=== PATIENT | female | born 1930 | race Caucasian/White ===

== ENCOUNTER 2016-02-23 12:44 | Outpatient (RCR) | payer MEDICARE ==
--- OUTSIDE RECORDS SUMMARY | 2016-01-31 10:48 | XMS REPORT | Continuity of Care Document ---
Author Author [facility] Organization [facility] Address Unknown Phone Unavailable Care Team Providers Care Management Supervisor Name Role Phone Jean Paul Garcia PCP Unavailable Source Comments Some departments are not documenting in the electronic medical record. If you do not see the information that you expected, contact Release of Information in the Health Information Management department at [phone] for further assistance in locating additional records.[facility] Active Allergies and Adverse Reactions Allergen Noted Date Severity Reactions Comments Codeine 12/11/2012 NAUSEA AND VOMITING Demerol 12/11/2012 NAUSEA AND VOMITING Current Medications Prescription Sig. Disp. Refills Start End Date Status Date esomeprazole DR(+) Take 40 mg by mouth twice Active (NEXIUM) 40 mg capsule daily. imatinib (GLEEVEC) 400 mg Take 400 mg by mouth Active tab daily with lunch. simvastatin (ZOCOR) 40 mg Take 40 mg by mouth at Active tablet bedtime daily. traZODone (DESYREL) 50 mg Take 50 mg by mouth at Active tablet bedtime daily. fish oil /omega-3 fatty Take 1 Cap by mouth Active acids (SEA-OMEGA) daily. 340/1000 mg capsule Vitamin C-Vitamin E Take by mouth. 4200 mg Active (CRANBERRY CONCENTRATE) every am cap folic acid 400 mcg tablet Take 400 mcg by mouth Active daily. other medication 1 Dose daily. Viactive Active levothyroxine (SYNTHROID) Take 88 mcg by mouth Active 88 mcg tablet daily. ALPRAZolam (XANAX) 0.25 Take 0.125 mg by mouth Active mg tablet daily. FLUoxetine (PROZAC) 20 mg Take 20 mg by mouth Active capsule daily. FLUoxetine (PROZAC) 10 mg Take 10 mg by mouth Active capsule daily. nitroglycerin (NITROSTAT) Place 0.4 mg under tongue Active 0.4 mg tablet every 5 minutes as needed. oxybutynin (DITROPAN) 5 Take 5 mg by mouth three Active mg tablet times daily. sucralfate(+) (CARAFATE) Take 1 g by mouth every 6 Active 100 mg/mL oral suspension hours. aspirin 81 mg chewable Take 81 mg by mouth Active tablet daily. polyethylene glycol 3350 Take 17 g by mouth daily. 3 Bottle 0 Active (GLYCOLAX; MIRALAX) 17 13 gram/dose powder lidocaine (LIDODERM) 5 % apply to painful area as 30 Patch 0 01/14/20 Active topical patch needed for 12 hours, then 13 remove. oxyCODone (ROXICODONE) 1 Take 5 mL by mouth every 1 Bottle 0 01/14/20 Active mg/mL oral solution 4 hours as needed 13 acetaminophen(+) 650 mg Take 1 Tab by mouth every 40 Tab 0 01/14/20 Active tablet [address] Take 40 mg by mouth Active (PROTONIX) 40 mg tablet daily. dronabinol (MARINOL) 2.5 Take 1 Cap by mouth at 30 Cap 3 05/01/19 Active mg capsule bedtime daily. 14 Active Problems Problem Noted Date Chest pain 12/31/2012 Hiatal hernia 12/31/2012 Hyperlipidemia 12/19/2012 CAD (coronary artery disease) 12/19/2012 Overview: 2008-2 stents in 1 vessel Elevated blood pressure 12/19/2012 CML (chronic myelocytic leukemia) (HCC) 12/19/2012 Overview: Gleevec since ~2008 Gastric cancer (HCC) 12/17/2012 Immunizations Name Dates Previously Given Next Due Pneumococcal Vaccine 01/12/2013 (23-Lia Adult) Social History Tobacco Use Types Packs/Day Years Used Date Never Smoker Smokeless Tobacco: Never Used Alcohol Use Drinks/Week oz/Week Comments No Last Filed Vital Signs Vital Sign Reading Time Taken Blood Pressure 154/58 04/30/2013 1:26 PM CDT Pulse 81 04/30/2013 1:26 PM CDT Temperature 36.7 C (98.1 F) 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
[2016-01-31 11:11] LABS: BASOPHILS % (AUTO) 0 % (0-10); EOSINOPHILS # (AUTO) 0.1 10^3/uL (0.0-0.3); EOSINOPHILS % (AUTO) 1 % (0-10); LYMPHOCYTES # (AUTO) 1.2 X 10^3 (1.0-4.0); LYMPHOCYTES % (AUTO) 17 % (12-44); MEAN CORPUSCULAR HEMOGLOBIN 33 PG (25-34); MEAN CORPUSCULAR HGB CONC 34 G/DL (32-36); MEAN CORPUSCULAR VOLUME 98 FL (80-99); MONOCYTES # (AUTO) 0.4 X 10^3 (0.0-1.0); MONOCYTES % (AUTO) 6 % (0-12); NEUTROPHILS # (AUTO) 5.4 X 10^3 (1.8-7.8); NEUTROPHILS % (AUTO) 76 % (42-75); PLATELET COUNT 305 10^3/uL (130-400); RED BLOOD COUNT 3.14 10^6/uL (4.35-5.85); RED CELL DISTRIBUTION WIDTH 13.6 % (10.0-14.5); RETICULOCYTE % 1.38 % (0.50-2.40); WHITE BLOOD COUNT 7.1 10^3/uL (4.3-11.0)
[2016-01-31 11:45] LABS: ALANINE AMINOTRANSFERASE 15 U/L (0-55); ALBUMIN 3.5 G/DL (3.2-4.5); ANION GAP 7 MMOL/L (5-14); ASPARTATE AMINO TRANSFERASE 30 U/L (5-34); BILIRUBIN,TOTAL 0.5 MG/DL (0.1-1.0); BLOOD UREA NITROGEN 8 MG/DL (7-18); BUN/CREATININE RATIO 10; CALCIUM 8.7 MG/DL (8.5-10.1); CARBON DIOXIDE 21 MMOL/L (21-32); CHLORIDE 108 MMOL/L (98-107); CREATININE SERUM 0.82 MG/DL (0.60-1.30); GFR ESTIMATED > 60; GLUCOSE 91 MG/DL (70-105); LACTATE DEHYDROGENASE 245 U/L (125-220); POTASSIUM 4.1 MMOL/L (3.6-5.0); SODIUM 136 MMOL/L (135-145); TOTAL PROTEIN 5.9 G/DL (6.4-8.2)
[2016-01-31 14:20] LABS: %SAT TOTAL IRON BINDING CAPIC 30 % (15-50); TIBC 230 ug/dL (280-380)
[2016-01-31 15:58] LABS: UIBC 162 ug/dL (55-450)
[2016-02-01 07:55] LABS: FERRITIN 104 ng/mL (15-150)
[2016-02-03 08:05] LABS: METHYLMALONIC ACID 0.16 umol/L (0.00-0.40)
[2016-02-07 09:54] LABS: BCR ABL GENE QT SEE FOOTNOTE
[~2016-02-23 12:44] MED LIST: AC325T PO; ALPR.25T PO; ALPR.5T PO; ALPR0.5T22; ASP81TEC PO; ASPI-84; ASPIRIN; ATEN25TA; CALC-656 PO; CALC-793; CEPH-38; CLOP75TA; COUMADIN; CRAN1TAB PO; FAMO20TA5 PO; FLUO10CA5; FLUO20CA25 PO; FLUO40CA; FLX10C PO; FOLI0.4T2; FOLI0.8T PO; GARL400T13; IMAT400T2; IPRA3AMP11 INH; LD5PT TOP; LEVO75TA57; LOPE2CAP29 PO; LVT.088T PO; MULT1TAB63 PO; NF-ESOM40C PO; NITR0.4T12 SL; NITR100C3 PO; NS10S IV; NTR.4SL SL; OMEP20CA6; OMG1KC; OMG1KC PO; OXB5T PO; OXYB5TAB9 PO; PNT40TEC PO; SCR1T PO; SIMV40TA2 PO; SIMV80TA3; STOOL SOFTENER; TRAM50TA2 PO; TRAZ50TA67 PO; TRM50T; WARF6TAB; WARF7.5T; WRF2.5T; WRF5T; [UNRECOGNIZED DRUG - OTHER]; [UNRECOGNIZED DRUG - REMARK] TP
== END 2016-04-30 | disposition home or self-care (01) ==
LOC: ONC 12:44
PROVIDERS: ATTEND Internal Medicine Hematology & Oncology
DX: C92.10 Chronic myeloid leukemia, BCR/ABL-positive, not having achieved remission (principal); C16.3 Malignant neoplasm of pyloric antrum; D53.9 Nutritional anemia, unspecified; R19.7 Diarrhea, unspecified; M81.0 Age-related osteoporosis without current pathological fracture; Z79.899 Other long term (current) drug therapy
CPT/HCPCS: 36415; 80053; 81206; 82378; 82728; 83540; 83615; 83921; 84443; 85025; 85045; 99213

== ENCOUNTER 2016-08-08 11:23 | Outpatient (RCR) | payer MEDICARE ==
[2016-05-24 13:53] LABS: BASOPHILS % (AUTO) 1 % (0-10); EOSINOPHILS # (AUTO) 0.2 10^3/uL (0.0-0.3); EOSINOPHILS % (AUTO) 4 % (0-10); LYMPHOCYTES # (AUTO) 1.5 X 10^3 (1.0-4.0); LYMPHOCYTES % (AUTO) 36 % (12-44); MEAN CORPUSCULAR HEMOGLOBIN 33 PG (25-34); MEAN CORPUSCULAR HGB CONC 34 G/DL (32-36); MEAN CORPUSCULAR VOLUME 98 FL (80-99); MEAN PLATELET VOLUME 10.1 FL (7.4-10.4); MONOCYTES # (AUTO) 0.3 X 10^3 (0.0-1.0); MONOCYTES % (AUTO) 7 % (0-12); NEUTROPHILS # (AUTO) 2.1 X 10^3 (1.8-7.8); NEUTROPHILS % (AUTO) 52 % (42-75); PLATELET COUNT 223 10^3/uL (130-400); RED BLOOD COUNT 3.12 10^6/uL (4.35-5.85); RED CELL DISTRIBUTION WIDTH 13.7 % (10.0-14.5); WHITE BLOOD COUNT 4.1 10^3/uL (4.3-11.0)
[2016-05-24 14:19] LABS: BILIRUBIN,TOTAL 0.4 MG/DL (0.1-1.0); CALCIUM 8.4 MG/DL (8.5-10.1); CREATININE SERUM 0.94 MG/DL (0.60-1.30); POTASSIUM 4.5 MMOL/L (3.6-5.0)
[2016-05-24 14:20] LABS: ALBUMIN 3.7 G/DL (3.2-4.5); TOTAL PROTEIN 6.4 G/DL (6.4-8.2)
[2016-05-31 08:28] LABS: BCR ABL GENE QT SEE FOOTNOTE
[~2016-08-08 11:23] MED LIST changes: +morphine INJ 10 MG/ML 1ML (SYR OR VIAL) ONE
[2016-08-08 11:46] LABS: KETONES,URINE 1+ (NEGATIVE); LEUKOCYTE ESTERASE ,URINE 3+ (NEGATIVE); NITRITE,URINE POSITIVE (NEGATIVE); PH,URINE 6 (5-9); PROTEIN,URINE 3+ (NEGATIVE); UROBILINOGEN,URINE 4 MG/DL (NORMAL)
[2016-08-08 12:02] LABS: BILIRUBIN,URINE 1+ (NEGATIVE); WBC,URINE 50-100 /HPF
== END 2016-08-22 | disposition home or self-care (01) ==
LOC: ONC 11:23
PROVIDERS: ATTEND Internal Medicine Hematology & Oncology
DX: C92.10 Chronic myeloid leukemia, BCR/ABL-positive, not having achieved remission (principal); C16.3 Malignant neoplasm of pyloric antrum; D53.9 Nutritional anemia, unspecified; E03.9 Hypothyroidism, unspecified; N39.0 Urinary tract infection, site not specified; N18.3 Chronic kidney disease, stage 3 (moderate); M81.0 Age-related osteoporosis without current pathological fracture; I08.3 Combined rheumatic disorders of mitral, aortic and tricuspid valves; I25.10 Atherosclerotic heart disease of native coronary artery without angina pectoris; R19.7 Diarrhea, unspecified; Z79.899 Other long term (current) drug therapy
CPT/HCPCS: 36415; 80053; 81000; 81206; 85025; 87088; 87186; 99213

== ENCOUNTER 2016-09-13 12:41 | Outpatient (RCR) | payer MEDICARE ==
[2016-08-30 14:03] LABS: BASOPHILS % (AUTO) 1 % (0-10); EOSINOPHILS # (AUTO) 0.2 10^3/uL (0.0-0.3); EOSINOPHILS % (AUTO) 5 % (0-10); LYMPHOCYTES # (AUTO) 1.3 X 10^3 (1.0-4.0); LYMPHOCYTES % (AUTO) 34 % (12-44); MEAN CORPUSCULAR HGB CONC 33 G/DL (32-36); MEAN CORPUSCULAR VOLUME 98 FL (80-99); MEAN PLATELET VOLUME 8.7 FL (7.4-10.4); MONOCYTES # (AUTO) 0.4 X 10^3 (0.0-1.0); MONOCYTES % (AUTO) 11 % (0-12); NEUTROPHILS # (AUTO) 1.9 X 10^3 (1.8-7.8); NEUTROPHILS % (AUTO) 49 % (42-75); PLATELET COUNT 232 10^3/uL (130-400); RED BLOOD COUNT 3.08 10^6/uL (4.35-5.85); WHITE BLOOD COUNT 3.9 10^3/uL (4.3-11.0)
[2016-08-30 14:05] LABS: MEAN CORPUSCULAR HEMOGLOBIN 32 PG (25-34)
[2016-08-30 14:36] LABS: ALANINE AMINOTRANSFERASE 20 U/L (0-55); ALBUMIN 3.5 GM/DL (3.2-4.5); ANION GAP 7 MMOL/L (5-14); ASPARTATE AMINO TRANSFERASE 32 U/L (5-34); BILIRUBIN,TOTAL 0.3 MG/DL (0.1-1.0); BLOOD UREA NITROGEN 9 MG/DL (7-18); BUN/CREATININE RATIO 10; CALCIUM 8.6 MG/DL (8.5-10.1); CARBON DIOXIDE 26 MMOL/L (21-32); CHLORIDE 101 MMOL/L (98-107); CREATININE SERUM 0.88 MG/DL (0.60-1.30); GFR ESTIMATED > 60; GLUCOSE 94 MG/DL (70-105); LACTATE DEHYDROGENASE 185 U/L (125-220); POTASSIUM 4.5 MMOL/L (3.6-5.0); SODIUM 134 MMOL/L (135-145); TOTAL PROTEIN 6.4 GM/DL (6.4-8.2)
[2016-09-07 06:44] LABS: BCR ABL GENE QT See Report
[~2016-09-13 12:41] MED LIST changes: -morphine INJ 10 MG/ML 1ML (SYR OR VIAL) ONE
[2016-09-13 14:33] LABS: BILIRUBIN,URINE NEGATIVE (NEGATIVE); KETONES,URINE 2+ (NEGATIVE); LEUKOCYTE ESTERASE ,URINE 3+ (NEGATIVE); NITRITE,URINE NEGATIVE (NEGATIVE); PH,URINE 7 (5-9); PROTEIN,URINE 1+ (NEGATIVE); UROBILINOGEN,URINE 1 MG/DL (NORMAL)
[2016-09-13 14:37] LABS: WBC,URINE 50-100 /HPF
== END 2016-11-18 | disposition home or self-care (01) ==
LOC: ONC 12:41
PROVIDERS: ATTEND Internal Medicine Hematology & Oncology
DX: C92.10 Chronic myeloid leukemia, BCR/ABL-positive, not having achieved remission (principal); C16.3 Malignant neoplasm of pyloric antrum; D53.9 Nutritional anemia, unspecified; R19.7 Diarrhea, unspecified; M81.0 Age-related osteoporosis without current pathological fracture; Z79.899 Other long term (current) drug therapy
CPT/HCPCS: 36415; 80053; 81000; 81206; 82378; 83615; 85025; 87077; 87088; 87186; 99213

== ENCOUNTER → 2016-09-19 | Outpatient (CLI) | payer MEDICARE ==
[~2016-09-19] MED LIST changes: +BARIUM SUSPENSION 2.1% (VANILLA SILQ) 450 ML PO ONE; +IOHEXOL 350 MG/ML 100 ML (OMNIPAQUE 350) VIAL IV ONE; +NS 100 ML (IVPB) BAG IV ONE
--- NOTE | 2016-09-19 16:34 | Diagnostic Imaging Report ---
PROCEDURE: CT chest and abdomen with contrast. TECHNIQUE: Multiple contiguous axial images were obtained through the chest and abdomen after the administration of intravenous contrast. INDICATION: History of gastric cancer and chronic myeloid leukemia. Surveillance imaging. COMPARISON: CT abdomen and pelvis of 08/25/2015. CT CHEST FINDINGS: No endoluminal lesion in the trachea or central bronchi. No pulmonary mass or consolidation. Unchanged biapical subpleural scarring. No suspicious pulmonary nodule. No pleural effusion or pneumothorax. Visualized thyroid is normal. No supraclavicular or axillary lymphadenopathy. No mediastinal, hilar or juxtaphrenic lymphadenopathy. Unchanged mild circumferential wall thickening of the distal esophagus. Stable borderline cardiomegaly without pericardial effusion. Normal-caliber thoracic aorta with moderate atherosclerotic plaquing. No concerning focal osseous lesions in the thorax to suggest skeletal metastasis. IMPRESSION: 1. Stable CT chest without evidence of metastatic disease. 2. Chronic circumferential wall thickening of the distal esophagus is unchanged. 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 No upper abdominal lymphadenopathy. The liver and spleen are normal. Status post cholecystectomy. No biliary duct dilatation. Pancreas is normal. No adrenal mass. Stable exophytic cyst in the lower pole of the right kidney. No suspicious renal mass on either side. No obstructive uropathy. Visualized bowel loops are normal in caliber without obstruction. IMPRESSION: 1. 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 No evidence of local recurrence or metastatic disease in the abdomen. Dictated by: Dictated on workstation # [id number]
== END ==
LOC: RAD 13:26
PROVIDERS: ATTEND Nurse Practitioner Adult Health
DX: Z98.0 Intestinal bypass and anastomosis status (principal); N28.1 Cyst of kidney, acquired; C92.10 Chronic myeloid leukemia, BCR/ABL-positive, not having achieved remission; Z90.49 Acquired absence of other specified parts of digestive tract; Z85.028 Personal history of other malignant neoplasm of stomach
CPT/HCPCS: 71260; 74160

== ENCOUNTER 2016-09-21 05:48 | Outpatient (CLI) | payer MEDICARE ==
[~2016-09-21] VITALS: Ht 157.5 cm; Wt 49.4 kg
[~2016-09-21 05:48] MED LIST changes: -BARIUM SUSPENSION 2.1% (VANILLA SILQ) 450 ML PO ONE; -IOHEXOL 350 MG/ML 100 ML (OMNIPAQUE 350) VIAL IV ONE; -NS 100 ML (IVPB) BAG IV ONE
== END 2016-09-21 11:12 ==
LOC: PREOP 05:48
PROVIDERS: ATTEND Surgery
DX: Z01.818 Encounter for other preprocedural examination (principal); Z85.028 Personal history of other malignant neoplasm of stomach

== ENCOUNTER 2016-12-05 13:26 | Outpatient (RCR) | payer MEDICARE ==
[2016-11-21 13:20] LABS: BASOPHILS % (AUTO) 1 % (0-10); EOSINOPHILS # (AUTO) 0.2 10^3/uL (0.0-0.3); EOSINOPHILS % (AUTO) 4 % (0-10); HEMATOCRIT 28 % (35-52); HEMOGLOBIN 9.3 G/DL (11.5-16.0); LYMPHOCYTES # (AUTO) 1.1 X 10^3 (1.0-4.0); LYMPHOCYTES % (AUTO) 27 % (12-44); MEAN CORPUSCULAR HEMOGLOBIN 33 PG (25-34); MEAN CORPUSCULAR HGB CONC 34 G/DL (32-36); MEAN CORPUSCULAR VOLUME 97 FL (80-99); MEAN PLATELET VOLUME 9.7 FL (7.4-10.4); MONOCYTES # (AUTO) 0.4 X 10^3 (0.0-1.0); MONOCYTES % (AUTO) 9 % (0-12); NEUTROPHILS # (AUTO) 2.4 X 10^3 (1.8-7.8); NEUTROPHILS % (AUTO) 59 % (42-75); PLATELET COUNT 210 10^3/uL (130-400); RED BLOOD COUNT 2.83 10^6/uL (4.35-5.85); RED CELL DISTRIBUTION WIDTH 14.1 % (10.0-14.5); WHITE BLOOD COUNT 4.1 10^3/uL (4.3-11.0)
[2016-11-21 13:40] LABS: ALBUMIN 3.5 GM/DL (3.2-4.5); BILIRUBIN,TOTAL 0.3 MG/DL (0.1-1.0); CALCIUM 8.4 MG/DL (8.5-10.1); CREATININE SERUM 1.09 MG/DL (0.60-1.30); POTASSIUM 4.4 MMOL/L (3.6-5.0); TOTAL PROTEIN 6.6 GM/DL (6.4-8.2)
[2016-12-05 14:50] LABS: ABSOLUTE RETIC # 36 10e9/L (24-90); BASOPHILS % (AUTO) 0 % (0-10); EOSINOPHILS # (AUTO) 0.2 10^3/uL (0.0-0.3); EOSINOPHILS % (AUTO) 4 % (0-10); HEMATOCRIT 30 % (35-52); LYMPHOCYTES # (AUTO) 1.7 X 10^3 (1.0-4.0); LYMPHOCYTES % (AUTO) 34 % (12-44); MEAN CORPUSCULAR HEMOGLOBIN 32 PG (25-34); MEAN CORPUSCULAR HGB CONC 33 G/DL (32-36); MEAN CORPUSCULAR VOLUME 97 FL (80-99); MEAN PLATELET VOLUME 10.2 FL (7.4-10.4); MONOCYTES # (AUTO) 0.5 X 10^3 (0.0-1.0); MONOCYTES % (AUTO) 10 % (0-12); NEUTROPHILS # (AUTO) 2.5 X 10^3 (1.8-7.8); NEUTROPHILS % (AUTO) 52 % (42-75); PLATELET COUNT 227 10^3/uL (130-400); RED BLOOD COUNT 3.13 10^6/uL (4.35-5.85); RETICULOCYTE % 1.16 % (0.50-2.40); WHITE BLOOD COUNT 4.9 10^3/uL (4.3-11.0)
[2016-12-05 15:08] LABS: CALCIUM 8.9 MG/DL (8.5-10.1); CREATININE SERUM 1.08 MG/DL (0.60-1.30); POTASSIUM 4.2 MMOL/L (3.6-5.0)
== END 2017-02-19 | disposition home or self-care (01) ==
LOC: ONC 13:26
PROVIDERS: ATTEND Internal Medicine Hematology & Oncology
DX: C92.10 Chronic myeloid leukemia, BCR/ABL-positive, not having achieved remission (principal); C16.3 Malignant neoplasm of pyloric antrum; D53.9 Nutritional anemia, unspecified; R19.7 Diarrhea, unspecified; M81.0 Age-related osteoporosis without current pathological fracture; E03.9 Hypothyroidism, unspecified; N18.3 Chronic kidney disease, stage 3 (moderate); I08.3 Combined rheumatic disorders of mitral, aortic and tricuspid valves; I25.10 Atherosclerotic heart disease of native coronary artery without angina pectoris; Z79.899 Other long term (current) drug therapy
CPT/HCPCS: 80048; 80053; 81206; 82306; 82378; 82728; 83540; 83615; 85025; 85045; 99213

== ENCOUNTER 2017-11-14 11:31 | Emergency (ER) | payer MEDICARE ==
[~2017-11-14] VITALS: Ht 157.5 cm; Wt 46.7 kg
--- OUTSIDE RECORDS SUMMARY | 2017-11-14 11:37 | XMS REPORT | Clinical Summary ---
Author Author [facility] Organization [facility] Address Unknown Phone Unavailable Care Team Providers Care Freight Rate Specialist Name Role Phone Beba Jacinto RN Unavailable Unavailable Nora Hope APRN Unavailable Nomi Bourgeois MD Unavailable Jean Paul Garcia MD PCP Unavailable Candido Diaz MD Unavailable Dominique Guardado RN Unavailable Unavailable Shawanda Alcaraz RD Unavailable Joseph Grijalva MD Unavailable Viola Rosario Unavailable Unavailable Source Comments Some departments are not documenting in the electronic medical record. If you do not see the information that you expected, contact Release of Information in the Health Information Management department at [phone] for further assistance in locating additional records.[facility] Allergies Active Allergy Reactions Severity Noted Date Comments Codeine NAUSEA AND VOMITING 12/11/2012 Meperidine NAUSEA AND VOMITING 12/11/2012 Current Medications Prescription Sig. Disp. Refills Start [...] g by mouth daily. 3 Bottle 0 01/13/ 20 Active (GLYCOLAX; MIRALAX) 17 13 gram/dose powder lidocaine (LIDODERM) 5 % apply to painful area as 30 Patch 0 01/14/20 Active topical patch needed for 12 hours, then 13 remove. oxyCODone (ROXICODONE) 1 Take 5 mL by mouth every 1 Bottle 0 20 Active mg/mL oral solution 4 hours as needed 13 acetaminophen(+) 650 mg Take 1 Tab by mouth every 40 Tab 0 20 Active tablet [address] Take 40 mg by mouth Active (PROTONIX) 40 mg tablet daily. dronabinol (MARINOL) 2.5 Take 1 Cap by mouth at 30 Cap 3 05/01/19 Active mg capsule bedtime daily. 14 Active Problems Problem Noted Date Chest pain 12/31/2012 Hiatal hernia 12/31/2012 Hyperlipidemia 12/19/2012 CAD (coronary artery disease) 12/19/2012 Overview: 2009-2 stents in 1 vessel Elevated blood pressure 12/19/2012 CML (chronic myelocytic leukemia) (HCC) 12/19/2012 Overview: Gleevec since ~2008 Gastric cancer (HCC) 12/17/2012 Immunizations Name Dates Previously Given Next Due Pneumococcal Vaccine 01/12/2013 (23-Lia Adult) Social History Tobacco Use Types Packs/Day Years Used Date Never Smoker Smokeless Tobacco: Never Used Alcohol Use Drinks/Week oz/Week Comments No Sex Assigned at Date Recorded Not on file Last Filed Vital Signs Vital Sign Reading Time Taken Blood Pressure 154/58 04/30/2013 1:26 PM CDT Pulse 81 04/30/2013 1:26 PM CDT Temperature 36.7 C (98.1 F) 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 Respiratory Rate - - Oxygen Saturation 100% 04/30/2013 1:26 PM CDT Inhaled Oxygen - - Concentration Weight 58 kg (127 lb 12.8 oz) 05/02/2013 2:00 PM CDT Height 158.5 cm (5' 2.4") 05/02/2013 2:00 PM CDT Body Mass Index 23.07 05/02/2013 2:00 PM CDT Plan of Treatment Health Maintenance Due Date Last Done Comments PHYSICAL (COMPREHENSIVE) 1937 EXAM PERTUSSIS VACCINE 1941 TETANUS VACCINE 11/08/1947 SHINGLES RECOMBINANT 1980 VACCINE (1 of 2) OSTEOPOROSIS SCREENING 11/08/1995 PNEUMONIA (PCV13/PPSV23) 01/12/2014 01/12/2013 VACCINES (2 of 2 - PCV13) INFLUENZA VACCINE 11/19/2017 Results Not on filefrom Last 3 Months
--- OUTSIDE RECORDS SUMMARY | 2017-11-14 11:43 | XMS REPORT | Continuity of Care Document ---
Author Author [facility] Organization [facility] Address Unknown Phone Unavailable Allergies Active Description Code Type Severity Reaction Onset Reported/Identified Relationship to Patient Clinical Status Yes propoxyphene [id number] Drug Allergy Mild N/A 09/21/2016 Yes codeine [id number] Drug Allergy Unknown N/A 09/21/2016 Yes meperidine [id number] Drug Allergy Unknown N/A 09/21/2016 Medications There is no data. 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 03/22/2010 Ot 205.10 CHRONIC MYELOID LEUKEMIA, W/O MENTION AC 03/22/2010 Ot 427.31 ATRIAL FIBRILLATION 03/22/2010 Ot 733.00 OSTEOPOROSIS NOS 03/22/2010 Ot V58.61 ANTICOAGULANTS,LT,CURRENT USE 07/03/2010 Ot 205.10 CHRONIC MYELOID LEUKEMIA, W/O MENTION AC 07/03/2010 Ot 427.31 ATRIAL FIBRILLATION 07/03/2010 Ot 733.00 OSTEOPOROSIS NOS 07/03/2010 Ot V58.61 ANTICOAGULANTS,LT,CURRENT USE 07/03/2010 Ot V58.69 OTH MED,LT, CURRENT USE 10/31/2010 Ot 205.10 CHRONIC MYELOID LEUKEMIA, W/O MENTION AC 10/31/2010 Ot 427.31 ATRIAL FIBRILLATION 10/31/2010 Ot 564.1 IRRITABLE BOWEL SYNDROME 10/31/2010 Ot 733.00 OSTEOPOROSIS NOS 10/31/2010 Ot 780.79 OTH MALAISE FATIGUE 10/31/2010 Ot 786.09 RESPIRATORY ABNORM NEC 10/31/2010 Ot 787.1 HEARTBURN 10/31/2010 Ot 788.41 URINARY FREQUENCY 10/31/2010 Ot V58.69 OTH MED,LT, CURRENT USE 04/05/2011 Ot 205.10 CHRONIC MYELOID LEUKEMIA, W/O MENTION AC 04/05/2011 Ot 427.31 ATRIAL FIBRILLATION 04/05/2011 Ot 564.1 IRRITABLE BOWEL SYNDROME 04/05/2011 Ot 733.00 OSTEOPOROSIS NOS 04/05/2011 Ot 780.79 OTH MALAISE FATIGUE 04/05/2011 Ot 786.09 RESPIRATORY ABNORM NEC 04/05/2011 Ot 787.1 HEARTBURN 04/05/2011 Ot V58.69 OTH MED,LT, CURRENT USE 07/03/2011 Ot 205.10 CHRONIC MYELOID LEUKEMIA, W/O MENTION AC 07/03/2011 Ot 285.9 ANEMIA NOS 07/03/2011 Ot 427.31 ATRIAL FIBRILLATION 07/03/2011 Ot 564.1 IRRITABLE BOWEL SYNDROME 07/03/2011 Ot 599.0 URIN TRACT INFECTION NOS 07/03/2011 Ot 733.00 OSTEOPOROSIS NOS 07/03/2011 Ot 780.79 OTH MALAISE FATIGUE 07/03/2011 Ot 786.09 RESPIRATORY ABNORM NEC 07/03/2011 Ot 787.1 HEARTBURN 07/03/2011 Ot V58.69 OTH MED,LT, CURRENT USE 10/02/2011 Ot 205.10 CHRONIC MYELOID LEUKEMIA, W/O MENTION AC 10/02/2011 Ot 427.31 ATRIAL FIBRILLATION 10/02/2011 Ot 599.0 URIN TRACT INFECTION NOS 10/02/2011 Ot 733.00 OSTEOPOROSIS NOS 10/02/2011 Ot V58.69 OTH MED,LT, CURRENT USE 01/03/2012 Ot 205.10 CHRONIC MYELOID LEUKEMIA, W/O MENTION AC 01/03/2012 Ot 427.31 ATRIAL FIBRILLATION 01/03/2012 Ot 585.3 CHRONIC KIDNEY DISEASE, STAGE III (MODER 01/03/2012 Ot 733.00 OSTEOPOROSIS NOS 01/03/2012 Ot V13.02 PERSONAL HISTORY, URINARY (TRACT) INFECT 01/03/2012 Ot V58.69 OTH MED,LT, CURRENT USE 07/24/2012 Ot 205.10 CHRONIC MYELOID LEUKEMIA, W/O MENTION AC 07/24/2012 Ot 427.31 ATRIAL FIBRILLATION 07/24/2012 Ot 733.00 OSTEOPOROSIS NOS 07/24/2012 Ot V58.69 OTH MED,LT, CURRENT USE 11/11/2012 VELVET FAUST, JULISSA Correia Ot 244.9 HYPOTHYROIDISM NOS 11/11/2012 JULISSA VERDIN MD Ot 272.4 HYPERLIPIDEMIA NEC/NOS 11/11/2012 JULISSA VERDIN MD Ot 414.00 CORON ATHEROSCLER NOS TYPE VESSEL, NATIV 11/11/2012 JULISSA VERDIN MD Ot 530.81 ESOPHAGEAL REFLUX 11/11/2012 JULISSA VERDIN MD Ot 553.3 DIAPHRAGMATIC HERNIA 11/11/2012 JULISSA VERDIN MD Ot V45.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 BYPASS 02/10/2013 TANNER FAUST, GIORGI E Ot 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.9 MALIG NEOPL STOMACH NOS 02/10/2013 TANNER FAUST, GIORGI E Ot 205.10 CHRONIC MYELOID LEUKEMIA, W/O MENTION AC 02/10/2013 TANNER FAUST, GIORGI E Ot 244.9 HYPOTHYROIDISM NOS 02/10/2013 TANNER FAUST, GIORGI E Ot 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 02/10/2013 GIORGI HART MD E Ot 272.4 HYPERLIPIDEMIA NEC/NOS 02/10/2013 TANNER FAUST, GIORGI E Ot 285.9 ANEMIA NOS 02/10/2013 TANNER FAUST, GIORGI E Ot 311 DEPRESSIVE DISORDER NEC 02/10/2013 TANNER FAUST, GIORGI E Ot 414.01 CORONARY ATHEROSCLEROSIS OF [place] CORON 02/10/2013 TANNER FAUST, GIORGI E Ot 511.9 PLEURAL EFFUSION NOS 02/10/2013 TANNER FAUST GIORGI E Ot 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 02/10/2013 TANNER FAUST GIORGI E Ot 518.51 ACUTE RESPIRATORY FAILURE FOLLOWING TRAU 02/10/2013 TANNER FAUST, GIORGI E Ot 518.89 OTHER DISEASES OF LUNG, NEC 02/10/2013 TANNER FAUST, GIORGI E Ot 560.1 PARALYTIC ILEUS 02/10/2013 TANNER FAUST GIORGI E Ot 564.1 IRRITABLE BOWEL SYNDROME 02/10/2013 TANENR FAUST GIORGI E Ot 599.0 URIN TRACT INFECTION NOS 02/10/2013 TANNER FAUST GIORGI E Ot 799.3 DEBILITY NOS 02/10/2013 GIORGI HART MD Ot V12.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 THROMBOSIS EMBOLISM 02/10/2013 GIORGI HART MD Ot V12.54 PERSONAL HX OF TIA, CEREBRAL INFARCTION 02/10/2013 GIORGI HART MD Ot V45.82 PERCUTANEOUS TRANSLUM CORON ANGIOPLASTY 02/10/2013 GIORGI HART MD Ot V57.89 REHABILITATION PROC [facility] 02/10/2013 GIORGI HART MD Ot V58.75 AFTERCARE POST SURGERY TEETH,ORAL CAVITY 02/26/2013 CLARISA BOBAN N Ot 205.10 CHRONIC MYELOID LEUKEMIA, W/O MENTION AC 02/26/2013 CLARISA, BOBAN N Ot 427.31 ATRIAL FIBRILLATION 02/26/2013 CLARISA, BOBAN N Ot 733.00 OSTEOPOROSIS NOS 02/26/2013 CLARISA, BOBAN N Ot V58.69 OTH MED,LT,CURRENT USE 07/06/2013 CLARISA, BOBAN N Ot 205.10 CHRONIC MYELOID LEUKEMIA, W/O MENTION AC 07/06/2013 CLARISA, BOBAN N Ot 427.31 ATRIAL FIBRILLATION 07/06/2013 CLARISA, BOBAN N Ot 733.00 OSTEOPOROSIS NOS 07/06/2013 CLARISA, BOBAN N Ot 787.91 DIARRHEA 07/06/2013 CLARISA, BOBAN N Ot V58.69 OTH MED,LT,CURRENT USE 10/07/2013 CLARISA, BOBAN N Ot 205.10 CHRONIC MYELOID LEUKEMIA, W/O MENTION AC 10/07/2013 CLARISA, BOBAN N Ot 427.31 ATRIAL FIBRILLATION 10/07/2013 CLARISA, BOBAN N Ot 733.00 OSTEOPOROSIS NOS 10/07/2013 CLARISA, BOBAN N Ot V58.69 OTH MED,LT,CURRENT USE 01/22/2014 CLARISA, BOBAN N Ot 205.10 CHRONIC MYELOID LEUKEMIA, W/O MENTION AC 01/22/2014 CLARISA, BOBAN N Ot 427.31 ATRIAL FIBRILLATION 01/22/2014 CLARISA, BOBAN N Ot 733.00 OSTEOPOROSIS NOS 01/22/2014 CLARISA, BOBAN N Ot V58.69 OTH MED,LT,CURRENT USE 01/29/2014 CLARISA, BOBAN N Ot 205.10 01/29/2014 CLARISA, BOBAN N Ot 427.31 01/29/2014 CLARISA, BOBAN N Ot 733.00 01/29/2014 CLARISA, BOBAN N Ot V58.69 02/05/2014 CLARISA, BOBAN N Ot 205.10 02/05/2014 CLARISA, BOBAN N Ot 427.31 02/05/2014 CLARISA, BOBAN N Ot 733.00 02/05/2014 CLARISA, BOBAN N Ot V58.69 02/06/2014 CLARISA, BOBAN N Ot 205.10 02/06/2014 CLARISA, BOBAN N Ot 427.31 02/06/2014 CLARISA, BOBAN N Ot 733.00 02/06/2014 CLARISA, BOBAN N Ot V58.69 03/19/2014 CLARISA, BOBAN N Ot 205.10 03/19/2014 CLARISA, BOBAN N Ot 427.31 03/19/2014 CLARISA, BOBAN N Ot 733.00 03/19/2014 CLARISA, BOBAN N Ot V58.69 03/20/2014 CLARISA, BOBAN N Ot 205.10 03/20/2014 CLARISA, BOBAN N Ot 427.31 03/20/2014 CLARISA, BOBAN N Ot 733.00 03/20/2014 CLARISA, BOBAN N Ot V58.69 03/26/2014 CLARISA, BOBAN N Ot 205.90 03/30/2014 CLARISA, BOBAN N Ot 205.90 05/06/2014 CLARISA, BOBAN N Ot 205.10 CHRONIC MYELOID LEUKEMIA, W/O MENTION AC 05/06/2014 CLARISA, BOBAN N Ot 427.31 ATRIAL FIBRILLATION 05/06/2014 CLARISA, BOBAN N Ot 733.00 OSTEOPOROSIS NOS 05/06/2014 CLARISA BOBAN N Ot V58.69 OT MED,LT,CURRENT USE 05/14/2014 DIXON BEGUM BRIM BUSTER Ot 205.10 05/14/2014 DIXON BEGUM BRIM BUSTER Ot 427.31 05/14/2014 DIXON BEGUM BRIM BUSTER Ot 733.00 05/14/2014 DIXON BEGUM BRIM BUSTER Ot V58.69 05/18/2014 VELVET FAUST, JULISSA Correia Ot 530.10 ESOPHAGITIS NOS 05/18/2014 VELVET FAUST, JULISSA Correia Ot 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 05/27/2014 CORRINE MCKENNA N Ot 205.10 05/27/2014 CLARISA, CORRINE N Ot 427.31 05/27/2014 CLARISA, CORRINE N Ot 733.00 05/27/2014 CLARISA, CORRINE N Ot V58.69 05/27/2014 CLARISA, CORRINE N Ot 205.10 05/27/2014 CLARISA, CORRINE N Ot 427.31 05/27/2014 CLARISA, CORRINE N Ot 733.00 05/27/2014 CLARISA, CORRINE N Ot V58.69 05/28/2014 CLARISA, CORRINE N Ot 205.10 05/28/2014 CLARISA, CORRINE N Ot 427.31 05/28/2014 CLARISA, CORRINE N Ot 733.00 05/28/2014 CLARISA, CORRINE N Ot V58.69 06/03/2014 CLARISA, CORRINE N Ot 205.10 06/03/2014 CLARISA, CORRINE N Ot 427.31 06/03/2014 CLARISA, CORRINE Burnett Ot 733.00 06/03/2014 CLARISA, CORRINE Burnett Ot V58.69 06/11/2014 ROD COVINGTON Ot 844.9 SPRAIN OF KNEE LEG NOS 06/11/2014 ROD COVINGTON Ot 845.00 SPRAIN OF ANKLE NOS 06/11/2014 ROD COVINGTON Ot 959.7 LOWER LEG INJURY NOS 06/11/2014 ROD COVINGTON Ot E000.8 OTHER EXTERNAL CAUSE STATUS 06/11/2014 ROD COVINGTON Ot E849.6 ACCIDENT IN PUBLIC BLDG 06/11/2014 ROD COVINGTON Ot E927.0 OVEREXERTION FROM SUDDEN STRENUOUS MOVEM 07/20/2014 CORRINE MCKENNA N Ot 205.10 07/20/2014 CLARISA, CORRINE N Ot 427.31 07/20/2014 CLARISA, CORRINE N Ot 733.00 07/20/2014 CLARISA, CORRINE N Ot V58.69 08/04/2014 CLARISA, CORRINE N Ot 205.10 08/04/2014 CLARISA, CORRINE N Ot 427.31 08/04/2014 CLARISA, CORRINE N Ot 733.00 08/04/2014 CLARISA, CORRINE N Ot V58.69 08/25/2014 CLARISA, BOBAN N Ot 205.10 CHRONIC MYELOID LEUKEMIA, W/O MENTION AC 08/25/2014 CLARISA, BOBAN N Ot 427.31 ATRIAL FIBRILLATION 08/25/2014 CLARISA, BOBAN N Ot 733.00 OSTEOPOROSIS NOS 08/25/2014 CLARISA, BOBAN N Ot 787.1 HEARTBURN 08/25/2014 CLARISA, BOBAN N Ot 787.91 DIARRHEA 08/25/2014 CLARISACORRINE N Ot 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 08/25/2014 CLARISA, BOBAN N Ot V58.69 OTH MED,LT,CURRENT USE 08/26/2014 CLARISA, BOBAN N Ot 151.9 08/27/2014 CLARISA, BOBAN N Ot 151.9 10/14/2014 CLARISA, BOBAN N Ot 205.10 10/14/2014 CLARISA, BOBAN N Ot 427.31 10/14/2014 CLARISA, BOBAN N Ot 733.00 10/14/2014 CLARISA, BOBAN N Ot 791.9 10/14/2014 CLARISA, BOBAN N Ot V58.69 11/10/2014 CLARISA, BOBAN N Ot 205.10 11/10/2014 CLARISA, BOBAN N Ot 427.31 11/10/2014 CLARISA, BOBAN N Ot 733.00 11/10/2014 CLARISA, BOBAN N Ot 791.9 11/10/2014 CLARISA, BOBAN N Ot V58.69 11/18/2014 CLARISA, BOBAN N Ot 205.10 CHRONIC MYELOID LEUKEMIA, W/O MENTION AC 11/18/2014 CLARISA, BOBAN N Ot 427.31 ATRIAL FIBRILLATION 11/18/2014 CLARISA, BOBAN N Ot 733.00 OSTEOPOROSIS NOS 11/18/2014 CLARISA, BOBAN N Ot 791.9 ABN URINE FINDINGS NEC 11/18/2014 CLARISA, BOBAN N Ot V58.69 OTH MED,LT,CURRENT USE 12/02/2014 DIXON BEGUM BRIM BUSTER Ot 205.10 12/02/2014 DIXON BEGUM BRIM BUSTER Ot 427.31 12/02/2014 DIXON BEGUM BRIM BUSTER Ot 733.00 12/02/2014 DIXON BEGUM BRIM BUSTER Ot V58.69 12/14/2014 DIXON BEGUM BRIM BUSTER Ot 205.10 12/14/2014 DIXON BEGUM BRIM BUSTER Ot 427.31 12/14/2014 DIXON BEGUM S BRIM BUSTER Ot 733.00 12/14/2014 DIXON BEGUM BRIM BUSTER Ot V58.69 02/04/2015 CORRINE MCKENNA N Ot 205.10 02/04/2015 CORRINE MCKENNA N Ot 427.31 02/04/2015 CORRINE MCKENNA N Ot 733.00 02/04/2015 CLARISACORRINE CALDERON N Ot 791.9 02/04/2015 CORRINE MCKENNA N Ot V58.69 03/17/2015 CORRINE MCKENNA N Ot C16.3 03/17/2015 CORRINE MCKENNA N Ot C92.10 03/17/2015 CORRINE MCKENNA N Ot D53.9 03/17/2015 CORRINE MCKENNA N Ot M81.0 03/17/2015 CORRINE MCKENNA N Ot R19.7 03/17/2015 CORRINE MCKENNA N Ot Z79.899 03/18/2015 DIXON BEGUM BRIM BUSTER Ot C16.3 03/18/2015 BEGUMDIXON Valdez S BRIM BUSTER Ot C92.10 03/18/2015 BEGUMDIXON Valdez S BRIM BUSTER Ot D53.9 03/18/2015 BEGUMDIXON Valdez S BRIM BUSTER Ot M81.0 03/18/2015 BEGUMDIXON Valdez S BRIM BUSTER Ot R19.7 03/18/2015 BEGUMDIXON Valdez S BRIM BUSTER Ot Z79.899 03/19/2015 BEGUMDIXON Valdez S BRIM BUSTER Ot C16.3 03/19/2015 BEGUMDIXON Valdez S BRIM BUSTER Ot C92.10 03/19/2015 BEGUMDIXON Valdez S BRIM BUSTER Ot D53.9 03/19/2015 BEGUMDIXON Valdez S BRIM BUSTER Ot M81.0 03/19/2015 BEGUMDIXON Valdez S BRIM BUSTER Ot R19.7 03/19/2015 BEGUMDIXON Valdez S BRIM BUSTER Ot Z79.899 05/04/2015 CORRINE MCKENNA N Ot 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 05/04/2015 CORRINE MCKENNA N Ot 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 MYELOID LEUK, BCR/ABL-POSITIVE, 05/04/2015 CORRINE MCKENNA Ot D53.9 NUTRITIONAL ANEMIA, UNSPECIFIED 05/04/2015 CORRINE MCKENNA N Ot M81.0 AGE-RELATED OSTEOPOROSIS W/O CURRENT PAT 05/04/2015 CORRINE MCKENNA Ot R19.7 DIARRHEA, UNSPECIFIED 05/04/2015 CORRINE MCKENNA N Ot Z79.899 OTHER [facility] (CURRENT) DRUG THERAPY 05/10/2015 CORRINE MCKENNA N Ot C16.3 05/10/2015 CLARISACORRINE CALDERON N Ot C92.10 05/10/2015 CLARISACORRINE CALDERON N Ot D53.9 05/10/2015 CLARISACORRINE CALDERON N Ot M81.0 05/10/2015 CLARISACORRINE CALDERON N Ot R19.7 05/10/2015 CORRINE MCKENNA N Ot Z79.899 05/18/2015 CORRINE MCKENNA N Ot C16.3 05/18/2015 CLARISACORRINE CALDERON N Ot C92.10 05/18/2015 CORRINE MCKENNA N Ot D53.9 05/18/2015 CORRINE MCKENNA N Ot M81.0 05/18/2015 CORRINE MCKENNA N Ot R19.7 05/18/2015 CORRINE MCKENNA N Ot Z79.899 06/07/2015 Ot V76.12 OTH SCREEN MAMMO-MALIGN NEOPLASM OF [place]KITA 06/07/2015 Ot 205.10 CHRONIC MYELOID LEUKEMIA, W/O MENTION AC 06/07/2015 Ot 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 06/07/2015 Ot 397.0 TRICUSPID VALVE DISEASE 06/07/2015 Ot 414.00 CORON ATHEROSCLER NOS TYPE VESSEL, NATIV 06/07/2015 Ot V87.41 PERSONAL HISTORY OF ANTINEOPLASTIC CHEMO 06/07/2015 Ot 733.00 OSTEOPOROSIS NOS 06/07/2015 Ot 733.90 BONE CARTILAGE DIS NOS 06/07/2015 Ot V76.12 OTH SCREEN MAMMO-MALIGN NEOPLASM OF [place] 06/07/2015 Ot 414.00 CORON ATHEROSCLER NOS TYPE VESSEL, NATIV 06/07/2015 Ot 786.09 RESPIRATORY ABNORM NEC 06/07/2015 Ot 599.0 URIN TRACT INFECTION NOS 06/07/2015 Ot 205.10 CHRONIC MYELOID LEUKEMIA, W/O MENTION AC 06/07/2015 Ot 585.3 CHRONIC KIDNEY DISEASE, STAGE III (MODER 06/07/2015 Ot 733.00 OSTEOPOROSIS NOS 06/07/2015 Ot V13.02 PERSONAL HISTORY, URINARY (TRACT) INFECT 06/07/2015 Ot V58.69 OTH MED,LT, CURRENT USE 06/07/2015 WILIAM JOSHUA DO Ot V76.12 OTH SCREEN MAMMO-MALIGN NEOPLASM OF [place] 06/07/2015 DIXON BEGUM BRIM BUSTER Ot 205.10 CHRONIC MYELOID LEUKEMIA, W/O MENTION AC 06/07/2015 BEGUMDIXON Valdez BRIM BUSTER Ot 427.31 ATRIAL FIBRILLATION 06/07/2015 BEGUMIDXON Valdez BRIM BUSTER Ot 585.3 CHRONIC KIDNEY DISEASE, STAGE III (MODER 06/07/2015 DIXON BEGUM BRIM BUSTER Ot V58.69 OTH MED,LT,CURRENT USE 06/07/2015 DIXON BEGUM BRIM BUSTER Ot 205.10 CHRONIC MYELOID LEUKEMIA, W/O MENTION AC 06/07/2015 BEGUMDIXON Valdez BRIM BUSTER Ot 427.31 ATRIAL FIBRILLATION 06/07/2015 DIXON BEGUM BRIM BUSTER Ot 585.3 CHRONIC KIDNEY DISEASE, STAGE III (MODER 06/07/2015 DIXON BEGUM BRIM BUSTER Ot 733.00 OSTEOPOROSIS NOS 06/07/2015 DIXON BEGUM BRIM BUSTER Ot V58.69 OTH MED,LT,CURRENT USE 06/07/2015 WILIAM JOSHUA DO Ot 530.81 ESOPHAGEAL REFLUX 06/07/2015 WILIAM JOSHUA DO Ot 553.3 DIAPHRAGMATIC HERNIA 06/07/2015 WILIAM JOSHUA DO Ot 593.9 RENAL URETERAL DIS NOS 06/07/2015 WILIAM JOSHUA DO Ot 787.3 FLATUL/ERUCTAT/GAS PAIN 06/07/2015 VELVET FAUST, JULISSA Correia Ot V72.84 EXAM PRE-OPERATIVE NOS 06/07/2015 CORRINE MCKENNA Ot 151.9 MALIG NEOPL STOMACH NOS 06/07/2015 CORRINE MCKENNA Ot 414.01 CORONARY ATHEROSCLEROSIS OF [place] CORON 06/07/2015 CORRINE MCKENNA Ot 429.3 CARDIOMEGALY 06/07/2015 CORRINE MCKENNA Ot 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 06/07/2015 RAMON DAMON BRIM BUSTER Ot 272.4 HYPERLIPIDEMIA NEC/NOS 06/07/2015 RAMON DAMON BRIM BUSTER Ot 414.00 CORON ATHEROSCLER NOS TYPE VESSEL, NATIV 06/07/2015 RAMON DAMON BRIM BUSTER Ot V72.84 EXAM PRE-OPERATIVE NOS 06/07/2015 WILIAM JOSHUA DO Ot 205.10 CHRONIC MYELOID LEUKEMIA, W/O MENTION AC 06/07/2015 DIXON BEGUM BRIM BUSTER Ot 205.10 CHRONIC MYELOID LEUKEMIA, W/O MENTION AC 06/07/2015 DIXON BEGUM BRIM BUSTER Ot 427.31 ATRIAL FIBRILLATION 06/07/2015 DIXON BEGUM BRIM BUSTER Ot 733.00 OSTEOPOROSIS NOS 06/07/2015 DIXON BEGUM BRIM BUSTER Ot 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 06/07/2015 DIXON BEGUMP Ot V58.69 OTH MED,LT,CURRENT USE 06/07/2015 DIXON BEGUM BRIM BUSTER Ot V67.00 UNSPEC SURGERY FOLLOW-UP EXAM 06/07/2015 DIXON BEGUM BRIM BUSTER Ot 205.10 CHRONIC MYELOID LEUKEMIA, W/O MENTION AC 06/07/2015 DIXON BEGUM BRIM BUSTER Ot 427.31 ATRIAL FIBRILLATION 06/07/2015 DIXON BEGUM BRIM BUSTER Ot 733.00 OSTEOPOROSIS NOS 06/07/2015 DIXON BEGUMP Ot V58.69 OTH MED,LT,CURRENT USE 06/07/2015 DIXON BEGUM BRIM BUSTER Ot 721.0 CERVICAL SPONDYLOSIS 06/07/2015 WILIAM JOSHUA DO Ot 530.81 ESOPHAGEAL REFLUX 06/07/2015 WILIAM JOSHUA DO Ot 783.21 LOSS OF WEIGHT 06/07/2015 WILIAM JOSHUA DO A Ot 786.2 COUGH 06/07/2015 WILIAM JOSHUA DO A Ot 793.19 OTHER NONSPECIFIC ABNORMAL FINDING OF BOB 06/07/2015 DIXON BEGUM BRIM BUSTER Ot 205.10 CHRONIC MYELOID LEUKEMIA, W/O MENTION AC 06/07/2015 DIXON BEGUM BRIM BUSTER Ot 427.31 ATRIAL FIBRILLATION 06/07/2015 DIXON BEGUM BRIM BUSTER Ot 733.00 OSTEOPOROSIS NOS 06/07/2015 DIXON BEGUM BRIM BUSTER Ot 791.9 ABN URINE FINDINGS NEC 06/07/2015 BEGUM, HILAH S BRIM BUSTER Ot V58.69 OTH MED,LT,CURRENT USE 06/07/2015 CORRINE MCKENNA Ot 205.90 UNSPECIFIED MYELOID LEUKEMIA, W/O MENTIO 06/07/2015 DIXON BEGUM S BRIM BUSTER Ot 205.10 CHRONIC MYELOID LEUKEMIA, W/O MENTION AC 06/07/2015 DIXON BEGUM S BRIM BUSTER Ot 427.31 ATRIAL FIBRILLATION 06/07/2015 DIXON BEGUM S BRIM BUSTER Ot 733.00 OSTEOPOROSIS NOS 06/07/2015 DIXON BEGUM S BRIM BUSTER Ot V58.69 OTH MED,LT,CURRENT USE 06/07/2015 VELVET FAUST, JULISSA M Ot V72.84 EXAM PRE-OPERATIVE NOS 06/07/2015 CORRINE MCKENNA Ot 151.9 MALIG NEOPL STOMACH NOS 06/07/2015 DIXON BEGUM S BRIM BUSTER Ot 205.10 CHRONIC MYELOID LEUKEMIA, W/O MENTION AC 06/07/2015 DIXON BEGUM S BRIM BUSTER Ot 427.31 ATRIAL FIBRILLATION 06/07/2015 DIXON BEGUM S BRIM BUSTER Ot 733.00 OSTEOPOROSIS NOS 06/07/2015 DIXON BEGUM S BRIM BUSTER Ot V58.69 OTH MED,LT,CURRENT USE 06/07/2015 DIXON BEGUM S BRIM BUSTER Ot 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 06/07/2015 DIXON BEGUM S BRIM BUSTER Ot 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 MYELOID LEUK, BCR/ABL-POSITIVE, 06/07/2015 DIXON BEGUM S BRIM BUSTER Ot D53.9 NUTRITIONAL ANEMIA, UNSPECIFIED 06/07/2015 DIXON BEGUM S BRIM BUSTER Ot M81.0 AGE-RELATED OSTEOPOROSIS W/O CURRENT PAT 06/07/2015 DIXON BEGUM BRIM BUSTER Ot R19.7 DIARRHEA, UNSPECIFIED 06/07/2015 DIXON BEGUM S BRIM BUSTER Ot Z79.899 OTHER [facility] (CURRENT) DRUG THERAPY 06/07/2015 CORRINE MCKENNA N Ot 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 06/07/2015 CORRINE MCKENNA Ot 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 MYELOID LEUK, BCR/ABL-POSITIVE, 06/07/2015 CORRINE MCKENNA Ot D53.9 NUTRITIONAL ANEMIA, UNSPECIFIED 06/07/2015 CLARISA, BOBAN N Ot M81.0 AGE-RELATED OSTEOPOROSIS W/O CURRENT PAT 06/07/2015 CLARISA, CORRINE N Ot R19.7 DIARRHEA, UNSPECIFIED 06/07/2015 CLARISA, BOBAN N Ot Z79.899 OTHER [facility] (CURRENT) DRUG THERAPY 06/11/2015 CLARISA, CORRINE N Ot 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 06/11/2015 CLARISACORRINE N Ot 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 MYELOID LEUK, BCR/ABL-POSITIVE, 06/11/2015 CLARISA, BOBAN N Ot D53.9 NUTRITIONAL ANEMIA, UNSPECIFIED 06/11/2015 CLARISA, BOBAN N Ot M81.0 AGE-RELATED OSTEOPOROSIS W/O CURRENT PAT 06/11/2015 CLARISA, BOBAN N Ot R19.7 DIARRHEA, UNSPECIFIED 06/11/2015 CLARISA, BOBAN N Ot Z79.899 OTHER [facility] (CURRENT) DRUG THERAPY 06/17/2015 CLARISA, CORRINE N Ot 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 06/17/2015 CLARISA, CORRINE N Ot 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 MYELOID LEUK, BCR/ABL-POSITIVE, 06/17/2015 CLARISA, BOBAN N Ot D53.9 NUTRITIONAL ANEMIA, UNSPECIFIED 06/17/2015 CLARISA, CORRINE N Ot M81.0 AGE-RELATED OSTEOPOROSIS W/O CURRENT PAT 06/17/2015 CLARISA, JOHANNABRYN N Ot R19.7 DIARRHEA, UNSPECIFIED 06/17/2015 CLARISA, BOBAN N Ot Z79.899 OTHER [facility] (CURRENT) DRUG THERAPY 06/29/2015 GELLENDER DO, WILIAM A Ot R05 COUGH 07/15/2015 GELLENDER DO, WILIAM A Ot R05 COUGH 08/15/2015 CLARISA, BOBAN N Ot 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 08/15/2015 CLARISA, JOHANNAAN N Ot 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 MYELOID LEUK, BCR/ABL-POSITIVE, 08/15/2015 CLARISA, BOBAN N Ot D53.9 NUTRITIONAL ANEMIA, UNSPECIFIED 08/15/2015 CLARISA, BOBAN N Ot M81.0 AGE-RELATED OSTEOPOROSIS W/O CURRENT PAT 08/15/2015 CLARISA, BOBAN N Ot R19.7 DIARRHEA, UNSPECIFIED 08/15/2015 CLARISA, BOBAN N Ot Z79.899 OTHER [facility] (CURRENT) DRUG THERAPY 08/18/2015 DIXON BEGUMP Ot 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 08/18/2015 DIXON BEGUM BRIM BUSTER Ot 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 MYELOID LEUK, BCR/ABL-POSITIVE, 08/18/2015 DIXON BEGUMP Ot D53.9 NUTRITIONAL ANEMIA, UNSPECIFIED 08/18/2015 DIXON BEGUMP Ot M81.0 AGE-RELATED OSTEOPOROSIS W/O CURRENT PAT 08/18/2015 DIXON BEGUMP Ot R19.7 DIARRHEA, UNSPECIFIED 08/18/2015 DIXON BEGUMP Ot 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 08/18/2015 CORRINE MCKENNA Ot 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 08/18/2015 CORRINE MCKENNA N Ot 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 MYELOID LEUK, BCR/ABL-POSITIVE, 08/18/2015 CLARISACORRINE CALDERON N Ot D53.9 NUTRITIONAL ANEMIA, UNSPECIFIED 08/18/2015 CLARISACORRINE CALDERON N Ot M81.0 AGE-RELATED OSTEOPOROSIS W/O CURRENT PAT 08/18/2015 CLARISACORRINE CALDERON N Ot R19.7 DIARRHEA, UNSPECIFIED 08/18/2015 CLARISACORRINE CALDERON N Ot Z79.899 OTHER [facility] (CURRENT) DRUG THERAPY 08/21/2015 CORRINE MCKENNA N Ot 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 08/21/2015 CORRINE MCKENNA N Ot 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 MYELOID LEUK, BCR/ABL-POSITIVE, 08/21/2015 CLARISACORRINE CALDERON N Ot D53.9 NUTRITIONAL ANEMIA, UNSPECIFIED 08/21/2015 CLARISACORRINE N Ot M81.0 AGE-RELATED OSTEOPOROSIS W/O CURRENT PAT 08/21/2015 CLARISACORRINE N Ot R19.7 DIARRHEA, UNSPECIFIED 08/21/2015 CLARISACORRINE N Ot 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 08/25/2015 Ot V76.12 OTH SCREEN MAMMO-MALIGN NEOPLASM OF [place] 08/25/2015 Ot 205.10 CHRONIC MYELOID LEUKEMIA, W/O MENTION AC 08/25/2015 Ot 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 08/25/2015 Ot 397.0 TRICUSPID VALVE DISEASE 08/25/2015 Ot 414.00 CORON ATHEROSCLER NOS TYPE VESSEL, NATIV 08/25/2015 Ot V87.41 PERSONAL HISTORY OF ANTINEOPLASTIC CHEMO 08/25/2015 Ot 733.00 OSTEOPOROSIS NOS 08/25/2015 Ot 733.90 BONE CARTILAGE DIS NOS 08/25/2015 Ot V76.12 OTH SCREEN MAMMO-MALIGN NEOPLASM OF [place] 08/25/2015 Ot 414.00 CORON ATHEROSCLER NOS TYPE VESSEL, NATIV 08/25/2015 Ot 786.09 RESPIRATORY ABNORM NEC 08/25/2015 Ot 599.0 URIN TRACT INFECTION NOS 08/25/2015 Ot 205.10 CHRONIC MYELOID LEUKEMIA, W/O MENTION AC 08/25/2015 Ot 585.3 CHRONIC KIDNEY DISEASE, STAGE III (MODER 08/25/2015 Ot 733.00 OSTEOPOROSIS NOS 08/25/2015 Ot V13.02 PERSONAL HISTORY, URINARY (TRACT) INFECT 08/25/2015 Ot V58.69 OTH MED,LT, CURRENT USE 08/25/2015 GELLENDER , WILIAM Garcia Ot V76.12 OTH SCREEN MAMMO-MALIGN NEOPLASM OF [place] 08/25/2015 DIXON BEGUM BRIM BUSTER Ot 205.10 CHRONIC MYELOID LEUKEMIA, W/O MENTION AC 08/25/2015 DIXON BEGUM BRIM BUSTER Ot 427.31 ATRIAL FIBRILLATION 08/25/2015 DIXON BEGUM BRIM BUSTER Ot 585.3 CHRONIC KIDNEY DISEASE, STAGE III (MODER 08/25/2015 DIXON BEGUM Ot V58.69 OTH MED,LT,CURRENT USE 08/25/2015 DIXON BEGUM BRIM BUSTER Ot 205.10 CHRONIC MYELOID LEUKEMIA, W/O MENTION AC 08/25/2015 DIXON BEGUM BRIM BUSTER Ot 427.31 ATRIAL FIBRILLATION 08/25/2015 DIXON BEGUM BRIM BUSTER Ot 585.3 CHRONIC KIDNEY DISEASE, STAGE III (MODER 08/25/2015 DIXON BEGUMP Ot 733.00 OSTEOPOROSIS NOS 08/25/2015 DIXON BEGUMP Ot V58.69 OTH MED,LT,CURRENT USE 08/25/2015 GELLENDER , WILIAM Garcia Ot 530.81 ESOPHAGEAL REFLUX 08/25/2015 GELLENDER DOWILIAM Ot 553.3 DIAPHRAGMATIC HERNIA 08/25/2015 GELLENWILIAM BARNHART DO Ot 593.9 RENAL URETERAL DIS NOS 08/25/2015 MARTINWILIAM GONZALEZ DO Ot 787.3 FLATUL/ERUCTAT/GAS PAIN 08/25/2015 VELVET FAUST, JULISSA Correia Ot V72.84 EXAM PRE-OPERATIVE NOS 08/25/2015 CLARISACORRINE Ot 151.9 MALIG NEOPL STOMACH NOS 08/25/2015 CORRINE MCKENNA Lex Ot 414.01 CORONARY ATHEROSCLEROSIS OF [place] CORON 08/25/2015 CLARISACORRINE Ot 429.3 CARDIOMEGALY 08/25/2015 CLARISACORRINE Ot 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 08/25/2015 BAIRAMON LEROY BRIM BUSTER Ot 272.4 HYPERLIPIDEMIA NEC/NOS 08/25/2015 RAMON DAMON BRIM BUSTER Ot 414.00 CORON ATHEROSCLER NOS TYPE VESSEL, NATIV 08/25/2015 RAMON DAMON BRIM BUSTER Ot V72.84 EXAM PRE-OPERATIVE NOS 08/25/2015 WILIAM JOSHUA DO Ot 205.10 CHRONIC MYELOID LEUKEMIA, W/O MENTION AC 08/25/2015 DIXON BEGUM BRIM BUSTER Ot 205.10 CHRONIC MYELOID LEUKEMIA, W/O MENTION AC 08/25/2015 DIXON BEGUM BRIM BUSTER Ot 427.31 ATRIAL FIBRILLATION 08/25/2015 DIXON BEGUM BRIM BUSTER Ot 733.00 OSTEOPOROSIS NOS 08/25/2015 DIXON BEGUM BRIM BUSTER Ot 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 08/25/2015 DIXON BEGUMP Ot V58.69 OTH MED,LT,CURRENT USE 08/25/2015 DIXON BEGUM BRIM BUSTER Ot V67.00 UNSPEC SURGERY FOLLOW-UP EXAM 08/25/2015 DIXON BEGUM BRIM BUSTER Ot 205.10 CHRONIC MYELOID LEUKEMIA, W/O MENTION AC 08/25/2015 DIXON BEGUM BRIM BUSTER Ot 427.31 ATRIAL FIBRILLATION 08/25/2015 DIXON BEGUM BRIM BUSTER Ot 733.00 OSTEOPOROSIS NOS 08/25/2015 DIXON BEGUM BRIM BUSTER Ot V58.69 OTH MED,LT,CURRENT USE 08/25/2015 DIXON BEGUM BRIM BUSTER Ot 721.0 CERVICAL SPONDYLOSIS 08/25/2015 WILIAM JOSHUA DO Ot 530.81 ESOPHAGEAL REFLUX 08/25/2015 TRES GARCIA, WILIAM A Ot 783.21 LOSS OF WEIGHT 08/25/2015 TRES GARCIA, WILIAM A Ot 786.2 COUGH 08/25/2015 RTES GARCIA, WILIAM A Ot 793.19 OTHER NONSPECIFIC ABNORMAL FINDING OF BOB 08/25/2015 DIXON BEGUM BRIM BUSTER Ot 205.10 CHRONIC MYELOID LEUKEMIA, W/O MENTION AC 08/25/2015 DIXON BEGUM BRIM BUSTER Ot 427.31 ATRIAL FIBRILLATION 08/25/2015 DIXON BEGUM BRIM BUSTER Ot 733.00 OSTEOPOROSIS NOS 08/25/2015 DIXON BEGUM BRIM BUSTER Ot 791.9 ABN URINE FINDINGS NEC 08/25/2015 DIXON BEGUM BRIM BUSTER Ot V58.69 OTH MED,LT,CURRENT USE 08/25/2015 CORRINE MCKENNA Ot 205.90 UNSPECIFIED MYELOID LEUKEMIA, W/O MENTIO 08/25/2015 DIXON BEGUM BRIM BUSTER Ot 205.10 CHRONIC MYELOID LEUKEMIA, W/O MENTION AC 08/25/2015 DIXON BEGUM BRIM BUSTER Ot 427.31 ATRIAL FIBRILLATION 08/25/2015 DIXON BEGUM BRIM BUSTER Ot 733.00 OSTEOPOROSIS NOS 08/25/2015 DIXON BEGUM BRIM BUSTER Ot V58.69 OTH MED,LT,CURRENT USE 08/25/2015 VELVET FAUST, JULISSA Correia Ot V72.84 EXAM PRE-OPERATIVE NOS 08/25/2015 CORRINE MCKENNA Ot 151.9 MALIG NEOPL STOMACH NOS 08/25/2015 DIXON BEGUM BRIM BUSTER Ot 205.10 CHRONIC MYELOID LEUKEMIA, W/O MENTION AC 08/25/2015 DIXON BEGUM BRIM BUSTER Ot 427.31 ATRIAL FIBRILLATION 08/25/2015 DIXON BEGUM BRIM BUSTER Ot 733.00 OSTEOPOROSIS NOS 08/25/2015 DIXON BEGUM BRIM BUSTER Ot V58.69 OTH MED,LT,CURRENT USE 08/25/2015 DIXON BEGUM BRIM BUSTER Ot 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 08/25/2015 DIXON BEGUM BRIM BUSTER Ot 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 MYELOID LEUK, BCR/ABL-POSITIVE, 08/25/2015 DIXON BEGUM BRIM BUSTER Ot D53.9 NUTRITIONAL ANEMIA, UNSPECIFIED 08/25/2015 DIXON BEGUM BRIM BUSTER Ot M81.0 AGE-RELATED OSTEOPOROSIS W/O CURRENT PAT 08/25/2015 DIXON BEGUM BRIM BUSTER Ot R19.7 DIARRHEA, UNSPECIFIED 08/25/2015 DIXON BEGUM BRIM BUSTER Ot 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 08/25/2015 WILIAM JOSHUA DO Ot R05 COUGH 08/25/2015 DIXON BEGUM BRIM BUSTER Ot 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 08/25/2015 DIXON BEGUM BRIM BUSTER Ot 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 MYELOID LEUK, BCR/ABL-POSITIVE, 08/25/2015 DIXON BEGUM BRIM BUSTER Ot D53.9 NUTRITIONAL ANEMIA, UNSPECIFIED 08/25/2015 DIXON BEGUM BRIM BUSTER Ot M81.0 AGE-RELATED OSTEOPOROSIS W/O CURRENT PAT 08/25/2015 DIXON BEGUM BRIM BUSTER Ot R19.7 DIARRHEA, UNSPECIFIED 08/25/2015 DIXON BEGUM BRIM BUSTER Ot 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 08/25/2015 CORRINE MCKENNA N Ot 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 08/25/2015 CORRINE MCKENNA Ot 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 MYELOID LEUK, BCR/ABL-POSITIVE, 08/25/2015 CLARISACORRINE CALDERON N Ot D53.9 NUTRITIONAL ANEMIA, UNSPECIFIED 08/25/2015 CLARISACORRINE CALDERON N Ot M81.0 AGE-RELATED OSTEOPOROSIS W/O CURRENT PAT 08/25/2015 CORRINE MCKENNA Ot R19.7 DIARRHEA, UNSPECIFIED 08/25/2015 CLARISACORRINE CALDERON N Ot Z79.899 OTHER MCFP (CURRENT) DRUG THERAPY 09/09/2015 DIXON BEGUM BRIM BUSTER Ot 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 09/09/2015 DIXON BEGUM BRIM BUSTER Ot 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 MYELOID LEUK, BCR/ABL-POSITIVE, 09/09/2015 DIXON BEGUM BRIM BUSTER Ot D53.9 NUTRITIONAL ANEMIA, UNSPECIFIED 09/09/2015 DIXON BEGUM BRIM BUSTER Ot M81.0 AGE-RELATED OSTEOPOROSIS W/O CURRENT PAT 09/09/2015 DIXON BEGUM BRIM BUSTER Ot R19.7 DIARRHEA, UNSPECIFIED 09/09/2015 DIXON BEGUM BRIM BUSTER Ot Z79.899 OTHER MCFP (CURRENT) DRUG THERAPY 09/10/2015 VELVET FAUST, JULISSA Correia Ot Z01.818 ENCOUNTER FOR OTHER PREPROCEDURAL EXAMIN 09/10/2015 VELVET FAUST, JULISSA Correia Ot Z01.818 ENCOUNTER FOR OTHER PREPROCEDURAL EXAMIN 09/13/2015 VELVET FAUST, JULISSA Correia Ot 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 09/13/2015 VELVET FAUST, JULISSA Correia Ot 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 OBSTRUCTION 09/14/2015 VELVET FAUST, JULISSA Correia Ot 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 09/14/2015 VELVET FAUST, JULISSA Correia Ot 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 OBSTRUCTION 09/16/2015 DIXON BEGUM BRIM BUSTER Ot 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 09/16/2015 DIXON BEGUM BRIM BUSTER Ot 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 MYELOID LEUK, BCR/ABL-POSITIVE, 09/16/2015 DIXON BEGUM BRIM BUSTER Ot D53.9 NUTRITIONAL ANEMIA, UNSPECIFIED 09/16/2015 DIXON BEGUM BRIM BUSTER Ot M81.0 AGE-RELATED OSTEOPOROSIS W/O CURRENT PAT 09/16/2015 DIXON BEGUM BRIM BUSTER Ot R19.7 DIARRHEA, UNSPECIFIED 09/16/2015 DIXON BEGUM BRIM BUSTER Ot 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 09/29/2015 VELVET FAUST, JULISSA Correia Ot 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 09/29/2015 VELVET FAUST, JULISSA Correia Ot 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 OBSTRUCTION 09/30/2015 DIXON BEGUM BRIM BUSTER Ot 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 10/18/2015 DIXON BEGUM BRIM BUSTER Ot 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 11/15/2015 CORRINE MCKENNA Ot 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 11/15/2015 CORRINE MCKENNA Ot 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 MYELOID LEUK, BCR/ABL-POSITIVE, 11/15/2015 CORRINE MCKENNA Ot D53.9 NUTRITIONAL ANEMIA, UNSPECIFIED 11/15/2015 CORRINE MCKENNA Ot M81.0 AGE-RELATED OSTEOPOROSIS W/O CURRENT PAT 11/15/2015 CLARISA, BOBAN N Ot R19.7 DIARRHEA, UNSPECIFIED 11/15/2015 CLARISA, BOBAN N Ot Z79.899 OTHER [facility]FP (CURRENT) DRUG THERAPY 11/17/2015 CLARISA, BOBAN N Ot 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 11/17/2015 CLARISA, BOBAN N Ot 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 MYELOID LEUK, BCR/ABL-POSITIVE, 11/17/2015 CLARISA, BOBAN N Ot D53.9 NUTRITIONAL ANEMIA, UNSPECIFIED 11/17/2015 CLARISA, BOBAN N Ot M81.0 AGE-RELATED OSTEOPOROSIS W/O CURRENT PAT 11/17/2015 CLARISA, BOBAN N Ot R19.7 DIARRHEA, UNSPECIFIED 11/17/2015 CLARISA, BOBAN N Ot Z79.899 OTHER [facility]FP (CURRENT) DRUG THERAPY 11/20/2015 CLARISA, BOBAN N Ot 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 11/20/2015 CLARISA BOBAN N Ot 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 MYELOID LEUK, BCR/ABL-POSITIVE, 11/20/2015 CLARISA, BOBAN N Ot D53.9 NUTRITIONAL ANEMIA, UNSPECIFIED 11/20/2015 CLARISA, BOBAN N Ot M81.0 AGE-RELATED OSTEOPOROSIS W/O CURRENT PAT 11/20/2015 CLARISA, BOBAN N Ot R19.7 DIARRHEA, UNSPECIFIED 11/20/2015 CLARISA, BOBAN N Ot Z79.899 OTHER MCFP (CURRENT) DRUG THERAPY 12/13/2015 CLARISA, BOBAN N Ot 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 12/13/2015 CLARISA, BOBAN N Ot 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 MYELOID LEUK, BCR/ABL-POSITIVE, 12/13/2015 CLARISA, BOBAN N Ot D53.9 NUTRITIONAL ANEMIA, UNSPECIFIED 12/13/2015 CLARISA, BOBAN N Ot M81.0 AGE-RELATED OSTEOPOROSIS W/O CURRENT PAT 12/13/2015 CLARISA, BOBAN N Ot R19.7 DIARRHEA, UNSPECIFIED 12/13/2015 CLARISA, BOBAN N Ot 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 12/16/2015 CLARISA, BOBAN N Ot 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 12/16/2015 CLARISA, BOBAN N Ot 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 MYELOID LEUK, BCR/ABL-POSITIVE, 12/16/2015 CORRINE MCKENNA Ot D53.9 NUTRITIONAL ANEMIA, UNSPECIFIED 12/16/2015 CORRINE MCKENNA Ot M81.0 AGE-RELATED OSTEOPOROSIS W/O CURRENT PAT 12/16/2015 CORRINE MCKENNA Ot R19.7 DIARRHEA, UNSPECIFIED 12/16/2015 CORRINE MCKENNA Ot Z79.899 OTHER MCFP (CURRENT) DRUG THERAPY 01/20/2016 Ot 205.10 CHRONIC MYELOID LEUKEMIA, W/O MENTION AC 01/20/2016 Ot 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 01/20/2016 Ot 397.0 TRICUSPID VALVE DISEASE 01/20/2016 Ot 414.00 CORON ATHEROSCLER NOS TYPE VESSEL, NATIV 01/20/2016 Ot V87.41 PERSONAL HISTORY OF ANTINEOPLASTIC CHEMO 01/20/2016 Ot 733.00 OSTEOPOROSIS NOS 01/20/2016 Ot 733.90 BONE CARTILAGE DIS NOS 01/20/2016 Ot V76.12 OTH SCREEN MAMMO-MALIGN NEOPLASM OF [place] 01/20/2016 Ot 414.00 CORON ATHEROSCLER NOS TYPE VESSEL, NATIV 01/20/2016 Ot 786.09 RESPIRATORY ABNORM NEC 01/20/2016 Ot 599.0 URIN TRACT INFECTION NOS 01/20/2016 Ot 205.10 CHRONIC MYELOID LEUKEMIA, W/O MENTION AC 01/20/2016 Ot 585.3 CHRONIC KIDNEY DISEASE, STAGE III (MODER 01/20/2016 Ot 733.00 OSTEOPOROSIS NOS 01/20/2016 Ot V13.02 PERSONAL HISTORY, URINARY (TRACT) INFECT 01/20/2016 Ot V58.69 OTH MED,LT, CURRENT USE 01/20/2016 WILIAM JOSHUA DO Ot V76.12 OTH SCREEN MAMMO-MALIGN NEOPLASM OF [place] 01/20/2016 DIXON BEGUMP Ot 205.10 CHRONIC MYELOID LEUKEMIA, W/O MENTION AC 01/20/2016 DIXON BEGUMP Ot 427.31 ATRIAL FIBRILLATION 01/20/2016 DIXON BEGUM Ot 585.3 CHRONIC KIDNEY DISEASE, STAGE III (MODER 01/20/2016 DIXON BEGUM Ot V58.69 OTH MED,LT,CURRENT USE 01/20/2016 DIXON BEGUM BRIM BUSTER Ot 205.10 CHRONIC MYELOID LEUKEMIA, W/O MENTION AC 01/20/2016 DIXON BEGUM BRIM BUSTER Ot 427.31 ATRIAL FIBRILLATION 01/20/2016 DIXON BEGUM BRIM BUSTER Ot 585.3 CHRONIC KIDNEY DISEASE, STAGE III (MODER 01/20/2016 DIXON BEGUM BRIM BUSTER Ot 733.00 OSTEOPOROSIS NOS 01/20/2016 DIXON BEGUMP Ot V58.69 OTH MED,LT,CURRENT USE 01/20/2016 WILIAM JOSHUA DO Ot 530.81 ESOPHAGEAL REFLUX 01/20/2016 WILIAM JOSHUA DO Ot 553.3 DIAPHRAGMATIC HERNIA 01/20/2016 WILIAM JOSHUA DO Ot 593.9 RENAL URETERAL DIS NOS 01/20/2016 WILIAM JOSHUA DO Ot 787.3 FLATUL/ERUCTAT/GAS PAIN 01/20/2016 VELVET FAUST, JULISSA Correia Ot V72.84 EXAM PRE-OPERATIVE NOS 01/20/2016 CORRINE MCKENNA Ot 151.9 MALIG NEOPL STOMACH NOS 01/20/2016 CORRINE MCKENNA Ot 414.01 CORONARY ATHEROSCLEROSIS OF [place] CORON 01/20/2016 CORRINE MCKENNA Ot 429.3 CARDIOMEGALY 01/20/2016 CORRINE MCKENNA Ot 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 01/20/2016 RAMON DAMON BRIM BUSTER Ot 272.4 HYPERLIPIDEMIA NEC/NOS 01/20/2016 RAMON DAMON BRIM BUSTER Ot 414.00 CORON ATHEROSCLER NOS TYPE VESSEL, NATIV 01/20/2016 RAMON DAMONP Ot V72.84 EXAM PRE-OPERATIVE NOS 01/20/2016 WILIAM JOSHUA DO Ot 205.10 CHRONIC MYELOID LEUKEMIA, W/O MENTION AC 01/20/2016 DIXON BEGUM BRIM BUSTER Ot 205.10 CHRONIC MYELOID LEUKEMIA, W/O MENTION AC 01/20/2016 DIXON BEGUMP Ot 427.31 ATRIAL FIBRILLATION 01/20/2016 DIXON BEGUMP Ot 733.00 OSTEOPOROSIS NOS 01/20/2016 DIXON BEGUM BRIM BUSTER Ot 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 01/20/2016 DIXON BEGUM Ot V58.69 OTH MED,LT,CURRENT USE 01/20/2016 DIXON BEGUM BRIM BUSTER Ot V67.00 UNSPEC SURGERY FOLLOW-UP EXAM 01/20/2016 DIXON BEGUM BRIM BUSTER Ot 205.10 CHRONIC MYELOID LEUKEMIA, W/O MENTION AC 01/20/2016 DIXON BEGUM BRIM BUSTER Ot 427.31 ATRIAL FIBRILLATION 01/20/2016 DIXON BEGUM BRIM BUSTER Ot 733.00 OSTEOPOROSIS NOS 01/20/2016 DIXON BEGUM BRIM BUSTER Ot V58.69 OTH MED,LT,CURRENT USE 01/20/2016 DIXON BEGUM BRIM BUSTER Ot 721.0 CERVICAL SPONDYLOSIS 01/20/2016 GELLENDER DO, WILIAM A Ot 530.81 ESOPHAGEAL REFLUX 01/20/2016 GELLENDER DO, WILIAM A Ot 783.21 LOSS OF WEIGHT 01/20/2016 GELLENDER DO, WILIAM A Ot 786.2 COUGH 01/20/2016 GELLENDER DO, WILIAM A Ot 793.19 OTHER NONSPECIFIC ABNORMAL FINDING OF BOB 01/20/2016 DIXON BEGUM BRIM BUSTER Ot 205.10 CHRONIC MYELOID LEUKEMIA, W/O MENTION AC 01/20/2016 DIXON BEGUM BRIM BUSTER Ot 427.31 ATRIAL FIBRILLATION 01/20/2016 DIXON BEGUM BRIM BUSTER Ot 733.00 OSTEOPOROSIS NOS 01/20/2016 DIXON BEGUM BRIM BUSTER Ot 791.9 ABN URINE FINDINGS NEC 01/20/2016 DIXON BEGUM BRIM BUSTER Ot V58.69 OTH MED,LT,CURRENT USE 01/20/2016 CORRINE MCKENNA Ot 205.90 UNSPECIFIED MYELOID LEUKEMIA, W/O MENTIO 01/20/2016 DIXON BEGUM BRIM BUSTER Ot 205.10 CHRONIC MYELOID LEUKEMIA, W/O MENTION AC 01/20/2016 DIXON BEGUM S BRIM BUSTER Ot 427.31 ATRIAL FIBRILLATION 01/20/2016 DIXON BEGUM BRIM BUSTER Ot 733.00 OSTEOPOROSIS NOS 01/20/2016 DIXON BEGUM BRIM BUSTER Ot V58.69 OTH MED,LT,CURRENT USE 01/20/2016 VELVET FAUST, JULISSA Correia Ot V72.84 EXAM PRE-OPERATIVE NOS 01/20/2016 CORRINE MCKENNA Ot 151.9 MALIG NEOPL STOMACH NOS 01/20/2016 DIXON BEGUM S BRIM BUSTER Ot 205.10 CHRONIC MYELOID LEUKEMIA, W/O MENTION AC 01/20/2016 KEL DIXON Valdez BRIM BUSTER Ot 427.31 ATRIAL FIBRILLATION 01/20/2016 LUDY BEGUMSARAHI Courtney BRIM BUSTER Ot 733.00 OSTEOPOROSIS NOS 01/20/2016 BEGUMLUDYSARAHI Courtney BRIM BUSTER Ot V58.69 OT MED,LT,CURRENT USE 01/20/2016 KEL DIXON Valdez BRIM BUSTER Ot 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 01/20/2016 DIXON BEGUM BRIM BUSTER Ot 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 MYELOID LEUK, BCR/ABL-POSITIVE, 01/20/2016 KEL DIXON Valdez BRIM BUSTER Ot D53.9 NUTRITIONAL ANEMIA, UNSPECIFIED 01/20/2016 KEL DIXON Valdez BRIM BUSTER Ot M81.0 AGE-RELATED OSTEOPOROSIS W/O CURRENT PAT 01/20/2016 DIXON BEGUM BRIM BUSTER Ot R19.7 DIARRHEA, UNSPECIFIED 01/20/2016 KEL DIXON Valdez BRIM BUSTER Ot Z79.899 OTHER MCFP (CURRENT) DRUG THERAPY 01/20/2016 WILIAM JOSHUA DO Ot R05 COUGH 01/20/2016 KEL DIXON Valdez BRIM BUSTER Ot 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 01/20/2016 LUDY BEGUMSARAHI Valdez BRIM BUSTER Ot 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 MYELOID LEUK, BCR/ABL-POSITIVE, 01/20/2016 DIXON BEGUM BRIM BUSTER Ot D53.9 NUTRITIONAL ANEMIA, UNSPECIFIED 01/20/2016 LUDY BEGUMSARAHI Valdez BRIM BUSTER Ot M81.0 AGE-RELATED OSTEOPOROSIS W/O CURRENT PAT 01/20/2016 DIXON BEGUM BRIM BUSTER Ot R19.7 DIARRHEA, UNSPECIFIED 01/20/2016 LUDY BEGUMSARAHI Valdez BRIM BUSTER Ot Z79.899 OTHER MCFP (CURRENT) DRUG THERAPY 01/20/2016 LUDY BEGUMSARAHI Valdez BRIM BUSTER Ot 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 01/20/2016 CORRINE MCKENNA Ot 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 01/20/2016 CORRINE MCKENNA Ot 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 MYELOID LEUK, BCR/ABL-POSITIVE, 01/20/2016 CORRINE MCKENNA Ot D53.9 NUTRITIONAL ANEMIA, UNSPECIFIED 01/20/2016 CORRINE MCKENNA Ot M81.0 AGE-RELATED OSTEOPOROSIS W/O CURRENT PAT 01/20/2016 CLARISA CORRINE N Ot R19.7 DIARRHEA, UNSPECIFIED 01/20/2016 CLARISACORRINE CALDERON Ot Z79.899 OTHER MCFP (CURRENT) DRUG THERAPY 01/21/2016 GELLENDER DO, WILIAM Garcia Ot R05 COUGH 01/21/2016 GELLENDER DO, WILIAM A Ot R06.2 WHEEZING 01/31/2016 CLARISACORRINE CALDERON N Ot 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 01/31/2016 CLARISACORRINE Ot 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 MYELOID LEUK, BCR/ABL-POSITIVE, 01/31/2016 CLARISACORRINE N Ot D53.9 NUTRITIONAL ANEMIA, UNSPECIFIED 01/31/2016 CLARISACORRINE N Ot M81.0 AGE-RELATED OSTEOPOROSIS W/O CURRENT PAT 01/31/2016 CLARISACORRINE N Ot R19.7 DIARRHEA, UNSPECIFIED 01/31/2016 CLRAISACORRINE N Ot Z79.899 OTHER [facility]FP (CURRENT) DRUG THERAPY 02/17/2016 GELLENDER DO, WILIAM A Ot R05 COUGH 02/17/2016 GELLENDER DO, WILIAM A Ot R06.2 WHEEZING 02/24/2016 GELLENDER DO, WILIAM A Ot R05 COUGH 02/24/2016 GELLENDER DO, WILIAM A Ot R06.2 WHEEZING 03/14/2016 CLARISACORRINE CALDERON Ot 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 03/14/2016 CORRINE MCKENNA Ot 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 MYELOID LEUK, BCR/ABL-POSITIVE, 03/14/2016 CLARISACORRINE CALDERON N Ot D53.9 NUTRITIONAL ANEMIA, UNSPECIFIED 03/14/2016 CLARISACORRINE CALDERON Ot M81.0 AGE-RELATED OSTEOPOROSIS W/O CURRENT PAT 03/14/2016 CLARISACORRINE N Ot R19.7 DIARRHEA, UNSPECIFIED 03/14/2016 CLARISACORRINE N Ot 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 04/11/2016 CLARISACORRINE N Ot 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 04/11/2016 CLARISACORRINE CALDERON N Ot 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 MYELOID LEUK, BCR/ABL-POSITIVE, 04/11/2016 CLARISACORRINE CALDERON N Ot D53.9 NUTRITIONAL ANEMIA, UNSPECIFIED 04/11/2016 JOHANNA MCKENNAAN N Ot M81.0 AGE-RELATED OSTEOPOROSIS W/O CURRENT PAT 04/11/2016 CLARISACORRINE N Ot R19.7 DIARRHEA, UNSPECIFIED 04/11/2016 CLARISA, JOHANNABRYN N Ot Z79.899 OTHER [facility] (CURRENT) DRUG THERAPY 04/13/2016 CLARISA JOHANNABRYN N Ot 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 04/13/2016 CLARISA, CORRINE N Ot 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 MYELOID LEUK, BCR/ABL-POSITIVE, 04/13/2016 CLARISA JOHANNABRYN N Ot D53.9 NUTRITIONAL ANEMIA, UNSPECIFIED 04/13/2016 CLARISA, CORRINE N Ot M81.0 AGE-RELATED OSTEOPOROSIS W/O CURRENT PAT 04/13/2016 CLARISA JOHANNABRYN N Ot R19.7 DIARRHEA, UNSPECIFIED 04/13/2016 CLARISA, BOBAN N Ot Z79.899 OTHER [facility]FP (CURRENT) DRUG THERAPY 04/30/2016 CLARISA, CORRINE N Ot 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 04/30/2016 CLARISA CORRINE N Ot 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 MYELOID LEUK, BCR/ABL-POSITIVE, 04/30/2016 CLARISA JOHANNABRYN N Ot D53.9 NUTRITIONAL ANEMIA, UNSPECIFIED 04/30/2016 CLARISA JOHANNABRYN N Ot M81.0 AGE-RELATED OSTEOPOROSIS W/O CURRENT PAT 04/30/2016 CLARISACORRINE N Ot R19.7 DIARRHEA, UNSPECIFIED 04/30/2016 CLARISACORRINE N Ot Z79.899 OTHER [facility]FP (CURRENT) DRUG THERAPY 05/25/2016 CLARISA JOHANNABRYN N Ot 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 05/25/2016 CLARISA JOHANNABRYN N Ot 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 MYELOID LEUK, BCR/ABL-POSITIVE, 05/25/2016 CLARISA, JOHANNAAN N Ot D53.9 NUTRITIONAL ANEMIA, UNSPECIFIED 05/25/2016 CLARISA, JOHANNABRYN N Ot M81.0 AGE-RELATED OSTEOPOROSIS W/O CURRENT PAT 05/25/2016 CLARISA JOHANNABRYN N Ot R19.7 DIARRHEA, UNSPECIFIED 05/25/2016 CLARISA, JOHANNABRYN N Ot 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 08/22/2016 CLARISA, CORRINE N Ot 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 08/22/2016 CLARISA, BOBAN N Ot 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 MYELOID LEUK, BCR/ABL-POSITIVE, 08/22/2016 CLARISA, BOBAN N Ot D53.9 NUTRITIONAL ANEMIA, UNSPECIFIED 08/22/2016 CLARISA, BOBAN N Ot E03.9 HYPOTHYROIDISM, UNSPECIFIED 08/22/2016 CLARISA, BOBAN N Ot 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, AORTIC 08/22/2016 CLARISA, BOBAN N Ot I25.10 ATHSCL HEART DISEASE OF [place] CORONARY 08/22/2016 CLARISA, BOBAN N Ot M81.0 AGE-RELATED OSTEOPOROSIS W/O CURRENT PAT 08/22/2016 CLARISA, BOBAN N Ot N18.3 CHRONIC KIDNEY DISEASE, STAGE 3 (MODERAT 08/22/2016 CLARISA, BOBAN N Ot N39.0 URINARY TRACT INFECTION, SITE NOT SPECIF 08/22/2016 CLARISA, BOBAN N Ot R19.7 DIARRHEA, UNSPECIFIED 08/22/2016 CLARISA, BOBAN N Ot 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 08/23/2016 CLARISA, BOBBRYN N Ot 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 08/23/2016 CLARISA, BOBAN N Ot 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 MYELOID LE[place], BCR/ABL-POSITIVE, 08/23/2016 CLARISA, BOBAN N Ot D53.9 NUTRITIONAL ANEMIA, UNSPECIFIED 08/23/2016 CLARISA, BOBAN N Ot E03.9 HYPOTHYROIDISM, UNSPECIFIED 08/23/2016 CLARISA, JOHANNAAN N Ot 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, AORTIC 08/23/2016 CLARISAJOHANNAAN N Ot I25.10 ATHSCL HEART DISEASE OF [place] CORONARY 08/23/2016 CLARISACORRINE N Ot M81.0 AGE-RELATED OSTEOPOROSIS W/O CURRENT PAT 08/23/2016 CLARISA, BOBAN N Ot N18.3 CHRONIC KIDNEY DISEASE, STAGE 3 (MODERAT 08/23/2016 CLARISA, BOBAN N Ot N39.0 URINARY TRACT INFECTION, SITE NOT SPECIF 08/23/2016 CLARISA, BOBAN N Ot R19.7 DIARRHEA, UNSPECIFIED 08/23/2016 CLARISA, BOBAN N Ot 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 08/31/2016 CORRINE MCKENNA Ot 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 08/31/2016 CORRINE MCKENNA Ot 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 MYELOID LEUK, BCR/ABL-POSITIVE, 08/31/2016 CORRINE MCKENNA Ot D53.9 NUTRITIONAL ANEMIA, UNSPECIFIED 08/31/2016 CORRINE MCKENNA Ot M81.0 AGE-RELATED OSTEOPOROSIS W/O CURRENT PAT 08/31/2016 CORRINE MCKENNA Ot R19.7 DIARRHEA, UNSPECIFIED 08/31/2016 CORRINE MCKENNA Ot Z79.899 OTHER [facility] (CURRENT) DRUG THERAPY 09/20/2016 DIXON BEGUM BRIM BUSTER Ot 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 MYELOID LEUK, BCR/ABL-POSITIVE, 09/20/2016 DIXON BEGUM BRIM BUSTER Ot N28.1 CYST OF KIDNEY, ACQUIRED 09/20/2016 DIXON BEGUM BRIM BUSTER Ot Z85.028 PERSONAL HISTORY OF OTHER MALIGNANT NEOP 09/20/2016 DIXON BEGUM BRIM BUSTER Ot 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 09/20/2016 DIXON BEGUM BRIM BUSTER Ot 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 09/21/2016 VELVET FAUST, JULISSA Correia Ot Z01.818 ENCOUNTER FOR OTHER PREPROCEDURAL EXAMIN 09/21/2016 VELVET FAUST, JULISSA Correia Ot Z85.028 PERSONAL HISTORY OF OTHER MALIGNANT NEOP 10/17/2016 DIXON BEGUM BRIM BUSTER Ot 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 MYELOID LEUK, BCR/ABL-POSITIVE, 10/17/2016 DIXON BEGUM BRIM BUSTER Ot N28.1 CYST OF KIDNEY, ACQUIRED 10/17/2016 DIXON BEGUM S BRIM BUSTER Ot Z85.028 PERSONAL HISTORY OF OTHER MALIGNANT NEOP 10/17/2016 DIXON BEGUM BRIM BUSTER Ot 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 10/17/2016 DIXON BEGUM S BRIM BUSTER Ot 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 10/24/2016 DIXON BEGUM BRIM BUSTER Ot 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 MYELOID LEUK, BCR/ABL-POSITIVE, 10/24/2016 DIXON BEGUM S BRIM BUSTER Ot N28.1 CYST OF KIDNEY, ACQUIRED 10/24/2016 DIXON BEGUM S BRIM BUSTER Ot Z85.028 PERSONAL HISTORY OF OTHER MALIGNANT NEOP 10/24/2016 DIXON BEGUM BRIM BUSTER Ot 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 10/24/2016 DIXON BEGUM BRIM BUSTER Ot 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 11/18/2016 CLARISACORRINE N Ot 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 11/18/2016 CLARISACORRINE N Ot 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 MYELOID LEUK, BCR/ABL-POSITIVE, 11/18/2016 CLARISAJOHANNAAN N Ot D53.9 NUTRITIONAL ANEMIA, UNSPECIFIED 11/18/2016 CLARISAJOHANNAAN N Ot M81.0 AGE-RELATED OSTEOPOROSIS W/O CURRENT PAT 11/18/2016 CLARISACORRINE N Ot R19.7 DIARRHEA, UNSPECIFIED 11/18/2016 CLARISA, BOBAN N Ot Z79.899 OTHER [facility] (CURRENT) DRUG THERAPY 11/22/2016 CLARISACORRINE N Ot 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 11/22/2016 CLARISACORRINE N Ot 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 MYELOID LEUK, BCR/ABL-POSITIVE, 11/22/2016 CLARISA BOBAN N Ot D53.9 NUTRITIONAL ANEMIA, UNSPECIFIED 11/22/2016 CLARISA, BOBAN N Ot E03.9 HYPOTHYROIDISM, UNSPECIFIED 11/22/2016 CLARISACORRINE N Ot 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, AORTIC 11/22/2016 CLARISAJOHANNAAN N Ot I25.10 ATHSCL HEART DISEASE OF [place] CORONARY 11/22/2016 CLARISACORRINE N Ot M81.0 AGE-RELATED OSTEOPOROSIS W/O CURRENT PAT 11/22/2016 CLARISACORRINE N Ot N18.3 CHRONIC KIDNEY DISEASE, STAGE 3 (MODERAT 11/22/2016 CLARISAJOHANNAAN N Ot R19.7 DIARRHEA, UNSPECIFIED 11/22/2016 CLARISA, BOBAN N Ot 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 02/19/2017 CLARISAJOHANNAAN N Ot 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 02/19/2017 CLARISA BOBAN N Ot 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 MYELOID LEUK, BCR/ABL-POSITIVE, 02/19/2017 CLARISA BOBAN N Ot D53.9 NUTRITIONAL ANEMIA, UNSPECIFIED 02/19/2017 CLARISA, BOBAN N Ot E03.9 HYPOTHYROIDISM, UNSPECIFIED 02/19/2017 CLARISA, BOBAN N Ot 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, AORTIC 02/19/2017 CLARISA, BOBAN N Ot I25.10 ATHSCL HEART DISEASE OF [place] CORONARY 02/19/2017 CLARISA, BOBAN N Ot M81.0 AGE-RELATED OSTEOPOROSIS W/O CURRENT PAT 02/19/2017 CLARISA, BOBAN N Ot N18.3 CHRONIC KIDNEY DISEASE, STAGE 3 (MODERAT 02/19/2017 CLARISA, BOBAN N Ot R19.7 DIARRHEA, UNSPECIFIED 02/19/2017 CLARISA, BOBAN N Ot Z79.899 OTHER [facility] (CURRENT) DRUG THERAPY 02/21/2017 CLARISA, BOBAN N Ot 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 02/21/2017 CLARISA, BOBAN N Ot 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 MYELOID LEUK, BCR/ABL-POSITIVE, 02/21/2017 CLARISA, BOBAN N Ot D53.9 NUTRITIONAL ANEMIA, UNSPECIFIED 02/21/2017 CLARISA, BOBAN N Ot E03.9 HYPOTHYROIDISM, UNSPECIFIED 02/21/2017 CLARISA, BOBAN N Ot 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, AORTIC 02/21/2017 CLARISA, BOBAN N Ot I25.10 ATHSCL HEART DISEASE OF [place] CORONARY 02/21/2017 CLARISA, BOBBRYN N Ot M81.0 AGE-RELATED OSTEOPOROSIS W/O CURRENT PAT 02/21/2017 CLARISA, BOBAN N Ot N18.3 CHRONIC KIDNEY DISEASE, STAGE 3 (MODERAT 02/21/2017 CLARISA, BOBAN N Ot R19.7 DIARRHEA, UNSPECIFIED 02/21/2017 CLARISA, BOBAN N Ot Z79.899 OTHER [facility] (CURRENT) DRUG THERAPY 05/08/2017 CLARISA, BOBAN N Ot 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 05/08/2017 CLARISA, BOBAN N Ot 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 MYELOID LEUK, BCR/ABL-POSITIVE, 05/08/2017 CLARISA, BOBAN N Ot D53.9 NUTRITIONAL ANEMIA, UNSPECIFIED 05/08/2017 CLARISA, BOBAN N Ot E03.9 HYPOTHYROIDISM, UNSPECIFIED 05/08/2017 CLARISA, BOBAN N Ot 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, AORTIC 05/08/2017 CLARISA, BOBAN N Ot I25.10 ATHSCL HEART DISEASE OF [place] CORONARY 05/08/2017 CLARISA, BOBAN N Ot M81.0 AGE-RELATED OSTEOPOROSIS W/O CURRENT PAT 05/08/2017 CLARISA, BOBAN N Ot N18.3 CHRONIC KIDNEY DISEASE, STAGE 3 (MODERAT 05/08/2017 CLARISA, BOBAN N Ot 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 05/09/2017 CLARISA, BOBAN N Ot 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 05/09/2017 CLARISA, BOBAN N Ot 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 MYELOID LEUK, BCR/ABL-POSITIVE, 05/09/2017 CLARISA, BOBAN N Ot D53.9 NUTRITIONAL ANEMIA, UNSPECIFIED 05/09/2017 CLARISA, BOBAN N Ot E03.9 HYPOTHYROIDISM, UNSPECIFIED 05/09/2017 CLARISA, BOBAN N Ot 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, AORTIC 05/09/2017 CLARISA, BOBAN N Ot I25.10 ATHSCL HEART DISEASE OF [place] CORONARY 05/09/2017 CLARISA, BOBAN N Ot M81.0 AGE-RELATED OSTEOPOROSIS W/O CURRENT PAT 05/09/2017 CLARISA, BOBAN N Ot N18.3 CHRONIC KIDNEY DISEASE, STAGE 3 (MODERAT 05/09/2017 CLARISA, BOBAN N Ot 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 07/08/2017 CLARISA, BOBAN N Ot 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 07/08/2017 CLARISA, BOBAN N Ot 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 MYELOID LEUK, BCR/ABL-POSITIVE, 07/08/2017 CLARISA, BOBAN N Ot D53.9 NUTRITIONAL ANEMIA, UNSPECIFIED 07/08/2017 CLARISA, BOBAN N Ot E03.9 HYPOTHYROIDISM, UNSPECIFIED 07/08/2017 CLARISA, BOBAN N Ot 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, AORTIC 07/08/2017 CLARISA, BOBAN N Ot I25.10 ATHSCL HEART DISEASE OF [place] CORONARY 07/08/2017 CLARISA, BOBAN N Ot M81.0 AGE-RELATED OSTEOPOROSIS W/O CURRENT PAT 07/08/2017 CLARISA, BOBAN N Ot N18.3 CHRONIC KIDNEY DISEASE, STAGE 3 (MODERAT 07/08/2017 CLARISA, BOBAN N Ot 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 07/09/2017 CLARISA, BOBAN N Ot 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 07/09/2017 CLARISA, BOBAN N Ot 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 MYELOID LEUK, BCR/ABL-POSITIVE, 07/09/2017 CLARISA, BOBAN N Ot D53.9 NUTRITIONAL ANEMIA, UNSPECIFIED 07/09/2017 CLARISA, BOBAN N Ot E03.9 HYPOTHYROIDISM, UNSPECIFIED 07/09/2017 CLARISA, BOBAN N Ot 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, AORTIC 07/09/2017 CLARISA, BOBAN N Ot I25.10 ATHSCL HEART DISEASE OF [place] CORONARY 07/09/2017 CLARISA, BOBAN N Ot M81.0 AGE-RELATED OSTEOPOROSIS W/O CURRENT PAT 07/09/2017 CLARISA, BOBAN N Ot N18.3 CHRONIC KIDNEY DISEASE, STAGE 3 (MODERAT 07/09/2017 CLARISA, BOBAN N Ot 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 10/16/2017 CLARISA, BOBAN N Ot 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 10/16/2017 CLARISA, BOBAN N Ot 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 MYELOID LEUK, BCR/ABL-POSITIVE, 10/16/2017 CLARISA, BOBAN N Ot D53.9 NUTRITIONAL ANEMIA, UNSPECIFIED 10/16/2017 CLARISA, BOBAN N Ot E03.9 HYPOTHYROIDISM, UNSPECIFIED 10/16/2017 CLARISA, BOBAN N Ot 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, AORTIC 10/16/2017 CLARISA, BOBAN N Ot I25.10 ATHSCL HEART DISEASE OF [place] CORONARY 10/16/2017 CLARISA, BOBAN N Ot M81.0 AGE-RELATED OSTEOPOROSIS W/O CURRENT PAT 10/16/2017 CLARISA, BOBAN N Ot N18.3 CHRONIC KIDNEY DISEASE, STAGE 3 (MODERAT 10/16/2017 CLARISA, BOBAN N Ot R19.7 DIARRHEA, UNSPECIFIED 10/16/2017 CLARISA, BOBAN N Ot 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 10/17/2017 CLARISA, BOBAN N Ot 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 10/17/2017 CLARISA, BOBAN N Ot 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 MYELOID LEUK, BCR/ABL-POSITIVE, 10/17/2017 CORRINE MCKENNA Ot D53.9 NUTRITIONAL ANEMIA, UNSPECIFIED 10/17/2017 CORRINE MCKENNA Ot E03.9 HYPOTHYROIDISM, UNSPECIFIED 10/17/2017 CORRINE MCKENNA Ot 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, AORTIC 10/17/2017 CORRINE MCKENNA Ot I25.10 ATHSCL HEART DISEASE OF [place] CORONARY 10/17/2017 CORRINE MCKENNA Ot M81.0 AGE-RELATED OSTEOPOROSIS W/O CURRENT PAT 10/17/2017 CORRINE MCKENNA Ot N18.3 CHRONIC KIDNEY DISEASE, STAGE 3 (MODERAT 10/17/2017 CORRINE MCKENNA Ot R19.7 DIARRHEA, UNSPECIFIED 10/17/2017 CORRINE MCKENNA Ot Z79.899 OTHER [facility] (CURRENT) DRUG THERAPY Procedures Code Description Performed By Performed On 99.15 PARENTERAL INFUSION OF CONCENTRATED NUT. 01/15/2013 Results Test Result Range Complete blood count (CBC) with automated white blood cell (WBC) differential - 01/20/16 11:48 Blood leukocytes automated count (number/volume) 9.0 10*3/uL 4.3-11.0 Blood erythrocytes automated count (number/volume) 3.27 10*6/uL 4.35-5.85 Venous blood hemoglobin measurement (mass/volume) 10.8 g/dL 11.5-16.0 Blood hematocrit (volume fraction) 32 % 35-52 Automated erythrocyte mean corpuscular volume 97 [foz_us] 80-99 Automated erythrocyte mean corpuscular hemoglobin (mass per erythrocyte) 33 pg 25-34 Automated erythrocyte mean corpuscular hemoglobin concentration measurement ( mass/volume) 34 g/dL 32-36 Automated erythrocyte distribution width ratio 13.1 % 10.0-14.5 Automated blood platelet count (count/volume) 223 10*3/uL 130-400 Automated blood platelet mean volume measurement 9.5 [foz_us] 7.4-10.4 Automated blood neutrophils/100 leukocytes 73 % 42-75 Automated blood lymphocytes/100 leukocytes 17 % 12-44 Blood monocytes/100 leukocytes 9 % 0-12 Automated blood eosinophils/100 leukocytes 2 % 0-10 Automated blood basophils/100 leukocytes 0 % 0-10 Blood neutrophils automated count (number/volume) 6.5 10*3 1.8-7.8 Blood lymphocytes automated count (number/volume) 1.5 10*3 1.0-4.0 Blood monocytes automated count (number/volume) 0.8 10*3 0.0-1.0 Automated eosinophil count 0.2 10*3/uL 0.0-0.3 Automated blood basophil count (count/volume) 0.0 10*3/uL 0.0-0.1 Comprehensive metabolic panel - 01/20/16 11:48 Serum or plasma sodium measurement (moles/volume) 133 mmol/L 135-145 Serum or plasma potassium measurement (moles/volume) 3.7 mmol/L 3.6-5.0 Serum or plasma chloride measurement (moles/volume) 99 mmol/L 98-107 Carbon dioxide 24 mmol/L 21-32 Serum or plasma anion gap determination (moles/volume) 10 mmol/L 5-14 Serum or plasma urea nitrogen measurement (mass/volume) 9 mg/dL 7-18 Serum or plasma creatinine measurement (mass/volume) 0.82 mg/dL 0.60-1.30 Serum or plasma urea nitrogen/creatinine mass ratio 11 NRG Serum or plasma creatinine measurement with calculation of estimated glomerular filtration rate > NRG Serum or plasma glucose measurement (mass/volume) 97 mg/dL 70-105 Serum or plasma calcium measurement (mass/volume) 8.8 mg/dL 8.5-10.1 Serum or plasma total bilirubin measurement (mass/volume) 0.8 mg/dL 0.1-1.0 Serum or plasma alkaline phosphatase measurement (enzymatic activity/volume) 66 U/L 40-136 Serum or plasma aspartate aminotransferase measurement (enzymatic activity/ volume) 35 U/L 5-34 Serum or plasma alanine aminotransferase measurement (enzymatic activity/volume ) 13 U/L 0-55 Serum or plasma protein measurement (mass/volume) 6.4 g/dL 6.4-8.2 Serum or plasma albumin measurement (mass/volume) 3.6 g/dL 3.2-4.5 Complete urinalysis with reflex to culture - 08/08/16 11:20 Urine color determination YELLOW NRG Urine clarity determination VERY CLOUDY NRG Urine pH measurement by test strip 6 5-9 Specific gravity of urine by test strip 1.020 1.016- 1.022 Urine protein assay by test strip, semi-quantitative 3+ NEGATIVE Urine glucose detection by automated test strip NEGATIVE NEGATIVE Erythrocytes detection in urine sediment by light microscopy 4+ NEGATIVE Urine ketones detection by automated test strip 1+ NEGATIVE Urine nitrite detection by test strip POSITIVE NEGATIVE Urine total bilirubin detection by test strip 1+ NEGATIVE Urine urobilinogen measurement by automated test strip (mass/volume) 4 mg/dL NORMAL Urine leukocyte esterase detection by dipstick 3+ NEGATIVE Automated urine sediment erythrocyte count by microscopy (number/high power field) [HPF] NRG Automated urine sediment leukocyte count by microscopy (number/high power field ) [HPF] NRG Bacteria detection in urine sediment by light microscopy FEW NRG Crystals detection in urine sediment by light microscopy NONE NRG Casts detection in urine sediment by light microscopy NONE NRG Mucus detection in urine sediment by light microscopy SMALL NRG Complete urinalysis with reflex to culture YES NRG Bacterial urine culture - 08/08/16 11:20 Bacterial urine culture [id number] NRG COLONY COUNT 10,000/ML - 100,000/ML NRG FTX;REPORTABLE SENSITIVITY REPORTED 08/11/16 10:45 [facility] Bacterial susceptibility panel - 08/08/16 11:20 Gentamicin susceptibility test by minimum inhibitory concentration < = NRG Trimethoprim/sulfamethoxazole susceptibility test by minimum inhibitoryconcentration <= NRG Ampicillin susceptibility test by minimum inhibitory concentration > = NRG Tobramycin susceptibility test by minimum inhibitory concentration < = NRG Cefazolin susceptibility test by minimum inhibitory concentration < = NRG Ceftriaxone susceptibility test by minimum inhibitory concentration <= NRG Ampicillin/sulbactam susceptibility test by minimum inhibitory concentration >= NRG Piperacillin/tazobactam susceptibility test by minimum inhibitory concentration <= NRG Ciprofloxacin susceptibility test by minimum inhibitory concentration <= NRG Meropenem susceptibility test by minimum inhibitory concentration < = NRG Nitrofurantoin susceptibility test by minimum inhibitory concentration <= NRG Aztreonam susceptibility test by minimum inhibitory concentration < = NRG Extended spectrum beta lactamase (ESBL) producing bacteria susceptibility test by minimum inhibitory concentration - [facility] Bacterial susceptibility panel - 08/08/16 11:20 Gentamicin susceptibility test by minimum inhibitory concentration SYN-S NRG Erythromycin susceptibility test by minimum inhibitory concentration >= NRG Vancomycin susceptibility test by minimum inhibitory concentration 2 NRG Levofloxacin susceptibility test by minimum inhibitory concentration 0.5 NRG Tetracycline susceptibility test by minimum inhibitory concentration >= NRG Ampicillin susceptibility test by minimum inhibitory concentration < = NRG Nitrofurantoin susceptibility test by minimum inhibitory concentration <= NRG Linezolid susceptibility test by minimum inhibitory concentration 2 NRG Penicillin G susceptibility test by minimum inhibitory concentration 2 NRG Tigecycline susceptibility test by minimum inhibitory concentration <= NRG Bacterial urine culture - 09/13/16 14:10 Bacterial urine culture [id number] NRG COLONY COUNT >100,000/ML NRG FTX;REPORTABLE SENSITIVITY REPORTED AT 1713, 09-14-16 NRG URINE CULTURE RESULTS PLUS NRG Bacterial susceptibility panel - 09/13/16 14:10 Gentamicin susceptibility test by minimum inhibitory concentration < = NRG Trimethoprim/sulfamethoxazole susceptibility test by minimum inhibitoryconcentration <= NRG Ampicillin susceptibility test by minimum inhibitory concentration > = NRG Tobramycin susceptibility test by minimum inhibitory concentration < = NRG Cefazolin susceptibility test by minimum inhibitory concentration < = NRG Ceftriaxone susceptibility test by minimum inhibitory concentration <= NRG Ampicillin/sulbactam susceptibility test by minimum inhibitory concentration 4 NRG Piperacillin/tazobactam susceptibility test by minimum inhibitory concentration <= NRG Ciprofloxacin susceptibility test by minimum inhibitory concentration <= NRG Meropenem susceptibility test by minimum inhibitory concentration < = NRG Nitrofurantoin susceptibility test by minimum inhibitory concentration 64 NRG Aztreonam susceptibility test by minimum inhibitory concentration < = NRG Extended spectrum beta lactamase (ESBL) producing bacteria susceptibility test by minimum inhibitory concentration - NRG Encounters ACCT No. Visit Date/Time Discharge Status Pt. Type Provider Facility Loc./Unit Complaint [id number] 10/17/2017 00:11:00 10/17/2017 23:59:59 CLS Preadmit CORRINE MCKENNA Lex [facility] ONC [id number] 07/18/2017 14:45:00 10/16/2017 00:01:00 DIS Outpatient CLARISA CORRINE Lex [facility] ONC [id number] 04/09/2017 10:20:00 07/08/2017 00:01:00 DIS Outpatient CORRINE MCKENNA Lex [facility] ONC [id number] 12/05/2016 13:26:00 02/19/2017 00:01:00 DIS Outpatient CLARISACORRINE [facility] ONC [id number] 11/19/2016 00:31:00 11/19/2016 23:59:59 CLS Preadmit CORRINE MCKENNA [facility] ONC LABS/3 MONTH FU [id number] 09/13/2016 12:41:00 11/18/2016 00:01:00 DIS Outpatient CORRINE MCKENNA [facility] ONC LABS/3 MONTH FU [id number] 09/25/2016 11:30:00 09/25/2016 23:59:59 CLS Preadmit JULISSA VERDIN MD [facility] ENDO HISTORY OF GASTRIC CANCER [id number] 09/21/2016 05:48:00 09/21/2016 11:12:00 DIS Outpatient JULISSA VERDIN MD [facility] PREOP EGD [id number] 09/19/2016 13:26:00 09/19/2016 23:59:59 CLS Outpatient DIXON BEGUM [facility] RAD CHRONIC MYELOID LEUKEMIA [id number] 08/08/2016 11:23:00 08/22/2016 00:01:00 DIS Outpatient CORRINE MCKENNA [facility] ONC LABS/3 MONTH FU [id number] 02/23/2016 12:44:00 04/30/2016 00:01:00 DIS Outpatient CORRINE MCKENNA [facility] ONC LABS/3 MONTH FU [id number] 11/16/2015 12:57:00 01/31/2016 10:42:00 DIS Outpatient CORRINE MCKENNA [facility] ONC LABS/3 MONTH FU [id number] 01/20/2016 11:26:00 01/20/2016 23:59:59 CLS Outpatient WILIAM JOSHUA DO [facility] RAD COUGH [id number] 11/02/2015 13:12:00 11/15/2015 00:01:00 DIS Outpatient CORRINE MCKENNA [facility] ONC LABS/3 MONTH FU [id number] 09/13/2015 06:58:00 09/13/2015 10:40:00 DIS Outpatient JULISSA VERDIN MD [facility] SDC FOLLOW UP GASTRIC CANCER [id number] 09/10/2015 09:00:00 09/10/2015 10:25:00 DIS Outpatient JULISSA VERDIN MD [facility] PREOP FOLLOW UP GASTRIC CANCER [id number] 08/25/2015 10:42:00 08/25/2015 23:59:59 CLS Outpatient DIXON BEGUM BRIM BUSTER [facility] RAD GASTRIC A,SIGNET RING CELL CARCINOMA [id number] 08/17/2015 13:57:00 08/17/2015 23:59:59 CLS Outpatient DIXON EBGUM BRIM BUSTER [facility] ONC [id number] 08/02/2015 09:45:00 08/15/2015 00:01:00 DIS Outpatient CORRINE MCKENNA [facility] ONC LABS/3 MONTH FU [id number] 06/07/2015 14:45:00 06/07/2015 23:59:59 CLS Outpatient GELLENDER DO, WILIAM A [facility] RAD COUGH [id number] 05/03/2015 13:55:00 05/04/2015 00:01:00 DIS Outpatient CORRINE MCKENNA [facility] ONC LABS/3 MONTH FU [id number] 02/17/2015 12:52:00 02/17/2015 23:59:59 CLS Outpatient DIXON BEGUMP [facility] ONC [id number] 11/17/2014 12:33:00 11/18/2014 00:01:00 DIS Outpatient CORRINE MCKENNA [facility] ONC LABS/3 MONTH FU [id number] 11/11/2014 12:34:00 11/11/2014 23:59:59 CLS Outpatient DIXON BEGUM BRIM BUSTER [facility] ONC [id number] 08/12/2014 10:47:00 08/25/2014 00:01:00 DIS Outpatient CORRINE MCKENNA [facility] ONC LABS/3 MONTH FU [id number] 08/24/2014 14:06:00 08/24/2014 23:59:59 CLS Outpatient DAMIR RUDOLPH BR[facility] QUICK [id number] 08/04/2014 13:15:00 08/04/2014 23:59:59 CLS Outpatient CORRINE MCKENNA [facility] RAD GASTRIC CANCER [id number] 06/11/2014 12:46:00 06/11/2014 16:23:00 DIS Emergency ROD COVINGTON [facility] ER LEFT LEG/KNEE INJURY [id number] 05/18/2014 10:15:00 05/18/2014 13:00:00 DIS Outpatient JULISSA VERDIN MD [facility] SDC GASTRIC CA [id number] 05/14/2014 05:47:00 05/14/2014 23:59:59 CLS Outpatient JULISSA VERDIN MD [facility] PREOP GASTSRIC CA [id number] 04/13/2014 13:49:00 04/13/2014 23:59:59 CLS Outpatient DIXON BEGUMP [facility] ONC [id number] 03/05/2014 13:34:00 03/05/2014 23:59:59 CLS Outpatient CORRINE MCKENNA [facility] ONC LABS/3 MONTH FU [id number] 02/23/2014 12:48:00 02/23/2014 23:59:59 CLS Outpatient CORRINE MCKENNA [facility] RAD SIGNET RING CELL CA [id number] 10/24/2013 11:45:00 01/22/2014 00:01:00 DIS Outpatient CORRINE MCKENNA [facility] ONC LABS/3 MONTH FU [id number] 11/03/2013 12:59:00 11/03/2013 23:59:59 CLS Outpatient DIXON BEGUM BRIM BUSTER [facility] ONC [id number] 10/08/2013 15:02:00 10/08/2013 23:59:59 CLS Outpatient WILIAM JOSHUA DO [facility] RAD COUGH,WEAK,WEIGHT LOSS [id number] 07/28/2013 12:58:00 10/07/2013 00:01:00 DIS Outpatient CORRINE MCKENNA [facility] ONC LABS/3 MONTH FU [id number] 04/25/2013 11:53:00 07/06/2013 00:01:00 DIS Outpatient CORRINE MCKENNA [facility] ONC LABS/3 MONTH FU [id number] 05/23/2013 09:12:00 05/23/2013 23:59:59 CLS Outpatient DIXON BEGUM BR[facility]USTER [facility] RAD ABD PAIN,STATUS POST GASTRIC BYPASS [id number] 05/15/2013 14:24:00 05/15/2013 23:59:59 CLS Outpatient DIXON BEGUM BRIM BUSTER [facility] ONC [id number] 04/14/2013 13:55:00 04/14/2013 23:59:59 CLS Outpatient DIXON BEGUM BRIM BUSTER [facility] ONC [id number] 12/26/2012 10:24:00 02/26/2013 00:01:00 DIS Outpatient CORRINE MCKENNA [facility] ONC LABS/3 MONTH FU [id number] 02/17/2013 12:55:00 02/17/2013 23:59:59 CLS Outpatient WILIAM JOSHUA DO [facility] HH CHRONIC MYELOCYTIC LEUKEMIA [id number] 01/15/2013 13:54:00 02/10/2013 13:00:00 DIS Inpatient GIORGI HART MD [facility] IRF GASTRIC CANCER [id number] 12/25/2012 11:45:00 12/25/2012 23:59:59 CLS Outpatient RAMON DAMON [facility] RAD CAD,SOB,FATIGUE [id number] 11/26/2012 08:44:00 11/26/2012 23:59:59 CLS Outpatient CORRINE MCKENNA [facility] RAD STOMACH CA [id number] 11/11/2012 07:10:00 11/11/2012 11:20:00 DIS Outpatient JULISSA VERDIN MD [facility] SDC GERD [id number] 11/06/2012 08:51:00 11/06/2012 23:59:59 CLS Outpatient JULISSA VERDIN MD [facility] PREOP GERD [id number] 10/22/2012 11:13:00 10/22/2012 23:59:59 CLS Outpatient WILIAM JOSHUA DO [facility] RAD ACID REFLUX OF DISTENDED ABD,TROUBLE EATING [id number] 09/19/2012 09:31:00 09/19/2012 23:59:59 CLS Outpatient DIXON BEGUM BRIM BUSTER [facility] ONC [id number] 09/05/2012 11:17:00 09/05/2012 23:59:59 CLS Outpatient DIXON BEGUM S BRIM BUSTER [facility] ONC [id number] 06/24/2012 11:02:00 06/24/2012 23:59:59 CLS Outpatient IWLIAM JOSHUA DO [facility] RAD SCREENING [id number] 06/07/2015 14:45:00 Document Registration [id number] 06/07/2015 14:45:00 Document Registration [id number] 05/29/2012 09:40:00 Document Registration [id number] 02/27/2012 10:27:00 Document Registration [id number] 11/20/2011 10:14:00 Document Registration [id number] 08/31/2011 11:52:00 Document Registration [id number] 08/02/2011 09:39:00 Document Registration [id number] 06/22/2011 10:30:00 Document Registration [id number] 06/15/2011 06:35:00 Document Registration [id number] 06/08/2011 09:59:00 Document Registration [id number] 04/24/2011 10:10:00 Document Registration [id number] 01/06/2011 09:35:00 Document Registration [id number] 01/05/2011 14:48:00 Document Registration [id number] 10/04/2010 10:01:00 Document Registration [id number] 06/22/2010 09:54:00 Document Registration [id number] 06/03/2010 12:32:00 Document Registration [id number] 03/02/2010 10:14:00 Document Registration
[2017-11-14] MEDS ORDERED: SULF-222 (11:50)
--- NOTE | 2017-11-14 12:12 | ED Hip Pain/Injury ---
General Chief Complaint: Hip/Pelvic Problems Stated Complaint: HIP PAIN;UTI Nursing Triage Note: PT CO OF L HIP PAIN, DENIES INJURY TO L HIP, PT STATES WENT TO DR SUNDAY FOR HIP PAIN AND UTI SX. PT STATES STARTED ON ANTIBIOTIC FOR UTI ON SUNDAY. Source: patient, family ([id number]) Exam Limitations: no limitations History of Present Illness Date Seen by Provider: Nov 14, 2017 Time Seen by Provider: 11:54 Initial Comments Patient presents to ER by private conveyance with her kuakpfnt-cm-dyq and chief complaint she's having some left hip pain for the last 3 or 4 days. She denies any recent trauma, falls. 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 She's had some dysuria, frequency and without any hematuria or fevers since Sunday as well so she went and saw Dr. Joshua and he thought the pain in her left lower quadrant/hip might be from the bladder infection and obtain a urinalysis which was consistent with a UTI and put her on Bactrim DS. She says she's had a colonoscopy many years ago and was not told that she had any diverticulosis. She's not having any problems with her bowel movements her last one was yesterday normal formed. She's had some nausea like she could vomit and so she is stopped eating as much and is been drinking water. She has not vomited. She says she blames most of her changes in taste on the Gleevec and in fact next month was going to discuss at her appointment with Dr. Anderson about discontinuing the Gleevec. Pain in her hip is described as achy, 7 out of 10 and worsened by walking or moving on it. She has not taken any Tylenol or Motrin for it today. Allergies and Home Medications Allergies Coded Allergies: propoxyphene (Verified Allergy, Mild, 09/21/16) codeine (Verified Allergy, Unknown, 09/21/16) meperidine (Verified Allergy, Unknown, 09/21/16) Home Medications Acetaminophen 325 Mg Tab, 650 MG PO Q4H PRN for PAIN Prescribed by: KATELYN PALACIOS on 02/10/13 1127 Albuterol/Ipratropium 3 Ml Nebu, 3 ML INH Q2H PRN for SHORTNESS OF BREATH Prescribed by: KATELYN PALACIOS on 02/10/131126 Alprazolam 0.25 Mg Tab, 0.25 MG PO DAILY Prescribed by: KATELYN PALACIOS on 02/10/13 112 Aspirin 81 Mg Tabec, 81 MG PO DAILY, (Reported) Cephalexin 500 Mg Tablet, 500 MG PO BID Prescribed by: MARK PEMBERTON on 11/14/17 1339 Esomeprazole Mag Trihydrate 40 Mg Capsule.dr, 40 MG PO DAILY, (Reported) Famotidine 20 Mg Tablet, 1 EACH PO BID PRN PRN for HEARTBURN Prescribed by: ROD MARIN on 06/11/14 1518 Fluoxetine Hcl 10 Mg Tablet, 30 MG PO DAILY Prescribed by: KTAELYN PALACIOS on 02/10/131126 Levothyroxine Sodium 88 Mcg Tablet, 88 MCG PO DAILY, (Reported) Loperamide Hcl 2 Mg Capsule, 2 MG PO UD PRN for DIARRHEA Prescribed by: KATELYN PALACIOS on 02/10/131126 Nitroglycerin 0.4 Mg Tab, 0.4 MG SL PRN PRN for CHEST PAIN Prescribed by: KATELYN PALACIOS on 02/10/131126 Ondansetron 4 Mg Tab.rapdis, 4 MG PO Q6H PRN for NAUSEA/VOMITING Prescribed by: MARK PEMBERTON on 11/14/17 133 Oxybutynin Chloride 5 Mg Tablet, 5 MG PO TID Prescribed by: KATELYN PALACIOS on 02/10/131126 Simvastatin 40 Mg Tablet, 40 MG PO DAILY, (Reported) Sucralfate 1 Gm/10 Ml Susp, 2 TSP PO QID, (Reported) Tramadol Hcl 50 Mg Tablet, 50 MG PO Q4H PRN for PAIN Prescribed by: ROD MARIN on 06/11/14 1447 [[id number]] , 1 EA PO DAILY@0700 Prescribed by: KATELYN PALACIOS on 02/10/131126 Patient Home Medication List Home Medication List Reviewed: Yes Review of Systems Constitutional: No chills, No diaphoresis, No fever, No malaise EENTM: No ear discharge, No ear pain Respiratory: No cough, No short of breath Cardiovascular: No chest pain, No edema Gastrointestinal: No abdominal pain, No constipation, No diarrhea Genitourinary: No discharge; dysuria, frequency; No hematuria Musculoskeletal: see HPI; No back pain; joint pain Skin: No change in color, No rash (left hip) Past Qwclzhx-Aplrbv-Lmdjyn Hx Patient Social History Alcohol Use: Denies Use Recreational Drug Use: No Smoking Status: Never a Smoker Recent Foreign Travel: No Contact w/Someone Who Travel: No Recent Infectious Disease Expo: No Recent Hopitalizations: No Physical Abuse: No Sexual Abuse: No Immunizations Up To Date Date of Pneumonia Vaccine: Jan 10, 2013 Seasonal Allergies Seasonal Allergies: Yes Past Medical History Surgeries: Yes (hiatal hernia, root canal; part of stomach removed; 1 ovary removed) Hysterectomy Respiratory: No Cardiac: No Coronary Artery Disease Neurological: Yes (STROKE IN 08/27) Stroke Reproductive Disorders: No Female Reproductive Disorders: Denies Sexually Transmitted Disease: No HIV/AIDS: No UTI-Chronic Gastrointestinal: No Irritable Bowel Musculoskeletal: No Endocrine: Yes Hypothyroidsim Cancer: Yes (CML) Leukemia, Stomach Psychosocial: No Integumentary: No Blood Disorders: Yes (CHRONIC MYLOID LUEKEMIA, 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 0.0oz. 46.894882pd; 19.9 BMI Method:Stated General Appearance: No Apparent Distress, Thin HEENT: PERRL/EOMI, Pharynx Normal, Moist Mucous Membranes Neck: Full Range of Motion, Supple Cardiovascular: No Murmur, Normal Peripheral Pulses Respiratory: No Accessory Muscle Use, No Respiratory Distress Peripheral Pulses: 2+ Dorsalis Pedis (R), 2+ Left Dors-Pedis (L) Gastrointestinal: Normal Bowel Sounds, No Organomegaly, Non Tender, Soft, Other (mild tenderness over the left inguinal anterior hip joint. Negative Rovsing, mesenteric symptoms, psoas sign) Extremity: Normal Capillary Refill, Non Tender Neurologic/Psychiatric: Alert, Oriented x3, No Motor/Sensory Deficits Skin: Normal Color, Warm/Dry Progress/Results/Core Measures Results/Orders Lab Results Laboratory Tests Test 9/26/18 12:55 Range/Units Urine Color YELLOW Urine Clarity VERY CLOUDY H Urine pH 7 5-9 Urine Specific [place] 1.005 L 1.016-1.022 Urine Protein 1+ H NEGATIVE Urine Glucose (UA) NEGATIVE NEGATIVE Urine Ketones 2+ H NEGATIVE Urine Nitrite NEGATIVE NEGATIVE Urine Bilirubin NEGATIVE NEGATIVE Urine Urobilinogen NORMAL NORMAL MG/DL Urine Leukocyte Esterase 3+ H NEGATIVE Urine RBC (Auto) NEGATIVE NEGATIVE Urine RBC 0-2 /HPF Urine WBC >100 H /HPF Urine Squamous Epithelial Cells 0-2 /HPF Urine Crystals NONE /LPF Urine Bacteria MODERATE H /HPF Urine Casts NONE /LPF Urine Mucus NEGATIVE /LPF Urine Culture Indicated YES My Orders Orders - MARK PEMBERTON Ua Culture If Indicated (11/14/17 11:39) Hip, Left, 2 Views (11/14/17 12:03) Urine Culture (11/14/17 12:55) Vital Signs/I&O 11/14/17 11:43 Temp 97.4 Pulse 82 Resp 18 B/P (MAP) 140/90 (107) Pulse Ox 97 Blood Pressure Mean: 107 Progress Progress Note #1: Time: 12:12 Progress Note Primary concern for pathologic hip fracture which can be checked on by a pelvic x-ray. At this time she's declining anything for pain. She's not having any nausea right now. We'll try and re-collect urine but the patient says she already went for coming to the ER. We called Dr. Joshua's office and a urinalysis was collected but culture was not sent for. Progress Note #2: Time: 13:31 Progress Note But she's not having a very tender belly and her vital signs are not remarkable so she decided to try conservative therapy with NSAIDs and switch her antibiotic for the urinary tract infection and follow-up Sunday week with primary care doctor. We've given her strict return precautions. Diagnostic Imaging Diagonstic Imaging: Xray Plain Films/CT/US/NM/MRI: hip (left 2 view) Comments [facility] [place], [place] NAME: ANT VIGIL [facility] REC#: [id number] PT STATUS: REG ER : 1930 PHYSICIAN: MARK PEMBERTON MD ADMIT DATE: 11/14/17/ER Draft Date of Exam:11/14/17 HIP, LEFT, 2 VIEWS INDICATION: Left hip pain. TECHNIQUE: AP and oblique views of the left hip were obtained. FINDINGS: No fracture or acute bony abnormality is seen. There are vascular calcifications noted. There is mild joint space narrowing. IMPRESSION: There are mild degenerative changes of the left hip joint. No acute fracture or acute bony abnormality. Vascular calcifications are noted. Dictated on workstation # [id number] Dict: 11/14/17 1239 Trans: 11/14/17 1241 [id number] Interpreted by: HYUN NORRIS MD Electronically signed by: Reviewed: Reviewed by Me Departure Impression Primary Impression: UTI (urinary tract infection) Qualified Codes: N30.00 - Acute cystitis without hematuria Additional Impression: Acute pain of left hip Disposition: HOME, SELF-CARE Condition: Stable Departure-Patient Inst. Decision time for Depature: 13:52 Referrals: WILIAM JOSHUA DO (PCP/Family) Primary Care Physician Patient Instructions: Acute Cystitis (DC) Add. Discharge Instructions: Stop taking the Bactrim. Drink lots of fluids and if you have nausea or vomiting you can take one tablet of Zofran every 6 hours as needed. Start taking the Keflex one capsule twice a day for the next 7 days. Start taking the Motrin 3 tablets every 8 hours on schedule or Naprosyn one to 2 tablets twice a day for the next 1-2 weeks. If you begin to have indigestion, chest pain or acid reflux then discontinue the pain medicine and follow-up with Dr. Joshua. Plan to follow up with your PCP to reexamine your left hip pain in the next 1-2 weeks. You can also use Tylenol 1000 mg every 8 hours in addition to the tramadol as prescribed. All discharge instructions reviewed with patient and/or family. Voiced understanding. Scripts Ondansetron (Ondansetron Odt) 4 Mg Tab.rapdis 4 MG PO Q6H PRN for NAUSEA/VOMITING, #8 TAB 0 Refills Prov: MARK PEMBERTON 11/14/17 Cephalexin (Cephalexin) 500 Mg Tablet 500 MG PO BID for 7 Days, #14 TAB 0 Refills Prov: MARK PEMBERTON 11/14/17 Copy Copies To 1: WILIAM JOSHUA TITUS J Nov 14, 2017 12:12
--- NOTE | 2017-11-14 12:42 | Diagnostic Imaging Report ---
INDICATION: Left hip pain. TECHNIQUE: AP and oblique views of the left hip were obtained. FINDINGS: No fracture or acute bony abnormality is seen. There are vascular calcifications noted. There is mild joint space narrowing. IMPRESSION: There are mild degenerative changes of the left hip joint. No acute fracture or acute bony abnormality. Vascular calcifications are noted. Dictated by: Dictated on workstation # [id number]
[2017-11-14 13:36] LABS: BILIRUBIN,URINE NEGATIVE (NEGATIVE); CLARITY,URINE VERY CLOUDY; COLOR,URINE YELLOW; GLUCOSE, URINE (UA) NEGATIVE (NEGATIVE); KETONES,URINE 2+ (NEGATIVE); LEUKOCYTE ESTERASE ,URINE 3+ (NEGATIVE); NITRITE,URINE NEGATIVE (NEGATIVE); PH,URINE 7 (5-9); PROTEIN,URINE 1+ (NEGATIVE); UROBILINOGEN,URINE NORMAL (NORMAL)
[2017-11-14] MEDS ORDERED: CEPH500T PO (13:39)
[2017-11-14] MEDS ORDERED: ONDA4TAB11 PO (13:39)
[2017-11-14 13:48] LABS: BACTERIA,URINE MODERATE /HPF; RBC,URINE 0-2 /HPF; SQUAMOUS EPITHELIAL CELL,UR 0-2 /HPF; WBC,URINE >100 /HPF
[2017-11-14 14:04] VITALS: BP 140/90
== END 2017-11-14 14:04 | disposition home or self-care (01) ==
LOC: EDUNIT# 11:31 → ER 11:32
DX: N39.0 Urinary tract infection, site not specified (principal); M25.552 Pain in left hip; I25.10 Atherosclerotic heart disease of native coronary artery without angina pectoris; E03.9 Hypothyroidism, unspecified; Z85.028 Personal history of other malignant neoplasm of stomach; Z80.8 Family history of malignant neoplasm of other organs or systems; Z87.440 Personal history of urinary (tract) infections; Z86.73 Personal history of transient ischemic attack (TIA), and cerebral infarction without residual deficits; Z88.5 Allergy status to narcotic agent; Z88.8 Allergy status to other drugs, medicaments and biological substances; Z79.51 Long term (current) use of inhaled steroids; Z79.82 Long term (current) use of aspirin; Z98.84 Bariatric surgery status; Z85.6 Personal history of leukemia; Z87.19 Personal history of other diseases of the digestive system; Z90.49 Acquired absence of other specified parts of digestive tract; Z90.710 Acquired absence of both cervix and uterus
CPT/HCPCS: 73502; 81000; 87077; 87088; 87186; 99282

== ENCOUNTER → 2017-11-26 | Outpatient (CLI) | payer MEDICARE ==
[~2017-11-26] MED LIST changes: +ACET325T49 PO; +ALPR0.254 PO; +ASPI-983 PO; +CEPH500T PO; +CRAN1TAB5 PO; +ESOM40CA52 PO; +FLUO20TA28 PO; +IMAT400T7 PO; +IRON PO; +LEVO50TA6 PO; +LOPE-145 PO; +NITR0.4T39 SL; +ONDA4TAB11 PO; +SIMV10TA3 PO; +SUCR1ORA PO; +SULF-222
[2017-11-26 12:40] LABS: MEAN PLATELET VOLUME 10.1 FL (7.4-10.4); RED BLOOD COUNT 2.71 10^6/uL (4.35-5.85); WHITE BLOOD COUNT 6.9 10^3/uL (4.3-11.0)
[2017-11-26 13:00] LABS: ALBUMIN 3.5 GM/DL (3.2-4.5); BILIRUBIN,TOTAL 0.6 MG/DL (0.1-1.0); CREATININE SERUM 2.76 MG/DL (0.60-1.30); POTASSIUM 4.5 MMOL/L (3.6-5.0); TOTAL PROTEIN 6.5 GM/DL (6.4-8.2)
== END ==
LOC: LAB 12:05
PROVIDERS: ATTEND Family Medicine
DX: N39.0 Urinary tract infection, site not specified (principal); N28.9 Disorder of kidney and ureter, unspecified; R63.0 Anorexia
CPT/HCPCS: 36415; 80053; 85027; 87088

== ENCOUNTER 2017-11-27 10:16 | Outpatient (CLI) | payer MEDICARE ==
[~2017-11-27] VITALS: Ht 157.5 cm; Wt 46.7 kg
[~2017-11-27 10:16] MED LIST changes: -ACET325T49 PO; -ALPR0.254 PO; -ASPI-983 PO; -CRAN1TAB5 PO; -ESOM40CA52 PO; -FLUO20TA28 PO; -IMAT400T7 PO; -IRON PO; -LEVO50TA6 PO; -LOPE-145 PO; -NITR0.4T39 SL; -SIMV10TA3 PO; -SUCR1ORA PO
[2017-11-27 10:20] VITALS: BP 130/59
[2017-11-27] MEDS ORDERED: NS IV 1000 ML 2,000 ML ONE (10:28)
[2017-11-27] MEDS: NS IV 1000 ML 1,000 ML IV SCH ×2 (10:45→12:21)
[2017-11-27] MEDS ORDERED: LEVO50TA6 PO (11:16)
[2017-11-27] MEDS ORDERED: OXYB5TAB9 PO (11:16)
[2017-11-27] MEDS ORDERED: SIMV10TA3 PO (11:16)
[2017-11-27] MEDS ORDERED: FLUO20TA28 PO (11:16)
[2017-11-27] MEDS ORDERED: IMAT400T7 PO (11:16)
[2017-11-27] MEDS ORDERED: NITR0.4T39 SL (11:16)
[2017-11-27] MEDS ORDERED: ESOM40CA52 PO (11:16)
[2017-11-27] MEDS ORDERED: ASPI-983 PO (11:16)
[2017-11-27] MEDS ORDERED: SUCR1ORA PO (11:16)
[2017-11-27] MEDS ORDERED: CRAN1TAB5 PO (12:40)
[2017-11-27] MEDS ORDERED: LOPE-145 PO (12:55)
[2017-11-27] MEDS ORDERED: ALPR0.254 PO (12:55)
[2017-11-27] MEDS ORDERED: ACET325T49 PO (12:55)
[2017-11-27] MEDS ORDERED: IRON PO (12:59)
[2017-11-27] MEDS ORDERED: TRAM50TA2 PO (12:59)
== END 2017-11-27 13:50 | disposition home or self-care (01) ==
LOC: SDC 10:16
PROVIDERS: ATTEND Family Medicine
DX: N19 Unspecified kidney failure (principal)
CPT/HCPCS: 96360; 96361

== ENCOUNTER → 2017-11-28 | Outpatient (CLI) | payer MEDICARE ==
[~2017-11-28] MED LIST changes: +ACET325T49 PO; +ALPR0.254 PO; +ASPI-983 PO; +CRAN1TAB5 PO; +ESOM40CA52 PO; +FLUO20TA28 PO; +IMAT400T7 PO; +IRON PO; +LEVO50TA6 PO; +LOPE-145 PO; +NITR0.4T39 SL; +SIMV10TA3 PO; +SUCR1ORA PO
[2017-11-28 11:05] LABS: CALCIUM 8.8 MG/DL (8.5-10.1); CREATININE SERUM 2.6 MG/DL (0.60-1.30); POTASSIUM 3.9 MMOL/L (3.6-5.0)
== END ==
LOC: LAB 10:24
PROVIDERS: ATTEND Family Medicine
DX: N19 Unspecified kidney failure (principal)
CPT/HCPCS: 36415; 80048

== ENCOUNTER → 2017-12-03 | Outpatient (CLI) | payer MEDICARE ==
[~2017-12-03] MED LIST changes: +CEFD300C3 PO; +MECL-106 PO; +ONDA4TAB8 SL
[2017-12-03 11:46] LABS: BASOPHILS % (AUTO) 0 % (0-10); EOSINOPHILS # (AUTO) 0.1 10^3/uL (0.0-0.3); EOSINOPHILS % (AUTO) 2 % (0-10); HEMATOCRIT 26 % (35-52); HEMOGLOBIN 9.3 G/DL (11.5-16.0); LYMPHOCYTES # (AUTO) 1.3 X 10^3 (1.0-4.0); LYMPHOCYTES % (AUTO) 24 % (12-44); MEAN CORPUSCULAR HEMOGLOBIN 33 PG (25-34); MEAN CORPUSCULAR HGB CONC 36 G/DL (32-36); MEAN CORPUSCULAR VOLUME 92 FL (80-99); MEAN PLATELET VOLUME 9.8 FL (7.4-10.4); MONOCYTES # (AUTO) 0.5 X 10^3 (0.0-1.0); MONOCYTES % (AUTO) 10 % (0-12); NEUTROPHILS # (AUTO) 3.3 X 10^3 (1.8-7.8); NEUTROPHILS % (AUTO) 63 % (42-75); PLATELET COUNT 315 10^3/uL (130-400); RED CELL DISTRIBUTION WIDTH 12.9 % (10.0-14.5); WHITE BLOOD COUNT 5.3 10^3/uL (4.3-11.0)
[2017-12-03 12:07] LABS: ALBUMIN 3.8 GM/DL (3.2-4.5); BILIRUBIN,TOTAL 0.5 MG/DL (0.1-1.0); CALCIUM 9.4 MG/DL (8.5-10.1); CREATININE SERUM 2.88 MG/DL (0.60-1.30); TOTAL PROTEIN 7.3 GM/DL (6.4-8.2)
== END ==
LOC: LAB 11:28
PROVIDERS: ATTEND Family Medicine
DX: R63.0 Anorexia (principal); E86.0 Dehydration
CPT/HCPCS: 36415; 80053; 85025

== ENCOUNTER → 2017-12-04 | Outpatient (CLI) | payer MEDICARE ==
[~2017-12-04] VITALS: Ht 157.5 cm; Wt 46.7 kg
[~2017-12-04] MED LIST changes: +NS IV 1000 ML 1,000 ML IV SCH; +NS IV 1000 ML 2,000 ML ONE
[2017-12-04 13:45] VITALS: BP 163/71
== END ==
LOC: SDC 13:25
PROVIDERS: ATTEND Family Medicine
DX: N19 Unspecified kidney failure (principal)
CPT/HCPCS: 96360; 96361

== ENCOUNTER 2017-12-06 10:06 | Emergency (ER) | payer MEDICARE ==
[~2017-12-06] VITALS: Ht 157.5 cm; Wt 44.5 kg
[~2017-12-06 10:06] MED LIST changes: -CEFD300C3 PO; -MECL-106 PO; -NS IV 1000 ML 1,000 ML IV SCH; -NS IV 1000 ML 2,000 ML ONE; -ONDA4TAB8 SL
[2017-12-06] MEDS ORDERED: NS IV 1000 ML 1,000 ML IV SCH ×2 (11:25→12:47)
[2017-12-06 11:28] LABS: BILIRUBIN,URINE NEGATIVE (NEGATIVE); CLARITY,URINE SLIGHTLY CLOUDY; COLOR,URINE YELLOW; GLUCOSE, URINE (UA) NEGATIVE (NEGATIVE); KETONES,URINE 1+ (NEGATIVE); LEUKOCYTE ESTERASE ,URINE 2+ (NEGATIVE); NITRITE,URINE NEGATIVE (NEGATIVE); PH,URINE 5 (5-9); PROTEIN,URINE 1+ (NEGATIVE); UROBILINOGEN,URINE NORMAL (NORMAL)
--- NOTE | 2017-12-06 11:34 | ED Neurological Problem ---
General Chief Complaint: Dizziness/Syncope Stated Complaint: NAUSEA Nursing Triage Note: PT PRESENTS TO THE ED AMBULATORY, STATES SHE HAS BEEN EXPERIENCING SEVERE DIZZYNESS AND NAUSEA THIS AM, DENIES FALLING OR SYCOPAL EPISODE. STATES SHE HAS BEEN RECIEVING OUTPATIENT INFUSION OF IV FLIUDS FOR END STAGE KIDNEY DISEASE SINCE THE OF THIS MONTH. Nursing Sepsis Screen: No Definite Risk Source: patient, family Exam Limitations: no limitations History of Present Illness Date Seen by Provider: Dec 06, 2017 Time Seen by Provider: 11:15 Initial Comments 87-year-old female patient presents to the emergency department with complaints of dizziness and nausea beginning early this a.m.. Reports feeling like she is on a cruise ship. Worse with standing and ambulation. Denies falling or syncopal episode. Patient states she was scheduled to have outpatient IV fluids 2 L for chronic kidney disease. Reports she contacted Dr. Dr. Joshua 's office and was told to come to the emergency department for evaluation. 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 Dr. Corona stopped the Gleevec 2 wks ago, but patient states she restarted it on her own last night before bed. She is scheduled to see Nina Apple Sunday for routine f/u. Timing/Duration: 4-6 hours, waxing and waning Context: awoke with nausea and dizziness Associated Symptoms: No confusion, No fever/chills, No numbness in legs/feet, No paresthesia, No ringing in ears, No seizures, No sleepy, No slurred speech, No tingling in legs/feet; trouble walking ((d/t dizziness/vertigo)); No vision changes Allergies and Home Medications Allergies Coded Allergies: propoxyphene (Verified Allergy, Mild, 09/21/16) codeine (Verified Allergy, Unknown, 09/21/16) meperidine (Verified Allergy, Unknown, 09/21/16) Home Medications Acetaminophen 325 Mg Tablet, 650 MG PO Q4H, (Reported) Alprazolam 0.25 Mg Tablet, 0.25 MG PO DAILY, (Reported) Aspirin 81 Mg Tablet., 81 MG PO DAILY, (Reported) Cefdinir 300 Mg Capsule, 300 MG PO ONCE Prescribed by: ROD MARIN on 12/06/17 1350 Cranberry Conc/C/Bacill Coag 1 Each Tablet, 1 EACH PO DAILY, (Reported) Esomeprazole Magnesium 40 Mg Capsule.dr, 40 MG PO DAILY, (Reported) Fluoxetine HCl 20 Mg Tablet, 30 MG PO DAILY, (Reported) TAKES 30 MG PO DAILY Imatinib Mesylate 400 Mg Tablet, 400 MG PO DAILY, (Reported) Levothyroxine Sodium 50 Mcg Tablet, 50 MCG PO DAILY, (Reported) Loperamide HCl 2 Mg Capsule, 2 MG PO UD, (Reported) Meclizine HCl 25 Mg Tablet, 12.5-25 MG PO Q6H PRN for DIZZINESS Prescribed by: ROD MARIN on 12/06/17 1350 Nitroglycerin 0.4 Mg Tab.subl, 0.4 MG SL UD PRN for CHEST PAIN, (Reported) Ondansetron 4 Mg Tab.rapdis, 4 MG PO Q6H PRN for NAUSEA/VOMITING Prescribed by: MARK PEMBERTON on 11/14/17 1339 Ondansetron 4 Mg Tab.rapdis, 4 MG SL Q6H PRN for NAUSEA/VOMITING-1ST LINE Prescribed by: ROD MARIN on 12/06/17 1351 Simvastatin 10 Mg Tablet, 10 MG PO DAILY, (Reported) Sucralfate 1 Gm/10 Ml Oral.susp, 1 GM PO UD, (Reported) TAKES 2 TEASPOONFULS PO BEFORE MEALS AND AT BEDTIME Tramadol HCl 50 Mg Tablet, 50 MG PO BID, (Reported) [Iron] Unknown Strength , Unknown Dose PO DAILY, (Reported) [[id number]] , 1 EA PO DAILY@0700 Prescribed by: KATELYN PALACIOS on 02/10/13 1127 Patient Home Medication List Home Medication List Reviewed: Yes Review of Systems Review of Systems Constitutional: see HPI; No chills, No diaphoresis; dizziness; No fever; malaise (chronic malaise) Eyes: Denies Blindness, Denies Blurred Vision, Denies Decreased Acuity, Denies Pain, Denies Photophobia, Denies Tunnel Vision Ears, Nose, Mouth, Throat: denies ear pain, denies ear discharge, denies nose pain, denies nose discharge, denies mouth pain, denies throat pain, denies throat swelling Respiratory: No cough, No dyspnea on exertion, No orthopnea, No phlegm, No short of breath, No wheezing Cardiovascular: No chest pain, No edema, No palpitations, No syncope Gastrointestinal: No abdominal pain, No constipation, No diarrhea, No dysphagia ; loss of appetite; No melena; nausea; No vomiting Genitourinary: No dysuria, No frequency, No pain Musculoskeletal: no symptoms reported Skin: no symptoms reported Psychiatric/Neurological: Denies Cognitive Dysfunction, Denies Headache, Denies Numbness, Denies [place] Seizures, Denies Tingling, Denies Tonic Clonic Seizures, Denies Unable to Move Lower Ext, Denies Unable to Move Upper Ext, Denies Weakness Endocrine: No Symptoms Reported All Other Systems Reviewed Negative Unless Noted: Yes (Negative excepted noted.) Past Zzsowvj-Qdyeaj-Kfcepw Hx Past Med/Social Hx: Reviewed and Corrections made Patient Social History Alcohol Use: Past History Alcohol Beverage of Choice: Beer Recreational Drug Use: No Smoking Status: Never a Smoker 2nd Hand Smoke Exposure: No Recent Foreign Travel: No Contact w/Someone Who Travel: No Recent Infectious Disease Expo: No Recent Hopitalizations: No Immunizations Up To Date Date of Pneumonia Vaccine: Jan 10, 2013 Seasonal Allergies Seasonal Allergies: Yes Past Medical History Surgeries: Yes (hiatal hernia, root canal; part of stomach removed; 1 ovary removed) Hysterectomy Respiratory: No Cardiac: Yes Coronary Artery Disease Neurological: Yes (STROKE IN 08/27) Stroke : No Reproductive Disorders: No Female Reproductive Disorders: Denies PATIENT ACCOUNTS MANAGER History: Menopausal Sexually Transmitted Disease: No HIV/AIDS: No UTI-Chronic Gastrointestinal: No Irritable Bowel Musculoskeletal: No Endocrine: Yes Hypothyroidsim Cancer: Yes (CML) Leukemia, Stomach Psychosocial: No Integumentary: No Blood Disorders: Yes (CHRONIC MYLOID LUEKEMIA, 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 0.0oz. [id number]; 19.9 BMI Method:Stated General Appearance: no apparent distress, thin, other (chronically ill appearing female. ) HEENT: PERRL/EOMI, normal ENT inspection, TMs normal, pharynx normal, other ( oral mucosa slightly dry) Neck: non-tender, full range of motion, supple, normal inspection Respiratory: lungs clear, normal breath sounds, no respiratory distress, no accessory muscle use Cardiovascular: normal peripheral pulses, regular rate, rhythm, no edema, no gallop, no JVD, no murmur Peripheral Pulses: 2+ Dorsalis Pedis (R), 2+ Left Dors-Pedis (L), 2+ Radial Pulses (R), 2+ Radial Pulses (L) Gastrointestinal: normal bowel sounds, non tender, soft, no organomegaly, no pulsatile mass; No distended Back: normal inspection, no vertebral tenderness Extremities: no pedal edema, no calf tenderness, normal capillary refill Neurologic/Psychiatric: cheesemaker II-XII nml as tested, no motor/sensory deficits, alert, normal mood/affect, oriented x 3 Crainal Nerves: normal hearing, normal speech, PERRL; No abnormal eye position , No abnormal pupil position, No abnormal speech, No facial asymmetry, No facial droop, No facial paresthesias, No facial weakness, No gaze palsy, No hearing deficit (R), No hearing deficit (L), No tongue deviation to R, No tongue deviation to L Coordination/Gait: normal finger to nose Motor/Sensory: no motor deficit, no sensory deficit, no pronator drift Skin: normal color, warm/dry Progress/Results/Core Measures Results/Orders Lab Results Laboratory Tests Test 12/06/17 11:00 12/06/17 11:15 Range/Units Urine Color YELLOW Urine Clarity SLIGHTLY CLOUDY Urine pH 5 5-9 Urine Specific [place] 1.010 L 1.016-1.022 Urine Protein 1+ H NEGATIVE Urine Glucose (UA) NEGATIVE NEGATIVE Urine Ketones 1+ H NEGATIVE Urine Nitrite NEGATIVE NEGATIVE Urine Bilirubin NEGATIVE NEGATIVE Urine Urobilinogen NORMAL NORMAL MG/DL Urine Leukocyte Esterase 2+ H NEGATIVE Urine RBC (Auto) NEGATIVE NEGATIVE Urine RBC 0-2 /HPF Urine WBC 2-5 /HPF Urine Squamous Epithelial Cells 2-5 /HPF Urine Crystals NONE /LPF Urine Bacteria MODERATE H /HPF Urine Casts NONE /LPF Urine Mucus NEGATIVE /LPF Urine Culture Indicated YES White Blood Count 4.5 4.3-11.0 10^3/uL Red Blood Count 2.93 L 4.35-5.85 10^6/uL Hemoglobin 9.4 L 11.5-16.0 G/DL Hematocrit 27 L 35-52 % Mean Corpuscular Volume 94 80-99 FL Mean Corpuscular Hemoglobin 32 25-34 PG Mean Corpuscular Hemoglobin Concent 34 32-36 G/DL Red Cell Distribution Width 13.0 10.0-14.5 % Platelet Count 386 130-400 10^3/uL Mean Platelet Volume 10.1 7.4-10.4 FL Neutrophils (%) (Auto) 61 42-75 % Lymphocytes (%) (Auto) 28 12-44 % Monocytes (%) (Auto) 8 0-12 % Eosinophils (%) (Auto) 3 0-10 % Basophils (%) (Auto) 0 0-10 % Neutrophils # (Auto) 2.7 1.8-7.8 X 10^3 Lymphocytes # (Auto) 1.2 1.0-4.0 X 10^3 Monocytes # (Auto) 0.3 0.0-1.0 X 10^3 Eosinophils # (Auto) 0.2 0.0-0.3 10^3/uL Basophils # (Auto) 0.0 0.0-0.1 10^3/uL Sodium Level 140 135-145 MMOL/L Potassium Level 3.7 3.6-5.0 MMOL/L Chloride Level 107 98-107 MMOL/L Carbon Dioxide Level 20 L 21-32 MMOL/L Anion Gap 13 5-14 MMOL/L Blood Urea Nitrogen 16 7-18 MG/DL Creatinine 2.62 H 0.60-1.30 MG/DL Estimat Glomerular Filtration Rate 17 BUN/Creatinine Ratio 6 Glucose Level 90 70-105 MG/DL Calcium Level 9.3 8.5-10.1 MG/DL Corrected Calcium 9.4 8.5-10.1 MG/DL Magnesium Level 1.8 1.8-2.4 MG/DL Total Bilirubin 0.4 0.1-1.0 MG/DL Aspartate Amino Transf (AST/SGOT) 19 5-34 U/L Alanine Aminotransferase (ALT/SGPT) 8 0-55 U/L Alkaline Phosphatase 74 40-136 U/L Total Creatine Kinase 109 29-168 U/L Creatine Kinase MB 2.0 <6.6 NG/ML Troponin I < 0.30 <0.30 NG/ML Total Protein 7.7 6.4-8.2 GM/DL Albumin 3.9 3.2-4.5 GM/DL TSH [place] Testing 2.70 0.35-4.94 UIU/ML My Orders Orders - ROD MARIN Saline Lock/Iv-Start (12/06/17 11:25) Cbc With Automated Diff (12/06/17 11:25) Comprehensive Metabolic Panel (12/06/17 11:25) Creatine Kinase (12/06/17 11:25) Creatine Kinase Mb (12/06/17 11:25) Magnesium (12/06/17 11:25) Thyroid Analyzer (12/06/17 11:25) Troponin I (12/06/17 11:25) Ct Head Wo (12/06/17 11:25) Ns Iv 1000 Ml (Sodium Chloride 0.9%) (12/06/17 11:25) Chest 1 View, Ap/Pa Only (12/06/17 11:25) Ekg Tracing (12/06/17 11:25) Saline Lock/Iv-Start (12/06/17 12:47) Ns Iv 1000 Ml (Sodium Chloride 0.9%) (12/06/17 12:47) Meclizine Tablet (Antivert Tablet) (12/06/17 13:00) Medications Given in ED Current Medications Medications Dose Ordered Sig/Lisa Route Start Time Stop Time Status Last Admin Dose Admin Meclizine HCl 25 mg ONCE ONCE PO 12/06/17 13:00 12/06/17 13:01 DC 12/06/17 12:55 25 MG Vital Signs/I&O 12/06/17 12/06/17 10:48 14:43 Temp 97.9 97.9 Pulse 76 70 Resp 20 20 B/P (MAP) 193/91 (125) 177/95 (122) Pulse Ox 100 100 O2 Delivery Room Air Room Air Blood Pressure Mean: 125 Initial ECG Impression Date: Dec 06, 2017 Initial ECG Impression Time: 11:46 Initial ECG Rate: 75 Diagnostic Imaging Diagonstic Imaging: Xray Plain Films/CT/US/NM/MRI: chest Comments CHEST 1 VIEW, AP/PA ONLY INDICATION: Severe dizziness and nausea. TIME OF EXAM: 12:44 PM COMPARISON is made with prior chest radiographs from 01/20/2016. FINDINGS: The heart size is stable. The lungs appear clear. No infiltrate or failure is detected. No effusion or pneumothorax is seen. IMPRESSION: No acute cardiopulmonary process is detected. Dictated on workstation # [id number] Reviewed: Reviewed by Me (radiology report reviewed by me) Diagonstic Imaging: CT Plain Films/CT/US/NM/MRI: head Comments CT HEAD WO PROCEDURE: CT head without contrast. TECHNIQUE: Multiple contiguous axial images were obtained through the brain without the use of intravenous contrast. INDICATION: Nausea and dizziness. COMPARISON: Comparison is made with prior head CT from 10/04/2009. FINDINGS: Ventricles and sulci are consistent with the patient's age. Moderate periventricular hypodensity is noted, consistent with senescent change. 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 No sulcal effacement is seen. There is no midline shift. No acute intra-axial or extra-axial hemorrhage is detected. The cisterns are patent. The visualized paranasal sinuses are clear. IMPRESSION: Chronic and senescent changes. No acute intracranial process is detected. Dictated on workstation # [id number] Reviewed: Reviewed by Me (radiology report reviewed by me) Departure Communication (Admissions) Patient reports feeling much better with IV fluids. Patient reports only slight dizziness with standing. All laboratory and diagnostic findings discussed with the patient. Patient given 25 mg of Antivert 1 dose. 1316 Patient case discussed with Nina Apple APRN including history, vital signs, laboratory findings, diagnostic study findings. Symptoms are most likely related to restarting the Gleevec last night. Nina requesting patient to stop the Gleevec and f/u with her on 12/19/17 at 1330. She also requests patient to follow-up with Dr. Joshua tomorrow for recheck and repeat labs. 1345 all laboratory and diagnostic findings discussed with the patient. Recommendations nina Apple discussed with the patient. Patient reports feeling much better. Patient is A/Ox4, NAD. LCTA, CVRRR. CN II-XII intact. no motor or sensory deficits. normal gait. negative romberg. Patient to call Dr. Joshua's office tomorrow morning for an appointment. Patient case discussed with Dr. Xiao, he agrees with the plan of care. Impression Primary Impression: Volume depletion Additional Impressions: Chronic kidney disease Qualified Codes: N18.4 - Chronic kidney disease, stage 4 (severe) UTI (urinary tract infection) Qualified Codes: N30.00 - Acute cystitis without hematuria Disposition: 01 HOME, SELF-CARE Condition: Improved Departure-Patient Inst. Decision time for Depature: 13:51 Referrals: WILIAM JOSHUA DO (Family) Primary Care Physician CORRINE CORONA Patient Instructions: Dehydration, Adult (DC), Urinary Tract Infection, Adult ( DC), Vertigo (a Type of Dizziness) (DC) Add. Discharge Instructions: All discharge instructions reviewed with patient and/or family. Voiced understanding. Stop the Gleevec. Drink plenty of fluids. Avoid standing quickly. Follow-up with Dr. Joshua tomorrow for recheck and repeat labs. Call his office today for an appointment time. Follow up with Nina Apple APRN on December 19, 2017 at 1:30 PM. Return immediately to the emergency department for worsened dizziness, headache, changes in vision, slurred speech, facial droop, one-sided weakness or numbness, chest pain, shortness of air, vomiting, or any other concerns. Scripts Ondansetron (Zofran Odt) 4 Mg Tab.rapdis 4 MG SL Q6H PRN for NAUSEA/VOMITING-1ST LINE, #10 TAB 0 Refills Prov: ROD MARIN 12/06/17 Cefdinir (Cefdinir) 300 Mg Capsule 300 MG PO ONCE, #7 CAP 0 Refills Prov: ROD MARIN 12/06/17 Meclizine HCl (Meclizine HCl) 25 Mg Tablet 12.5-25 MG PO Q6H PRN for DIZZINESS, #10 TAB 0 Refills Prov: ROD MARIN 12/06/17 ROD MARIN Dec 06, 2017 11:34
[2017-12-06 11:35] LABS: BASOPHILS % (AUTO) 0 % (0-10); EOSINOPHILS # (AUTO) 0.2 10^3/uL (0.0-0.3); EOSINOPHILS % (AUTO) 3 % (0-10); HEMATOCRIT 27 % (35-52); HEMOGLOBIN 9.4 G/DL (11.5-16.0); LYMPHOCYTES # (AUTO) 1.2 X 10^3 (1.0-4.0); LYMPHOCYTES % (AUTO) 28 % (12-44); MEAN CORPUSCULAR HEMOGLOBIN 32 PG (25-34); MEAN CORPUSCULAR HGB CONC 34 G/DL (32-36); MEAN CORPUSCULAR VOLUME 94 FL (80-99); MEAN PLATELET VOLUME 10.1 FL (7.4-10.4); MONOCYTES # (AUTO) 0.3 X 10^3 (0.0-1.0); MONOCYTES % (AUTO) 8 % (0-12); NEUTROPHILS # (AUTO) 2.7 X 10^3 (1.8-7.8); NEUTROPHILS % (AUTO) 61 % (42-75); PLATELET COUNT 386 10^3/uL (130-400); RED BLOOD COUNT 2.93 10^6/uL (4.35-5.85); WHITE BLOOD COUNT 4.5 10^3/uL (4.3-11.0)
[2017-12-06 11:48] LABS: ALANINE AMINOTRANSFERASE 8 U/L (0-55); ALBUMIN 3.9 GM/DL (3.2-4.5); ALKALINE PHOSPHATASE 74 U/L (40-136); BILIRUBIN,TOTAL 0.4 MG/DL (0.1-1.0); BUN/CREATININE RATIO 6; CALCIUM 9.3 MG/DL (8.5-10.1); CARBON DIOXIDE 20 MMOL/L (21-32); CHLORIDE 107 MMOL/L (98-107); CREATINE KINASE 109 U/L (29-168); CREATININE SERUM 2.62 MG/DL (0.60-1.30); GFR ESTIMATED 17; GLUCOSE 90 MG/DL (70-105); MAGNESIUM 1.8 MG/DL (1.8-2.4); POTASSIUM 3.7 MMOL/L (3.6-5.0); SODIUM 140 MMOL/L (135-145); TOTAL PROTEIN 7.7 GM/DL (6.4-8.2)
[2017-12-06 11:55] LABS: BACTERIA,URINE MODERATE /HPF; RBC,URINE 0-2 /HPF
--- NOTE | 2017-12-06 12:35 | Diagnostic Imaging Report ---
PROCEDURE: CT head without contrast. TECHNIQUE: Multiple contiguous axial images were obtained through the brain without the use of intravenous contrast. INDICATION: Nausea and dizziness. COMPARISON: Comparison is made with prior head CT from 10/04/2009. FINDINGS: Ventricles and sulci are consistent with the patient's age. Moderate periventricular hypodensity is noted, consistent with senescent change. 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 No sulcal effacement is seen. There is no midline shift. No acute intra-axial or extra-axial hemorrhage is detected. The cisterns are patent. The visualized paranasal sinuses are clear. IMPRESSION: Chronic and senescent changes. No acute intracranial process is detected. Dictated by: Dictated on workstation # [id number]
--- NOTE | 2017-12-06 12:35 | Diagnostic Imaging Report ---
INDICATION: Severe dizziness and nausea. TIME OF EXAM: 12:44 PM COMPARISON is made with prior chest radiographs from 01/20/2016. FINDINGS: The heart size is stable. The lungs appear clear. No infiltrate or failure is detected. No effusion or pneumothorax is seen. IMPRESSION: No acute cardiopulmonary process is detected. Dictated by: Dictated on workstation # [id number]
[2017-12-06] MEDS ORDERED: MECLIZINE 25 MG (ANTIVERT) TAB PO ONE (13:00)
[2017-12-06] MEDS ORDERED: CEFD300C3 PO (13:50)
[2017-12-06] MEDS ORDERED: MECL-106 PO (13:50)
[2017-12-06] MEDS ORDERED: ONDA4TAB8 SL (13:51)
[2017-12-06 14:43] VITALS: BP 177/95
== END 2017-12-06 14:48 | disposition home or self-care (01) ==
LOC: EDUNIT# 10:06 → ER 10:08
DX: E86.9 Volume depletion, unspecified (principal); N18.9 Chronic kidney disease, unspecified; N39.0 Urinary tract infection, site not specified; R42 Dizziness and giddiness; I25.10 Atherosclerotic heart disease of native coronary artery without angina pectoris; E03.9 Hypothyroidism, unspecified; Z87.19 Personal history of other diseases of the digestive system; Z85.028 Personal history of other malignant neoplasm of stomach; Z86.718 Personal history of other venous thrombosis and embolism; Z80.8 Family history of malignant neoplasm of other organs or systems; Z85.6 Personal history of leukemia; Z90.710 Acquired absence of both cervix and uterus; Z86.73 Personal history of transient ischemic attack (TIA), and cerebral infarction without residual deficits; Z88.5 Allergy status to narcotic agent; Z88.8 Allergy status to other drugs, medicaments and biological substances; Z79.82 Long term (current) use of aspirin
CPT/HCPCS: 36415; 70450; 71045; 80053; 81000; 82550; 82553; 83735; 84443; 84484; 85025; 87077; 87088; 87186; 93005; 96360

== ENCOUNTER → 2017-12-11 | Outpatient (CLI) | payer MEDICARE ==
[~2017-12-11] MED LIST changes: +CEFD300C3 PO; +MECL-106 PO; +ONDA4TAB8 SL
--- NOTE | 2017-12-11 12:40 | Diagnostic Imaging Report ---
CLINICAL INDICATION: Patient with renal insufficiency. Exam: Ultrasound of both kidneys. Comparison: CT scan of the chest and abdomen dated 09/19/2016. Findings: There is a 4.5 cm x 3.6 cm x 3.5 cm cyst involving the inferior pole of the right kidney, which was also seen on the comparison CT scan. Otherwise, both kidneys are normal in size, shape, echogenicity and cortical thickness without hydronephrosis, stones, or other focal lesions with the right and left kidneys measuring 10.0 cm and 10.6 cm in their craniocaudal dimensions, respectively. Bladder is partially fluid-filled with no gross abnormality. Bilateral ureteral jets are seen. Impression: Again seen right renal cyst. Otherwise, unremarkable bilateral renal ultrasound. Dictated by: Dictated on workstation # [id number]
== END ==
LOC: RAD 08:26
PROVIDERS: ATTEND Family Medicine
DX: N28.1 Cyst of kidney, acquired (principal)
CPT/HCPCS: 76770

== ENCOUNTER 2018-02-01 14:29 | Outpatient (RCR) | payer MEDICARE ==
[2017-11-22 14:42] LABS: BASOPHILS % (AUTO) 0 % (0-10); EOSINOPHILS # (AUTO) 0.2 10^3/uL (0.0-0.3); EOSINOPHILS % (AUTO) 3 % (0-10); HEMATOCRIT 26 % (35-52); HEMOGLOBIN 9.4 G/DL (11.5-16.0); LYMPHOCYTES # (AUTO) 1.9 X 10^3 (1.0-4.0); LYMPHOCYTES % (AUTO) 26 % (12-44); MEAN CORPUSCULAR HEMOGLOBIN 34 PG (25-34); MEAN CORPUSCULAR HGB CONC 36 G/DL (32-36); MEAN CORPUSCULAR VOLUME 95 FL (80-99); MEAN PLATELET VOLUME 10.2 FL (7.4-10.4); MONOCYTES # (AUTO) 0.6 X 10^3 (0.0-1.0); MONOCYTES % (AUTO) 9 % (0-12); NEUTROPHILS # (AUTO) 4.4 X 10^3 (1.8-7.8); NEUTROPHILS % (AUTO) 62 % (42-75); PLATELET COUNT 261 10^3/uL (130-400); RED BLOOD COUNT 2.78 10^6/uL (4.35-5.85); RED CELL DISTRIBUTION WIDTH 13.5 % (10.0-14.5); WHITE BLOOD COUNT 7.2 10^3/uL (4.3-11.0)
[2017-11-22 15:01] LABS: ALBUMIN 3.6 GM/DL (3.2-4.5); BILIRUBIN,TOTAL 0.3 MG/DL (0.1-1.0); CALCIUM 8.8 MG/DL (8.5-10.1); CREATININE SERUM 1.33 MG/DL (0.60-1.30); POTASSIUM 4.4 MMOL/L (3.6-5.0); TOTAL PROTEIN 6.7 GM/DL (6.4-8.2)
[2017-12-19 13:28] LABS: BASOPHILS % (AUTO) 0 % (0-10); EOSINOPHILS # (AUTO) 0.4 10^3/uL (0.0-0.3); EOSINOPHILS % (AUTO) 5 % (0-10); HEMATOCRIT 27 % (35-52); HEMOGLOBIN 9.1 G/DL (11.5-16.0); LYMPHOCYTES # (AUTO) 1.8 X 10^3 (1.0-4.0); LYMPHOCYTES % (AUTO) 24 % (12-44); MEAN CORPUSCULAR HEMOGLOBIN 32 PG (25-34); MEAN CORPUSCULAR HGB CONC 34 G/DL (32-36); MEAN CORPUSCULAR VOLUME 94 FL (80-99); MONOCYTES # (AUTO) 0.8 X 10^3 (0.0-1.0); MONOCYTES % (AUTO) 10 % (0-12); NEUTROPHILS # (AUTO) 4.5 X 10^3 (1.8-7.8); NEUTROPHILS % (AUTO) 61 % (42-75); PLATELET COUNT 244 10^3/uL (130-400); RED BLOOD COUNT 2.89 10^6/uL (4.35-5.85); RED CELL DISTRIBUTION WIDTH 12.9 % (10.0-14.5); WHITE BLOOD COUNT 7.4 10^3/uL (4.3-11.0)
[2017-12-19 13:48] LABS: ALBUMIN 3.9 GM/DL (3.2-4.5); BILIRUBIN,TOTAL 0.5 MG/DL (0.1-1.0); CALCIUM 9.9 MG/DL (8.5-10.1); CREATININE SERUM 2.1 MG/DL (0.60-1.30); POTASSIUM 4.5 MMOL/L (3.6-5.0); TOTAL PROTEIN 7.5 GM/DL (6.4-8.2)
[2018-01-16 13:31] LABS: BASOPHILS % (AUTO) 0 % (0-10); EOSINOPHILS # (AUTO) 0.2 10^3/uL (0.0-0.3); EOSINOPHILS % (AUTO) 3 % (0-10); HEMATOCRIT 27 % (35-52); HEMOGLOBIN 8.9 G/DL (11.5-16.0); LYMPHOCYTES # (AUTO) 1.4 X 10^3 (1.0-4.0); LYMPHOCYTES % (AUTO) 25 % (12-44); MEAN CORPUSCULAR HEMOGLOBIN 32 PG (25-34); MEAN CORPUSCULAR HGB CONC 34 G/DL (32-36); MEAN CORPUSCULAR VOLUME 94 FL (80-99); MEAN PLATELET VOLUME 10.3 FL (7.4-10.4); MONOCYTES # (AUTO) 0.7 X 10^3 (0.0-1.0); MONOCYTES % (AUTO) 12 % (0-12); NEUTROPHILS # (AUTO) 3.3 X 10^3 (1.8-7.8); NEUTROPHILS % (AUTO) 60 % (42-75); PLATELET COUNT 238 10^3/uL (130-400); RED BLOOD COUNT 2.81 10^6/uL (4.35-5.85); RED CELL DISTRIBUTION WIDTH 13.5 % (10.0-14.5); WHITE BLOOD COUNT 5.5 10^3/uL (4.3-11.0)
[2018-01-16 13:49] LABS: ALBUMIN 3.8 GM/DL (3.2-4.5); BILIRUBIN,TOTAL 0.3 MG/DL (0.1-1.0); CALCIUM 9.6 MG/DL (8.5-10.1); CREATININE SERUM 1.75 MG/DL (0.60-1.30); POTASSIUM 4.4 MMOL/L (3.6-5.0); TOTAL PROTEIN 7.4 GM/DL (6.4-8.2)
[2018-02-01 15:19] LABS: BASOPHILS % (AUTO) 0 % (0-10); EOSINOPHILS # (AUTO) 0.2 10^3/uL (0.0-0.3); EOSINOPHILS % (AUTO) 4 % (0-10); HEMATOCRIT 26 % (35-52); HEMOGLOBIN 8.8 G/DL (11.5-16.0); LYMPHOCYTES # (AUTO) 1.5 X 10^3 (1.0-4.0); LYMPHOCYTES % (AUTO) 29 % (12-44); MEAN CORPUSCULAR HEMOGLOBIN 32 PG (25-34); MEAN CORPUSCULAR HGB CONC 33 G/DL (32-36); MEAN CORPUSCULAR VOLUME 95 FL (80-99); MEAN PLATELET VOLUME 10.8 FL (7.4-10.4); MONOCYTES # (AUTO) 0.5 X 10^3 (0.0-1.0); MONOCYTES % (AUTO) 9 % (0-12); NEUTROPHILS # (AUTO) 2.9 X 10^3 (1.8-7.8); NEUTROPHILS % (AUTO) 58 % (42-75); PLATELET COUNT 247 10^3/uL (130-400); RED BLOOD COUNT 2.77 10^6/uL (4.35-5.85); RED CELL DISTRIBUTION WIDTH 13.5 % (10.0-14.5)
[2018-02-01 15:39] LABS: ALBUMIN 3.7 GM/DL (3.2-4.5); BILIRUBIN,TOTAL 0.3 MG/DL (0.1-1.0); CREATININE SERUM 1.64 MG/DL (0.60-1.30); POTASSIUM 4.1 MMOL/L (3.6-5.0); TOTAL PROTEIN 7.1 GM/DL (6.4-8.2)
== END 2018-02-20 | disposition home or self-care (01) ==
LOC: ONC 14:29
PROVIDERS: ATTEND Internal Medicine Hematology & Oncology
DX: C92.10 Chronic myeloid leukemia, BCR/ABL-positive, not having achieved remission (principal); C16.3 Malignant neoplasm of pyloric antrum; D53.9 Nutritional anemia, unspecified; M81.0 Age-related osteoporosis without current pathological fracture; E03.9 Hypothyroidism, unspecified; N18.3 Chronic kidney disease, stage 3 (moderate); I08.3 Combined rheumatic disorders of mitral, aortic and tricuspid valves; I25.10 Atherosclerotic heart disease of native coronary artery without angina pectoris; Z79.899 Other long term (current) drug therapy
CPT/HCPCS: 36415; 80053; 81206; 82306; 82728; 83540; 83615; 84443; 85025; 99213

== ENCOUNTER → 2018-02-01 | Outpatient (CLI) | payer MEDICARE ==
[2018-02-01 15:21] LABS: BASOPHILS % (AUTO) 0 % (0-10); EOSINOPHILS # (AUTO) 0.2 10^3/uL (0.0-0.3); EOSINOPHILS % (AUTO) 3 % (0-10); HEMATOCRIT 26 % (35-52); HEMOGLOBIN 8.7 G/DL (11.5-16.0); LYMPHOCYTES # (AUTO) 1.4 X 10^3 (1.0-4.0); LYMPHOCYTES % (AUTO) 29 % (12-44); MEAN CORPUSCULAR HEMOGLOBIN 32 PG (25-34); MEAN CORPUSCULAR HGB CONC 33 G/DL (32-36); MEAN CORPUSCULAR VOLUME 96 FL (80-99); MEAN PLATELET VOLUME 10.5 FL (7.4-10.4); MONOCYTES # (AUTO) 0.5 X 10^3 (0.0-1.0); MONOCYTES % (AUTO) 10 % (0-12); NEUTROPHILS # (AUTO) 2.8 X 10^3 (1.8-7.8); NEUTROPHILS % (AUTO) 57 % (42-75); PLATELET COUNT 236 10^3/uL (130-400); RED BLOOD COUNT 2.73 10^6/uL (4.35-5.85); RED CELL DISTRIBUTION WIDTH 13.5 % (10.0-14.5); WHITE BLOOD COUNT 4.9 10^3/uL (4.3-11.0)
[2018-02-01 15:23] LABS: BILIRUBIN,URINE NEGATIVE (NEGATIVE); CLARITY,URINE SLIGHTLY CLOUDY; COLOR,URINE YELLOW; GLUCOSE, URINE (UA) NEGATIVE (NEGATIVE); KETONES,URINE NEGATIVE (NEGATIVE); LEUKOCYTE ESTERASE ,URINE 1+ (NEGATIVE); NITRITE,URINE NEGATIVE (NEGATIVE); PH,URINE 5 (5-9); PROTEIN,URINE 1+ (NEGATIVE); UROBILINOGEN,URINE NORMAL (NORMAL)
[2018-02-01 15:29] LABS: BACTERIA,URINE NEGATIVE /HPF; WBC,URINE RARE /HPF
[2018-02-01 15:43] LABS: ALBUMIN 3.7 GM/DL (3.2-4.5); CREATININE SERUM 1.64 MG/DL (0.60-1.30); MAGNESIUM 1.9 MG/DL (1.8-2.4); PHOSPHORUS 3.9 MG/DL (2.3-4.7); POTASSIUM 4.1 MMOL/L (3.6-5.0); URIC ACID 5.8 MG/DL (2.6-7.2)
== END ==
LOC: LAB 14:34
PROVIDERS: ATTEND Nurse Practitioner
DX: I12.9 Hypertensive chronic kidney disease with stage 1 through stage 4 chronic kidney disease, or unspecified chronic kidney disease (principal); N18.4 Chronic kidney disease, stage 4 (severe); E78.5 Hyperlipidemia, unspecified; C92.Z0 Other myeloid leukemia not having achieved remission; K52.9 Noninfective gastroenteritis and colitis, unspecified; N39.0 Urinary tract infection, site not specified; D64.9 Anemia, unspecified; I25.10 Atherosclerotic heart disease of native coronary artery without angina pectoris
CPT/HCPCS: 36415; 80061; 80069; 81000; 82306; 82570; 82728; 83540; 83735; 83970; 84100; 84156; 84550; 85025

== ENCOUNTER 2018-04-04 12:37 | Outpatient (RCR) | payer MEDICARE ==
[2018-04-04 13:09] LABS: BASOPHILS % (AUTO) 1 % (0-10); EOSINOPHILS # (AUTO) 0.2 10^3/uL (0.0-0.3); EOSINOPHILS % (AUTO) 3 % (0-10); HEMATOCRIT 26 % (35-52); HEMOGLOBIN 8.9 G/DL (11.5-16.0); LYMPHOCYTES # (AUTO) 1.8 X 10^3 (1.0-4.0); LYMPHOCYTES % (AUTO) 34 % (12-44); MEAN CORPUSCULAR HEMOGLOBIN 31 PG (25-34); MEAN CORPUSCULAR HGB CONC 34 G/DL (32-36); MEAN CORPUSCULAR VOLUME 93 FL (80-99); MEAN PLATELET VOLUME 9.6 FL (7.4-10.4); MONOCYTES # (AUTO) 0.5 X 10^3 (0.0-1.0); MONOCYTES % (AUTO) 10 % (0-12); NEUTROPHILS # (AUTO) 2.8 X 10^3 (1.8-7.8); NEUTROPHILS % (AUTO) 52 % (42-75); PLATELET COUNT 205 10^3/uL (130-400); RED CELL DISTRIBUTION WIDTH 13.5 % (10.0-14.5); WHITE BLOOD COUNT 5.3 10^3/uL (4.3-11.0)
[2018-04-04 13:28] LABS: ALBUMIN 3.4 GM/DL (3.2-4.5); BILIRUBIN,TOTAL 0.4 MG/DL (0.1-1.0); CALCIUM 8.5 MG/DL (8.5-10.1); CREATININE SERUM 1.59 MG/DL (0.60-1.30); POTASSIUM 4.2 MMOL/L (3.6-5.0); TOTAL PROTEIN 6.5 GM/DL (6.4-8.2)
== END 2018-05-26 | disposition home or self-care (01) ==
LOC: ONC 12:37
PROVIDERS: ATTEND Internal Medicine Hematology & Oncology
DX: C92.10 Chronic myeloid leukemia, BCR/ABL-positive, not having achieved remission (principal); C16.3 Malignant neoplasm of pyloric antrum; D53.9 Nutritional anemia, unspecified; M81.0 Age-related osteoporosis without current pathological fracture; E03.9 Hypothyroidism, unspecified; N18.3 Chronic kidney disease, stage 3 (moderate); I08.3 Combined rheumatic disorders of mitral, aortic and tricuspid valves; I25.10 Atherosclerotic heart disease of native coronary artery without angina pectoris; Z79.899 Other long term (current) drug therapy
CPT/HCPCS: 36415; 80053; 83615; 85025; 99213

== ENCOUNTER → 2018-07-04 | Outpatient (CLI) | payer MEDICARE ==
[2018-07-04 16:36] LABS: BASOPHILS % (AUTO) 0 % (0-10); EOSINOPHILS # (AUTO) 0.2 10^3/uL (0.0-0.3); EOSINOPHILS % (AUTO) 4 % (0-10); HEMATOCRIT 26 % (35-52); HEMOGLOBIN 8.6 G/DL (11.5-16.0); LYMPHOCYTES # (AUTO) 1.3 X 10^3 (1.0-4.0); LYMPHOCYTES % (AUTO) 28 % (12-44); MEAN CORPUSCULAR HEMOGLOBIN 34 PG (25-34); MEAN CORPUSCULAR HGB CONC 34 G/DL (32-36); MEAN CORPUSCULAR VOLUME 101 FL (80-99); MEAN PLATELET VOLUME 10.3 FL (7.4-10.4); MONOCYTES # (AUTO) 0.5 X 10^3 (0.0-1.0); MONOCYTES % (AUTO) 10 % (0-12); NEUTROPHILS # (AUTO) 2.6 X 10^3 (1.8-7.8); NEUTROPHILS % (AUTO) 58 % (42-75); PLATELET COUNT 152 10^3/uL (130-400); RED CELL DISTRIBUTION WIDTH 12.9 % (10.0-14.5); WHITE BLOOD COUNT 4.5 10^3/uL (4.3-11.0)
--- NOTE | 2018-07-04 16:39 | Diagnostic Imaging Report ---
INDICATION: Shortness of breath. PA and lateral views of the chest were obtained. Comparison made with prior examination from 12/06/2017. FINDINGS: Heart size is normal. There is air trapping compatible with COPD. There is no pleural effusion or pneumothorax. Mediastinum is unremarkable. There is mild venous congestion. IMPRESSION: COPD with some minimal central pulmonary venous congestion. Dictated by: Dictated on workstation # [id number]
[2018-07-04 16:55] LABS: ALBUMIN 3.4 GM/DL (3.2-4.5); BILIRUBIN,TOTAL 0.3 MG/DL (0.1-1.0); CALCIUM 8.2 MG/DL (8.5-10.1); CREATININE SERUM 1.52 MG/DL (0.60-1.30); POTASSIUM 4.7 MMOL/L (3.6-5.0); TOTAL PROTEIN 6.1 GM/DL (6.4-8.2)
== END ==
LOC: RAD 15:56
PROVIDERS: ATTEND Family Medicine
DX: J44.9 Chronic obstructive pulmonary disease, unspecified (principal); E03.9 Hypothyroidism, unspecified
CPT/HCPCS: 36415; 71046; 80053; 83880; 84443; 85025

== ENCOUNTER → 2018-07-19 | Outpatient (CLI) | payer MEDICARE | LOC: CARD 10:02 | PROVIDERS: ATTEND Nurse Practitioner Family | DX: I25.10 Atherosclerotic heart disease of native coronary artery without angina pectoris (principal); I08.1 Rheumatic disorders of both mitral and tricuspid valves; N18.3 Chronic kidney disease, stage 3 (moderate); R06.09 Other forms of dyspnea; M79.89 Other specified soft tissue disorders | CPT/HCPCS: 93306 ==

== ENCOUNTER → 2018-08-29 | Outpatient (RCR) | payer MEDICARE ==
[2018-06-04 11:06] LABS: BASOPHILS # (AUTO) 0.1 10^3/uL (0.0-0.1); BASOPHILS % (AUTO) 1 % (0-10); EOSINOPHILS # (AUTO) 0.2 10^3/uL (0.0-0.3); EOSINOPHILS % (AUTO) 5 % (0-10); HEMATOCRIT 28 % (35-52); HEMOGLOBIN 9.3 G/DL (11.5-16.0); LYMPHOCYTES # (AUTO) 1.6 X 10^3 (1.0-4.0); LYMPHOCYTES % (AUTO) 42 % (12-44); MEAN CORPUSCULAR HEMOGLOBIN 34 PG (25-34); MEAN CORPUSCULAR HGB CONC 34 G/DL (32-36); MEAN CORPUSCULAR VOLUME 100 FL (80-99); MEAN PLATELET VOLUME 10.6 FL (7.4-10.4); MONOCYTES # (AUTO) 0.6 X 10^3 (0.0-1.0); MONOCYTES % (AUTO) 14 % (0-12); NEUTROPHILS # (AUTO) 1.5 X 10^3 (1.8-7.8); NEUTROPHILS % (AUTO) 38 % (42-75); PLATELET COUNT 200 10^3/uL (130-400); RED CELL DISTRIBUTION WIDTH 13.4 % (10.0-14.5); WHITE BLOOD COUNT 3.9 10^3/uL (4.3-11.0)
[2018-06-04 11:22] LABS: ALBUMIN 3.7 GM/DL (3.2-4.5); BILIRUBIN,TOTAL 0.3 MG/DL (0.1-1.0); CREATININE SERUM 1.56 MG/DL (0.60-1.30); POTASSIUM 4.3 MMOL/L (3.6-5.0); TOTAL PROTEIN 6.8 GM/DL (6.4-8.2)
[2018-07-22 13:31] LABS: BASOPHILS % (AUTO) 0 % (0-10); EOSINOPHILS # (AUTO) 0.3 10^3/uL (0.0-0.3); EOSINOPHILS % (AUTO) 4 % (0-10); HEMATOCRIT 24 % (35-52); HEMOGLOBIN 8.1 G/DL (11.5-16.0); LYMPHOCYTES # (AUTO) 1.3 X 10^3 (1.0-4.0); LYMPHOCYTES % (AUTO) 19 % (12-44); MEAN CORPUSCULAR HEMOGLOBIN 34 PG (25-34); MEAN CORPUSCULAR HGB CONC 34 G/DL (32-36); MEAN CORPUSCULAR VOLUME 100 FL (80-99); MEAN PLATELET VOLUME 10.2 FL (7.4-10.4); MONOCYTES # (AUTO) 0.8 X 10^3 (0.0-1.0); MONOCYTES % (AUTO) 12 % (0-12); NEUTROPHILS # (AUTO) 4.4 X 10^3 (1.8-7.8); NEUTROPHILS % (AUTO) 64 % (42-75); PLATELET COUNT 236 10^3/uL (130-400); RED CELL DISTRIBUTION WIDTH 12.4 % (10.0-14.5); WHITE BLOOD COUNT 6.8 10^3/uL (4.3-11.0)
[~2018-08-29] MED LIST changes: +ACETAMINOPHEN 500 MG TAB (TYLENOL) CANCER CTR ONE; +NS IV 500 ML (CANCER CENTER) 500 ML ONE
[2018-08-29 13:47] LABS: BASOPHILS % (AUTO) 0 % (0-10); EOSINOPHILS # (AUTO) 0.3 10^3/uL (0.0-0.3); EOSINOPHILS % (AUTO) 4 % (0-10); HEMATOCRIT 31 % (35-52); HEMOGLOBIN 10.2 G/DL (11.5-16.0); LYMPHOCYTES # (AUTO) 2.3 X 10^3 (1.0-4.0); LYMPHOCYTES % (AUTO) 31 % (12-44); MEAN CORPUSCULAR HEMOGLOBIN 31 PG (25-34); MEAN CORPUSCULAR HGB CONC 33 G/DL (32-36); MEAN CORPUSCULAR VOLUME 95 FL (80-99); MEAN PLATELET VOLUME 10.4 FL (7.4-10.4); MONOCYTES # (AUTO) 0.7 X 10^3 (0.0-1.0); MONOCYTES % (AUTO) 9 % (0-12); NEUTROPHILS % (AUTO) 55 % (42-75); PLATELET COUNT 220 10^3/uL (130-400); RED CELL DISTRIBUTION WIDTH 14.2 % (10.0-14.5); WHITE BLOOD COUNT 7.2 10^3/uL (4.3-11.0)
[2018-08-29 14:18] LABS: ALBUMIN 3.6 GM/DL (3.2-4.5); BILIRUBIN,TOTAL 0.4 MG/DL (0.1-1.0); CALCIUM 8.6 MG/DL (8.5-10.1); CREATININE SERUM 1.93 MG/DL (0.60-1.30); POTASSIUM 4.2 MMOL/L (3.6-5.0)
== END | disposition home or self-care (01) ==
LOC: ONC 05-31 13:18
PROVIDERS: ATTEND Internal Medicine Hematology & Oncology
DX: C92.10 Chronic myeloid leukemia, BCR/ABL-positive, not having achieved remission (principal); C16.3 Malignant neoplasm of pyloric antrum; D53.9 Nutritional anemia, unspecified; M81.0 Age-related osteoporosis without current pathological fracture; E03.9 Hypothyroidism, unspecified; N18.3 Chronic kidney disease, stage 3 (moderate); I08.3 Combined rheumatic disorders of mitral, aortic and tricuspid valves; I25.10 Atherosclerotic heart disease of native coronary artery without angina pectoris; Z79.899 Other long term (current) drug therapy
CPT/HCPCS: 36415; 36430; 80053; 81206; 82728; 83540; 83615; 85025; 86850; 86900; 86901; 86920; 99213

== ENCOUNTER 2018-10-03 21:14 | Emergency (ER) | payer MEDICARE ==
[~2018-10-03] VITALS: Ht 157.5 cm; Wt 44.5 kg
[~2018-10-03 21:14] MED LIST changes: -ACETAMINOPHEN 500 MG TAB (TYLENOL) CANCER CTR ONE; -NS IV 500 ML (CANCER CENTER) 500 ML ONE
--- NOTE | 2018-10-03 21:30 | ED Lower Extremity ---
General Chief Complaint: Lower Extremity Stated Complaint: LEFT LEG PAIN Source: patient Exam Limitations: no limitations History of Present Illness Date Seen by Provider: Oct 03, 2018 Time Seen by Provider: 21:28 Initial Comments To ER with sudden onset left knee pain. She was getting undressed today after an appointment, her jeans were taken off and she went to kick them off the rest of the way when she had sudden onset of left knee pain. This is the entire left knee, no one part more than another. No fevers chills or swelling. No pain in the lower leg and no pain in the thigh. She is able to bear weight only if she keeps the leg fully extended. She is unable to flex the knee at all. Onset: this afternoon Severity: moderate Pain/Injury Location: left knee Method of Injury: unknown Modifying Factors: Worse With Movement Allergies and Home Medications Allergies Coded Allergies: propoxyphene (Verified Allergy, Mild, 09/21/16) codeine (Verified Allergy, Unknown, 09/21/16) meperidine (Verified Allergy, Unknown, 09/21/16) Home Medications Acetaminophen 325 Mg Tablet, 650 MG PO Q4H, (Reported) Alprazolam 0.25 Mg Tablet, 0.25 MG PO DAILY, (Reported) Aspirin 81 Mg Tablet.dr, 81 MG PO DAILY, (Reported) Cefdinir 300 Mg Capsule, 300 MG PO ONCE Prescribed by: ROD MARIN on 12/06/17 1350 Cranberry Conc/C/Bacill Coag 1 Each Tablet, 1 EACH PO DAILY, (Reported) Esomeprazole Magnesium 40 Mg Capsule.dr, 40 MG PO DAILY, (Reported) Fluoxetine HCl 20 Mg Tablet, 30 MG PO DAILY, (Reported) TAKES 30 MG PO DAILY Imatinib Mesylate 400 Mg Tablet, 400 MG PO DAILY, (Reported) Levothyroxine Sodium 50 Mcg Tablet, 50 MCG PO DAILY, (Reported) Loperamide HCl 2 Mg Capsule, 2 MG PO UD, (Reported) Meclizine HCl 25 Mg Tablet, 12.5-25 MG PO Q6H PRN for DIZZINESS Prescribed by: ROD MARIN on 12/06/17 1350 Nitroglycerin 0.4 Mg Tab.subl, 0.4 MG SL UD PRN for CHEST PAIN, (Reported) Ondansetron 4 Mg Tab.rapdis, 4 MG PO Q6H PRN for NAUSEA/VOMITING Prescribed by: MARK PEMBERTON on 11/14/17 1339 Ondansetron 4 Mg Tab.rapdis, 4 MG SL Q6H PRN for NAUSEA/VOMITING-1ST LINE Prescribed by: ROD MARIN on 12/06/17 1351 Simvastatin 10 Mg Tablet, 10 MG PO DAILY, (Reported) Sucralfate 1 Gm/10 Ml Oral.susp, 1 GM PO UD, (Reported) TAKES 2 TEASPOONFULS PO BEFORE MEALS AND AT BEDTIME Tramadol HCl 50 Mg Tablet, 50 MG PO BID, (Reported) [Iron] Unknown Strength , Unknown Dose PO DAILY, (Reported) [[id number]] , 1 EA PO DAILY@0700 Prescribed by: KATEYLN PALACIOS on 02/10/13 1127 Patient Home Medication List Home Medication List Reviewed: Yes Review of Systems Constitutional: see HPI EENTM: see HPI Respiratory: no symptoms reported Cardiovascular: no symptoms reported Genitourinary: no symptoms reported Musculoskeletal: see HPI Skin: no symptoms reported Psychiatric/Neurological: No Symptoms Reported Past Uwxqjaz-Dpjqxp-Rqwftj Hx Patient Social History Alcohol Beverage of Choice: Beer 2nd Hand Smoke Exposure: No Recent Foreign Travel: No Contact w/Someone Who Travel: No Recent Hopitalizations: No Immunizations Up To Date Date of Pneumonia Vaccine: Jan 10, 2013 Seasonal Allergies Seasonal Allergies: Yes Past Medical History Surgeries: Yes (hiatal hernia, root canal; part of stomach removed; 1 ovary removed) Hysterectomy Respiratory: No Cardiac: Yes Coronary Artery Disease Neurological: Yes (STROKE IN 08/27) Stroke Reproductive Disorders: No Female Reproductive Disorders: Denies RECREATIONAL ASSISTANT History: Menopausal Sexually Transmitted Disease: No HIV/AIDS: No UTI-Chronic Gastrointestinal: No Irritable Bowel Musculoskeletal: No Endocrine: Yes Hypothyroidsim Cancer: Yes (CML) Leukemia, Stomach Psychosocial: No Integumentary: No Blood Disorders: Yes (CHRONIC MYLOID LUEKEMIA, 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 0.0oz. 44.423678qh; 19.9 BMI Method:Stated General Appearance: WD/WN, no apparent distress HEENT: PERRL/EOMI, normal ENT inspection Respiratory: no respiratory distress, no accessory muscle use Hips: bilateral hip non-tender, bilateral hip normal inspection, bilateral hip normal range of motion Legs: bilateral leg non-tender, bilateral leg normal inspection, bilateral leg normal range of motion Knees: left knee pain, left knee other (there is no effusion no erythema no deformity.) Ankles: bilateral ankle non-tender, bilateral ankle normal inspection, bilateral ankle normal range of motion Feet: bilateral foot non-tender, bilateral foot normal inspection, bilateral foot normal range of motion; left foot other (dorsalis pedis pulses +2 in strength bilaterally.) Neurologic/Psychiatric: alert, normal mood/affect, oriented x 3 Skin: normal color, warm/dry Progress/Results/Core Measures Results/Orders My Orders Orders - KYE CHAMPAGNE APRN Tramadol Tablet (Ultram Tablet) (10/03/18 21:30) Knee, Left, 3 Views (10/03/18 21:28) Knee Immobilizer (10/03/18 21:53) Rx-Tramadol Hcl (Rx-Ultram) (10/03/18 21:53) Medications Given in ED Vital Signs/I&O 10/03/18 10/03/18 21:27 22:11 Temp 97.6 97.6 Pulse 73 73 Resp 18 18 B/P (MAP) 157/79 (105) 157/79 (105) Pulse Ox 99 O2 Delivery Room Air Departure Communication (Admissions) 1544-states that the Ultram did help with the pain. I am able to passively flex her knee fully to angle less than 90 without pain. There is no obvious crepitus. She does have persistent pain with weight bearing however. She states that she is able to bear weight as long as she keeps the knee fully extended. As such I'll apply a knee immobilizer, give her a take-home bottle of Ultram and have her call Dr. Dr. Joshua tomorrow for follow-up. Impression Primary Impression: Internal derangement of knee Qualified Codes: M23.92 - Unspecified internal derangement of left knee Disposition: 01 HOME, SELF-CARE Condition: Stable Departure-Patient Inst. Decision time for Depature: 21:57 Referrals: WILIAM JOSHUA DO (PCP/Family) Primary Care Physician Patient Instructions: Internal Derangement of the Knee (DC), Meniscal Tear Add. Discharge Instructions: 1. Return to ER for any concerns 2. Wear the immobilizer any time that you are up and about. Call Dr. Dr. Joshua tomorrow to make an appointment to be seen. Take pain medication as directed. All discharge instructions reviewed with patient and/or family. Voiced understanding. Copy Copies To 1: WILIAM JOSHUA PETER J APRN Oct 03, 2018 21:30
--- NOTE | 2018-10-03 21:47 | Diagnostic Imaging Report ---
INDICATION: Left knee pain COMPARISON: None. FINDINGS: 3 views of the left knee joint demonstrate no acute fracture or dislocation. No focal osseous lesions are seen. No significant joint effusion is seen. The surrounding soft tissue structures are unremarkable. There are no radiopaque foreign bodies. Note is made of moderate calcified arteriosclerosis. IMPRESSION: 1. No acute fractures or dislocations of the left knee joint. Dictated by: Dictated on workstation # [id number]
[2018-10-03] MEDS ORDERED: RX-TRAMADOL 50 MG (ULTRAM) TAB PPK#4 PO STA (21:53)
[2018-10-03 22:11] VITALS: BP 157/79
== END 2018-10-03 22:10 | disposition home or self-care (01) ==
LOC: EDUNIT# 21:14 → ER 21:15
DX: M23.92 Unspecified internal derangement of left knee (principal); I25.10 Atherosclerotic heart disease of native coronary artery without angina pectoris; K58.9 Irritable bowel syndrome, unspecified; E03.9 Hypothyroidism, unspecified; Z85.6 Personal history of leukemia; Z85.038 Personal history of other malignant neoplasm of large intestine; Z87.440 Personal history of urinary (tract) infections; Z88.5 Allergy status to narcotic agent; Z79.82 Long term (current) use of aspirin; Z90.710 Acquired absence of both cervix and uterus; Z98.890 Other specified postprocedural states; Z86.73 Personal history of transient ischemic attack (TIA), and cerebral infarction without residual deficits; Z86.718 Personal history of other venous thrombosis and embolism; Z80.8 Family history of malignant neoplasm of other organs or systems
CPT/HCPCS: 73562

== ENCOUNTER 2018-12-09 12:37 | Outpatient (RCR) | payer MEDICARE ==
[2018-10-24 13:18] LABS: BASOPHILS % (AUTO) 0 % (0-10); EOSINOPHILS # (AUTO) 0.1 10^3/uL (0.0-0.3); EOSINOPHILS % (AUTO) 2 % (0-10); HEMATOCRIT 31 % (35-52); HEMOGLOBIN 10.3 G/DL (11.5-16.0); LYMPHOCYTES # (AUTO) 1.5 X 10^3 (1.0-4.0); LYMPHOCYTES % (AUTO) 30 % (12-44); MEAN CORPUSCULAR HEMOGLOBIN 31 PG (25-34); MEAN CORPUSCULAR HGB CONC 34 G/DL (32-36); MEAN CORPUSCULAR VOLUME 94 FL (80-99); MONOCYTES # (AUTO) 0.4 X 10^3 (0.0-1.0); MONOCYTES % (AUTO) 8 % (0-12); NEUTROPHILS # (AUTO) 3.1 X 10^3 (1.8-7.8); NEUTROPHILS % (AUTO) 60 % (42-75); PLATELET COUNT 228 10^3/uL (130-400); RED CELL DISTRIBUTION WIDTH 14.3 % (10.0-14.5); WHITE BLOOD COUNT 5.1 10^3/uL (4.3-11.0)
[2018-10-24 13:49] LABS: ALBUMIN 3.9 GM/DL (3.2-4.5); BILIRUBIN,TOTAL 0.3 MG/DL (0.1-1.0); CALCIUM 8.8 MG/DL (8.5-10.1); CREATININE SERUM 1.64 MG/DL (0.60-1.30); POTASSIUM 4.1 MMOL/L (3.6-5.0); TOTAL PROTEIN 7.3 GM/DL (6.4-8.2)
[2018-11-19 15:07] LABS: BASOPHILS % (AUTO) 0 % (0-10); EOSINOPHILS # (AUTO) 0.2 10^3/uL (0.0-0.3); EOSINOPHILS % (AUTO) 3 % (0-10); HEMATOCRIT 28 % (35-52); HEMOGLOBIN 9.5 G/DL (11.5-16.0); LYMPHOCYTES # (AUTO) 1.4 X 10^3 (1.0-4.0); LYMPHOCYTES % (AUTO) 24 % (12-44); MEAN CORPUSCULAR HEMOGLOBIN 32 PG (25-34); MEAN CORPUSCULAR HGB CONC 34 G/DL (32-36); MEAN CORPUSCULAR VOLUME 95 FL (80-99); MEAN PLATELET VOLUME 9.6 FL (7.4-10.4); MONOCYTES # (AUTO) 0.5 X 10^3 (0.0-1.0); MONOCYTES % (AUTO) 8 % (0-12); NEUTROPHILS # (AUTO) 3.9 X 10^3 (1.8-7.8); NEUTROPHILS % (AUTO) 65 % (42-75); PLATELET COUNT 227 10^3/uL (130-400)
[2018-11-19 15:27] LABS: ALBUMIN 3.7 GM/DL (3.2-4.5); BILIRUBIN,TOTAL 0.3 MG/DL (0.1-1.0); CALCIUM 8.4 MG/DL (8.5-10.1); CREATININE SERUM 1.64 MG/DL (0.60-1.30); POTASSIUM 4.1 MMOL/L (3.6-5.0); TOTAL PROTEIN 6.7 GM/DL (6.4-8.2)
== END 2018-12-11 | disposition home or self-care (01) ==
LOC: ONC 12:37
PROVIDERS: ATTEND Internal Medicine Hematology & Oncology
DX: C92.10 Chronic myeloid leukemia, BCR/ABL-positive, not having achieved remission (principal); C16.3 Malignant neoplasm of pyloric antrum; D53.9 Nutritional anemia, unspecified; M81.0 Age-related osteoporosis without current pathological fracture; E03.9 Hypothyroidism, unspecified; N18.3 Chronic kidney disease, stage 3 (moderate); I08.3 Combined rheumatic disorders of mitral, aortic and tricuspid valves; I25.10 Atherosclerotic heart disease of native coronary artery without angina pectoris; Z79.899 Other long term (current) drug therapy
CPT/HCPCS: 36415; 80053; 81206; 83615; 85025; 93005; 99213

== ENCOUNTER → 2019-04-02 | Outpatient (CLI) | payer MEDICARE ==
[~2019-04-02] MED LIST changes: -LOPE-145 PO; +LOPE-175 PO; +OXYB5TAB13 PO; +SIMV10TA26 PO; -SIMV10TA3 PO; +TRM50T PO
[2019-04-02 12:05] LABS: MEAN PLATELET VOLUME 9.3 FL (7.4-10.4); RED CELL DISTRIBUTION WIDTH 12.8 % (10.0-14.5); WHITE BLOOD COUNT 4.3 10^3/uL (4.3-11.0)
[2019-04-02 12:41] LABS: ALBUMIN 3.7 GM/DL (3.2-4.5); CALCIUM 8.9 MG/DL (8.5-10.1); CREATININE SERUM 1.54 MG/DL (0.60-1.30); POTASSIUM 4.4 MMOL/L (3.6-5.0); URIC ACID 6.1 MG/DL (2.6-7.2)
[2019-04-02 14:08] LABS: BILIRUBIN,URINE NEGATIVE (NEGATIVE); CLARITY,URINE CLEAR; COLOR,URINE YELLOW; GLUCOSE, URINE (UA) NEGATIVE (NEGATIVE); KETONES,URINE NEGATIVE (NEGATIVE); LEUKOCYTE ESTERASE ,URINE TRACE (NEGATIVE); NITRITE,URINE POSITIVE (NEGATIVE); PROTEIN,URINE TRACE (NEGATIVE)
[2019-04-02 14:16] LABS: BACTERIA,URINE LARGE /HPF; SQUAMOUS EPITHELIAL CELL,UR 0-2 /HPF; WBC,URINE 50-100 /HPF
== END ==
LOC: ONC 11:14
PROVIDERS: ATTEND Nurse Practitioner
DX: I12.9 Hypertensive chronic kidney disease with stage 1 through stage 4 chronic kidney disease, or unspecified chronic kidney disease (principal); N18.4 Chronic kidney disease, stage 4 (severe); E78.5 Hyperlipidemia, unspecified; C92.Z0 Other myeloid leukemia not having achieved remission; K52.9 Noninfective gastroenteritis and colitis, unspecified; N39.0 Urinary tract infection, site not specified; I25.10 Atherosclerotic heart disease of native coronary artery without angina pectoris; D64.9 Anemia, unspecified; Z91.89 Other specified personal risk factors, not elsewhere classified
CPT/HCPCS: 36415; 80069; 81000; 82306; 82570; 83970; 84100; 84156; 84550; 85027; 87077; 87088

== ENCOUNTER 2019-04-15 10:54 | Outpatient (RCR) | payer MEDICARE ==
[2019-04-02 12:04] LABS: BASOPHILS % (AUTO) 0 % (0-10); EOSINOPHILS # (AUTO) 0.1 10^3/uL (0.0-0.3); EOSINOPHILS % (AUTO) 3 % (0-10); HEMATOCRIT 30 % (35-52); LYMPHOCYTES # (AUTO) 1.3 X 10^3 (1.0-4.0); LYMPHOCYTES % (AUTO) 29 % (12-44); MEAN CORPUSCULAR HEMOGLOBIN 33 PG (25-34); MEAN CORPUSCULAR HGB CONC 33 G/DL (32-36); MEAN CORPUSCULAR VOLUME 100 FL (80-99); MEAN PLATELET VOLUME 9.3 FL (7.4-10.4); MONOCYTES # (AUTO) 0.5 X 10^3 (0.0-1.0); MONOCYTES % (AUTO) 12 % (0-12); NEUTROPHILS # (AUTO) 2.4 X 10^3 (1.8-7.8); NEUTROPHILS % (AUTO) 56 % (42-75); PLATELET COUNT 244 10^3/uL (130-400); RED CELL DISTRIBUTION WIDTH 12.8 % (10.0-14.5); WHITE BLOOD COUNT 4.3 10^3/uL (4.3-11.0)
[2019-04-02 12:39] LABS: ALBUMIN 3.7 GM/DL (3.2-4.5); BILIRUBIN,TOTAL 0.3 MG/DL (0.1-1.0); CALCIUM 8.8 MG/DL (8.5-10.1); CREATININE SERUM 1.6 MG/DL (0.60-1.30); POTASSIUM 4.4 MMOL/L (3.6-5.0); TOTAL PROTEIN 6.7 GM/DL (6.4-8.2)
[~2019-04-15 10:54] MED LIST changes: -MECL-106 PO; +MECL-149 PO; -SUCR1ORA PO; +SUCR1ORA15 PO
== END 2019-07-01 | disposition home or self-care (01) ==
LOC: ONC 10:54
PROVIDERS: ATTEND Internal Medicine Hematology & Oncology
DX: C92.10 Chronic myeloid leukemia, BCR/ABL-positive, not having achieved remission (principal); C16.3 Malignant neoplasm of pyloric antrum; D53.9 Nutritional anemia, unspecified; M81.0 Age-related osteoporosis without current pathological fracture; E03.9 Hypothyroidism, unspecified; N18.3 Chronic kidney disease, stage 3 (moderate); I08.3 Combined rheumatic disorders of mitral, aortic and tricuspid valves; I25.10 Atherosclerotic heart disease of native coronary artery without angina pectoris; Z79.899 Other long term (current) drug therapy
CPT/HCPCS: 80053; 83615; 85025; 88377; 99213

== ENCOUNTER → 2019-07-21 | Outpatient (CLI) | payer MEDICARE | LOC: LAB 14:06 | PROVIDERS: ATTEND Nurse Practitioner | DX: I25.10 Atherosclerotic heart disease of native coronary artery without angina pectoris (principal); I12.9 Hypertensive chronic kidney disease with stage 1 through stage 4 chronic kidney disease, or unspecified chronic kidney disease; N18.4 Chronic kidney disease, stage 4 (severe); E78.5 Hyperlipidemia, unspecified; C92.Z0 Other myeloid leukemia not having achieved remission; K52.9 Noninfective gastroenteritis and colitis, unspecified; N39.0 Urinary tract infection, site not specified; D63.1 Anemia in chronic kidney disease; Z91.89 Other specified personal risk factors, not elsewhere classified ==

== ENCOUNTER 2019-07-28 21:43 | Observation (INO) | payer MEDICARE ==
[~2019-07-28] VITALS: Ht 160 cm; Wt 45.6 kg
[2019-07-28] MEDS ORDERED: ASPIRIN 81 MG CHEW (CHILDREN'S ASA) PO ONE (22:00)
[2019-07-28 22:22] LABS: BASOPHILS % (AUTO) 0 % (0-10); EOSINOPHILS # (AUTO) 0.1 10^3/uL (0.0-0.3); EOSINOPHILS % (AUTO) 2 % (0-10); HEMATOCRIT 31 % (35-52); HEMOGLOBIN 10.8 G/DL (11.5-16.0); LYMPHOCYTES # (AUTO) 2.1 X 10^3 (1.0-4.0); LYMPHOCYTES % (AUTO) 43 % (12-44); MEAN CORPUSCULAR HEMOGLOBIN 33 PG (25-34); MEAN CORPUSCULAR HGB CONC 35 G/DL (32-36); MEAN CORPUSCULAR VOLUME 95 FL (80-99); MEAN PLATELET VOLUME 9.9 FL (7.4-10.4); MONOCYTES # (AUTO) 0.5 X 10^3 (0.0-1.0); MONOCYTES % (AUTO) 9 % (0-12); NEUTROPHILS # (AUTO) 2.3 X 10^3 (1.8-7.8); NEUTROPHILS % (AUTO) 46 % (42-75); PLATELET COUNT 230 10^3/uL (130-400); RED CELL DISTRIBUTION WIDTH 12.5 % (10.0-14.5)
[2019-07-28 22:28] LABS: INR 0.9 (0.8-1.4)
[2019-07-28 22:29] LABS: ALBUMIN 3.7 GM/DL (3.2-4.5); CHLORIDE 99 MMOL/L (98-107); SODIUM 132 MMOL/L (135-145)
[2019-07-28 22:30] LABS: CALCIUM 8.9 MG/DL (8.5-10.1)
[2019-07-28 22:32] LABS: GLUCOSE 103 MG/DL (70-105)
[2019-07-28 22:33] LABS: BILIRUBIN,TOTAL 0.3 MG/DL (0.1-1.0); CARBON DIOXIDE 19 MMOL/L (21-32)
[2019-07-28 22:35] LABS: ALKALINE PHOSPHATASE 79 U/L (40-136); GFR ESTIMATED 35
[2019-07-28] MEDS ORDERED: NITROGLYCERIN 0.4 MG SL TABS BTL 25'S SL ONE (22:35)
[2019-07-28 22:36] LABS: BUN/CREATININE RATIO 11
[2019-07-28 22:38] LABS: ALANINE AMINOTRANSFERASE 19 U/L (0-55); MAGNESIUM 1.7 MG/DL (1.6-2.4)
[2019-07-28 22:39] LABS: LIPASE 46 U/L (8-78)
[2019-07-28] MEDS ORDERED: ONDANSETRON 4 MG/2 ML (SDV) Z0FRAN IVP ONE (22:45)
--- NOTE | 2019-07-28 22:50 | ED Chest Pain ---
General Chief Complaint: General Problems/Pain Stated Complaint: RIB PAIN Source: patient, EMS Exam Limitations: no limitations History of Present Illness Date Seen by Provider: Jul 28, 2019 Time Seen by Provider: 22:27 Initial Comments Patient resents ER by EMS from home with chief complaint of left anterior rib pain. She says is not worse on palpation or deep inspiration but on movement it makes it much worse. She says been going on for 4 days and is radiating up along her back in a dermatomal fashion and she likens it to a throbbing pain similar to when she had shingles on her abdomen. She has not had any rash or redness or itching. She has not seen her own doctor for this yet. She has no fevers chills cough shortness of breath. She does have a history of coronary disease with 2 stents. She says she might of had exposure to somebody who was diagnosed with COVID because the COVID positive person hugged a relative who then came by and shook the patient's hand and spoke to her for less than 5 minutes the following day. She would like a pain shot as she thinks it is shingles. She is not on antivirals. She does take imatinib for chronic myeloid leukemia and follows with Dr. Huerta. Dr. Bello is her boring inspector. Her stated allergy to pain meds is that they make her head going orbit and she feels crazy. She does tolerate morphine and tramadol. She has not taken any nitroglycerin or aspirin. Allergies and Home Medications Allergies Coded Allergies: propoxyphene (Verified Allergy, Mild, 09/21/16) codeine (Verified Allergy, Unknown, 09/21/16) meperidine (Verified Allergy, Unknown, 09/21/16) Home Medications Acetaminophen 325 Mg Tablet, 650 MG PO Q4H, (Reported) Alprazolam 0.25 Mg Tablet, 0.25 MG PO DAILY, (Reported) Aspirin 81 Mg Tablet., 81 MG PO DAILY, (Reported) Cefdinir 300 Mg Capsule, 300 MG PO ONCE Prescribed by: ROD MARIN on 12/06/17 1350 Cranberry Conc/C/Bacill Coag 1 Each Tablet, 1 EACH PO DAILY, (Reported) Esomeprazole Magnesium 40 Mg Capsule., 40 MG PO DAILY, (Reported) Fluoxetine HCl 20 Mg Tablet, 30 MG PO DAILY, (Reported) TAKES 30 MG PO DAILY Imatinib Mesylate 400 Mg Tablet, 400 MG PO DAILY, (Reported) Levothyroxine Sodium 50 Mcg Tablet, 50 MCG PO DAILY, (Reported) Loperamide HCl 2 Mg Capsule, 2 MG PO UD, (Reported) Meclizine HCl 25 Mg Tablet, 12.5-25 MG PO Q6H PRN for DIZZINESS Prescribed by: ROD MARIN on 12/06/17 1350 Nitroglycerin 0.4 Mg Tab.subl, 0.4 MG SL UD PRN for CHEST PAIN, (Reported) Ondansetron 4 Mg Tab.rapdis, 4 MG PO Q6H PRN for NAUSEA/VOMITING Prescribed by: MARK PEMBERTON on 11/14/17 1339 Ondansetron 4 Mg Tab.rapdis, 4 MG SL Q6H PRN for NAUSEA/VOMITING-1ST LINE Prescribed by: ROD MARIN on 12/06/17 1351 Simvastatin 10 Mg Tablet, 10 MG PO DAILY, (Reported) Sucralfate 1 Gm/10 Ml Oral.susp, 1 GM PO UD, (Reported) TAKES 2 TEASPOONFULS PO BEFORE MEALS AND AT BEDTIME Tramadol HCl 50 Mg Tablet, 50 MG PO BID, (Reported) [Iron] Unknown Strength , Unknown Dose PO DAILY, (Reported) [[id number]] , 1 EA PO DAILY@0700 Prescribed by: KATELYN PALACIOS on 02/10/13 1127 Patient Home Medication List Home Medication List Reviewed: Yes Review of Systems Review of Systems Constitutional: No chills, No fever, No malaise EENTM: No Blurred Vision, No Double Vision Respiratory: Denies Cough, Denies Shortness of Air Cardiovascular: Chest Pain; Denies Edema Gastrointestinal: Denies Constipated, Denies Diarrhea, Denies Nausea Genitourinary: Denies Burning, Denies Discharge, Denies Drainage Musculoskeletal: back pain; No joint pain Skin: No pruritus, No rash Psychiatric/Neurological: Denies Headache, Denies Numbness All Other Systems Reviewed Negative Unless Noted: Yes Past Mupfnhn-Eaavga-Lsdcoz Hx Patient Social History Alcohol Use: Occasionally Uses Alcohol Beverage of Choice: Beer Recreational Drug Use: No Smoking Status: Never a Smoker 2nd Hand Smoke Exposure: No Recent Hopitalizations: No Immunizations Up To Date Date of Pneumonia Vaccine: Jan 10, 2013 Seasonal Allergies Seasonal Allergies: Yes Past Medical History Surgeries: Yes (hiatal hernia, root canal; part of stomach removed; 1 ovary removed) Hysterectomy Respiratory: No Cardiac: Yes Coronary Artery Disease Neurological: Yes (STROKE IN 08/27) Stroke Reproductive Disorders: No Female 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 Sexually Transmitted Disease: No HIV/AIDS: No UTI-Chronic Gastrointestinal: No Irritable Bowel Musculoskeletal: No Endocrine: Yes Hypothyroidsim Cancer: Yes (CML) Leukemia, Stomach Psychosocial: No Integumentary: No Blood Disorders: Yes (CHRONIC MYLOID LUEKEMIA, 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 0.0oz. 44.244703nj; 19.9 BMI Method:Stated General Appearance: WD/WN, Mild Distress HEENT: PERRL/EOMI, TMs Normal, Normal ENT Inspection, Pharynx Normal, Moist Mucous Membranes Neck: Full Range of Motion, Normal Inspection Respiratory: No Chest Non Tender; Lungs Clear, Normal Breath Sounds, No Accessory Muscle Use, No Respiratory Distress, Other (pain on inspiration or movement) Cardiovascular: Regular Rate, Rhythm, No Edema, Normal Peripheral Pulses, Systolic Murmur Gastrointestinal: Normal Bowel Sounds, Non Tender, Soft Extremity: Normal Capillary Refill, Normal Inspection, No Pedal Edema Neurologic/Psychiatric: Alert, Oriented x3, No Motor/Sensory Deficits Skin: Normal Color, Warm/Dry Progress/Results/Core Measures Results/Orders Lab Results Laboratory Tests Test 07/28/19 22:05 07/28/19 23:10 07/29/19 00:05 Range/Units White Blood Count 5.0 4.3-11.0 10^3/uL Red Blood Count 3.26 L 4.35-5.85 10^6/uL Hemoglobin 10.8 L 11.5-16.0 G/DL Hematocrit 31 L 35-52 % Mean Corpuscular Volume 95 80-99 FL Mean Corpuscular Hemoglobin 33 25-34 PG Mean Corpuscular Hemoglobin Concent 35 32-36 G/DL Red Cell Distribution Width 12.5 10.0-14.5 % Platelet Count 230 130-400 10^3/uL Mean Platelet Volume 9.9 7.4-10.4 FL Neutrophils (%) (Auto) 46 42-75 % Lymphocytes (%) (Auto) 43 12-44 % Monocytes (%) (Auto) 9 0-12 % Eosinophils (%) (Auto) 2 0-10 % Basophils (%) (Auto) 0 0-10 % Neutrophils # (Auto) 2.3 1.8-7.8 X 10^3 Lymphocytes # (Auto) 2.1 1.0-4.0 X 10^3 Monocytes # (Auto) 0.5 0.0-1.0 X 10^3 Eosinophils # (Auto) 0.1 0.0-0.3 10^3/uL Basophils # (Auto) 0.0 0.0-0.1 10^3/uL Prothrombin Time 12.0 L 12.2-14.7 SEC INR Comment 0.9 0.8-1.4 Activated Partial Thromboplast Time 30 24-35 SEC Sodium Level 132 L 135-145 MMOL/L Potassium Level 4.0 3.6-5.0 MMOL/L Chloride Level 99 98-107 MMOL/L Carbon Dioxide Level 19 L 21-32 MMOL/L Anion Gap 14 5-14 MMOL/L Blood Urea Nitrogen 15 7-18 MG/DL Creatinine 1.40 H 0.60-1.30 MG/DL Estimat Glomerular Filtration Rate 35 BUN/Creatinine Ratio 11 Glucose Level 103 70-105 MG/DL Calcium Level 8.9 8.5-10.1 MG/DL Corrected Calcium 9.1 8.5-10.1 MG/DL Magnesium Level 1.7 1.6-2.4 MG/DL Total Bilirubin 0.3 0.1-1.0 MG/DL Aspartate Amino Transf (AST/SGOT) 36 H 5-34 U/L Alanine Aminotransferase (ALT/SGPT) 19 0-55 U/L Alkaline Phosphatase 79 40-136 U/L Myoglobin 66.1 10.0-92.0 NG/ML Troponin I < 0.028 < 0.028 <0.028 NG/ML C-Reactive Protein High Sensitivity 0.05 0.00-0.50 MG/DL B-Type Natriuretic Peptide 166.9 H <100.0 PG/ML Total Protein 7.0 6.4-8.2 GM/DL Albumin 3.7 3.2-4.5 GM/DL Lipase 46 8-78 U/L Urine Color YELLOW Urine Clarity CLEAR Urine pH 7.5 5-9 Urine Specific [place] 1.015 L 1.016-1.022 Urine Protein NEGATIVE NEGATIVE Urine Glucose (UA) NEGATIVE NEGATIVE Urine Ketones TRACE H NEGATIVE Urine Nitrite NEGATIVE NEGATIVE Urine Bilirubin NEGATIVE NEGATIVE Urine Urobilinogen 0.2 < = 1.0 MG/DL Urine Leukocyte Esterase NEGATIVE NEGATIVE Urine RBC (Auto) NEGATIVE NEGATIVE Urine RBC NONE /HPF Urine WBC 0-2 /HPF Urine Squamous Epithelial Cells 0-2 /HPF Urine Crystals NONE /LPF Urine Bacteria MODERATE H /HPF Urine Casts NONE /LPF Urine Mucus NEGATIVE /LPF Urine Culture Indicated YES My Orders Orders - MARK PEMBERTON Ekg Tracing (07/28/19 21:53) Continuous Ekg Monitoring (07/28/19 21:53) Chest 1 View, Ap/Pa Only (07/28/19 21:53) Cbc With Automated Diff (07/28/19 21:53) Comprehensive Metabolic Panel (07/28/19 21:53) Troponin I (07/28/19 21:53) BNP (07/28/19 21:53) Hs C Reactive Protein (07/28/19 21:53) Lipase (07/28/19 21:53) Ua Culture If Indicated (07/28/19 21:53) Magnesium (07/28/19 21:53) Myoglobin Serum (07/28/19 21:53) Protime With Inr (07/28/19 21:53) Partial Thromboplastin Time (07/28/19 21:53) O2 (07/28/19 21:53) Lipid Panel (07/29/19 06:00) Ed Iv/Invasive Line Start (07/28/19 21:53) Aspirin Chewable Tablet (Baby Aspirin Ch (07/28/19 22:00) Nitroglycerin 0.4 Mg Btl 25's (Nitrostat (07/28/19 22:35) Ondansetron Injection (Zofran Injectio (07/28/19 22:45) Morphine Injection (Morphine Injection (07/28/19 22:44) Nitroglycerin 0.4 Mg Btl 25's (Nitrostat (07/28/19 23:00) Urine Culture (07/28/19 23:10) Troponin I (07/29/19 00:00) Medications Given in ED Current Medications Medications Dose Ordered Sig/Lisa Route Start Time Stop Time Status Last Admin Dose Admin Aspirin 324 mg ONCE ONCE PO 07/28/19 22:00 07/28/19 22:01 DC 07/28/19 22:35 324 MG Nitroglycerin 0.4 mg NEEDED PRN SL 07/28/19 23:00 07/28/19 22:58 0.4 MG Nitroglycerin 0.4 mg STK-MED ONCE SL 07/28/19 22:35 07/28/19 22:37 DC 07/28/19 22:41 0.4 MG Ondansetron HCl 4 mg ONCE ONCE IVP 07/28/19 22:45 07/28/19 22:46 DC 07/28/19 22:59 4 MG Vital Signs/I&O 07/28/19 07/28/19 21:57 21:57 Temp 36.9 Pulse 65 Resp 18 B/P (MAP) 181/75 (110) Pulse Ox 100 O2 Delivery Room Air Progress Progress Note #1: Time: 22:48 Progress Note Aspirin and nitroglycerin. If this doesn't help then we'll try morphine and Zofran. We'll look for acute causes of left anterior chest wall pain. She does not have a rash but she does have a dermatomal pattern to her discomfort and shingles certainly could be the source of her symptoms. Pleurisy or other acute chest wall pain is a possibility. We'll get chest x-ray labs and we have discussed the potential for watching her overnight. Progress Note #2: Time: 01:10 Progress Note Patient's chest pain is gone after the morphine. She would agree to stay overnight for serial troponin and consultation with boring inspector in the morning. Initial ECG Impression Date: Jul 28, 2019 Initial ECG Impression Time: 22:28 Initial ECG Rate: 63 Initial ECG Rhythm: Normal Sinus Initial ECG Intervals: Normal Initial ECG Impression: Normal Comment Normal sinus rhythm without clinically relevant ST changes. Diagnostic Imaging Diagonstic Imaging: Xray Plain Films/CT/US/NM/MRI: chest (1 view) Comments Unremarkable 1 view chest. Reviewed: Reviewed by Me Departure Communication (Admissions) Time/Spoke to Admitting Phy: 01:19 Discussed the case with Dr. David who is covering for Dr. Joshua until the morning. They agree to observe the patient cardiac workup. Time/Spoke to Consulting Phy: 01:15 Discussed the case with Dr. Medina. He would return the case to Dr. Bello in the morning. Impression Primary Impression: Chest pain Qualified Codes: R07.9 - Chest pain, unspecified Disposition: ADMITTED INPATIENT Condition: Stable Admissions Decision to Admit Reason: Admit from ER (General) Decision to Admit/Date: Jul 29, 2019 Time/Decision to Admit Time: 01:10 Departure-Patient Inst. Referrals: WILIAM JOSHUA DO (PCP/Family) Primary Care Physician MARK PEMBERTON Jul 28, 2019 22:50
[2019-07-28] MEDS: NITROGLYCERIN 0.4 MG SL TABS BTL 25'S SL PRN ×2 (22:52→22:58)
[2019-07-28] MEDS: morphine INJ 10 MG/ML 1ML (SYR OR VIAL) IVP STA ×2 (22:57→23:03)
[2019-07-28 23:19] LABS: BILIRUBIN,URINE NEGATIVE (NEGATIVE); CLARITY,URINE CLEAR; COLOR,URINE YELLOW; GLUCOSE, URINE (UA) NEGATIVE (NEGATIVE); KETONES,URINE TRACE (NEGATIVE); LEUKOCYTE ESTERASE ,URINE NEGATIVE (NEGATIVE); NITRITE,URINE NEGATIVE (NEGATIVE); PH,URINE 7.5 (5-9); PROTEIN,URINE NEGATIVE (NEGATIVE)
[2019-07-28 23:31] LABS: BACTERIA,URINE MODERATE /HPF; SQUAMOUS EPITHELIAL CELL,UR 0-2 /HPF; WBC,URINE 0-2 /HPF
--- OUTSIDE RECORDS SUMMARY | 2019-07-29 01:16 | XMS REPORT | Clinical Summary ---
Author Author [facility] Organization [facility] Address Unknown Phone Unavailable Care Team Providers Care Vice President Of Talent Acquisition Name Role Phone Beba Jacinto RN Unavailable Unavailable Nora Hope APRN Unavailable [phone] Nomi Bourgeois MD Unavailable Jean Paul Garcia MD PCP Unavailable Candido Diaz MD Unavailable [phone] Dominique Guardado RN Unavailable Unavailable Shawanda Alcaraz RD Unavailable Joseph Grijalva MD Unavailable Viola Rosario Unavailable Unavailable Source Comments Some departments are not documenting in the electronic medical record. If you d o not see the information that you expected, contact Release of Information in [facility] Information Management department at [phone] for further assistan ce in locating additional records.[facility] Allergies Comments Active Allergy Reactions Severity Noted Date Codeine NAUSEA AND 12/11/2012 VOMITING Meperidine NAUSEA AND 12/11/2012 VOMITING Medications End Date Status Medication Sig Dispensed Refills Start Date Active esomeprazole DR(+) Take 40 mg by 0 (NEXIUM) 40 mg capsule mouth twice daily. Active imatinib (GLEEVEC) 400 mg Take 400 mg 0 tab by mouth daily with lunch. Active simvastatin (ZOCOR) 40 mg Take 40 mg by 0 tablet mouth at bedtime daily. Active traZODone (DESYREL) 50 mg Take 50 mg by 0 tablet mouth at bedtime daily. Active fish oil /omega-3 fatty Take 1 Cap by 0 acids (SEA-OMEGA) mouth daily. 340/1000 mg capsule Active Vitamin C-Vitamin E Take by 0 (CRANBERRY CONCENTRATE) mouth. 4200 cap mg every am Active folic acid 400 mcg tablet Take 400 mcg 0 by mouth daily. Active other medication 1 Dose daily. 0 Viactive Active levothyroxine (SYNTHROID) Take 88 mcg 0 88 mcg tablet by mouth daily. Active ALPRAZolam (XANAX) 0.25 Take 0.125 mg 0 mg tablet by mouth daily. Active FLUoxetine (PROZAC) 20 mg Take 20 mg by 0 capsule mouth daily. Active FLUoxetine (PROZAC) 10 mg Take 10 mg by 0 capsule mouth daily. Active nitroglycerin (NITROSTAT) Place 0.4 mg 0 0.4 mg tablet under tongue every 5 minutes as needed. Active oxybutynin (DITROPAN) 5 Take 5 mg by 0 mg tablet mouth three times daily. Active sucralfate(+) (CARAFATE) Take 1 g by 0 100 mg/mL oral suspension mouth every 6 hours. Active aspirin 81 mg chewable Take 81 mg by 0 tablet mouth daily. Active polyethylene glycol 3350 Take 17 g by 3 Bottle 0 (GLYCOLAX; MIRALAX) 17 mouth daily. 3 gram/dose powder Active lidocaine (LIDODERM) 5 % apply to 30 Patch 0 1 topical patch painful area 3 as needed for 12 hours, then remove. Active oxyCODone (ROXICODONE) 1 Take 5 mL by 1 Bottle 0 mg/mL oral solution mouth every 4 3 hours as needed Active acetaminophen(+) 650 mg Take 1 Tab by 40 Tab 0 tablet mouth every [address] Take 40 mg by 0 (PROTONIX) 40 mg tablet mouth daily. Active dronabinol (MARINOL) 2.5 Take 1 Cap by 30 Cap 3 mg capsule mouth at 4 bedtime daily. 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 Last Filed Vital Signs Reading Time Taken Comments Vital Sign 154/58 04/30/2013 1:26 PM CDT Blood Pressure 81 04/30/2013 1:26 PM CDT Pulse 36.7 C (98.1 F) 01/15/2013 11:16 AM SUPERVIS[employer] Temperature - - Respiratory Rate 100% 04/30/2013 1:26 PM CDT Oxygen Saturation - - Inhaled Oxygen Concentration 58 kg (127 lb 12.8 oz) 05/02/2013 2:00 PM CDT Weight 158.5 cm (5' 2.4") 05/02/2013 2:00 PM CDT Height 23.07 05/02/2013 2:00 PM CDT Body Mass Index Plan of Treatment Health Maintenance Due Date Last Done Comments MEDICARE ANNUAL WELLNESS 1930 VISIT DTAP/TDAP VACCINES (1 - 1948 Tdap) PHYSICAL (COMPREHENSIVE) 1948 EXAM SHINGLES RECOMBINANT 1980 VACCINE (1 of 2) OSTEOPOROSIS 11/08/1995 SCREENING/MONITORING INFLUENZA VACCINE 11/20/2019 PNEUMONIA (PPSV23) Completed 01/12/2013 VACCINE Results Not on filefrom Last 3 Months Insurance Type Payer Benefit Subscriber ID Effective Phone Address Plan / Dates Group Medicare MEDICARE MEDICARE xxxxxxxxxx 1995-P PART A AND resent B Medicare [facility] 2012-P SUPPLEMENT resent [id number] 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
--- OUTSIDE RECORDS SUMMARY | 2019-07-29 01:19 | XMS REPORT | Continuity of Care Document ---
Author Organization Unknown Address Unknown Phone Unavailable Allergies Active Description Code Type Severity Reaction Onset Reported/Identified Relationship to Patient Clinical Status Yes propoxyphene [id number] Drug Allergy Mild N/A 09/21/2016 Yes codeine [id number] Drug Allergy Unknown N/A 09/21/2016 Yes meperidine [id number] Drug Allerg y Unknown N/A 09/21/2016 Medications There is no data. 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 01/18/1041 CORRINE MCKENNA Ot 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 MYELOID LEUK, BCR/ABL-POSITIVE, 01/18/1041 CORRINE MCKENNA Ot D53.9 NUTRITIONAL ANEMIA, UNSPECIFIED 01/18/1041 CORRINE MCKENNA Ot M81.0 AGE- RELATED OSTEOPOROSIS W/O CURRENT PAT 01/18/1041 CORRINE MCKENNA Ot R19.7 DIARRHEA, UNSPECIFIED 01/18/1041 CORRINE MCKENNA Ot Z79.899 OTHER PENITENTIARY (CURRENT) DRUG THERAPY 03/22/2010 Ot 205.10 CHR ONIC MYELOID LEUKEMIA, W/O MENTION AC 03/22/2010 Ot 427.31 ATR IAL FIBRILLATION 03/22/2010 Ot 733.00 OST EOPOROSIS NOS 03/22/2010 Ot V58.61 ANTICOAGULANTS,LT,CURRENT USE 07/03/2010 Ot 205.10 CHR ONIC MYELOID LEUKEMIA, W/O MENTION AC 07/03/2010 Ot 427.31 ATR IAL FIBRILLATION 07/03/2010 Ot 733.00 OST EOPOROSIS NOS 07/03/2010 Ot V58.61 ANTICOAGULANTS,LT,CURRENT USE 07/03/2010 Ot V58.69 OTH MED,LT,CURRENT USE 10/31/2010 Ot 205.10 CHR ONIC MYELOID LEUKEMIA, W/O MENTION AC 10/31/2010 Ot 427.31 ATR IAL FIBRILLATION 10/31/2010 Ot 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 10/31/2010 Ot 733.00 OST EOPOROSIS NOS 10/31/2010 Ot 780.79 OTH MALAISE FATIGUE 10/31/2010 Ot 786.09 RES PIRATORY ABNORM NEC 10/31/2010 Ot 787.1 HEAR TBURN 10/31/2010 Ot 788.41 URI NARY FREQUENCY 10/31/2010 Ot V58.69 OTH MED,LT,CURRENT USE 04/05/2011 Ot 205.10 CHR ONIC MYELOID LEUKEMIA, W/O MENTION AC 04/05/2011 Ot 427.31 ATR IAL FIBRILLATION 04/05/2011 Ot 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 04/05/2011 Ot 733.00 OST EOPOROSIS NOS 04/05/2011 Ot 780.79 OTH MALAISE FATIGUE 04/05/2011 Ot 786.09 RES PIRATORY ABNORM NEC 04/05/2011 Ot 787.1 HEAR TBURN 04/05/2011 Ot V58.69 OTH MED,LT,CURRENT USE 07/03/2011 Ot 205.10 CHR ONIC MYELOID LEUKEMIA, W/O MENTION AC 07/03/2011 Ot 285.9 ANEM IA NOS 07/03/2011 Ot 427.31 ATR IAL FIBRILLATION 07/03/2011 Ot 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 07/03/2011 Ot 599.0 URIN TRACT INFECTION NOS 07/03/2011 Ot 733.00 OST EOPOROSIS NOS 07/03/2011 Ot 780.79 OTH MALAISE FATIGUE 07/03/2011 Ot 786.09 RES PIRATORY ABNORM NEC 07/03/2011 Ot 787.1 HEAR TBURN 07/03/2011 Ot V58.69 OTH MED,LT,CURRENT USE 10/02/2011 Ot 205.10 CHR ONIC MYELOID LEUKEMIA, W/O MENTION AC 10/02/2011 Ot 427.31 ATR IAL FIBRILLATION 10/02/2011 Ot 599.0 URIN TRACT INFECTION NOS 10/02/2011 Ot 733.00 OST EOPOROSIS NOS 10/02/2011 Ot V58.69 OTH MED,LT,CURRENT USE 01/03/2012 Ot 205.10 CHR ONIC MYELOID LEUKEMIA, W/O MENTION AC 01/03/2012 Ot 427.31 ATR IAL FIBRILLATION 01/03/2012 Ot 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, STAGE III (MODER 01/03/2012 Ot 733.00 OST EOPOROSIS NOS 01/03/2012 Ot V13.02 PER ALLY HISTORY, URINARY (TRACT) INFECT 01/03/2012 Ot V58.69 OTH MED,LT,CURRENT USE 07/24/2012 Ot 205.10 CHR ONIC MYELOID LEUKEMIA, W/O MENTION AC 07/24/2012 Ot 427.31 ATR IAL FIBRILLATION 07/24/2012 Ot 733.00 OST EOPOROSIS NOS 07/24/2012 Ot V58.69 OTH MED,LT,CURRENT USE 11/11/2012 VELVET FAUST, JULISSA Correia Ot 244.9 HYPOTHYROIDISM NOS 11/11/2012 VELVET FAUST, JULISSA Correia Ot 272.4 HYPERLIPIDEMIA NEC/NOS 11/11/2012 VELVET FAUST, JULISSA Correia Ot 414.00 CORON ATHEROSCLER NOS TYPE VESSEL, NATIV 11/11/2012 VELVET FAUST, JULISSA Correia Ot 530.81 ESOPHAGEAL REFLUX 11/11/2012 JULISSA VERDIN MD Ot 553.3 DIAPHRAGMATIC HERNIA 11/11/2012 VELVET FAUST, JULISSA Correia Ot V45.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 BYPASS 02/10/2013 TANNER FAUST, GIORGI E Ot 151.9 MALIG NEOPL STOMACH NOS 02/10/2013 TANNER FAUST, GIORGI E Ot 205.1 0 CHRONIC MYELOID LEUKEMIA, W/O MENTION AC 02/10/2013 TANNER FAUST, GIORGI E Ot 244.9 HYPOTHYROIDISM NOS 02/10/2013 GIORGI HART MD E Ot 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 02/10/2013 GIORGI HART MD E Ot 272.4 HYPERLIPIDEMIA NEC/NOS 02/10/2013 GIORGI HART MD E Ot 285.9 ANEMIA NOS 02/10/2013 TANNER FAUST, GIORGI E Ot 311 DEPRESSIVE DISORDER NEC 02/10/2013 TANNER FAUST, GIORGI E Ot 414.0 1 CORONARY ATHEROSCLEROSIS OF [place] CORON 02/10/2013 GIORGI HART MD E Ot 511.9 PLEURAL EFFUSION NOS 02/10/2013 GIORGI HART MD E Ot 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 02/10/2013 GIORGI HART MD E Ot 518.5 1 ACUTE RESPIRATORY FAILURE FOLLOWING TRAU 02/10/2013 TANNER FAUST GIORGI E Ot 518.8 9 OTHER DISEASES OF LUNG, NEC 02/10/2013 TANNER FAUST GIORGI E Ot 560.1 PARALYTIC ILEUS 02/10/2013 TANNER FAUST, GIORGI Fuentes Ot 564.1 IRRITABLE BOWEL SYNDROME 02/10/2013 TANNER FAUST, GIORGI Fuentes Ot 599.0 URIN TRACT INFECTION NOS 02/10/2013 GIORGI HART MD Ot 799.3 DEBILITY NOS 02/10/2013 GIORGI HART MD Ot V12.5 1 HX-VENOUS THROMBOSIS EMBOLISM 02/10/2013 GIORGI HART MD Ot 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31 05/14/2014 DIXON BEGUM GRIEF COUNSELOR Ot 733.00 05/14/2014 BEGUMDIXON Valdez GRIEF COUNSELOR Ot V58.69 05/18/2014 VELVET FAUST, JULISSA Correia Ot 530.10 ESOPHAGITIS NOS 05/18/2014 VELVET FAUST, JULISSA Correia Ot 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 05/27/2014 CLARISA, BOBAN N Ot 205.10 05/27/2014 CLARISA, BOBAN N Ot 427.31 05/27/2014 CLARISA, BOBAN N Ot 733.00 05/27/2014 CLARISA, BOBAN N Ot V58.69 05/27/2014 CLARISA, BOBAN N Ot 205.10 05/27/2014 CLARISA, BOBAN N Ot 427.31 05/27/2014 CLARISA, BOBAN N Ot 733.00 05/27/2014 CLARISA, BOBAN N Ot V58.69 05/28/2014 CLARISA, BOBAN N Ot 205.10 05/28/2014 CLARISA, BOBAN N Ot 427.31 05/28/2014 CLARISA, BOBAN N Ot 733.00 05/28/2014 CLARISA, BOBAN N Ot V58.69 06/03/2014 CLARISA, BOBAN N Ot 205.10 06/03/2014 CLARISA, BOBAN N Ot 427.31 06/03/2014 CLARISA, BOBAN N Ot 733.00 06/03/2014 CLARISA, BOBAN N Ot V58.69 06/11/2014 ROD COVINGTON Ot 844.9 SPRAIN OF KNEE LEG NOS 06/11/2014 ROD COVINGTON Ot 845.00 SPRAIN OF ANKLE NOS 06/11/2014 ROD COVINGTON Ot 959.7 LOWER LEG INJURY NOS 06/11/2014 ROD COVINGTON Ot E000.8 OTHER EXTERNAL CAUSE STATUS 06/11/2014 ROD COVINGTON Ot E849.6 ACCIDENT IN PUBLIC BLDG 06/11/2014 ROD COVINGTON Ot E927.0 OVEREXERTION FROM SUDDEN STRENUOUS MOVEM 07/20/2014 CLARISA, BOBAN N Ot 205.10 07/20/2014 CLARISA, BOBAN N Ot 427.31 07/20/2014 CLARISA, BOBAN N Ot 733.00 07/20/2014 CLARISA, BOBAN N Ot V58.69 08/04/2014 CLARISA, BOBAN N Ot 205.10 08/04/2014 CLARISA, BOBAN N Ot 427.31 08/04/2014 CLARISA, BOBAN N Ot 733.00 08/04/2014 CLARISA, BOBAN N Ot V58.69 08/25/2014 CLARISA, BOBAN N Ot 205.10 CHRONIC MYELOID LEUKEMIA, W/O MENTION AC 08/25/2014 CLARISA, BOBAN N Ot 427.31 ATRIAL FIBRILLATION 08/25/2014 CLARISA, BOBAN N Ot 733.00 OSTEOPOROSIS NOS 08/25/2014 CLARISA, BOBAN N Ot 787.1 HEARTBURN 08/25/2014 CLARISA, BOBAN N Ot 787.91 DIARRHEA 08/25/2014 CLARISA, CORRINE N Ot 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 [...] V58.69 OTH MED,LT,CURRENT USE 12/02/2014 DIXON BEGUM GRIEF COUNSELOR Ot 205.10 12/02/2014 DIXON BEGUM S GRIEF COUNSELOR Ot 427.31 12/02/2014 DIXON BEGUM S GRIEF COUNSELOR Ot 733.00 12/02/2014 DIXON BEGUM S GRIEF COUNSELOR Ot V58.69 12/14/2014 DIXON BEGUM S GRIEF COUNSELOR Ot 205.10 12/14/2014 BEGUMDIXON Valdez S GRIEF COUNSELOR Ot 427.31 12/14/2014 BEGUMDIXON Valdez S GRIEF COUNSELOR Ot 733.00 12/14/2014 BEGUMDIXON Valdez S GRIEF COUNSELOR Ot V58.69 02/04/2015 CLARISA, BOBAN N Ot 205.10 02/04/2015 CLARISA, BOBAN N Ot 427.31 02/04/2015 CLARISA, BOBAN N Ot 733.00 02/04/2015 CLARISA, BOBAN N Ot 791.9 02/04/2015 CLARISA, BOBAN N Ot V58.69 03/17/2015 CLARISA, BOBAN N Ot C16.3 03/17/2015 CLARISA, BOBAN N Ot C92.10 03/17/2015 CLARISA, BOBAN N Ot D53.9 03/17/2015 CLARISA, BOBAN N Ot M81.0 03/17/2015 CLARISA, BOBAN N Ot R19.7 03/17/2015 CLARISA, BOBAN N Ot Z79.899 03/18/2015 DIXON BEGUM S GRIEF COUNSELOR Ot C16.3 03/18/2015 BEGUMDIXON Valdez S GRIEF COUNSELOR Ot C92.10 03/18/2015 BEGUMDIXON Valdez S GRIEF COUNSELOR Ot D53.9 03/18/2015 BEGUMDIXON Valdez S GRIEF COUNSELOR Ot M81.0 03/18/2015 BEGUMDIXON Valdez S GRIEF COUNSELOR Ot R19.7 03/18/2015 BEGUMDIXON S GRIEF COUNSELOR Ot Z79.899 03/19/2015 BEGUMDIXON Valdez S GRIEF COUNSELOR Ot C16.3 03/19/2015 BEGUMDIXON S GRIEF COUNSELOR Ot C92.10 03/19/2015 BEGUMDIXON S GRIEF COUNSELOR Ot D53.9 03/19/2015 BEGUMDIXON S GRIEF COUNSELOR Ot M81.0 03/19/2015 BEGUM, HILAH S GRIEF COUNSELOR Ot R19.7 03/19/2015 DIXON BEGUM GRIEF COUNSELOR Ot Z79.899 05/04/2015 CLARISACORRINE CALDERON Lex Ot 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 05/04/2015 CORRINE MCKENNA Lex Ot 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 MYELOID LEUK, BCR/ABL-POSITIVE, 05/04/2015 CORRINE MCKENNA Lex Ot D53.9 NUTRITIONAL ANEMIA, UNSPECIFIED 05/04/2015 CORRINE MCKENNA Lex Ot M81.0 AGE- RELATED OSTEOPOROSIS W/O CURRENT PAT 05/04/2015 CORRINE MCKENNA Lex Ot R19.7 DIARRHEA, UNSPECIFIED 05/04/2015 CORRINE MCKENNA N Ot Z79.899 OTHER PENITENTIARY (CURRENT) DRUG THERAPY 05/10/2015 CORRINE MCKENNA Lex Ot C16.3 05/10/2015 CORRINE MCKENNA Lex Ot C92.10 05/10/2015 CLARISACORRINE CALDERON Lex Ot D53.9 05/10/2015 CLARISACORRINE CALDERON Lex Ot M81.0 05/10/2015 CLARISACORRINE CALDERON N Ot R19.7 05/10/2015 CORRINE MCKENNA N Ot Z79.899 05/18/2015 CLARISACORRINE CALDERON N Ot C16.3 05/18/2015 CLARISACORRINE CALDERON Lex Ot C92.10 05/18/2015 CLARISACORRINE CALDERON N Ot D53.9 05/18/2015 CORRINE MCKENNA Lex Ot M81.0 05/18/2015 CORRINE MCKENNA Lex Ot R19.7 05/18/2015 CORRINE MCKENNA Lex Ot Z79.899 06/07/2015 Ot V76.12 OT SCREEN MAMMO- MALIGN NEOPLASM OF ANKITA 06/07/2015 Ot 205.10 CHR ONIC MYELOID LEUKEMIA, W/O MENTION AC 06/07/2015 Ot 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 06/07/2015 Ot 397.0 TRIC USPID VALVE DISEASE 06/07/2015 Ot 414.00 COR ON ATHEROSCLER NOS TYPE VESSEL, NATIV 06/07/2015 Ot V87.41 PER ALLY HISTORY OF ANTINEOPLASTIC CHEMO 06/07/2015 Ot 733.00 OST EOPOROSIS NOS 06/07/2015 Ot 733.90 BON E CARTILAGE DIS NOS 06/07/2015 Ot V76.12 OTH SCREEN MAMMO- MALIGN NEOPLASM OF [place] 06/07/2015 Ot 414.00 COR ON ATHEROSCLER NOS TYPE VESSEL, NATIV 06/07/2015 Ot 786.09 RES PIRATORY ABNORM NEC 06/07/2015 Ot 599.0 URIN TRACT INFECTION NOS 06/07/2015 Ot 205.10 CHR ONIC MYELOID LEUKEMIA, W/O MENTION AC 06/07/2015 Ot 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, STAGE III (MODER 06/07/2015 Ot 733.00 OST EOPOROSIS NOS 06/07/2015 Ot V13.02 PER ALLY HISTORY, URINARY (TRACT) INFECT 06/07/2015 Ot V58.69 OTH MED,LT,CURRENT USE 06/07/2015 WILIAM JOSHUA DO Ot V76.12 OTH SCREEN MAMMO-MALIGN NEOPLASM OF [place]KITA 06/07/2015 DIXON BEGUM GRIEF COUNSELOR Ot 205.10 CHRONIC MYELOID LEUKEMIA, W/O MENTION AC 06/07/2015 DIXON BEGUM GRIEF COUNSELOR Ot 427.31 ATRIAL FIBRILLATION 06/07/2015 DIXON BEGUM GRIEF COUNSELOR Ot 585.3 CHRONIC KIDNEY DISEASE, STAGE III (MODER 06/07/2015 DIXON BEGUMP Ot V58.69 OTH MED,LT,CURRENT USE 06/07/2015 DIXON BEGUM GRIEF COUNSELOR Ot 205.10 CHRONIC MYELOID LEUKEMIA, W/O MENTION AC 06/07/2015 DIXON BEGUM GRIEF COUNSELOR Ot 427.31 ATRIAL FIBRILLATION 06/07/2015 DIXON BEGUM GRIEF COUNSELOR Ot 585.3 CHRONIC KIDNEY DISEASE, STAGE III (MODER 06/07/2015 DIXON BEGUMP Ot 733.00 OSTEOPOROSIS NOS 06/07/2015 DIXON BEGUM GRIEF COUNSELOR Ot V58.69 OTH MED,LT,CURRENT USE 06/07/2015 WILIAM JOSHUA DO Ot 530.81 ESOPHAGEAL REFLUX 06/07/2015 WILIAM JOSHUA DO Ot 553.3 DIAPHRAGMATIC HERNIA 06/07/2015 WILIAM JOSHUA DO Ot 593.9 RENAL URETERAL DIS NOS 06/07/2015 WILIAM JOSHUA DO Ot 787.3 FLATUL/ERUCTAT/GAS PAIN 06/07/2015 VELVET FAUST, JULISSA Correia Ot V72.84 EXAM PRE-OPERATIVE NOS 06/07/2015 CLARISA CORRINE Burnett Ot 151.9 MALIG NEOPL STOMACH NOS 06/07/2015 CLARISA CORRINE Burnett Ot 414.01 CORONARY ATHEROSCLEROSIS OF [place] CORON 06/07/2015 CLARISA CORRINE Burnett Ot 429.3 CARDIOMEGALY 06/07/2015 CORRINE MCKENNA Lex Ot 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 06/07/2015 RAMON DAMON GRIEF COUNSELOR Ot 272.4 HYPERLIPIDEMIA NEC/NOS 06/07/2015 RAMON DAMON GRIEF COUNSELOR Ot 414.00 CORON ATHEROSCLER NOS TYPE VESSEL, NATIV 06/07/2015 RAMON DAMON GRIEF COUNSELOR Ot V72.84 EXAM PRE-OPERATIVE NOS 06/07/2015 WILIAM JOSHUA DO Ot 205.10 CHRONIC MYELOID LEUKEMIA, W/O MENTION AC 06/07/2015 DIXON BEGUM GRIEF COUNSELOR Ot 205.10 CHRONIC MYELOID LEUKEMIA, W/O MENTION AC 06/07/2015 DIXON BEGUM GRIEF COUNSELOR Ot 427.31 ATRIAL FIBRILLATION 06/07/2015 DIXON BEGUM GRIEF COUNSELOR Ot 733.00 OSTEOPOROSIS NOS 06/07/2015 DIXON BEGUM GRIEF COUNSELOR Ot 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 06/07/2015 DIXON BEGUM GRIEF COUNSELOR Ot V58.69 OTH MED,LT,CURRENT USE 06/07/2015 DIXON BEGUM GRIEF COUNSELOR Ot V67.00 UNSPEC SURGERY FOLLOW-UP EXAM 06/07/2015 DIXON BEGUM GRIEF COUNSELOR Ot 205.10 CHRONIC MYELOID LEUKEMIA, W/O MENTION AC 06/07/2015 DIXON BEGUM GRIEF COUNSELOR Ot 427.31 ATRIAL FIBRILLATION 06/07/2015 DIXON BEGUM GRIEF COUNSELOR Ot 733.00 OSTEOPOROSIS NOS 06/07/2015 DIXON BEGUMP Ot V58.69 OTH MED,LT,CURRENT USE 06/07/2015 DIXON BEGUM GRIEF COUNSELOR Ot 721.0 CERVICAL SPONDYLOSIS 06/07/2015 WILAIM JOSHUA DO Ot 530.81 ESOPHAGEAL REFLUX 06/07/2015 WILIAM JOSHUA DO Ot 783.21 LOSS OF WEIGHT 06/07/2015 WILIAM JOSHUA DO Ot 786.2 COUGH 06/07/2015 WILIAM JOSHUA DO Ot 793.19 OTHER NONSPECIFIC ABNORMAL FINDING OF BOB 06/07/2015 DIXON BEGUM GRIEF COUNSELOR Ot 205.10 CHRONIC MYELOID LEUKEMIA, W/O MENTION AC 06/07/2015 DIXON BEGUM GRIEF COUNSELOR Ot 427.31 ATRIAL FIBRILLATION 06/07/2015 DIXON BEGUM GRIEF COUNSELOR Ot 733.00 OSTEOPOROSIS NOS 06/07/2015 DIXON BEGUM GRIEF COUNSELOR Ot 791.9 ABN URINE FINDINGS NEC 06/07/2015 DIXON BEGUM GRIEF COUNSELOR Ot V58.69 OTH MED,LT,CURRENT USE 06/07/2015 CORRINE MCKENNA N Ot 205.90 UNSPECIFIED MYELOID LEUKEMIA, W/O MENTIO 06/07/2015 DIXON BEGUM GRIEF COUNSELOR Ot 205.10 CHRONIC MYELOID LEUKEMIA, W/O MENTION AC 06/07/2015 DIXON BEGUM GRIEF COUNSELOR Ot 427.31 ATRIAL FIBRILLATION 06/07/2015 DIXON BEGUM GRIEF COUNSELOR Ot 733.00 OSTEOPOROSIS NOS 06/07/2015 DIXON BEGUM GRIEF COUNSELOR Ot V58.69 OTH MED,LT,CURRENT USE 06/07/2015 VELVET FAUST, JULISSA M Ot V72.84 EXAM PRE-OPERATIVE NOS 06/07/2015 CORRINE MCKENNA Ot 151.9 MALIG NEOPL STOMACH NOS 06/07/2015 DIXON BEGUM GRIEF COUNSELOR Ot 205.10 CHRONIC MYELOID LEUKEMIA, W/O MENTION AC 06/07/2015 DIXON BEGUM GRIEF COUNSELOR Ot 427.31 ATRIAL FIBRILLATION 06/07/2015 DIXON BEGUM GRIEF COUNSELOR Ot 733.00 OSTEOPOROSIS NOS 06/07/2015 DIXON BEGUM GRIEF COUNSELOR Ot V58.69 OTH MED,LT,CURRENT USE 06/07/2015 DIXON BEGUM GRIEF COUNSELOR Ot 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 06/07/2015 DIXON BEGUM GRIEF COUNSELOR Ot 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 MYELOID LEUK, BCR/ABL-POSITIVE, 06/07/2015 DIXON BEGUM GRIEF COUNSELOR Ot D53.9 NUTRITIONAL ANEMIA, UNSPECIFIED 06/07/2015 DIXON BEGUM GRIEF COUNSELOR Ot M81.0 AGE-RELATED OSTEOPOROSIS W/O CURRENT PAT 06/07/2015 DIXON BEGUM GRIEF COUNSELOR Ot R19.7 DIARRHEA, UNSPECIFIED 06/07/2015 DIXON BEGUM GRIEF COUNSELOR Ot Z79.899 OTHER PENITENTIARY (CURRENT) DRUG THERAPY 06/07/2015 CLARISA, CORRINE N Ot 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 06/07/2015 CLARISACORRINE N Ot 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 MYELOID LEUK, BCR/ABL-POSITIVE, 06/07/2015 CLARISACORRINE N Ot D53.9 NUTRITIONAL ANEMIA, UNSPECIFIED 06/07/2015 CLARISACORRINE N Ot M81.0 AGE- RELATED OSTEOPOROSIS W/O CURRENT PAT 06/07/2015 CLARISACORRINE N Ot R19.7 DIARRHEA, UNSPECIFIED 06/07/2015 CLARISA, CORRINE N Ot Z79.899 OTHER PENITENTIARY (CURRENT) DRUG THERAPY 06/11/2015 CLARISA, CORRINE N Ot 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 06/11/2015 CLARISA BOBBRYN N Ot 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 MYELOID LEUK, BCR/ABL-POSITIVE, 06/11/2015 CLARISA BOBBRYN N Ot D53.9 NUTRITIONAL ANEMIA, UNSPECIFIED 06/11/2015 CLARISACORRINE N Ot M81.0 AGE- RELATED OSTEOPOROSIS W/O CURRENT PAT 06/11/2015 CLARISACORRINE N Ot R19.7 DIARRHEA, UNSPECIFIED 06/11/2015 CLARISA, BOBBRYN N Ot Z79.899 OTHER PENITENTIARY (CURRENT) DRUG THERAPY 06/17/2015 CLARISACORRINE N Ot 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 06/17/2015 CLARISAJOHANNABRYN N Ot 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 MYELOID LEUK, BCR/ABL-POSITIVE, 06/17/2015 CLARISA BOBBRYN N Ot D53.9 NUTRITIONAL ANEMIA, UNSPECIFIED 06/17/2015 CLARISA, CORRINE N Ot M81.0 AGE- RELATED OSTEOPOROSIS W/O CURRENT PAT 06/17/2015 CLARISA, JOHANNAAN N Ot R19.7 DIARRHEA, UNSPECIFIED 06/17/2015 CLARISA, BOBAN N Ot Z79.899 OTHER PENITENTIARY (CURRENT) DRUG THERAPY 06/29/2015 GELLENDER DO, WILIAM A Ot R05 COUGH 07/15/2015 GELLENDER DO, WILIAM A Ot R05 COUGH 08/15/2015 CLARISACORRINE N Ot 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 08/15/2015 CLARISACORRINE N Ot 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 MYELOID LEUK, BCR/ABL-POSITIVE, 08/15/2015 CLARISA BOBAN N Ot D53.9 NUTRITIONAL ANEMIA, UNSPECIFIED 08/15/2015 CLARISA BOBAN N Ot M81.0 AGE- RELATED OSTEOPOROSIS W/O CURRENT PAT 08/15/2015 CLARISAJOHANNA CALDERONAN N Ot R19.7 DIARRHEA, UNSPECIFIED 08/15/2015 CLARISA BOBAN N Ot Z79.899 OTHER PENITENTIARY (CURRENT) DRUG THERAPY 08/18/2015 DIXON BEGUM S GRIEF COUNSELOR Ot 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 08/18/2015 DIXON BEGUM S GRIEF COUNSELOR Ot 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 MYELOID LEUK, BCR/ABL-POSITIVE, 08/18/2015 DIXON BEGUM S GRIEF COUNSELOR Ot D53.9 NUTRITIONAL ANEMIA, UNSPECIFIED 08/18/2015 DIXON BEGUM S GRIEF COUNSELOR Ot M81.0 AGE-RELATED OSTEOPOROSIS W/O CURRENT PAT 08/18/2015 DIXON BEGUM GRIEF COUNSELOR Ot R19.7 DIARRHEA, UNSPECIFIED 08/18/2015 DIXON BEGUM S GRIEF COUNSELOR Ot Z79.899 OTHER STEEL FABRICATOR (CURRENT) DRUG THERAPY 08/18/2015 CLARISACORRINE CALDERON N Ot 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 08/18/2015 CLARISACORRINE CALDERON N Ot 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 MYELOID LEUK, BCR/ABL-POSITIVE, 08/18/2015 CLARISA BOBAN N Ot D53.9 NUTRITIONAL ANEMIA, UNSPECIFIED 08/18/2015 CLARISACORRINE N Ot M81.0 AGE- RELATED OSTEOPOROSIS W/O CURRENT PAT 08/18/2015 CLARISA BOBBRYN N Ot R19.7 DIARRHEA, UNSPECIFIED 08/18/2015 CLARISA BOBAN N Ot Z79.899 OTHER PENITENTIARY (CURRENT) DRUG THERAPY 08/21/2015 CLARISA, BOBAN N Ot 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 08/21/2015 CLARISA BOBAN N Ot 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 MYELOID LEUK, BCR/ABL-POSITIVE, 08/21/2015 CLARISA BOBAN N Ot D53.9 NUTRITIONAL ANEMIA, UNSPECIFIED 08/21/2015 CLARISA BOBAN N Ot M81.0 AGE- RELATED OSTEOPOROSIS W/O CURRENT PAT 08/21/2015 CLARISA, BOBAN N Ot R19.7 DIARRHEA, UNSPECIFIED 08/21/2015 CORRINE MCKENNA Ot Z79.899 OTHER STEEL FABRICATOR (CURRENT) DRUG THERAPY 08/25/2015 Ot V76.12 OTH SCREEN MAMMO- MALIGN NEOPLASM OF [place] 08/25/2015 Ot 205.10 CHR ONIC MYELOID LEUKEMIA, W/O MENTION AC 08/25/2015 Ot 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 08/25/2015 Ot 397.0 TRIC USPID VALVE DISEASE 08/25/2015 Ot 414.00 COR ON ATHEROSCLER NOS TYPE VESSEL, NATIV 08/25/2015 Ot V87.41 PER ALLY HISTORY OF ANTINEOPLASTIC CHEMO 08/25/2015 Ot 733.00 OST EOPOROSIS NOS 08/25/2015 Ot 733.90 BON E CARTILAGE DIS NOS 08/25/2015 Ot V76.12 OTH SCREEN MAMMO- MALIGN NEOPLASM OF [place] 08/25/2015 Ot 414.00 COR ON ATHEROSCLER NOS TYPE VESSEL, NATIV 08/25/2015 Ot 786.09 RES PIRATORY ABNORM NEC 08/25/2015 Ot 599.0 URIN TRACT INFECTION NOS 08/25/2015 Ot 205.10 CHR ONIC MYELOID LEUKEMIA, W/O MENTION AC 08/25/2015 Ot 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, STAGE III (MODER 08/25/2015 Ot 733.00 OST EOPOROSIS NOS 08/25/2015 Ot V13.02 PER ALLY HISTORY, URINARY (TRACT) INFECT 08/25/2015 Ot V58.69 OTH MED,LT,CURRENT USE 08/25/2015 WILIAM JOSHUA DO Ot V76.12 OTH SCREEN MAMMO-MALIGN NEOPLASM OF ANKITA 08/25/2015 DIXON BEGUMP Ot 205.10 CHRONIC MYELOID LEUKEMIA, W/O MENTION AC 08/25/2015 DIXON BEGUM GRIEF COUNSELOR Ot 427.31 ATRIAL FIBRILLATION 08/25/2015 DIXON BEGUMP Ot 585.3 CHRONIC KIDNEY DISEASE, STAGE III (MODER 08/25/2015 DIXON BEGUMP Ot V58.69 OTH MED,LT,CURRENT USE 08/25/2015 DIXON BEGUM GRIEF COUNSELOR Ot 205.10 CHRONIC MYELOID LEUKEMIA, W/O MENTION AC 08/25/2015 DIXON BEGUMP Ot 427.31 ATRIAL FIBRILLATION 08/25/2015 DIXON BEGUM GRIEF COUNSELOR Ot 585.3 CHRONIC KIDNEY DISEASE, STAGE III (MODER 08/25/2015 DIXON BEGUM GRIEF COUNSELOR Ot 733.00 OSTEOPOROSIS NOS 08/25/2015 DIXON BEGUMP Ot V58.69 OTH MED,LT,CURRENT USE 08/25/2015 GELWILIAM GONZALEZ DO Ot 530.81 ESOPHAGEAL REFLUX 08/25/2015 WILIAM JOSHUA DO Ot 553.3 DIAPHRAGMATIC HERNIA 08/25/2015 MARTINLENWILIAM BARNHART DO Ot 593.9 RENAL URETERAL DIS NOS 08/25/2015 GELLENWILIAM BARNHART DO Ot 787.3 FLATUL/ERUCTAT/GAS PAIN 08/25/2015 VELVET FAUST, JULISSA Correia Ot V72.84 EXAM PRE-OPERATIVE NOS 08/25/2015 CORRINE MCKENNA Ot 151.9 MALIG NEOPL STOMACH NOS 08/25/2015 CORRINE MCKENNA Ot 414.01 CORONARY ATHEROSCLEROSIS OF [place] CORON 08/25/2015 CORRINE MCKENNA Ot 429.3 CARDIOMEGALY 08/25/2015 CORRINE MCKENNA Ot 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 08/25/2015 RAMON DAMON GRIEF COUNSELOR Ot 272.4 HYPERLIPIDEMIA NEC/NOS 08/25/2015 RAMON DAMON GRIEF COUNSELOR Ot 414.00 CORON ATHEROSCLER NOS TYPE VESSEL, NATIV 08/25/2015 RAMON DAMON GRIEF COUNSELOR Ot V72.84 EXAM PRE-OPERATIVE NOS 08/25/2015 WILIAM JOSHUA DO Ot 205.10 CHRONIC MYELOID LEUKEMIA, W/O MENTION AC 08/25/2015 DIXON BEGUM GRIEF COUNSELOR Ot 205.10 CHRONIC MYELOID LEUKEMIA, W/O MENTION AC 08/25/2015 DIXON BEGUM GRIEF COUNSELOR Ot 427.31 ATRIAL FIBRILLATION 08/25/2015 DIXON BEGUM GRIEF COUNSELOR Ot 733.00 OSTEOPOROSIS NOS 08/25/2015 DIXON BEGUM GRIEF COUNSELOR Ot 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 08/25/2015 DIXON BEGUMP Ot V58.69 OTH MED,LT,CURRENT USE 08/25/2015 DIXON BEGUM GRIEF COUNSELOR Ot V67.00 UNSPEC SURGERY FOLLOW-UP EXAM 08/25/2015 BEGUM, HILAH S GRIEF COUNSELOR Ot 205.10 CHRONIC MYELOID LEUKEMIA, W/O MENTION AC 08/25/2015 DIXON BEGUM S GRIEF COUNSELOR Ot 427.31 ATRIAL FIBRILLATION 08/25/2015 DIXON BEGUM S GRIEF COUNSELOR Ot 733.00 OSTEOPOROSIS NOS 08/25/2015 DIXON BEGUM S GRIEF COUNSELOR Ot V58.69 OTH MED,LT,CURRENT USE 08/25/2015 DIXON BEGUM GRIEF COUNSELOR Ot 721.0 CERVICAL SPONDYLOSIS 08/25/2015 GELLENDER DO, WILIAM A Ot 530.81 ESOPHAGEAL REFLUX 08/25/2015 GELLENDER DO, WILIAM A Ot 783.21 LOSS OF WEIGHT 08/25/2015 GELLENDER DO, WILIAM A Ot 786.2 COUGH 08/25/2015 GELLENDER DO, WILIAM A Ot 793.19 OTHER NONSPECIFIC ABNORMAL FINDING OF BOB 08/25/2015 DIXON BEGUM GRIEF COUNSELOR Ot 205.10 CHRONIC MYELOID LEUKEMIA, W/O MENTION AC 08/25/2015 DIXON BEGUM GRIEF COUNSELOR Ot 427.31 ATRIAL FIBRILLATION 08/25/2015 DIXON BEGUM GRIEF COUNSELOR Ot 733.00 OSTEOPOROSIS NOS 08/25/2015 DIXON BEGUM GRIEF COUNSELOR Ot 791.9 ABN URINE FINDINGS NEC 08/25/2015 DIXON BEGUM GRIEF COUNSELOR Ot V58.69 OTH MED,LT,CURRENT USE 08/25/2015 CORRINE MCKENNA Ot 205.90 UNSPECIFIED MYELOID LEUKEMIA, W/O MENTIO 08/25/2015 DIXON BEGUM GRIEF COUNSELOR Ot 205.10 CHRONIC MYELOID LEUKEMIA, W/O MENTION AC 08/25/2015 DIXON BEGUM S GRIEF COUNSELOR Ot 427.31 ATRIAL FIBRILLATION 08/25/2015 DIXON BEGUM S GRIEF COUNSELOR Ot 733.00 OSTEOPOROSIS NOS 08/25/2015 DIXON BEGUM S GRIEF COUNSELOR Ot V58.69 OTH MED,LT,CURRENT USE 08/25/2015 VELVET FAUST, JULISSA Correia Ot V72.84 EXAM PRE-OPERATIVE NOS 08/25/2015 CORRINE MCKENNA Ot 151.9 MALIG NEOPL STOMACH NOS 08/25/2015 DIXON BEGUM S GRIEF COUNSELOR Ot 205.10 CHRONIC MYELOID LEUKEMIA, W/O MENTION AC 08/25/2015 DIXON BEGUM S GRIEF COUNSELOR Ot 427.31 ATRIAL FIBRILLATION 08/25/2015 BEGUMDIXON Valdez GRIEF COUNSELOR Ot 733.00 OSTEOPOROSIS NOS 08/25/2015 BEGUMDIXON Valdez GRIEF COUNSELOR Ot V58.69 OTH MED,LT,CURRENT USE 08/25/2015 DIXON BEGUM GRIEF COUNSELOR Ot 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 08/25/2015 KEL DIXON Valdez GRIEF COUNSELOR Ot 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 MYELOID LEUK, BCR/ABL-POSITIVE, 08/25/2015 KEL DIXON Valdez GRIEF COUNSELOR Ot D53.9 NUTRITIONAL ANEMIA, UNSPECIFIED 08/25/2015 BEGUM DIXON Valdez GRIEF COUNSELOR Ot M81.0 AGE-RELATED OSTEOPOROSIS W/O CURRENT PAT 08/25/2015 LUDY BEGUMSARAHI Valdez GRIEF COUNSELOR Ot R19.7 DIARRHEA, UNSPECIFIED 08/25/2015 KEL DIXON Valdez GRIEF COUNSELOR Ot Z79.899 OTHER STEEL FABRICATOR (CURRENT) DRUG THERAPY 08/25/2015 WILIAM JOSHUA DO Ot R05 COUGH 08/25/2015 KEL DIXON Valdez GRIEF COUNSELOR Ot 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 08/25/2015 KEL DIXON Valdez GRIEF COUNSELOR Ot 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 MYELOID LEUK, BCR/ABL-POSITIVE, 08/25/2015 KEL DIXON Valdez GRIEF COUNSELOR Ot D53.9 NUTRITIONAL ANEMIA, UNSPECIFIED 08/25/2015 KEL DIXON Valdez GRIEF COUNSELOR Ot M81.0 AGE-RELATED OSTEOPOROSIS W/O CURRENT PAT 08/25/2015 LUDY BEGUMSARAHI Valdez GRIEF COUNSELOR Ot R19.7 DIARRHEA, UNSPECIFIED 08/25/2015 KEL DIXON Valdez GRIEF COUNSELOR Ot Z79.899 OTHER STEEL FABRICATOR (CURRENT) DRUG THERAPY 08/25/2015 CORRINE MCKENNA N Ot 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 08/25/2015 CORRINE MCKENNA N Ot 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 MYELOID LEUK, BCR/ABL-POSITIVE, 08/25/2015 CORRINE MCKENNA N Ot D53.9 NUTRITIONAL ANEMIA, UNSPECIFIED 08/25/2015 CLARISACORRINE CALDERON N Ot M81.0 AGE- RELATED OSTEOPOROSIS W/O CURRENT PAT 08/25/2015 CLARISACORRINE CALDERON N Ot R19.7 DIARRHEA, UNSPECIFIED 08/25/2015 CORRINE MCKENNA N Ot Z79.899 OTHER PENITENTIARY (CURRENT) DRUG THERAPY 09/09/2015 LUDY BEGUMSARAHI Valdez GRIEF COUNSELOR Ot 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 09/09/2015 DIXON BEGUM GRIEF COUNSELOR Ot 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 MYELOID LEUK, BCR/ABL-POSITIVE, 09/09/2015 LUDY BEGUMSARAHI Valdez GRIEF COUNSELOR Ot D53.9 NUTRITIONAL ANEMIA, UNSPECIFIED 09/09/2015 KEL DIXON S GRIEF COUNSELOR Ot M81.0 AGE-RELATED OSTEOPOROSIS W/O CURRENT PAT 09/09/2015 DIXON BEGUM GRIEF COUNSELOR Ot R19.7 DIARRHEA, UNSPECIFIED 09/09/2015 LUDY BEGUMSARAHI Valdez GRIEF COUNSELOR Ot Z79.899 OTHER PENITENTIARY (CURRENT) DRUG THERAPY 09/10/2015 VELVET FAUST, JULISSA M Ot Z01.818 ENCOUNTER FOR OTHER PREPROCEDURAL EXAMIN 09/10/2015 VELVET FAUST, JULISSA M Ot Z01.818 ENCOUNTER FOR OTHER PREPROCEDURAL EXAMIN 09/13/2015 VELVET FAUST, JULISSA M Ot 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 09/13/2015 VELVET FAUST, JULISSA M Ot 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 OBSTRUCTION 09/14/2015 VELVET FAUST, JULISSA M Ot 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 09/14/2015 VELVET FAUST, JULISSA M Ot 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 OBSTRUCTION 09/16/2015 DIXON BEGUM GRIEF COUNSELOR Ot 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 09/16/2015 DIXON BEGUM GRIEF COUNSELOR Ot 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 MYELOID LEUK, BCR/ABL-POSITIVE, 09/16/2015 DIXON BEGUM GRIEF COUNSELOR Ot D53.9 NUTRITIONAL ANEMIA, UNSPECIFIED 09/16/2015 LUDY BEGUMSARAHI Valdez GRIEF COUNSELOR Ot M81.0 AGE-RELATED OSTEOPOROSIS W/O CURRENT PAT 09/16/2015 DIXON BEGUM GRIEF COUNSELOR Ot R19.7 DIARRHEA, UNSPECIFIED 09/16/2015 LUDY BEGUMSARAHI Valdez GRIEF COUNSELOR Ot Z79.899 OTHER PENITENTIARY (CURRENT) DRUG THERAPY 09/29/2015 VELVET FAUST, JULISSA M Ot 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 09/29/2015 VELVET FAUST, JULISSA M Ot 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 OBSTRUCTION 09/30/2015 DIXON BEGUM S GRIEF COUNSELOR Ot 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 10/18/2015 DIXON BEGUM GRIEF COUNSELOR Ot 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 11/15/2015 CLARISACORRINE CALDERON N Ot 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 11/15/2015 CLARISACORRINE N Ot 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 MYELOID LEUK, BCR/ABL-POSITIVE, 11/15/2015 CLARISACORRINE ACLDERON N Ot D53.9 NUTRITIONAL ANEMIA, UNSPECIFIED 11/15/2015 CLARISACORRINE N Ot M81.0 AGE- RELATED OSTEOPOROSIS W/O CURRENT PAT 11/15/2015 CLARISACORRINE N Ot R19.7 DIARRHEA, UNSPECIFIED 11/15/2015 CLARISA, BOBBRYN N Ot Z79.899 OTHER STEEL FABRICATOR (CURRENT) DRUG THERAPY 11/17/2015 CLARISACORRINE N Ot 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 11/17/2015 CLARISA CORRINE N Ot 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 MYELOID LEUK, BCR/ABL-POSITIVE, 11/17/2015 CLARISA JOHANNABRYN N Ot D53.9 NUTRITIONAL ANEMIA, UNSPECIFIED 11/17/2015 CLARISA, CORRINE N Ot M81.0 AGE- RELATED OSTEOPOROSIS W/O CURRENT PAT 11/17/2015 CLARISA, CORRINE N Ot R19.7 DIARRHEA, UNSPECIFIED 11/17/2015 CLARISA, BOBAN N Ot Z79.899 OTHER STEEL FABRICATOR (CURRENT) DRUG THERAPY 11/20/2015 CLARISACORRINE N Ot 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 11/20/2015 CLARISA JOHANNABRYN N Ot 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 MYELOID LEUK, BCR/ABL-POSITIVE, 11/20/2015 CLARISA CORRINE N Ot D53.9 NUTRITIONAL ANEMIA, UNSPECIFIED 11/20/2015 CLARISACORRINE N Ot M81.0 AGE- RELATED OSTEOPOROSIS W/O CURRENT PAT 11/20/2015 CLARISA, CORRINE N Ot R19.7 DIARRHEA, UNSPECIFIED 11/20/2015 CLARISA, BOBAN N Ot Z79.899 OTHER PENITENTIARY (CURRENT) DRUG THERAPY 12/13/2015 CLARISACORRINE N Ot 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 12/13/2015 CLARISACORRINE N Ot 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 MYELOID LEUK, BCR/ABL-POSITIVE, 12/13/2015 CORRINE MCKENNA Ot D53.9 NUTRITIONAL ANEMIA, UNSPECIFIED 12/13/2015 CORRINE MCKENNA Ot M81.0 AGE- RELATED OSTEOPOROSIS W/O CURRENT PAT 12/13/2015 CORRINE MCKENNA Ot R19.7 DIARRHEA, UNSPECIFIED 12/13/2015 CORRINE MCKENNA Ot Z79.899 OTHER PENITENTIARY (CURRENT) DRUG THERAPY 12/16/2015 CORRINE MCKENNA Ot 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 12/16/2015 CORRINE MCKENNA Ot 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 MYELOID LEUK, BCR/ABL-POSITIVE, 12/16/2015 CORRINE MCKENNA Ot D53.9 NUTRITIONAL ANEMIA, UNSPECIFIED 12/16/2015 CORRINE MCKENNA Ot M81.0 AGE- RELATED OSTEOPOROSIS W/O CURRENT PAT 12/16/2015 CORRINE MCKENNA Ot R19.7 DIARRHEA, UNSPECIFIED 12/16/2015 CORRINE MCKENNA Ot Z79.899 OTHER PENITENTIARY (CURRENT) DRUG THERAPY 01/20/2016 Ot 205.10 CHR ONIC MYELOID LEUKEMIA, W/O MENTION AC 01/20/2016 Ot 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 01/20/2016 Ot 397.0 TRIC USPID VALVE DISEASE 01/20/2016 Ot 414.00 COR ON ATHEROSCLER NOS TYPE VESSEL, NATIV 01/20/2016 Ot V87.41 PER ALLY HISTORY OF ANTINEOPLASTIC CHEMO 01/20/2016 Ot 733.00 OST EOPOROSIS NOS 01/20/2016 Ot 733.90 BON E CARTILAGE DIS NOS 01/20/2016 Ot V76.12 OTH SCREEN MAMMO- MALIGN NEOPLASM OF [place] 01/20/2016 Ot 414.00 COR ON ATHEROSCLER NOS TYPE VESSEL, NATIV 01/20/2016 Ot 786.09 RES PIRATORY ABNORM NEC 01/20/2016 Ot 599.0 URIN TRACT INFECTION NOS 01/20/2016 Ot 205.10 CHR ONIC MYELOID LEUKEMIA, W/O MENTION AC 01/20/2016 Ot 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, STAGE III (MODER 01/20/2016 Ot 733.00 OST EOPOROSIS NOS 01/20/2016 Ot V13.02 PER ALLY HISTORY, URINARY (TRACT) INFECT 01/20/2016 Ot V58.69 OTH MED,LT,CURRENT USE 01/20/2016 GELLENDER WILIAM GARCIA Ot V76.12 OTH SCREEN MAMMO-MALIGN NEOPLASM OF [place] 01/20/2016 DIXON BEGUM GRIEF COUNSELOR Ot 205.10 CHRONIC MYELOID LEUKEMIA, W/O MENTION AC 01/20/2016 BEGUMDIXON Valdez GRIEF COUNSELOR Ot 427.31 ATRIAL FIBRILLATION 01/20/2016 BEGUMDIXON Valdez GRIEF COUNSELOR Ot 585.3 CHRONIC KIDNEY DISEASE, STAGE III (MODER 01/20/2016 BEGUMDIXON Valdez GRIEF COUNSELOR Ot V58.69 OTH MED,LT,CURRENT USE 01/20/2016 BEGUMDIXON Valdez GRIEF COUNSELOR Ot 205.10 CHRONIC MYELOID LEUKEMIA, W/O MENTION AC 01/20/2016 BEGUMDIXON Valdez GRIEF COUNSELOR Ot 427.31 ATRIAL FIBRILLATION 01/20/2016 BEGUMDIXON Valdez GRIEF COUNSELOR Ot 585.3 CHRONIC KIDNEY DISEASE, STAGE III (MODER 01/20/2016 BEGUMDIXON Valdez GRIEF COUNSELOR Ot 733.00 OSTEOPOROSIS NOS 01/20/2016 DIXON BEGUM GRIEF COUNSELOR Ot V58.69 OTH MED,LT,CURRENT USE 01/20/2016 GELLENDER DOWILIAM Ot 530.81 ESOPHAGEAL REFLUX 01/20/2016 GELLENDER WILIAM GARCIA Ot 553.3 DIAPHRAGMATIC HERNIA 01/20/2016 GELLENDER WILIAM GARCIA Ot 593.9 RENAL URETERAL DIS NOS 01/20/2016 GELLENDER WILIAM GARCIA Ot 787.3 FLATUL/ERUCTAT/GAS PAIN 01/20/2016 VELVET FAUST, JULISSA Correia Ot V72.84 EXAM PRE-OPERATIVE NOS 01/20/2016 CORRINE MCKENNA Ot 151.9 MALIG NEOPL STOMACH NOS 01/20/2016 CORRINE MCKENNA Ot 414.01 CORONARY ATHEROSCLEROSIS OF [place] CORON 01/20/2016 CORRINE MCKENNA Ot 429.3 CARDIOMEGALY 01/20/2016 CORRINE MCKENNA Ot 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 01/20/2016 RAMON DAMON GRIEF COUNSELOR Ot 272.4 HYPERLIPIDEMIA NEC/NOS 01/20/2016 RAMON DAMON L GRIEF COUNSELOR Ot 414.00 CORON ATHEROSCLER NOS TYPE VESSEL, NATIV 01/20/2016 RAMON DAMON GRIEF COUNSELOR Ot V72.84 EXAM PRE-OPERATIVE NOS 01/20/2016 WILIAM JOSHUA DO Ot 205.10 CHRONIC MYELOID LEUKEMIA, W/O MENTION AC 01/20/2016 DIXON BEGUM GRIEF COUNSELOR Ot 205.10 CHRONIC MYELOID LEUKEMIA, W/O MENTION AC 01/20/2016 DIXON BEGUM GRIEF COUNSELOR Ot 427.31 ATRIAL FIBRILLATION 01/20/2016 DIXON BEGUM GRIEF COUNSELOR Ot 733.00 OSTEOPOROSIS NOS 01/20/2016 DIXON BEGUM GRIEF COUNSELOR Ot 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 01/20/2016 DIXON BEGUM GRIEF COUNSELOR Ot V58.69 OTH MED,LT,CURRENT USE 01/20/2016 DIXON BEGUM GRIEF COUNSELOR Ot V67.00 UNSPEC SURGERY FOLLOW-UP EXAM 01/20/2016 DIXON BEGUM GRIEF COUNSELOR Ot 205.10 CHRONIC MYELOID LEUKEMIA, W/O MENTION AC 01/20/2016 DIXON BEGUM GRIEF COUNSELOR Ot 427.31 ATRIAL FIBRILLATION 01/20/2016 DIXON BEGUMP Ot 733.00 OSTEOPOROSIS NOS 01/20/2016 DIXON BEGUMP Ot V58.69 OTH MED,LT,CURRENT USE 01/20/2016 DIXON BEGUM GRIEF COUNSELOR Ot 721.0 CERVICAL SPONDYLOSIS 01/20/2016 WILIAM JOSHUA DO Ot 530.81 ESOPHAGEAL REFLUX 01/20/2016 WILIAM JOSHUA DO Ot 783.21 LOSS OF WEIGHT 01/20/2016 WILIAM JOSHUA DO Ot 786.2 COUGH 01/20/2016 WILIAM JOSHUA DO Ot 793.19 OTHER NONSPECIFIC ABNORMAL FINDING OF BOB 01/20/2016 DIXON BEGUM GRIEF COUNSELOR Ot 205.10 CHRONIC MYELOID LEUKEMIA, W/O MENTION AC 01/20/2016 DIXON BEGUM GRIEF COUNSELOR Ot 427.31 ATRIAL FIBRILLATION 01/20/2016 DIXON BEGUM GRIEF COUNSELOR Ot 733.00 OSTEOPOROSIS NOS 01/20/2016 DIXON BEGUM GRIEF COUNSELOR Ot 791.9 ABN URINE FINDINGS NEC 01/20/2016 DIXON BEGUMP Ot V58.69 OTH MED,LT,CURRENT USE 01/20/2016 CORRINE MCKENNA Ot 205.90 UNSPECIFIED MYELOID LEUKEMIA, W/O MENTIO 01/20/2016 BEGUM, HILAH S GRIEF COUNSELOR Ot 205.10 CHRONIC MYELOID LEUKEMIA, W/O MENTION AC 01/20/2016 DIXON BEGUM GRIEF COUNSELOR Ot 427.31 ATRIAL FIBRILLATION 01/20/2016 DIXON BEGUM GRIEF COUNSELOR Ot 733.00 OSTEOPOROSIS NOS 01/20/2016 DIXON BEGUM GRIEF COUNSELOR Ot V58.69 OTH MED,LT,CURRENT USE 01/20/2016 JULISSA VERDIN MD Ot V72.84 EXAM PRE-OPERATIVE NOS 01/20/2016 CORRINE MCKENNA Ot 151.9 MALIG NEOPL STOMACH NOS 01/20/2016 DIXON BEGUM GRIEF COUNSELOR Ot 205.10 CHRONIC MYELOID LEUKEMIA, W/O MENTION AC 01/20/2016 DIXON BEGUM GRIEF COUNSELOR Ot 427.31 ATRIAL FIBRILLATION 01/20/2016 DIXON BEGUM GRIEF COUNSELOR Ot 733.00 OSTEOPOROSIS NOS 01/20/2016 DIXON BEGUM GRIEF COUNSELOR Ot V58.69 OTH MED,LT,CURRENT USE 01/20/2016 DIXON BEGUM GRIEF COUNSELOR Ot 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 01/20/2016 DIXON BEGUM GRIEF COUNSELOR Ot 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 MYELOID LEUK, BCR/ABL-POSITIVE, 01/20/2016 DIXON BEGUM GRIEF COUNSELOR Ot D53.9 NUTRITIONAL ANEMIA, UNSPECIFIED 01/20/2016 DIXON BEGUM GRIEF COUNSELOR Ot M81.0 AGE-RELATED OSTEOPOROSIS W/O CURRENT PAT 01/20/2016 DIXON BEGUM GRIEF COUNSELOR Ot R19.7 DIARRHEA, UNSPECIFIED 01/20/2016 DIXON BEGUM GRIEF COUNSELOR Ot Z79.899 OTHER PENITENTIARY (CURRENT) DRUG THERAPY 01/20/2016 WILIAM JOSHUA DO Ot R05 COUGH 01/20/2016 DIXON BEGUM S GRIEF COUNSELOR Ot 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 01/20/2016 DIXON BEGUM GRIEF COUNSELOR Ot 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 MYELOID LEUK, BCR/ABL-POSITIVE, 01/20/2016 DIXON BEGUM S GRIEF COUNSELOR Ot D53.9 NUTRITIONAL ANEMIA, UNSPECIFIED 01/20/2016 DIXON BEGUM S GRIEF COUNSELOR Ot M81.0 AGE-RELATED OSTEOPOROSIS W/O CURRENT PAT 01/20/2016 DIXON BEGUM GRIEF COUNSELOR Ot R19.7 DIARRHEA, UNSPECIFIED 01/20/2016 LUDY BEGUMSARAHI Valdez GRIEF COUNSELOR Ot Z79.899 OTHER PENITENTIARY (CURRENT) DRUG THERAPY 01/20/2016 DIXON BEGUM GRIEF COUNSELOR Ot 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 01/20/2016 CORRINE MCKENNA Lex Ot 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 01/20/2016 CORRINE MCKENNA N Ot 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 MYELOID LEUK, BCR/ABL-POSITIVE, 01/20/2016 CLARISA CORRINE N Ot D53.9 NUTRITIONAL ANEMIA, UNSPECIFIED 01/20/2016 CLARISACORRINE CALDERON N Ot M81.0 AGE- RELATED OSTEOPOROSIS W/O CURRENT PAT 01/20/2016 CLARISA, CORRINE N Ot R19.7 DIARRHEA, UNSPECIFIED 01/20/2016 CLARISAJOHANNABRYN N Ot Z79.899 OTHER STEEL FABRICATOR (CURRENT) DRUG THERAPY 01/21/2016 GELLENDER DO, WILIAM A Ot R05 COUGH 01/21/2016 GELLENDER DO, WILIAM A Ot R06.2 WHEEZING 01/31/2016 CLARISA, JOHANNABRYN N Ot 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 01/31/2016 CLARISACORRINE N Ot 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 MYELOID LEUK, BCR/ABL-POSITIVE, 01/31/2016 CLARISACORRINE N Ot D53.9 NUTRITIONAL ANEMIA, UNSPECIFIED 01/31/2016 CLARISACORRINE N Ot M81.0 AGE- RELATED OSTEOPOROSIS W/O CURRENT PAT 01/31/2016 CLARISACORRINE N Ot R19.7 DIARRHEA, UNSPECIFIED 01/31/2016 CLARISAJOHANNABRYN N Ot Z79.899 OTHER PENITENTIARY (CURRENT) DRUG THERAPY 02/17/2016 GELLENDER DO, WILIAM A Ot R05 COUGH 02/17/2016 GELLENDER DO, WILIAM A Ot R06.2 WHEEZING 02/24/2016 GELLENDER DO, WILIAM A Ot R05 COUGH 02/24/2016 GELLENDER DO, WILIAM A Ot R06.2 WHEEZING 03/14/2016 CLARISA JOHANNABRYN N Ot 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 03/14/2016 CLARISACORRINE N Ot 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 MYELOID LEUK, BCR/ABL-POSITIVE, 03/14/2016 CLARISACORRINE N Ot D53.9 NUTRITIONAL ANEMIA, UNSPECIFIED 03/14/2016 CLARISA, CORRINE N Ot M81.0 AGE- RELATED OSTEOPOROSIS W/O CURRENT PAT 03/14/2016 CLARISA, CORRINE N Ot R19.7 DIARRHEA, UNSPECIFIED 03/14/2016 CLARISA, BOBAN N Ot Z79.899 OTHER STEEL FABRICATOR (CURRENT) DRUG THERAPY 04/11/2016 CLARISA, JOHANNAAN N Ot 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 04/11/2016 CLARISA CORRINE N Ot 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 MYELOID LEUK, BCR/ABL-POSITIVE, 04/11/2016 CLARISA, JOHANNAAN N Ot D53.9 NUTRITIONAL ANEMIA, UNSPECIFIED 04/11/2016 CLARISA, BOBAN N Ot M81.0 AGE- RELATED OSTEOPOROSIS W/O CURRENT PAT 04/11/2016 CLARISA, JOHANNABRYN N Ot R19.7 DIARRHEA, UNSPECIFIED 04/11/2016 CLARISA, BOBAN N Ot Z79.899 OTHER STEEL FABRICATOR (CURRENT) DRUG THERAPY 04/13/2016 CLARISA, CORRINE N Ot 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 04/13/2016 CLARISA, BOBAN N Ot 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 MYELOID LEUK, BCR/ABL-POSITIVE, 04/13/2016 CLARISA, JOHANNAAN N Ot D53.9 NUTRITIONAL ANEMIA, UNSPECIFIED 04/13/2016 CLARISA, JOHANNABRYN N Ot M81.0 AGE- RELATED OSTEOPOROSIS W/O CURRENT PAT 04/13/2016 CLARISACORRINE N Ot R19.7 DIARRHEA, UNSPECIFIED 04/13/2016 CLARISA, JOHANNAAN N Ot Z79.899 OTHER PENITENTIARY (CURRENT) DRUG THERAPY 04/30/2016 CLARISA CORRINE N Ot 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 04/30/2016 CLARISA, JOHANNAAN N Ot 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 MYELOID LEUK, BCR/ABL-POSITIVE, 04/30/2016 CLARISAJOHANNAAN N Ot D53.9 NUTRITIONAL ANEMIA, UNSPECIFIED 04/30/2016 CLARISA, BOBAN N Ot M81.0 AGE- RELATED OSTEOPOROSIS W/O CURRENT PAT 04/30/2016 CLARISA, BOBAN N Ot R19.7 DIARRHEA, UNSPECIFIED 04/30/2016 CLARISA, JOHANNAAN N Ot Z79.899 OTHER PENITENTIARY (CURRENT) DRUG THERAPY 05/25/2016 CLARISA, BOBAN N Ot 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 05/25/2016 CLARISA JOHANNABRYN N Ot 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 MYELOID LEUK, BCR/ABL-POSITIVE, 05/25/2016 CLARISA JOHANNABRYN Lex Ot D53.9 NUTRITIONAL ANEMIA, UNSPECIFIED 05/25/2016 CLARISA JOHANNABRYN Lex Ot M81.0 AGE- RELATED OSTEOPOROSIS W/O CURRENT PAT 05/25/2016 CLARISA CORRINE Burnett Ot R19.7 DIARRHEA, UNSPECIFIED 05/25/2016 CLARISA JOHANNABRYN N Ot Z79.899 OTHER STEEL FABRICATOR (CURRENT) DRUG THERAPY 08/22/2016 CORRINE MCKENNA Lex Ot 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 08/22/2016 CLARISA CORRINE Burnett Ot 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 MYELOID LEUK, BCR/ABL-POSITIVE, 08/22/2016 CLARISAJOHANNABRYN Lex Ot D53.9 NUTRITIONAL ANEMIA, UNSPECIFIED 08/22/2016 CLARISACORRINE Ot E03.9 HYPOTHYROIDISM, UNSPECIFIED 08/22/2016 CLARISACORRINE N Ot 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, AORTIC 08/22/2016 CLARISACORRINE Ot I25.10 ATHSCL HEART DISEASE OF [place] CORONARY 08/22/2016 CLARISA, JOHANNABRYN Lex Ot M81.0 AGE- RELATED OSTEOPOROSIS W/O CURRENT PAT 08/22/2016 CLARISA, JOHANNABRYN Lex Ot N18.3 CHRONIC KIDNEY DISEASE, STAGE 3 (MODERAT 08/22/2016 CLARISA JOHANNABRYN Lex Ot N39.0 URINARY TRACT INFECTION, SITE NOT SPECIF 08/22/2016 CLARISACORRINE Ot R19.7 DIARRHEA, UNSPECIFIED 08/22/2016 CLARISA JOHANNABRYN N Ot Z79.899 OTHER PENITENTIARY (CURRENT) DRUG THERAPY 08/23/2016 CLARISA JOHANNABRYN Lex Ot 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 08/23/2016 CLARISACORRINE Ot 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 MYELOID LEUK, BCR/ABL-POSITIVE, 08/23/2016 CLARISACORRINE N Ot D53.9 NUTRITIONAL ANEMIA, UNSPECIFIED 08/23/2016 CLARISACORRINE N Ot E03.9 HYPOTHYROIDISM, UNSPECIFIED 08/23/2016 CLARISACORRINE N Ot 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, AORTIC 08/23/2016 CORRINE MCKENNA Lex Ot I25.10 ATHSCL HEART DISEASE OF [place] CORONARY 08/23/2016 CORRINE MCKENNA Ot M81.0 AGE- RELATED OSTEOPOROSIS W/O CURRENT PAT 08/23/2016 CORRINE MCKENNA N Ot N18.3 CHRONIC KIDNEY DISEASE, STAGE 3 (MODERAT 08/23/2016 CORRINE MCKENNA Ot N39.0 URINARY TRACT INFECTION, SITE NOT SPECIF 08/23/2016 CORRINE MCKENNA Lex Ot R19.7 DIARRHEA, UNSPECIFIED 08/23/2016 CORRINE MCKENNA N Ot Z79.899 OTHER STEEL FABRICATOR (CURRENT) DRUG THERAPY 08/31/2016 CORRINE MCKENNA N Ot 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 08/31/2016 CORRINE MCKENNA N Ot 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 MYELOID LE[place], BCR/ABL-POSITIVE, 08/31/2016 CORRINE MCKENNA Lex Ot D53.9 NUTRITIONAL ANEMIA, UNSPECIFIED 08/31/2016 CORRINE MCKENNA Lex Ot M81.0 AGE- RELATED OSTEOPOROSIS W/O CURRENT PAT 08/31/2016 CORRINE MCKENNA N Ot R19.7 DIARRHEA, UNSPECIFIED 08/31/2016 CORRINE MCKENNA N Ot Z79.899 OTHER PENITENTIARY (CURRENT) DRUG THERAPY 09/20/2016 DIXON BEGUM GRIEF COUNSELOR Ot 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 MYELOID LEUK, BCR/ABL-POSITIVE, 09/20/2016 DIXON BEGUM GRIEF COUNSELOR Ot N28.1 CYST OF KIDNEY, ACQUIRED 09/20/2016 DIXON BEGUM GRIEF COUNSELOR Ot Z85.028 PERSONAL HISTORY OF OTHER MALIGNANT NEOP 09/20/2016 DIXON BEGUM GRIEF COUNSELOR Ot 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 09/20/2016 DIXON BEGUM GRIEF COUNSELOR Ot 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 09/21/2016 VELVET FAUST, JULISSA Correia Ot Z01.818 ENCOUNTER FOR OTHER PREPROCEDURAL EXAMIN 09/21/2016 VELVET FAUST, JULISSA Correia Ot Z85.028 PERSONAL HISTORY OF OTHER MALIGNANT NEOP 09/21/2016 VELVET FAUST, JULISSA Correia Ot Z01.818 ENCOUNTER FOR OTHER PREPROCEDURAL EXAMIN 09/21/2016 VELVET FAUST, JULISSA Correia Ot Z85.028 PERSONAL HISTORY OF OTHER MALIGNANT NEOP 10/17/2016 DIXON BEGUM GRIEF COUNSELOR Ot 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 MYELOID LEUK, BCR/ABL-POSITIVE, 10/17/2016 DIXON BEGUM GRIEF COUNSELOR Ot N28.1 CYST OF KIDNEY, ACQUIRED 10/17/2016 DIXON BEGUM GRIEF COUNSELOR Ot Z85.028 PERSONAL HISTORY OF OTHER MALIGNANT NEOP 10/17/2016 DIXON BEGUM GRIEF COUNSELOR Ot 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 10/17/2016 DIXON BEGUM GRIEF COUNSELOR Ot 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 10/24/2016 DIXON BEGUM GRIEF COUNSELOR Ot 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 MYELOID LEUK, BCR/ABL-POSITIVE, 10/24/2016 DIXON BEGUMP Ot N28.1 CYST OF KIDNEY, ACQUIRED 10/24/2016 DIXON BEGUM GRIEF COUNSELOR Ot Z85.028 PERSONAL HISTORY OF OTHER MALIGNANT NEOP 10/24/2016 DIXON BEGUMP Ot 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 10/24/2016 DIXON BEGUM GRIEF COUNSELOR Ot 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 11/18/2016 CLARISACORRINE Ot 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 11/18/2016 CLARISA, CORRINE Burnett Ot 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 MYELOID LEUK, BCR/ABL-POSITIVE, 11/18/2016 CLARISACORRINE Ot D53.9 NUTRITIONAL ANEMIA, UNSPECIFIED 11/18/2016 CORRINE MCKENNA Ot M81.0 AGE- RELATED OSTEOPOROSIS W/O CURRENT PAT 11/18/2016 CORRINE MCKENNA Ot R19.7 DIARRHEA, UNSPECIFIED 11/18/2016 CORRINE MCKENNA N Ot Z79.899 OTHER PENITENTIARY (CURRENT) DRUG THERAPY 11/22/2016 CORRINE MCKENNA N Ot 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 11/22/2016 CORRINE MCKENNA Ot 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 MYELOID LEUK, BCR/ABL-POSITIVE, 11/22/2016 CORRINE MCKENNA Ot D53.9 NUTRITIONAL ANEMIA, UNSPECIFIED 11/22/2016 CORRINE MCKENNA Ot E03.9 HYPOTHYROIDISM, UNSPECIFIED 11/22/2016 CORRINE MCKENNA Ot 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, AORTIC 11/22/2016 CLARISA, BOBAN N Ot I25.10 ATHSCL HEART DISEASE OF [place] CORONARY 11/22/2016 CLARISA, BOBAN N Ot M81.0 AGE- RELATED OSTEOPOROSIS W/O CURRENT PAT 11/22/2016 CLARISA, BOBAN N Ot N18.3 CHRONIC KIDNEY DISEASE, STAGE 3 (MODERAT 11/22/2016 CLARISA, BOBAN N Ot R19.7 DIARRHEA, UNSPECIFIED 11/22/2016 CLARISA, BOBAN N Ot Z79.899 OTHER STEEL FABRICATOR (CURRENT) DRUG THERAPY 02/19/2017 CLARISA, BOBAN N Ot 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 02/19/2017 CLARISA, BOBAN N Ot 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 MYELOID LEUK, BCR/ABL-POSITIVE, 02/19/2017 CLARISA, BOBAN N Ot D53.9 NUTRITIONAL ANEMIA, UNSPECIFIED 02/19/2017 CLARISA, BOBAN N Ot E03.9 HYPOTHYROIDISM, UNSPECIFIED 02/19/2017 CLARISA, BOBAN N Ot 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, AORTIC 02/19/2017 CLARISA, BOBAN N Ot I25.10 ATHSCL HEART DISEASE OF [place] CORONARY 02/19/2017 CLARISA, BOBAN N Ot M81.0 AGE- RELATED OSTEOPOROSIS W/O CURRENT PAT 02/19/2017 CLARISA, BOBAN N Ot N18.3 CHRONIC KIDNEY DISEASE, STAGE 3 (MODERAT 02/19/2017 CLARISA, BOBAN N Ot R19.7 DIARRHEA, UNSPECIFIED 02/19/2017 CLARISA, BOBAN N Ot Z79.899 OTHER PENITENTIARY (CURRENT) DRUG THERAPY 02/21/2017 CLARISA, BOBAN N Ot 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 02/21/2017 CLARISA, BOBAN N Ot 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 MYELOID LEUK, BCR/ABL-POSITIVE, 02/21/2017 CLARISA, BOBAN N Ot D53.9 NUTRITIONAL ANEMIA, UNSPECIFIED 02/21/2017 CLARISA, BOBAN N Ot E03.9 HYPOTHYROIDISM, UNSPECIFIED 02/21/2017 CLARISA, BOBAN N Ot 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, AORTIC 02/21/2017 CLARISA, BOBAN N Ot I25.10 ATHSCL HEART DISEASE OF [place] CORONARY 02/21/2017 CLARISA, BOBAN N Ot M81.0 AGE- RELATED OSTEOPOROSIS W/O CURRENT PAT 02/21/2017 CLARISA, BOBAN N Ot N18.3 CHRONIC KIDNEY DISEASE, STAGE 3 (MODERAT 02/21/2017 CLARISA, BOBAN N Ot R19.7 DIARRHEA, UNSPECIFIED 02/21/2017 CLARISA, BOBAN N Ot Z79.899 OTHER STEEL FABRICATOR (CURRENT) DRUG THERAPY 05/08/2017 CLARISA, BOBAN N Ot 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 05/08/2017 CLARISA, BOBAN N Ot 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 MYELOID LEUK, BCR/ABL-POSITIVE, 05/08/2017 CLARISA, BOBAN N Ot D53.9 NUTRITIONAL ANEMIA, UNSPECIFIED 05/08/2017 CLARISA, BOBAN N Ot E03.9 HYPOTHYROIDISM, UNSPECIFIED 05/08/2017 CLARISA, BOBAN N Ot 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, AORTIC 05/08/2017 CLARISA, BOBAN N Ot I25.10 ATHSCL HEART DISEASE OF [place] CORONARY 05/08/2017 CLARISA, BOBAN N Ot M81.0 AGE- RELATED OSTEOPOROSIS W/O CURRENT PAT 05/08/2017 CLARISA, BOBAN N Ot N18.3 CHRONIC KIDNEY DISEASE, STAGE 3 (MODERAT 05/08/2017 CLARISA, BOBAN N Ot Z79.899 OTHER STEEL FABRICATOR (CURRENT) DRUG THERAPY 05/09/2017 CLARISA, BOBAN N Ot 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 05/09/2017 CLARISA, BOBAN N Ot 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 MYELOID LEUK, BCR/ABL-POSITIVE, 05/09/2017 CLARISA, BOBAN N Ot D53.9 NUTRITIONAL ANEMIA, UNSPECIFIED 05/09/2017 CLARISA, BOBAN N Ot E03.9 HYPOTHYROIDISM, UNSPECIFIED 05/09/2017 CLARISA, BOBAN N Ot 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, AORTIC 05/09/2017 CLARISA, BOBAN N Ot I25.10 ATHSCL HEART DISEASE OF [place] CORONARY 05/09/2017 CLARISA, BOBAN N Ot M81.0 AGE- RELATED OSTEOPOROSIS W/O CURRENT PAT 05/09/2017 CLARISA, BOBAN N Ot N18.3 CHRONIC KIDNEY DISEASE, STAGE 3 (MODERAT 05/09/2017 CLARISA, BOBAN N Ot Z79.899 OTHER PENITENTIARY (CURRENT) DRUG THERAPY 07/08/2017 CLARISA, BOBAN N Ot 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 07/08/2017 CLARISA, BOBAN N Ot 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 MYELOID LEUK, BCR/ABL-POSITIVE, 07/08/2017 CLARISA, BOBAN N Ot D53.9 NUTRITIONAL ANEMIA, UNSPECIFIED 07/08/2017 CLARISA, BOBAN N Ot E03.9 HYPOTHYROIDISM, UNSPECIFIED 07/08/2017 CLARISA, BOBAN N Ot 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, AORTIC 07/08/2017 CLARISA, BOBAN N Ot I25.10 ATHSCL HEART DISEASE OF [place] CORONARY 07/08/2017 CLARISA, BOBAN N Ot M81.0 AGE- RELATED OSTEOPOROSIS W/O CURRENT PAT 07/08/2017 CLARISA, BOBAN N Ot N18.3 CHRONIC KIDNEY DISEASE, STAGE 3 (MODERAT 07/08/2017 CLARISA, BOBAN N Ot Z79.899 OTHER STEEL FABRICATOR (CURRENT) DRUG THERAPY 07/09/2017 CLARISA, BOBAN N Ot 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 07/09/2017 CLARISA, BOBAN N Ot 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 MYELOID LEUK, BCR/ABL-POSITIVE, 07/09/2017 CLARISA, BOBAN N Ot D53.9 NUTRITIONAL ANEMIA, UNSPECIFIED 07/09/2017 CLARISA, BOBAN N Ot E03.9 HYPOTHYROIDISM, UNSPECIFIED 07/09/2017 CLARISA, BOBAN N Ot 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, AORTIC 07/09/2017 CLARISA, BOBAN N Ot I25.10 ATHSCL HEART DISEASE OF [place] CORONARY 07/09/2017 CLARISA, BOBAN N Ot M81.0 AGE- RELATED OSTEOPOROSIS W/O CURRENT PAT 07/09/2017 CLARISA, BOBAN N Ot N18.3 CHRONIC KIDNEY DISEASE, STAGE 3 (MODERAT 07/09/2017 CLARISA, BOBAN N Ot Z79.899 OTHER STEEL FABRICATOR (CURRENT) DRUG THERAPY 10/16/2017 CLARISA, BOBAN N Ot 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 10/16/2017 CLARISA, BOBAN N Ot 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 MYELOID LEUK, BCR/ABL-POSITIVE, 10/16/2017 CLARISA, BOBAN N Ot D53.9 NUTRITIONAL ANEMIA, UNSPECIFIED 10/16/2017 CLARISA, BOBAN N Ot E03.9 HYPOTHYROIDISM, UNSPECIFIED 10/16/2017 CLARISA, BOBAN N Ot 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, AORTIC 10/16/2017 CLARISA, BOBAN N Ot I25.10 ATHSCL HEART DISEASE OF [place] CORONARY 10/16/2017 CLARISA, BOBAN N Ot M81.0 AGE- RELATED OSTEOPOROSIS W/O CURRENT PAT 10/16/2017 CLARISA BOBAN N Ot N18.3 CHRONIC KIDNEY DISEASE, STAGE 3 (MODERAT 10/16/2017 CLARISA, BOBAN N Ot R19.7 DIARRHEA, UNSPECIFIED 10/16/2017 CLARISA, BOBAN N Ot Z79.899 OTHER STEEL FABRICATOR (CURRENT) DRUG THERAPY 10/17/2017 CLARISA, BOBAN N Ot 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 10/17/2017 CLARISA BOBAN N Ot 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 MYELOID LEUK, BCR/ABL-POSITIVE, 10/17/2017 CLARISA BOBAN N Ot D53.9 NUTRITIONAL ANEMIA, UNSPECIFIED 10/17/2017 CLARISA, BOBAN N Ot E03.9 HYPOTHYROIDISM, UNSPECIFIED 10/17/2017 CLARISA, BOBAN N Ot 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, AORTIC 10/17/2017 CLARISA, BOBAN N Ot I25.10 ATHSCL HEART DISEASE OF [place] CORONARY 10/17/2017 CLARISA, BOBAN N Ot M81.0 AGE- RELATED OSTEOPOROSIS W/O CURRENT PAT 10/17/2017 CLARISA BOBAN N Ot N18.3 CHRONIC KIDNEY DISEASE, STAGE 3 (MODERAT 10/17/2017 CLARISA BOBAN N Ot R19.7 DIARRHEA, UNSPECIFIED 10/17/2017 CLARISA, BOBAN N Ot Z79.899 OTHER STEEL FABRICATOR (CURRENT) DRUG THERAPY 11/14/2017 MARK PEMBERTON MD Ot E03. 9 HYPOTHYROIDISM, UNSPECIFIED 11/14/2017 NILAY FAUST, MARK Albrecht Ot I25. 10 ATHSCL HEART DISEASE OF [place] CORONARY 11/14/2017 MARK PEMBERTON MD Ot M25.552 PAIN IN LEFT HIP 11/14/2017 MARK PEMBERTON MD Ot N39. 0 URINARY TRACT INFECTION, SITE NOT SPECIF 11/14/2017 MARK PEMBERTON MD, Ot Z79. 51 STEEL FABRICATOR (CURRENT) USE OF INHALED STERO 11/14/2017 MARK PEMBERTON MD Ot Z79. 82 STEEL FABRICATOR (CURRENT) USE OF ASPIRIN 11/14/2017 MARK PEMBERTON MD Ot Z80. 8 FAMILY HISTORY OF MALIGNANT NEOPLASM OF 11/14/2017 MARK PEMBERTON MD Ot Z85.028 PERSONAL HISTORY OF OTHER MALIGNANT NEOP 11/14/2017 MARK PEMBERTON MD Ot Z85. 6 PERSONAL HISTORY OF LEUKEMIA 11/14/2017 MARK PEMBERTON MD Ot Z86. 73 PRSNL HX OF TIA (TIA), AND CEREB INFRC W 11/14/2017 MARK PEMBERTON MD, Ot Z87. 19 PERSONAL HISTORY OF OTHER DISEASES OF TH 11/14/2017 MARK PEMBERTON MD, Ot Z87.440 PERSONAL HISTORY OF URINARY (TRACT) INFE 11/14/2017 MARK PEMBERTON MD Ot Z88. 5 ALLERGY STATUS TO NARCOTIC AGENT STATUS 11/14/2017 MARK PEMBERTON MD Ot Z88. 8 ALLERGY STATUS TO OT DRUG/MEDS/BIOL SUB 11/14/2017 MARK PEMBERTON MD Ot Z90. 49 ACQUIRED ABSENCE OF OTHER SPECIFIED PART 11/14/2017 MARK PEMBERTON MD Ot Z90.710 ACQUIRED ABSENCE OF BOTH CERVIX AND UTER 11/14/2017 MARK PEMBERTON MD Ot Z98. 84 BARIATRIC SURGERY STATUS 11/14/2017 WILIAM JOSHUA DO Ot V76.12 OTH SCREEN MAMMO-MALIGN NEOPLASM OF [place] 11/14/2017 DIXON BEGUMP Ot 205.10 CHRONIC MYELOID LEUKEMIA, W/O MENTION AC 11/14/2017 DIXON BEGUM GRIEF COUNSELOR Ot 427.31 ATRIAL FIBRILLATION 11/14/2017 DIXON BEGUMP Ot 585.3 CHRONIC KIDNEY DISEASE, STAGE III (MODER 11/14/2017 DIXON BEGUM Ot V58.69 OTH MED,LT,CURRENT USE 11/14/2017 DIXON BEGUM GRIEF COUNSELOR Ot 205.10 CHRONIC MYELOID LEUKEMIA, W/O MENTION AC 11/14/2017 DIXON BEGUMP Ot 427.31 ATRIAL FIBRILLATION 11/14/2017 DIXON BEGUMP Ot 585.3 CHRONIC KIDNEY DISEASE, STAGE III (MODER 11/14/2017 DIXON BEGUM GRIEF COUNSELOR Ot 733.00 OSTEOPOROSIS NOS 11/14/2017 DIXON BEGUMP Ot V58.69 OTH MED,LT,CURRENT USE 11/14/2017 WILIAM JOSHUA DO Ot 530.81 ESOPHAGEAL REFLUX 11/14/2017 WILIAM JOSHUA DO Ot 553.3 DIAPHRAGMATIC HERNIA 11/14/2017 WILIAM JOSHUA DO Ot 593.9 RENAL URETERAL DIS NOS 11/14/2017 WILIAM JOSHUA DO Ot 787.3 FLATUL/ERUCTAT/GAS PAIN 11/14/2017 VELVET FAUST, JULISSA Correia Ot V72.84 EXAM PRE-OPERATIVE NOS 11/14/2017 CORRINE MCKENNA Ot 151.9 MALIG NEOPL STOMACH NOS 11/14/2017 CORRINE MCKENNA Ot 414.01 CORONARY ATHEROSCLEROSIS OF [place] CORON 11/14/2017 CORRINE MCKENNA Ot 429.3 CARDIOMEGALY 11/14/2017 CORRINE MCKENNA Ot 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 11/14/2017 RAMON DAMON GRIEF COUNSELOR Ot 272.4 HYPERLIPIDEMIA NEC/NOS 11/14/2017 RAMON DAMON GRIEF COUNSELOR Ot 414.00 CORON ATHEROSCLER NOS TYPE VESSEL, NATIV 11/14/2017 RAMON DAMON GRIEF COUNSELOR Ot V72.84 EXAM PRE-OPERATIVE NOS 11/14/2017 WILIAM JOSHUA DO Radha Ot 205.10 CHRONIC MYELOID LEUKEMIA, W/O MENTION AC 11/14/2017 DIXON BEGUM GRIEF COUNSELOR Ot 205.10 CHRONIC MYELOID LEUKEMIA, W/O MENTION AC 11/14/2017 DIXON BEGUM GRIEF COUNSELOR Ot 427.31 ATRIAL FIBRILLATION 11/14/2017 DIXON BEGUM GRIEF COUNSELOR Ot 733.00 OSTEOPOROSIS NOS 11/14/2017 DIXON BEGUM GRIEF COUNSELOR Ot 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 11/14/2017 DIXON BEGUMP Ot V58.69 OTH MED,LT,CURRENT USE 11/14/2017 DIXON BEGUM GRIEF COUNSELOR Ot V67.00 UNSPEC SURGERY FOLLOW-UP EXAM 11/14/2017 DIXON BEGUM GRIEF COUNSELOR Ot 205.10 CHRONIC MYELOID LEUKEMIA, W/O MENTION AC 11/14/2017 DIXON BEGUM S GRIEF COUNSELOR Ot 427.31 ATRIAL FIBRILLATION 11/14/2017 DIXON BEGUM S GRIEF COUNSELOR Ot 733.00 OSTEOPOROSIS NOS 11/14/2017 DIXON BEGUM S GRIEF COUNSELOR Ot V58.69 OTH MED,LT,CURRENT USE 11/14/2017 DIXON BEGUM GRIEF COUNSELOR Ot 721.0 CERVICAL SPONDYLOSIS 11/14/2017 GELLENDER DO, WILIAM A Ot 530.81 ESOPHAGEAL REFLUX 11/14/2017 GELLENDER DO, WILIAM A Ot 783.21 LOSS OF WEIGHT 11/14/2017 GELLENDER DO, WILIAM A Ot 786.2 COUGH 11/14/2017 GELLENDER DO, WILIAM A Ot 793.19 OTHER NONSPECIFIC ABNORMAL FINDING OF BOB 11/14/2017 DIXON BEGUM GRIEF COUNSELOR Ot 205.10 CHRONIC MYELOID LEUKEMIA, W/O MENTION AC 11/14/2017 DIXON BEGUM S GRIEF COUNSELOR Ot 427.31 ATRIAL FIBRILLATION 11/14/2017 DIXON BEGUM GRIEF COUNSELOR Ot 733.00 OSTEOPOROSIS NOS 11/14/2017 DIXON BEGUM GRIEF COUNSELOR Ot 791.9 ABN URINE FINDINGS NEC 11/14/2017 DIXON BEGUM GRIEF COUNSELOR Ot V58.69 OTH MED,LT,CURRENT USE 11/14/2017 CORRINE MCKENNA Ot 205.90 UNSPECIFIED MYELOID LEUKEMIA, W/O MENTIO 11/14/2017 DIXON BEGUM S GRIEF COUNSELOR Ot 205.10 CHRONIC MYELOID LEUKEMIA, W/O MENTION AC 11/14/2017 DIXON BEGUM S GRIEF COUNSELOR Ot 427.31 ATRIAL FIBRILLATION 11/14/2017 DIXON BEGUM GRIEF COUNSELOR Ot 733.00 OSTEOPOROSIS NOS 11/14/2017 DIXON BEGUM S GRIEF COUNSELOR Ot V58.69 OTH MED,LT,CURRENT USE 11/14/2017 VELVET FAUST, JULISSA Correia Ot V72.84 EXAM PRE-OPERATIVE NOS 11/14/2017 CORRINE MCKENNA Ot 151.9 MALIG NEOPL STOMACH NOS 11/14/2017 IDXON BEGUM S GRIEF COUNSELOR Ot 205.10 CHRONIC MYELOID LEUKEMIA, W/O MENTION AC 11/14/2017 DIXON BEGUM S GRIEF COUNSELOR Ot 427.31 ATRIAL FIBRILLATION 11/14/2017 DIXON BEGUM S GRIEF COUNSELOR Ot 733.00 OSTEOPOROSIS NOS 11/14/2017 LUDY BEGUMAH S GRIEF COUNSELOR Ot V58.69 OTH MED,LT,CURRENT USE 11/14/2017 LUDY BEGUMSARAHI Valdez GRIEF COUNSELOR Ot 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 11/14/2017 DIXON BEGUM GRIEF COUNSELOR Ot 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 MYELOID LEUK, BCR/ABL-POSITIVE, 11/14/2017 LUDY BEGUMSARAHI Courtney GRIEF COUNSELOR Ot D53.9 NUTRITIONAL ANEMIA, UNSPECIFIED 11/14/2017 DIXON BEGUM GRIEF COUNSELOR Ot M81.0 AGE-RELATED OSTEOPOROSIS W/O CURRENT PAT 11/14/2017 LUDY BEGUMSARAHI Courtney GRIEF COUNSELOR Ot R19.7 DIARRHEA, UNSPECIFIED 11/14/2017 LUDY BEGUMSARAHI Courtney GRIEF COUNSELOR Ot Z79.899 OTHER PENITENTIARY (CURRENT) DRUG THERAPY 11/14/2017 TRES GARCIA, WILIAM A Ot R05 COUGH 11/14/2017 DIXON BEGUM GRIEF COUNSELOR Ot 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 11/14/2017 DIOXN BEGUM GRIEF COUNSELOR Ot 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 MYELOID LEUK, BCR/ABL-POSITIVE, 11/14/2017 LUDY BEGUMSARAHI Courtney GRIEF COUNSELOR Ot D53.9 NUTRITIONAL ANEMIA, UNSPECIFIED 11/14/2017 LUDY BEGUMSARAHI Courtney GRIEF COUNSELOR Ot M81.0 AGE-RELATED OSTEOPOROSIS W/O CURRENT PAT 11/14/2017 LUDY BEGUMSARAHI Courtney GRIEF COUNSELOR Ot R19.7 DIARRHEA, UNSPECIFIED 11/14/2017 LUDY BEGUMSARAHI Valdez GRIEF COUNSELOR Ot Z79.899 OTHER STEEL FABRICATOR (CURRENT) DRUG THERAPY 11/14/2017 DIXON BEGUM GRIEF COUNSELOR Ot 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 11/14/2017 CLARISACORRINE CALDERON N Ot 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 MYELOID LEUK, BCR/ABL-POSITIVE, 11/14/2017 CLARISAJOHANNA CALDERONAN N Ot D53.9 NUTRITIONAL ANEMIA, UNSPECIFIED 11/14/2017 CLARISACORRINE CALDERON N Ot M81.0 AGE- RELATED OSTEOPOROSIS W/O CURRENT PAT 11/14/2017 CLARISAJOHANNA CALDERONAN N Ot R19.7 DIARRHEA, UNSPECIFIED 11/14/2017 CLARISA BOBAN N Ot Z79.899 OTHER STEEL FABRICATOR (CURRENT) DRUG THERAPY 11/14/2017 CORRINE MCKENNA N Ot 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 11/14/2017 CLARISA BOBAN N Ot 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 MYELOID LEUK, BCR/ABL-POSITIVE, 11/14/2017 CLARISA, CORRINE N Ot D53.9 NUTRITIONAL ANEMIA, UNSPECIFIED 11/14/2017 CLARISAJOHANNABRYN N Ot E03.9 HYPOTHYROIDISM, UNSPECIFIED 11/14/2017 CLARISA CORRINE N Ot 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, AORTIC 11/14/2017 JOHANNA MCKENNAAN N Ot I25.10 ATHSCL HEART DISEASE OF [place] CORONARY 11/14/2017 CORRINE MCKENNA N Ot M81.0 AGE- RELATED OSTEOPOROSIS W/O CURRENT PAT 11/14/2017 CLARISAJOHANNABRYN N Ot N18.3 CHRONIC KIDNEY DISEASE, STAGE 3 (MODERAT 11/14/2017 CORRINE MCKENNA N Ot R19.7 DIARRHEA, UNSPECIFIED 11/14/2017 CLARISA BOBAN N Ot Z79.899 OTHER STEEL FABRICATOR (CURRENT) DRUG THERAPY 11/20/2017 MARK PEMBERTON MD Ot E03. 9 HYPOTHYROIDISM, UNSPECIFIED 11/20/2017 MARK PEMBERTON MD Ot I25. 10 ATHSCL HEART DISEASE OF [place] CORONARY 11/20/2017 MARK PEMBERTON MD Ot M25.552 PAIN IN LEFT HIP 11/20/2017 MARK PEMBERTON MD Ot N39. 0 URINARY TRACT INFECTION, SITE NOT SPECIF 11/20/2017 MARK PEMBERTON MD Ot Z79. 51 STEEL FABRICATOR (CURRENT) USE OF INHALED STERO 11/20/2017 MARK PEMBERTON MD Ot Z79. 82 STEEL FABRICATOR (CURRENT) USE OF ASPIRIN 11/20/2017 MARK PEMBERTON MD Ot Z80. 8 FAMILY HISTORY OF MALIGNANT NEOPLASM OF 11/20/2017 MARK PEMBERTON MD Ot Z85.028 PERSONAL HISTORY OF OTHER MALIGNANT NEOP 11/20/2017 MARK PEMBERTON MD Ot Z85. 6 PERSONAL HISTORY OF LEUKEMIA 11/20/2017 MARK PEMBERTON MD Ot Z86. 73 PRSNL HX OF TIA (TIA), AND CEREB INFRC W 11/20/2017 MARK PEMBERTON MD Ot Z87. 19 PERSONAL HISTORY OF OTHER DISEASES OF TH 11/20/2017 MARK PEMBERTON MD Ot Z87.440 PERSONAL HISTORY OF URINARY (TRACT) INFE 11/20/2017 MARK PEMBERTON MD Ot Z88. 5 ALLERGY STATUS TO NARCOTIC AGENT STATUS 11/20/2017 MARK PEMBERTON MD Ot Z88. 8 ALLERGY STATUS TO OTH DRUG/MEDS/BIOL SUB 11/20/2017 MARK PEMBERTON MD Ot Z90. 49 ACQUIRED ABSENCE OF OTHER SPECIFIED PART 11/20/2017 MARK PEMBERTON MD Ot Z90.710 ACQUIRED ABSENCE OF BOTH CERVIX AND UTER 11/20/2017 MARK PEMBERTON MD Ot Z98. 84 BARIATRIC SURGERY STATUS 11/27/2017 WILIAM JOSHUA DO Ot N19 UNSPECIFIED KIDNEY FAILURE 11/28/2017 WILIAM JOSHUA DO Ot N28.9 DISORDER OF KIDNEY AND URETER, UNSPECIFI 11/28/2017 GELWILIAM GONZAELZ DO Ot N39.0 URINARY TRACT INFECTION, SITE NOT SPECIF 11/28/2017 GELLENDER WILIAM GARCIA Ot R63.0 ANOREXIA 12/02/2017 GELNYDER WILIAM GARCIA Ot N28.9 DISORDER OF KIDNEY AND URETER, UNSPECIFI 12/02/2017 MONIDER WILIAM GARCIA Ot N39.0 URINARY TRACT INFECTION, SITE NOT SPECIF 12/02/2017 GELLENDER WILIAM GARCIA Ot R63.0 ANOREXIA 12/03/2017 WILIAM JOSHUA DO Ot N19 UNSPECIFIED KIDNEY FAILURE 12/04/2017 GELLENDER WILIAM GARCIA Ot N19 UNSPECIFIED KIDNEY FAILURE 12/04/2017 GELLENDER DO, WILIAM Garcia Ot N28.9 DISORDER OF KIDNEY AND URETER, UNSPECIFI 12/04/2017 GELLENDER DO, WILIAM Garcia Ot N39.0 URINARY TRACT INFECTION, SITE NOT SPECIF 12/04/2017 GELLENDER DO, WILIAM Garcai Ot R63.0 ANOREXIA 12/04/2017 GELLENDER DO, WILIAM Garcia Ot N19 UNSPECIFIED KIDNEY FAILURE 12/04/2017 GELLENDER DO, WILIAM Garcia Ot N19 UNSPECIFIED KIDNEY FAILURE 12/06/2017 GELLENDER DO, WILIAM Garcia Ot E86.0 DEHYDRATION 12/06/2017 GELLENDER DO, WILIAM Garcia Ot R63.0 ANOREXIA 12/06/2017 ROD COVINGTON Ot E03.9 HYPOTHYROIDISM, UNSPECIFIED 12/06/2017 ROD COVINGTON Ot E86.9 VOLUME DEPLETION, UNSPECIFIED 12/06/2017 ROD COVINGTON Ot I25.10 ATHSCL HEART DISEASE OF [place] CORONARY 12/06/2017 ROD COVINGTON Ot N18.9 CHRONIC KIDNEY DISEASE, UNSPECIFIED 12/06/2017 ROD COVINGTON Ot N39.0 URINARY TRACT INFECTION, SITE NOT SPECIF 12/06/2017 ROD COVINGTON Ot R 42 DIZZINESS AND GIDDINESS 12/06/2017 ROD COVINGTON Ot Z79.82 PENITENTIARY (CURRENT) USE OF ASPIRIN 12/06/2017 ROD COVINGTON Ot Z80.8 FAMILY HISTORY OF MALIGNANT NEOPLASM OF 12/06/2017 ROD COVINGTON Ot Z85.028 PERSONAL HISTORY OF OTHER MALIGNANT NEOP 12/06/2017 ROD COVINGTON Ot Z85.6 PERSONAL HISTORY OF LEUKEMIA 12/06/2017 ROD COVINGTON Ot Z86.718 PERSONAL HISTORY OF OTHER VENOUS THROMBO 12/06/2017 ROD COVINGTON Ot Z86.73 PRSNL HX OF TIA (TIA), AND CEREB INFRC W 12/06/2017 ROD COVINGTON Ot Z87.19 PERSONAL HISTORY OF OTHER DISEASES OF TH 12/06/2017 ROD COVINGTON Ot Z88.5 ALLERGY STATUS TO NARCOTIC AGENT STATUS 12/06/2017 ROD COVINGTON Ot Z88.8 ALLERGY STATUS TO OTH DRUG/MEDS/BIOL SUB 12/06/2017 ROD COVINGTON Ot Z90.710 ACQUIRED ABSENCE OF BOTH CERVIX AND UTER 12/07/2017 GELLENDER DOWILIAM Ot N19 UNSPECIFIED KIDNEY FAILURE 12/10/2017 GELLENDER DO, WILIAM Garcia Ot N19 UNSPECIFIED KIDNEY FAILURE 12/11/2017 ROD COVINGTON Ot E03.9 HYPOTHYROIDISM, UNSPECIFIED 12/11/2017 ROD COVINGTON Ot E86.9 VOLUME DEPLETION, UNSPECIFIED 12/11/2017 ROD COVINGTON Ot I25.10 ATHSCL HEART DISEASE OF [place] CORONARY 12/11/2017 ROD COVINGTON Ot N18.9 CHRONIC KIDNEY DISEASE, UNSPECIFIED 12/11/2017 ROD COVINGTON Ot N39.0 URINARY TRACT INFECTION, SITE NOT SPECIF 12/11/2017 ROD COVINGTON Ot R 42 DIZZINESS AND GIDDINESS 12/11/2017 ROD COVINGTON Ot Z79.82 PENITENTIARY (CURRENT) USE OF ASPIRIN 12/11/2017 ROD COVINGTON Ot Z80.8 FAMILY HISTORY OF MALIGNANT NEOPLASM OF 12/11/2017 ROD COVINGTON Ot Z85.028 PERSONAL HISTORY OF OTHER MALIGNANT NEOP 12/11/2017 ROD COVINGTON Ot Z85.6 PERSONAL HISTORY OF LEUKEMIA 12/11/2017 ROD COVINGTON Ot Z86.718 PERSONAL HISTORY OF OTHER VENOUS THROMBO 12/11/2017 ROD COVINGTON Ot Z86.73 PRSNL HX OF TIA (TIA), AND CEREB INFRC W 12/11/2017 ROD COVINGTON Ot Z87.19 PERSONAL HISTORY OF OTHER DISEASES OF TH 12/11/2017 ROD COVINGTON Ot Z88.5 ALLERGY STATUS TO NARCOTIC AGENT STATUS 12/11/2017 ROD COVINGTON Ot Z88.8 ALLERGY STATUS TO OTH DRUG/MEDS/BIOL SUB 12/11/2017 ROD COVINGTON Ot Z90.710 ACQUIRED ABSENCE OF BOTH CERVIX AND UTER 12/18/2017 GELLENDER DOWILIAM Ot N28.9 DISORDER OF KIDNEY AND URETER, UNSPECIFI 12/18/2017 GELLENDER DOWILIAM Ot N39.0 URINARY TRACT INFECTION, SITE NOT SPECIF 12/18/2017 GELLENDER DO, WILIAM Garcia Ot R63.0 ANOREXIA 12/19/2017 GELLENDER DO, WILIAM Radha Ot N19 UNSPECIFIED KIDNEY FAILURE 12/19/2017 CORRINE MCKENNA Ot 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 12/19/2017 CORRINE MCKENNA N Ot 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 MYELOID LEUK, BCR/ABL-POSITIVE, 12/19/2017 CORRINE MCKENNA Ot D53.9 NUTRITIONAL ANEMIA, UNSPECIFIED 12/19/2017 CLARISACORRINE CALDERON N Ot E03.9 HYPOTHYROIDISM, UNSPECIFIED 12/19/2017 CLARISACORRINE CALDERON N Ot 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, AORTIC 12/19/2017 CORRINE MCKENNA N Ot I25.10 ATHSCL HEART DISEASE OF [place] CORONARY 12/19/2017 CORRINE MCKENNA Ot M81.0 AGE- RELATED OSTEOPOROSIS W/O CURRENT PAT 12/19/2017 CORRINE MCKENNA N Ot N18.3 CHRONIC KIDNEY DISEASE, STAGE 3 (MODERAT 12/19/2017 CORRINE MCKENNA N Ot Z79.899 OTHER STEEL FABRICATOR (CURRENT) DRUG THERAPY 12/25/2017 MARTINLENDER DO, WILIAM Radha Ot E86.0 DEHYDRATION 12/25/2017 TRES DO, WILIAM Radha Ot R63.0 ANOREXIA 01/01/2018 MARTINLENDER DO, WILIAM Radha Ot N19 UNSPECIFIED KIDNEY FAILURE 01/24/2018 CORRINE MCKENNA Ot 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 01/24/2018 CORRINE MCKENNA Ot 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 MYELOID LEUK, BCR/ABL-POSITIVE, 01/24/2018 CORRINE MCKENNA Ot D53.9 NUTRITIONAL ANEMIA, UNSPECIFIED 01/24/2018 CORRINE MCKENNA N Ot E03.9 HYPOTHYROIDISM, UNSPECIFIED 01/24/2018 CORRINE MCKENNA N Ot 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, AORTIC 01/24/2018 CORRINE MCKENNA N Ot I25.10 ATHSCL HEART DISEASE OF [place] CORONARY 01/24/2018 CORRINE MCKENNA N Ot M81.0 AGE- RELATED OSTEOPOROSIS W/O CURRENT PAT 01/24/2018 CORRINE MCKENNA N Ot N18.3 CHRONIC KIDNEY DISEASE, STAGE 3 (MODERAT 01/24/2018 CORRINE MCKENNA N Ot Z79.899 OTHER PENITENTIARY (CURRENT) DRUG THERAPY 02/01/2018 KEL DIXON S GRIEF COUNSELOR Ot 205.10 CHRONIC MYELOID LEUKEMIA, W/O MENTION AC 02/01/2018 KEL DIXON S GRIEF COUNSELOR Ot 427.31 ATRIAL FIBRILLATION 02/01/2018 BEGUMDIXON Valdez S GRIEF COUNSELOR Ot 585.3 CHRONIC KIDNEY DISEASE, STAGE III (MODER 02/01/2018 KEL DIXON S GRIEF COUNSELOR Ot V58.69 OTH MED,LT,CURRENT USE 02/01/2018 BEGUM, DIXON S GRIEF COUNSELOR Ot 205.10 CHRONIC MYELOID LEUKEMIA, W/O MENTION AC 02/01/2018 BEGUMDIXON S GRIEF COUNSELOR Ot 427.31 ATRIAL FIBRILLATION 02/01/2018 BEGUM, DIXON S GRIEF COUNSELOR Ot 585.3 CHRONIC KIDNEY DISEASE, STAGE III (MODER 02/01/2018 KEL DIXON S GRIEF COUNSELOR Ot 733.00 OSTEOPOROSIS NOS 02/01/2018 KEL DIXON S GRIEF COUNSELOR Ot V58.69 OTH MED,LT,CURRENT USE 02/01/2018 WILIAM JOSHUA DO Ot 530.81 ESOPHAGEAL REFLUX 02/01/2018 WILIAM JOSHUA DO Ot 553.3 DIAPHRAGMATIC HERNIA 02/01/2018 WILIAM JOSHUA DO Ot 593.9 RENAL URETERAL DIS NOS 02/01/2018 WILIAM JOSHUA DO Ot 787.3 FLATUL/ERUCTAT/GAS PAIN 02/01/2018 VELVET FAUST, JULISSA Correia Ot V72.84 EXAM PRE-OPERATIVE NOS 02/01/2018 CORRINE MCKENNA Ot 151.9 MALIG NEOPL STOMACH NOS 02/01/2018 CORRINE MCKENNA Ot 414.01 CORONARY ATHEROSCLEROSIS OF [place] CORON 02/01/2018 CORRINE MCKENNA Ot 429.3 CARDIOMEGALY 02/01/2018 CORRINE MCKENNA Ot 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 02/01/2018 RMAON DAMON GRIEF COUNSELOR Ot 272.4 HYPERLIPIDEMIA NEC/NOS 02/01/2018 RAMON DAMON GRIEF COUNSELOR Ot 414.00 CORON ATHEROSCLER NOS TYPE VESSEL, NATIV 02/01/2018 RAMON DAMON GRIEF COUNSELOR Ot V72.84 EXAM PRE-OPERATIVE NOS 02/01/2018 WILIAM JOSHUA DO Ot 205.10 CHRONIC MYELOID LEUKEMIA, W/O MENTION AC 02/01/2018 DIXON BEGUM GRIEF COUNSELOR Ot 205.10 CHRONIC MYELOID LEUKEMIA, W/O MENTION AC 02/01/2018 DIXON BEGUM GRIEF COUNSELOR Ot 427.31 ATRIAL FIBRILLATION 02/01/2018 DIXON BEGUM GRIEF COUNSELOR Ot 733.00 OSTEOPOROSIS NOS 02/01/2018 DIXON BEGUM GRIEF COUNSELOR Ot 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 02/01/2018 DIXON BEGUM GRIEF COUNSELOR Ot V58.69 OTH MED,LT,CURRENT USE 02/01/2018 DIXON BEGUM GRIEF COUNSELOR Ot V67.00 UNSPEC SURGERY FOLLOW-UP EXAM 02/01/2018 DIXON BEGUM GRIEF COUNSELOR Ot 205.10 CHRONIC MYELOID LEUKEMIA, W/O MENTION AC 02/01/2018 DIXON BEGUM GRIEF COUNSELOR Ot 427.31 ATRIAL FIBRILLATION 02/01/2018 DIXON BEGUMP Ot 733.00 OSTEOPOROSIS NOS 02/01/2018 DIXON BEGUMP Ot V58.69 OTH MED,LT,CURRENT USE 02/01/2018 DIXON BEGUM GRIEF COUNSELOR Ot 721.0 CERVICAL SPONDYLOSIS 02/01/2018 GELCARLOS DOWILIAM A Ot 530.81 ESOPHAGEAL REFLUX 02/01/2018 GELWILIAM GONZALEZ DO Ot 783.21 LOSS OF WEIGHT 02/01/2018 WILIAM JOSHUA DO Ot 786.2 COUGH 02/01/2018 WILIAM JOSHUA DO Ot 793.19 OTHER NONSPECIFIC ABNORMAL FINDING OF BOB 02/01/2018 DIXON BEGUM GRIEF COUNSELOR Ot 205.10 CHRONIC MYELOID LEUKEMIA, W/O MENTION AC 02/01/2018 DIXON BEGUM GRIEF COUNSELOR Ot 427.31 ATRIAL FIBRILLATION 02/01/2018 DIXON BEGUM GRIEF COUNSELOR Ot 733.00 OSTEOPOROSIS NOS 02/01/2018 DIXON BEGUM GRIEF COUNSELOR Ot 791.9 ABN URINE FINDINGS NEC 02/01/2018 DIXON BEGUM GRIEF COUNSELOR Ot V58.69 OTH MED,LT,CURRENT USE 02/01/2018 CORRINE MCKENNA Ot 205.90 UNSPECIFIED MYELOID LEUKEMIA, W/O MENTIO 02/01/2018 DIXON BEGUM GRIEF COUNSELOR Ot 205.10 CHRONIC MYELOID LEUKEMIA, W/O MENTION AC 02/01/2018 DIXON BEGUM S GRIEF COUNSELOR Ot 427.31 ATRIAL FIBRILLATION 02/01/2018 DIXON BEGUM S GRIEF COUNSELOR Ot 733.00 OSTEOPOROSIS NOS 02/01/2018 DIXON BEGUM S GRIEF COUNSELOR Ot V58.69 OTH MED,LT,CURRENT USE 02/01/2018 VELVET FAUST, JULISSA Correia Ot V72.84 EXAM PRE-OPERATIVE NOS 02/01/2018 CLARISAJOHANNA CALDERONBRYN N Ot 151.9 MALIG NEOPL STOMACH NOS 02/01/2018 DIXON BEGUM S GRIEF COUNSELOR Ot 205.10 CHRONIC MYELOID LEUKEMIA, W/O MENTION AC 02/01/2018 DIXON BEGUM S GRIEF COUNSELOR Ot 427.31 ATRIAL FIBRILLATION 02/01/2018 DIXON BEGUM S GRIEF COUNSELOR Ot 733.00 OSTEOPOROSIS NOS 02/01/2018 DIXON BEGUM S GRIEF COUNSELOR Ot V58.69 OTH MED,LT,CURRENT USE 02/01/2018 LUDY BEGUMSARAHI S GRIEF COUNSELOR Ot 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 02/01/2018 DIXON BEGUM S GRIEF COUNSELOR Ot 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 MYELOID LEUK, BCR/ABL-POSITIVE, 02/01/2018 DIXON BEGUM S GRIEF COUNSELOR Ot D53.9 NUTRITIONAL ANEMIA, UNSPECIFIED 02/01/2018 DIXON BEGUM S GRIEF COUNSELOR Ot M81.0 AGE-RELATED OSTEOPOROSIS W/O CURRENT PAT 02/01/2018 DIXON BEGUM S GRIEF COUNSELOR Ot R19.7 DIARRHEA, UNSPECIFIED 02/01/2018 LUDY BEGUMSARAHI S GRIEF COUNSELOR Ot Z79.899 OTHER PENITENTIARY (CURRENT) DRUG THERAPY 02/01/2018 WILIAM JOSHUA DO Ot R05 COUGH 02/01/2018 DIXON BEGUM S GRIEF COUNSELOR Ot 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 02/01/2018 DIXON BEGUM S GRIEF COUNSELOR Ot 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 MYELOID LEUK, BCR/ABL-POSITIVE, 02/01/2018 DIXON BEGUM S GRIEF COUNSELOR Ot D53.9 NUTRITIONAL ANEMIA, UNSPECIFIED 02/01/2018 DIXON BEGUM S GRIEF COUNSELOR Ot M81.0 AGE-RELATED OSTEOPOROSIS W/O CURRENT PAT 02/01/2018 DIXON BEGUM S GRIEF COUNSELOR Ot R19.7 DIARRHEA, UNSPECIFIED 02/01/2018 DIXON BEGUM S GRIEF COUNSELOR Ot Z79.899 OTHER STEEL FABRICATOR (CURRENT) DRUG THERAPY 02/01/2018 BEGUMDIXON Valdez GRIEF COUNSELOR Ot 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 02/01/2018 GELLENDER DO, WILIAM A Ot R05 COUGH 02/01/2018 GELLENDER DO, WILIAM A Ot R06.2 WHEEZING 02/01/2018 BEGUMDIXON Valdez GRIEF COUNSELOR Ot 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 MYELOID LEUK, BCR/ABL-POSITIVE, 02/01/2018 BEGUMDIXON Valdez GRIEF COUNSELOR Ot N28.1 CYST OF KIDNEY, ACQUIRED 02/01/2018 KELDIXON GRIEF COUNSELOR Ot Z85.028 PERSONAL HISTORY OF OTHER MALIGNANT NEOP 02/01/2018 BEGUMDIXON Valdez GRIEF COUNSELOR Ot 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 02/01/2018 BEGUMDIXON Valdez GRIEF COUNSELOR Ot 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 02/01/2018 CORRINE MCKENNA Ot 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 02/01/2018 CORRINE MCKENNA Ot 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 MYELOID LEUK, BCR/ABL-POSITIVE, 02/01/2018 CORRINE MCKENNA N Ot D53.9 NUTRITIONAL ANEMIA, UNSPECIFIED 02/01/2018 CORRINE MCKENNA N Ot M81.0 AGE- RELATED OSTEOPOROSIS W/O CURRENT PAT 02/01/2018 CORRINE MCKENNA Ot R19.7 DIARRHEA, UNSPECIFIED 02/01/2018 CORRINE MCKENNA N Ot Z79.899 OTHER STEEL FABRICATOR (CURRENT) DRUG THERAPY 02/01/2018 CORRINE MCKENNA Ot 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 02/01/2018 CORRINE MCKENNA Ot 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 MYELOID LEUK, BCR/ABL-POSITIVE, 02/01/2018 CORRINE MCKENNA N Ot D53.9 NUTRITIONAL ANEMIA, UNSPECIFIED 02/01/2018 CORRINE MCKENNA Ot E03.9 HYPOTHYROIDISM, UNSPECIFIED 02/01/2018 CORRINE MCKENNA Ot 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, AORTIC 02/01/2018 CORRINE MCKENNA N Ot I25.10 ATHSCL HEART DISEASE OF [place] CORONARY 02/01/2018 CORRINE MCKENNA Ot M81.0 AGE- RELATED OSTEOPOROSIS W/O CURRENT PAT 02/01/2018 CORRINE MCKENNA Ot N18.3 CHRONIC KIDNEY DISEASE, STAGE 3 (MODERAT 02/01/2018 CORRINE MCKENNA Ot Z79.899 OTHER PENITENTIARY (CURRENT) DRUG THERAPY 02/01/2018 GELLENDER DO, WILIAM Garcia Ot N28.9 DISORDER OF KIDNEY AND URETER, UNSPECIFI 02/01/2018 GELLENDER DO, WILIAM Radha Ot N39.0 URINARY TRACT INFECTION, SITE NOT SPECIF 02/01/2018 GELLENDER DO, WILIAM Radha Ot R63.0 ANOREXIA 02/01/2018 GELLENDER DO, WILIAM Radha Ot N19 UNSPECIFIED KIDNEY FAILURE 02/01/2018 GELLENDER DO, WILIAM Garcia Ot E86.0 DEHYDRATION 02/01/2018 GELLENDER DO, WILIAM Garcia Ot R63.0 ANOREXIA 02/01/2018 GELLENDER DO, WILIAM Radha Ot N19 UNSPECIFIED KIDNEY FAILURE 02/01/2018 GELLENDER DO, WILIAM Radha Ot N28.1 CYST OF KIDNEY, ACQUIRED 02/15/2018 CORRINE MCKENNA Ot 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 02/15/2018 CORRINE MCKENNA Ot 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 MYELOID LEUK, BCR/ABL-POSITIVE, 02/15/2018 CORRINE MCKENNA Ot D53.9 NUTRITIONAL ANEMIA, UNSPECIFIED 02/15/2018 CORRINE MCKENNA Ot E03.9 HYPOTHYROIDISM, UNSPECIFIED 02/15/2018 CORRINE MCKENNA Ot 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, AORTIC 02/15/2018 CORRINE MCKENNA Ot I25.10 ATHSCL HEART DISEASE OF [place] CORONARY 02/15/2018 CORRINE MCKENNA Ot M81.0 AGE- RELATED OSTEOPOROSIS W/O CURRENT PAT 02/15/2018 CORRINE MCKENNA Ot N18.3 CHRONIC KIDNEY DISEASE, STAGE 3 (MODERAT 02/15/2018 CORRINE MCKENNA Ot Z79.899 OTHER STEEL FABRICATOR (CURRENT) DRUG THERAPY 02/20/2018 CORRINE MCKENNA Ot 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 02/20/2018 CORRINE MCKENNA Ot 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 MYELOID LEUK, BCR/ABL-POSITIVE, 02/20/2018 CORRINE MCKENNA Ot D53.9 NUTRITIONAL ANEMIA, UNSPECIFIED 02/20/2018 CLARISA, BOBAN N Ot E03.9 HYPOTHYROIDISM, UNSPECIFIED 02/20/2018 CORRINE MCKENNA N Ot 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, AORTIC 02/20/2018 CLARISA BOBAN N Ot I25.10 ATHSCL HEART DISEASE OF [place] CORONARY 02/20/2018 CORRINE MCKENNA N Ot M81.0 AGE- RELATED OSTEOPOROSIS W/O CURRENT PAT 02/20/2018 CORRINE MCKENNA N Ot N18.3 CHRONIC KIDNEY DISEASE, STAGE 3 (MODERAT 02/20/2018 CORRINE MCKENNA N Ot Z79.899 OTHER PENITENTIARY (CURRENT) DRUG THERAPY 02/26/2018 JOHANNA MCKENNAAN N Ot 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 02/26/2018 CLARISA, BOBAN N Ot 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 MYELOID LEUK, BCR/ABL-POSITIVE, 02/26/2018 CORRINE MCKENNA N Ot D53.9 NUTRITIONAL ANEMIA, UNSPECIFIED 02/26/2018 CORRINE MCKENNA N Ot E03.9 HYPOTHYROIDISM, UNSPECIFIED 02/26/2018 CORRINE MCKENNA N Ot 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, AORTIC 02/26/2018 CORRINE MCKENNA N Ot I25.10 ATHSCL HEART DISEASE OF [place] CORONARY 02/26/2018 CORRINE MCKENNA N Ot M81.0 AGE- RELATED OSTEOPOROSIS W/O CURRENT PAT 02/26/2018 CORRINE MCKENNA N Ot N18.3 CHRONIC KIDNEY DISEASE, STAGE 3 (MODERAT 02/26/2018 CORRINE MCKENNA N Ot Z79.899 OTHER STEEL FABRICATOR (CURRENT) DRUG THERAPY 02/26/2018 ROSA ROWLAND APRN Ot C92.Z0 OTHER MYELOID LEUKEMIA NOT HAVING ACHIEV 02/26/2018 ROSA ROWLAND APRN Ot D64.9 ANEMIA, UNSPECIFIED 02/26/2018 ROSA ROWLAND APRN Ot E78.5 HYPERLIPIDEMIA, UNSPECIFIED 02/26/2018 ROSA ROWLAND APRN Ot I12.9 HYPERTENSIVE CHRONIC KIDNEY DISEASE W ST 02/26/2018 ROSA ROWLAND APRN Ot I25.10 ATHSCL HEART DISEASE OF [place] CORONARY 02/26/2018 ROSA ROWLAND APRN Ot 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 02/26/2018 ROSA ROWLAND INDUSTRIAL DESIGN INTERN Ot N18.4 CHRONIC KIDNEY DISEASE, STAGE 4 (SEVERE) 02/26/2018 ROSA ORWLAND INDUSTRIAL DESIGN INTERN Ot N39.0 URINARY TRACT INFECTION, SITE NOT SPECIF 04/12/2018 CLARISA, BOBAN N Ot 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 04/12/2018 CLARISA, BOBAN N Ot 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 MYELOID LEUK, BCR/ABL-POSITIVE, 04/12/2018 CLARISA, BOBAN N Ot D53.9 NUTRITIONAL ANEMIA, UNSPECIFIED 04/12/2018 CLARISA, BOBAN N Ot E03.9 HYPOTHYROIDISM, UNSPECIFIED 04/12/2018 CLARISA, BOBAN N Ot 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, AORTIC 04/12/2018 CLARISA, BOBAN N Ot I25.10 ATHSCL HEART DISEASE OF [place] CORONARY 04/12/2018 CLARISA, BOBAN N Ot M81.0 AGE- RELATED OSTEOPOROSIS W/O CURRENT PAT 04/12/2018 CLARISA, BOBAN N Ot N18.3 CHRONIC KIDNEY DISEASE, STAGE 3 (MODERAT 04/12/2018 CLARISA, BOBAN N Ot Z79.899 OTHER STEEL FABRICATOR (CURRENT) DRUG THERAPY 05/26/2018 CLARISA, BOBAN N Ot 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 05/26/2018 CLARISA, BOBAN N Ot 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 MYELOID LEUK, BCR/ABL-POSITIVE, 05/26/2018 CLARISA, BOBAN N Ot D53.9 NUTRITIONAL ANEMIA, UNSPECIFIED 05/26/2018 CLARISA, BOBAN N Ot E03.9 HYPOTHYROIDISM, UNSPECIFIED 05/26/2018 CLARISA, BOBAN N Ot 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, AORTIC 05/26/2018 CLARISA, BOBAN N Ot I25.10 ATHSCL HEART DISEASE OF [place] CORONARY 05/26/2018 CLARISA, BOBAN N Ot M81.0 AGE- RELATED OSTEOPOROSIS W/O CURRENT PAT 05/26/2018 CLARISA, BOBAN N Ot N18.3 CHRONIC KIDNEY DISEASE, STAGE 3 (MODERAT 05/26/2018 CLARISA, BOBAN N Ot Z79.899 OTHER PENITENTIARY (CURRENT) DRUG THERAPY 06/01/2018 CLARISA, BOBAN N Ot 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 06/01/2018 CORRINE MCKENNA Lex Ot 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 MYELOID LEUK, BCR/ABL-POSITIVE, 06/01/2018 CORRINE MCKENNA Lex Ot D53.9 NUTRITIONAL ANEMIA, UNSPECIFIED 06/01/2018 CORRINE MCKENNA Lex Ot E03.9 HYPOTHYROIDISM, UNSPECIFIED 06/01/2018 CORRINE MCKENNA Lex Ot 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, AORTIC 06/01/2018 CORRINE MCKENNA Lex Ot I25.10 ATHSCL HEART DISEASE OF [place] CORONARY 06/01/2018 CORRINE MCKENNA Lex Ot M81.0 AGE- RELATED OSTEOPOROSIS W/O CURRENT PAT 06/01/2018 CORRINE MCKENNA Lex Ot N18.3 CHRONIC KIDNEY DISEASE, STAGE 3 (MODERAT 06/01/2018 CORRINE MCKENNA Lex Ot Z79.899 OTHER PENITENTIARY (CURRENT) DRUG THERAPY 07/05/2018 MARTINLENWILIAM BARNHART DO Ot E03.9 HYPOTHYROIDISM, UNSPECIFIED 07/05/2018 GELLENDER DO, WILIAM Garcia Ot J44.9 CHRONIC OBSTRUCTIVE PULMONARY DISEASE, U 07/25/2018 RAMON DAMON GRIEF COUNSELOR Ot I08.1 RHEUMATIC DISORDERS OF BOTH [place] AND T 07/25/2018 RAMON DAMON GRIEF COUNSELOR Ot I25.10 ATHSCL HEART DISEASE OF [place] CORONARY 07/25/2018 RAMON DAMON GRIEF COUNSELOR Ot M79.89 OTHER SPECIFIED SOFT TISSUE DISORDERS 07/25/2018 RAMON DAMON GRIEF COUNSELOR Ot N18.3 CHRONIC KIDNEY DISEASE, STAGE 3 (MODERAT 07/25/2018 RAMON DAMONP Ot R06.09 OTHER FORMS OF DYSPNEA 07/25/2018 GELLENDER WILIAM GARCIA Ot E03.9 HYPOTHYROIDISM, UNSPECIFIED 07/25/2018 GELLENDER DO, WILIAM Garcia Ot J44.9 CHRONIC OBSTRUCTIVE PULMONARY DISEASE, U 07/31/2018 GELLENDER WILIAM GARCIA Ot E03.9 HYPOTHYROIDISM, UNSPECIFIED 07/31/2018 GELLENDER DO, WILIAM Garcia Ot J44.9 CHRONIC OBSTRUCTIVE PULMONARY DISEASE, U 08/09/2018 RAMON DAMON GRIEF COUNSELOR Ot I08.1 RHEUMATIC DISORDERS OF BOTH [place] AND T 08/09/2018 RAMON DAMON GRIEF COUNSELOR Ot I25.10 ATHSCL HEART DISEASE OF [place] CORONARY 08/09/2018 RAMON DAMON GRIEF COUNSELOR Ot M79.89 OTHER SPECIFIED SOFT TISSUE DISORDERS 08/09/2018 RAMON DAMON GRIEF COUNSELOR Ot N18.3 CHRONIC KIDNEY DISEASE, STAGE 3 (MODERAT 08/09/2018 RAMON DAMON GRIEF COUNSELOR Ot R06.09 OTHER FORMS OF DYSPNEA 08/09/2018 CLARISACORRINE N Ot 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 08/09/2018 CORRINE MCKENNA N Ot 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 MYELOID LEUK, BCR/ABL-POSITIVE, 08/09/2018 CLARISACORRINE N Ot D53.9 NUTRITIONAL ANEMIA, UNSPECIFIED 08/09/2018 CLARISACORRINE N Ot E03.9 HYPOTHYROIDISM, UNSPECIFIED 08/09/2018 CLARISACORRINE CALDERON N Ot 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, AORTIC 08/09/2018 CORRINE MCKENNA N Ot I25.10 ATHSCL HEART DISEASE OF [place] CORONARY 08/09/2018 CORRINE MCKENNA N Ot M81.0 AGE- RELATED OSTEOPOROSIS W/O CURRENT PAT 08/09/2018 CORRINE MCKENNA N Ot N18.3 CHRONIC KIDNEY DISEASE, STAGE 3 (MODERAT 08/09/2018 CLARISAJOHANNAAN N Ot Z79.899 OTHER PENITENTIARY (CURRENT) DRUG THERAPY 08/16/2018 RAMON DAMON GRIEF COUNSELOR Ot I08.1 RHEUMATIC DISORDERS OF BOTH [place] AND T 08/16/2018 RAMON DAMON GRIEF COUNSELOR Ot I25.10 ATHSCL HEART DISEASE OF [place] CORONARY 08/16/2018 RAMON DAMON GRIEF COUNSELOR Ot M79.89 OTHER SPECIFIED SOFT TISSUE DISORDERS 08/16/2018 RAMON DAMON GRIEF COUNSELOR Ot N18.3 CHRONIC KIDNEY DISEASE, STAGE 3 (MODERAT 08/16/2018 RAMON DAMON GRIEF COUNSELOR Ot R06.09 OTHER FORMS OF DYSPNEA 08/16/2018 CLARISACORRINE N Ot 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 08/16/2018 CORRINE MCKENNA N Ot 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 MYELOID LEUK, BCR/ABL-POSITIVE, 08/16/2018 CLARISACORRINE N Ot D53.9 NUTRITIONAL ANEMIA, UNSPECIFIED 08/16/2018 CORRINE MCKENNA N Ot E03.9 HYPOTHYROIDISM, UNSPECIFIED 08/16/2018 CLARISA, BOBAN N Ot 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, AORTIC 08/16/2018 CLARISA, BOBAN N Ot I25.10 ATHSCL HEART DISEASE OF [place] CORONARY 08/16/2018 CLARISA, BOBAN N Ot M81.0 AGE- RELATED OSTEOPOROSIS W/O CURRENT PAT 08/16/2018 CLARISA, BOBAN N Ot N18.3 CHRONIC KIDNEY DISEASE, STAGE 3 (MODERAT 08/16/2018 CLARISA, BOBAN N Ot Z79.899 OTHER PENITENTIARY (CURRENT) DRUG THERAPY 08/29/2018 CLARISA, BOBAN N Ot 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 08/29/2018 CLARISA, BOBAN N Ot 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 MYELOID LEUK, BCR/ABL-POSITIVE, 08/29/2018 CLARISA, BOBAN N Ot D53.9 NUTRITIONAL ANEMIA, UNSPECIFIED 08/29/2018 CLARISA, BOBAN N Ot E03.9 HYPOTHYROIDISM, UNSPECIFIED 08/29/2018 CLARISA, BOBAN N Ot 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, AORTIC 08/29/2018 CLARISA, BOBAN N Ot I25.10 ATHSCL HEART DISEASE OF [place] CORONARY 08/29/2018 CLARISA, BOBAN N Ot M81.0 AGE- RELATED OSTEOPOROSIS W/O CURRENT PAT 08/29/2018 CLARISA, BOBAN N Ot N18.3 CHRONIC KIDNEY DISEASE, STAGE 3 (MODERAT 08/29/2018 CLARISA, BOBAN N Ot Z79.899 OTHER PENITENTIARY (CURRENT) DRUG THERAPY 08/30/2018 CLARISA, BOBAN N Ot 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 08/30/2018 CLARISA, BOBAN N Ot 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 MYELOID LEUK, BCR/ABL-POSITIVE, 08/30/2018 CLARISA, BOBAN N Ot D53.9 NUTRITIONAL ANEMIA, UNSPECIFIED 08/30/2018 CLARISA, BOBAN N Ot E03.9 HYPOTHYROIDISM, UNSPECIFIED 08/30/2018 CLARISA, BOBAN N Ot 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, AORTIC 08/30/2018 CLARISA, BOBAN N Ot I25.10 ATHSCL HEART DISEASE OF [place] CORONARY 08/30/2018 CLARISA, BOBAN N Ot M81.0 AGE- RELATED OSTEOPOROSIS W/O CURRENT PAT 08/30/2018 CLARISA, BOBAN N Ot N18.3 CHRONIC KIDNEY DISEASE, STAGE 3 (MODERAT 08/30/2018 CLARISA, BOBAN N Ot Z79.899 OTHER STEEL FABRICATOR (CURRENT) DRUG THERAPY 08/30/2018 CLARISA, BOBAN N Ot 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 08/30/2018 CLARISA, BOBAN N Ot 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 MYELOID LEUK, BCR/ABL-POSITIVE, 08/30/2018 CLARISA, BOBAN N Ot D53.9 NUTRITIONAL ANEMIA, UNSPECIFIED 08/30/2018 CLARISA, BOBAN N Ot E03.9 HYPOTHYROIDISM, UNSPECIFIED 08/30/2018 CLARISA, BOBAN N Ot 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, AORTIC 08/30/2018 CLARISA, BOBAN N Ot I25.10 ATHSCL HEART DISEASE OF [place] CORONARY 08/30/2018 CLARISA, BOBAN N Ot M81.0 AGE- RELATED OSTEOPOROSIS W/O CURRENT PAT 08/30/2018 CLARISA, BOBAN N Ot N18.3 CHRONIC KIDNEY DISEASE, STAGE 3 (MODERAT 08/30/2018 CLARISA, BOBAN N Ot Z79.899 OTHER STEEL FABRICATOR (CURRENT) DRUG THERAPY 09/11/2018 CLARISA, BOBAN N Ot 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 09/11/2018 CLARISA, BOBAN N Ot 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 MYELOID LEUK, BCR/ABL-POSITIVE, 09/11/2018 CLARISA, BOBAN N Ot D53.9 NUTRITIONAL ANEMIA, UNSPECIFIED 09/11/2018 CLARISA, BOBAN N Ot E03.9 HYPOTHYROIDISM, UNSPECIFIED 09/11/2018 CLARISA, BOBAN N Ot 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, AORTIC 09/11/2018 CLARISA, BOBAN N Ot I25.10 ATHSCL HEART DISEASE OF [place] CORONARY 09/11/2018 CLARISA, BOBAN N Ot M81.0 AGE- RELATED OSTEOPOROSIS W/O CURRENT PAT 09/11/2018 CLARISA, BOBAN N Ot N18.3 CHRONIC KIDNEY DISEASE, STAGE 3 (MODERAT 09/11/2018 CLARISA, BOBAN N Ot Z79.899 OTHER STEEL FABRICATOR (CURRENT) DRUG THERAPY 10/03/2018 KYE CHAMPAGNE INDUSTRIAL DESIGN INTERN Ot E03 .9 HYPOTHYROIDISM, UNSPECIFIED 10/03/2018 KYE CHAMPAGNE INDUSTRIAL DESIGN INTERN Ot I25.10 ATHSCL HEART DISEASE OF [place] CORONARY 10/03/2018 KYE CHAMPAGNE APRN Ot K58 .9 IRRITABLE BOWEL SYNDROME WITHOUT DIARRHE 10/03/2018 KYE CHAMPAGNE APRN Ot M23.92 UNSPECIFIED INTERNAL DERANGEMENT OF LEFT 10/03/2018 KYE CHAMPAGNE APRN Ot M25.562 PAIN IN LEFT KNEE 10/03/2018 KYE CHAMPAGNE APRN Ot Z79.82 STEEL FABRICATOR (CURRENT) USE OF ASPIRIN 10/03/2018 KYE CHAMPAGNE APRN Ot Z80 .8 FAMILY HISTORY OF MALIGNANT NEOPLASM OF 10/03/2018 KYE CHAMPAGNE APRN Ot Z85.038 PERSONAL HISTORY OF MALIGNANT NEOPLASM O 10/03/2018 KYE CHAMPAGNE APRN Ot Z85 .6 PERSONAL HISTORY OF LEUKEMIA 10/03/2018 KYE CHAMPAGNE APRN Ot Z86.718 PERSONAL HISTORY OF OTHER VENOUS THROMBO 10/03/2018 KYE CHAMPAGNE APRN Ot Z86.73 PRSNL HX OF TIA (TIA), AND CEREB INFRC W 10/03/2018 KYE CHAMPAGNE APRN Ot Z87.440 PERSONAL HISTORY OF URINARY (TRACT) INFE 10/03/2018 KYE CHAMPAGNE APRN Ot Z88 .5 ALLERGY STATUS TO NARCOTIC AGENT STATUS 10/03/2018 KYE CHAMPAGNE APRN Ot Z90.710 ACQUIRED ABSENCE OF BOTH CERVIX AND UTER 10/03/2018 KYE CHAMPAGNE APRN Ot Z98.890 OTHER SPECIFIED POSTPROCEDURAL STATES 10/07/2018 KYE CHAMPAGNE APRN Ot E03 .9 HYPOTHYROIDISM, UNSPECIFIED 10/07/2018 KYE CHAMPAGNE APRN Ot I25.10 ATHSCL HEART DISEASE OF [place] CORONARY 10/07/2018 KYE CHAMPAGNE APRN Ot K58 .9 IRRITABLE BOWEL SYNDROME WITHOUT DIARRHE 10/07/2018 KYE CHAMPAGNE APRN Ot M23.92 UNSPECIFIED INTERNAL DERANGEMENT OF LEFT 10/07/2018 KYE CHAMPAGNE APRN Ot M25.562 PAIN IN LEFT KNEE 10/07/2018 KYE CHAMPAGNE APRN Ot Z79.82 STEEL FABRICATOR (CURRENT) USE OF ASPIRIN 10/07/2018 KYE CHAMPAGNE APRN Ot Z80 .8 FAMILY HISTORY OF MALIGNANT NEOPLASM OF 10/07/2018 KYE CHAMPAGNE APRN Ot Z85.038 PERSONAL HISTORY OF MALIGNANT NEOPLASM O 10/07/2018 KYE CHAMPAGNE APRN Ot Z85 .6 PERSONAL HISTORY OF LEUKEMIA 10/07/2018 KYE CHAMPAGNE APRN Ot Z86.718 PERSONAL HISTORY OF OTHER VENOUS THROMBO 10/07/2018 KYE CHAMPAGNE APRN Ot Z86.73 PRSNL HX OF TIA (TIA), AND CEREB INFRC W 10/07/2018 KYE CHAMPAGNE APRN Ot Z87.440 PERSONAL HISTORY OF URINARY (TRACT) INFE 10/07/2018 KYE CHAMPAGNE APRN Ot Z88 .5 ALLERGY STATUS TO NARCOTIC AGENT STATUS 10/07/2018 KYE CHAMPAGNE APRN Ot Z90.710 ACQUIRED ABSENCE OF BOTH CERVIX AND UTER 10/07/2018 KYE CHAMPAGNE APRN Ot Z98.890 OTHER SPECIFIED POSTPROCEDURAL STATES 11/26/2018 CORRINE MCKENNA N Ot 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 11/26/2018 CORRINE MCKENNA N Ot 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 MYELOID LEUK, BCR/ABL-POSITIVE, 11/26/2018 CORRINE MCKENNA N Ot D53.9 NUTRITIONAL ANEMIA, UNSPECIFIED 11/26/2018 JOHANNA MCKENNAAN N Ot E03.9 HYPOTHYROIDISM, UNSPECIFIED 11/26/2018 CLARISACORRINE CALDERON N Ot 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, AORTIC 11/26/2018 CORRINE MCKENNA N Ot I25.10 ATHSCL HEART DISEASE OF [place] CORONARY 11/26/2018 CORRINE MCKENNA N Ot M81.0 AGE- RELATED OSTEOPOROSIS W/O CURRENT PAT 11/26/2018 CORRINE MCKENNA N Ot N18.3 CHRONIC KIDNEY DISEASE, STAGE 3 (MODERAT 11/26/2018 CORRINE MCKENNA N Ot Z79.899 OTHER STEEL FABRICATOR (CURRENT) DRUG THERAPY 12/11/2018 CORRINE MCKENNA N Ot 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 12/11/2018 CORRINE MCKENNA N Ot 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 MYELOID LEUK, BCR/ABL-POSITIVE, 12/11/2018 CORRINE MCKENNA N Ot D53.9 NUTRITIONAL ANEMIA, UNSPECIFIED 12/11/2018 JOHANNA MCKENNAAN N Ot E03.9 HYPOTHYROIDISM, UNSPECIFIED 12/11/2018 CORRINE MCKENNA N Ot 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, AORTIC 12/11/2018 CLARISA, BOBAN N Ot I25.10 ATHSCL HEART DISEASE OF [place] CORONARY 12/11/2018 CLARISA, BOBAN N Ot M81.0 AGE- RELATED OSTEOPOROSIS W/O CURRENT PAT 12/11/2018 CLARISA, BOBAN N Ot N18.3 CHRONIC KIDNEY DISEASE, STAGE 3 (MODERAT 12/11/2018 CLARISA, BOBAN N Ot Z79.899 OTHER STEEL FABRICATOR (CURRENT) DRUG THERAPY 12/12/2018 CLARISA, BOBAN N Ot 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 12/12/2018 CLARISA, BOBAN N Ot 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 MYELOID LEUK, BCR/ABL-POSITIVE, 12/12/2018 CLARISA, BOBAN N Ot D53.9 NUTRITIONAL ANEMIA, UNSPECIFIED 12/12/2018 CLARISA, BOBAN N Ot E03.9 HYPOTHYROIDISM, UNSPECIFIED 12/12/2018 CLARISA, BOBAN N Ot 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, AORTIC 12/12/2018 CLARISA, BOBAN N Ot I25.10 ATHSCL HEART DISEASE OF [place] CORONARY 12/12/2018 CLARISA, BOBAN N Ot M81.0 AGE- RELATED OSTEOPOROSIS W/O CURRENT PAT 12/12/2018 CLARISA, BOBAN N Ot N18.3 CHRONIC KIDNEY DISEASE, STAGE 3 (MODERAT 12/12/2018 CLARISA, BOBAN N Ot Z79.899 OTHER STEEL FABRICATOR (CURRENT) DRUG THERAPY 04/10/2019 CLARISA, BOBAN N Ot 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 04/10/2019 CLARISA, BOBAN N Ot 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 MYELOID LEUK, BCR/ABL-POSITIVE, 04/10/2019 CLARISA, BOBAN N Ot D53.9 NUTRITIONAL ANEMIA, UNSPECIFIED 04/10/2019 CLARISA, BOBAN N Ot E03.9 HYPOTHYROIDISM, UNSPECIFIED 04/10/2019 CLARISA, BOBAN N Ot 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, AORTIC 04/10/2019 CLARISA, BOBAN N Ot I25.10 ATHSCL HEART DISEASE OF [place] CORONARY 04/10/2019 CLARISA, BOBAN N Ot M81.0 AGE- RELATED OSTEOPOROSIS W/O CURRENT PAT 04/10/2019 CLARISA, BOBAN N Ot N18.3 CHRONIC KIDNEY DISEASE, STAGE 3 (MODERAT 04/10/2019 CORRINE MCKENNA Ot Z79.899 OTHER STEEL FABRICATOR (CURRENT) DRUG THERAPY 04/30/2019 ROSA ROWLAND APRN Ot C92.Z0 OTHER MYELOID LEUKEMIA NOT HAVING ACHIEV 04/30/2019 ROSA ROWLAND APRN Ot D64.9 ANEMIA, UNSPECIFIED 04/30/2019 ROSA ROWLAND APRN Ot E78.5 HYPERLIPIDEMIA, UNSPECIFIED 04/30/2019 ROSA ROWLAND APRN Ot I12.9 HYPERTENSIVE CHRONIC KIDNEY DISEASE W ST 04/30/2019 ROSA ROWLAND APRN Ot I25.10 ATHSCL HEART DISEASE OF [place] CORONARY 04/30/2019 ROSA ROWLAND APRN Ot 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 04/30/2019 ROSA ROWLAND APRN Ot N18.4 CHRONIC KIDNEY DISEASE, STAGE 4 (SEVERE) 04/30/2019 ROSA ROWLAND APRN Ot N39.0 URINARY TRACT INFECTION, SITE NOT SPECIF 04/30/2019 ROSA ROWLAND APRN Ot Z91.89 OTH PERSONAL RISK FACTORS, NOT ELSEWHERE 05/02/2019 CORRINE MCKENNA Ot 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 05/02/2019 CORRINE MCKENNA Ot 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 MYELOID LEUK, BCR/ABL-POSITIVE, 05/02/2019 CORRINE MCKENNA N Ot D53.9 NUTRITIONAL ANEMIA, UNSPECIFIED 05/02/2019 CORRINE MCKENNA Ot E03.9 HYPOTHYROIDISM, UNSPECIFIED 05/02/2019 CORRINE MCKENNA Ot 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, AORTIC 05/02/2019 CORRINE MCKENNA N Ot I25.10 ATHSCL HEART DISEASE OF [place] CORONARY 05/02/2019 CORRINE MCKENNA Ot M81.0 AGE- RELATED OSTEOPOROSIS W/O CURRENT PAT 05/02/2019 CORRINE MCKENNA N Ot N18.3 CHRONIC KIDNEY DISEASE, STAGE 3 (MODERAT 05/02/2019 CORRINE MCKENNA N Ot Z79.899 OTHER PENITENTIARY (CURRENT) DRUG THERAPY 05/09/2019 CORRINE MCKENNA Ot 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 05/09/2019 CLARISA, BOBAN N Ot 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 MYELOID LEUK, BCR/ABL-POSITIVE, 05/09/2019 CLARISA, BOBAN N Ot D53.9 NUTRITIONAL ANEMIA, UNSPECIFIED 05/09/2019 CLARISA, BOBAN N Ot E03.9 HYPOTHYROIDISM, UNSPECIFIED 05/09/2019 CLARISA, BOBAN N Ot 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, AORTIC 05/09/2019 CLARISA, BOBAN N Ot I25.10 ATHSCL HEART DISEASE OF [place] CORONARY 05/09/2019 CLARISA, BOBAN N Ot M81.0 AGE- RELATED OSTEOPOROSIS W/O CURRENT PAT 05/09/2019 CLARISA, BOBAN N Ot N18.3 CHRONIC KIDNEY DISEASE, STAGE 3 (MODERAT 05/09/2019 CLARISA, BOBAN N Ot Z79.899 OTHER PENITENTIARY (CURRENT) DRUG THERAPY 05/12/2019 CLARISA, BOBAN N Ot 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 05/12/2019 CLARISA, BOBAN N Ot 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 MYELOID LEUK, BCR/ABL-POSITIVE, 05/12/2019 CLARISA, BOBAN N Ot D53.9 NUTRITIONAL ANEMIA, UNSPECIFIED 05/12/2019 CLARISA, BOBAN N Ot E03.9 HYPOTHYROIDISM, UNSPECIFIED 05/12/2019 CLARISA, BOBAN N Ot 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, AORTIC 05/12/2019 CLARISA, BOBAN N Ot I25.10 ATHSCL HEART DISEASE OF [place] CORONARY 05/12/2019 CLARISA, BOBAN N Ot M81.0 AGE- RELATED OSTEOPOROSIS W/O CURRENT PAT 05/12/2019 CLARISA, BOBAN N Ot N18.3 CHRONIC KIDNEY DISEASE, STAGE 3 (MODERAT 05/12/2019 CLARISA, BOBAN N Ot Z79.899 OTHER PENITENTIARY (CURRENT) DRUG THERAPY 07/01/2019 CLARISA, BOBAN N Ot 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 07/01/2019 CLARISA, BOBAN N Ot 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 MYELOID LEUK, BCR/ABL-POSITIVE, 07/01/2019 CLARISA, BOBAN N Ot D53.9 NUTRITIONAL ANEMIA, UNSPECIFIED 07/01/2019 CLARISA, BOBAN N Ot E03.9 HYPOTHYROIDISM, UNSPECIFIED 07/01/2019 CLARISA, BOBAN N Ot 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, AORTIC 07/01/2019 CLARISA, BOBAN N Ot I25.10 ATHSCL HEART DISEASE OF [place] CORONARY 07/01/2019 CLARISA, BOBAN N Ot M81.0 AGE- RELATED OSTEOPOROSIS W/O CURRENT PAT 07/01/2019 CLARISA, BOBAN N Ot N18.3 CHRONIC KIDNEY DISEASE, STAGE 3 (MODERAT 07/01/2019 CLARISA, BOBAN N Ot Z79.899 OTHER STEEL FABRICATOR (CURRENT) DRUG THERAPY 07/03/2019 CLARISA, BOBAN N Ot 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 07/03/2019 CLARISA, BOBAN N Ot 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 MYELOID LEUK, BCR/ABL-POSITIVE, 07/03/2019 CLARISA, BOBAN N Ot D53.9 NUTRITIONAL ANEMIA, UNSPECIFIED 07/03/2019 CLARISA, BOBAN N Ot E03.9 HYPOTHYROIDISM, UNSPECIFIED 07/03/2019 CLARISA, BOBAN N Ot 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, AORTIC 07/03/2019 CLARISA, BOBAN N Ot I25.10 ATHSCL HEART DISEASE OF [place] CORONARY 07/03/2019 CLARISA, BOBAN N Ot M81.0 AGE- RELATED OSTEOPOROSIS W/O CURRENT PAT 07/03/2019 CLARISA, BOBAN N Ot N18.3 CHRONIC KIDNEY DISEASE, STAGE 3 (MODERAT 07/03/2019 CLARISA, BOBAN N Ot Z79.899 OTHER PENITENTIARY (CURRENT) DRUG THERAPY 07/28/2019 CLARISA, BOBAN N Ot 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 07/28/2019 CLARISA, BOBAN N Ot 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 MYELOID LEUK, BCR/ABL-POSITIVE, 07/28/2019 CLARISA, BOBAN N Ot D53.9 NUTRITIONAL ANEMIA, UNSPECIFIED 07/28/2019 CLARISA, BOBAN N Ot E03.9 HYPOTHYROIDISM, UNSPECIFIED 07/28/2019 CLARISA, BOBAN N Ot 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, AORTIC 07/28/2019 CLARISA, BOBAN N Ot I25.10 ATHSCL HEART DISEASE OF [place] CORONARY 07/28/2019 CLARISA, BOBAN N Ot M81.0 AGE- RELATED OSTEOPOROSIS W/O CURRENT PAT 07/28/2019 CLARISA, BOBAN N Ot N18.3 CHRONIC KIDNEY DISEASE, STAGE 3 (MODERAT 07/28/2019 CORRINE MCKENNA Ot Z79.899 OTHER PENITENTIARY (CURRENT) DRUG THERAPY Procedures Code Description Performed By Per formed On 99.15 PARE NTERAL INFUSION OF CONCENTRATED NUT. 01/15/2013 Results Test Result Range Complete blood count (CBC) with automate d white blood cell (WBC) differential - 01/20/16 11:48 Blood leukocytes automated count (number/volume) 9.0 10*3/uL 4.3-11.0 Blood erythrocytes automated count (number/volume) 3.27 10*6/uL 4.35-5.85 Venous blood hemoglobin measurement (mass/volume) 10.8 g/dL 11.5-16.0 Blood hematocrit (volume fraction) 32 % 35-52 Automated erythrocyte mean corpuscular volume 97 [ foz_us] 80-99 Automated erythrocyte mean corpuscular h emoglobin (mass per erythrocyte) 33 pg 25-34 Automated erythrocyte mean corpuscular h emoglobin concentration measurement (mass/volume) 34 g/dL 32-36 Automated erythrocyte distribution width ratio 13. 1 % 10.0- 14.5 Automated blood platelet count (count/volume) 223 10*3/uL [...] 10*3 1.0-4.0 Blood monocytes automated count (number/volume) 0. 8 10*3 0.0-1.0 Automated eosinophil count 0.2 10*3/uL 0 .0-0.3 Automated blood basophil count (count/volume) 0.0 10*3/uL 0.0-0.1 Comprehensive metabolic panel - 01/20/16 11:48 Serum or plasma sodium measurement (moles/volume) 133 mmol/L 135-145 Serum or plasma potassium measurement (moles/volume) 3.7 mmol/L 3.6-5.0 Serum or plasma chloride measurement (moles/volume) 99 mmol/L 98-107 Carbon dioxide 24 mmol/L 21-32 Serum or plasma anion gap determination (moles/volume) 10 mmol/L 5-14 Serum or plasma urea nitrogen measurement (mass/volume ) 9 mg/dL 7-18 Serum or plasma creatinine measurement (mass/volume) 0.82 mg/dL 0.60-1.30 Serum or plasma urea nitrogen/creatinine mass ratio 11 NRG Serum or plasma creatinine measurement w ith calculation of estimated glomerular filtration rate > NRG Serum or plasma glucose measurement (mass/volume) 97 mg/dL 70-105 Serum or plasma calcium measurement (mass/volume) 8.8 mg/dL 8.5-10.1 Serum or plasma total bilirubin measurement (mass/volu me) 0.8 mg/dL 0.1-1.0 Serum or plasma alkaline phosphatase holly surement (enzymatic activity/volume) 66 U/L 40-136 Serum or plasma aspartate aminotransfera se measurement (enzymatic activity/volume) 35 U/L 5-34 Serum or plasma alanine aminotransferase measurement (enzymatic activity/volume) 13 U/L 0-55 Serum or plasma protein measurement (mass/volume) 6.4 g/dL 6.4-8.2 Serum or plasma albumin measurement (mass/volume) 3.6 g/dL 3.2-4.5 Complete urinalysis with reflex to cultu re - 08/08/16 11:20 Urine color determination YELLOW NRG Urine clarity determination VERY CLOUDY NRG Urine pH measurement by test strip 6 5-9 Specific gravity of urine by test strip 1.020 1.016-1.022 Urine protein assay by test strip, semi-quantitative 3+ NEGATIVE Urine glucose detection by automated test strip NE GATIVE NEGATIVE Erythrocytes detection in urine sediment by light micr oscopy 4+ NEGATIVE Urine ketones detection by automated test strip 1+ NEGATIVE Urine nitrite detection by test strip POSITIVE NEGATIVE Urine total bilirubin detection by test strip 1+ NEGATIVE Urine urobilinogen measurement by automated test strip (mass/volume) 4 mg/dL NORMAL Urine leukocyte esterase detection by dipstick 3+ NEGATIVE Automated urine sediment erythrocyte cou nt by microscopy (number/high power field) [HPF] NRG Automated urine sediment leukocyte count by microscopy (number/high power field) [HPF] NRG Bacteria detection in urine sediment by light microsco py FEW NRG Crystals detection in urine sediment by light microsco py NONE NRG Casts detection in urine sediment by light microscopy NONE NRG Mucus detection in urine sediment by light microscopy SMALL NRG Complete urinalysis with reflex to culture YES NRG Bacterial urine culture - 08/08/16 11:20 Bacterial urine culture [id number] NRG COLONY COUNT 10,000/ML - 100,000/ML NRG FTX;REPORTABLE SENSITIVITY REPORTED 08/11/16 10:45 [facility] Bacterial susceptibility panel - 7 11:20 Gentamicin susceptibility test by minimum inhibitory c oncentration <= NRG Trimethoprim/sulfamethoxazole susceptibi lity test by minimum inhibitoryconcentration <= NRG Ampicillin susceptibility test by minimum inhibitory c oncentration >= NRG Tobramycin susceptibility test by minimum inhibitory c oncentration <= NRG Cefazolin susceptibility test by minimum inhibitory co ncentration <= NRG Ceftriaxone susceptibility test by minimum inhibitory concentration <= NRG Ampicillin/sulbactam susceptibility test by minimum inhibitory concentration >= NRG Piperacillin/tazobactam susceptibility t est by minimum inhibitory concentration <= NRG Ciprofloxacin susceptibility test by minimum inhibitor y concentration <= NRG Meropenem susceptibility test by minimum inhibitory co ncentration <= NRG Nitrofurantoin susceptibility test by mi nimum inhibitory concentration <= NRG Aztreonam susceptibility test by minimum inhibitory co ncentration <= NRG Extended spectrum beta lactamase (ESBL) producing bacteria susceptibility test by minimum inhibitory concentration - [facility] Bacterial susceptibility panel - 7 11:20 Gentamicin susceptibility test by minimum inhibitory c oncentration SYN-S NRG Erythromycin susceptibility test by minimum inhibitory concentration >= NRG Vancomycin susceptibility test by minimum inhibitory c oncentration 2 NRG Levofloxacin susceptibility test by minimum inhibitory concentration 0.5 NRG Tetracycline susceptibility test by minimum inhibitory concentration >= NRG Ampicillin susceptibility test by minimum inhibitory c oncentration <= NRG Nitrofurantoin susceptibility test by mi nimum inhibitory concentration <= NRG Linezolid susceptibility test by minimum inhibitory co ncentration 2 NRG Penicillin G susceptibility test by minimum inhibitory concentration 2 NRG Tigecycline susceptibility test by minimum inhibitory concentration <= NRG Bacterial urine culture - 09/13/16 14:10 Bacterial urine culture [id number] NRG COLONY COUNT >100,000/ML NRG FTX;REPORTABLE SENSITIVITY REPORTED AT 1713, 7-27- 17 NRG URINE CULTURE RESULTS PLUS NRG Bacterial susceptibility panel - 7 14:10 Gentamicin susceptibility test by minimum inhibitory c oncentration <= NRG Trimethoprim/sulfamethoxazole susceptibi lity test by minimum inhibitoryconcentration <= NRG Ampicillin susceptibility test by minimum inhibitory c oncentration >= NRG Tobramycin susceptibility test by minimum inhibitory c oncentration <= NRG Cefazolin susceptibility test by minimum inhibitory co ncentration <= NRG Ceftriaxone susceptibility test by minimum inhibitory concentration <= NRG Ampicillin/sulbactam susceptibility test by minimum inhibitory concentration 4 NRG Piperacillin/tazobactam susceptibility t est by minimum inhibitory concentration <= NRG Ciprofloxacin susceptibility test by minimum inhibitor y concentration <= NRG Meropenem susceptibility test by minimum inhibitory co ncentration <= NRG Nitrofurantoin susceptibility test by mi nimum inhibitory concentration 64 NRG Aztreonam susceptibility test by minimum inhibitory co ncentration <= NRG Extended spectrum beta lactamase (ESBL) producing bacteria susceptibility test by minimum inhibitory concentration - NRG Complete urinalysis with reflex to cultu re - 11/14/17 12:55 Urine color determination YELLOW NRG Urine clarity determination VERY CLOUDY NRG Urine pH measurement by test strip 7 5-9 Specific gravity of urine by test strip 1.005 1.016-1.022 Urine protein assay by test strip, semi-quantitative 1+ NEGATIVE Urine glucose detection by automated test strip NE GATIVE NEGATIVE Erythrocytes detection in urine sediment by light micr oscopy NEGATIVE NEGATIVE Urine ketones detection by automated test strip 2+ NEGATIVE Urine nitrite detection by test strip NEGATIVE NEGATIVE Urine total bilirubin detection by test strip NEGA TIVE NEGATIVE Urine urobilinogen measurement by automated test strip (mass/volume) NORMAL NORMAL Urine leukocyte esterase detection by dipstick 3+ NEGATIVE Automated urine sediment erythrocyte cou nt by microscopy (number/high power field) [HPF] NRG Automated urine sediment leukocyte count by microscopy (number/high power field) > [HPF] NRG Bacteria detection in urine sediment by light microsco py MODERATE NRG Squamous epithelial cells detection in u rine sediment by light microscopy 0-2 NRG Crystals detection in urine sediment by light microsco py NONE NRG Casts detection in urine sediment by light microscopy NONE NRG Mucus detection in urine sediment by light microscopy NEGATIVE NRG Complete urinalysis with reflex to culture YES NRG Bacterial urine culture - 11/14/17 12:55 Bacterial urine culture [id number] NRG COLONY COUNT >100,000/ML NRG FTX;REPORTABLE SUSCEPTIBILITY REPORTED 11-16-2017, 1505 NRG FREE TEXT ENTRY 2 FINAL REPORT 11-16-2017, 1505 NRG RML Sensitivity Panel - 11/14/17 12:55 Gentamicin susceptibility test by minimum inhibitory c oncentration <= NRG Trimethoprim/sulfamethoxazole susceptibi lity test by minimum inhibitoryconcentration > NRG Levofloxacin susceptibility test by minimum inhibitory concentration <= NRG Ampicillin susceptibility test by minimum inhibitory c oncentration > NRG Cefazolin susceptibility test by minimum inhibitory co ncentration 8 NRG Ceftriaxone susceptibility test by minimum inhibitory concentration <= NRG Ciprofloxacin susceptibility test by minimum inhibitor y concentration <= NRG Meropenem susceptibility test by minimum inhibitory co ncentration <= NRG Nitrofurantoin susceptibility test by mi nimum inhibitory concentration <= NRG Amoxicillin and clavulanate potassium susc JAZLYN = NRG Automated blood complete blood count (he mogram) panel - 11/26/17 12:20 Blood leukocytes automated count (number/volume) 6.9 10*3/uL 4.3-11.0 Blood erythrocytes automated count (number/volume) 2.71 10*6/uL 4.35-5.85 Venous blood hemoglobin measurement (mass/volume) 9.0 g/dL 11.5-16.0 Blood hematocrit (volume fraction) 25 % 35-52 Automated erythrocyte mean corpuscular volume 94 [ foz_us] 80-99 Automated erythrocyte mean corpuscular h emoglobin (mass per erythrocyte) 33 pg 25-34 Automated erythrocyte mean corpuscular h emoglobin concentration measurement (mass/volume) 35 g/dL 32-36 Automated erythrocyte distribution width ratio 13. 0 % 10.0- 14.5 Automated blood platelet count (count/volume) 216 10*3/uL 130-400 Automated blood platelet mean volume measurement 10.1 [foz_us] 7.4-10.4 Comprehensive metabolic panel - 11/26/17 12:20 Serum or plasma sodium measurement (moles/volume) 133 mmol/L 135-145 Serum or plasma potassium measurement (moles/volume) 4.5 mmol/L 3.6-5.0 Serum or plasma chloride measurement (moles/volume) 104 mmol/L 98-107 Carbon dioxide 19 mmol/L 21-32 Serum or plasma anion gap determination (moles/volume) 10 mmol/L 5-14 Serum or plasma urea nitrogen measurement (mass/volume ) 14 mg/dL 7-18 Serum or plasma creatinine measurement (mass/volume) 2.76 mg/dL 0.60-1.30 Serum or plasma urea nitrogen/creatinine mass ratio 5 NRG Serum or plasma creatinine measurement w ith calculation of estimated glomerular filtration rate 16 NRG Serum or plasma glucose measurement (mass/volume) 94 mg/dL 70-105 Serum or plasma calcium measurement (mass/volume) 9.0 mg/dL 8.5-10.1 Serum or plasma total bilirubin measurement (mass/volu me) 0.6 mg/dL 0.1-1.0 Serum or plasma alkaline phosphatase holly surement (enzymatic activity/volume) 66 U/L 40-136 Serum or plasma aspartate aminotransfera se measurement (enzymatic activity/volume) 24 U/L 5-34 Serum or plasma alanine aminotransferase measurement (enzymatic activity/volume) 11 U/L 0-55 Serum or plasma protein measurement (mass/volume) 6.5 g/dL 6.4-8.2 Serum or plasma albumin measurement (mass/volume) 3.5 g/dL 3.2-4.5 CALCIUM CORRECTED 9.4 mg/dL 8.5-10.1 Bacterial urine culture - 11/26/17 12:30 Bacterial urine culture NG NRG Whole blood basic metabolic panel - 11/19 10:40 Serum or plasma sodium measurement (moles/volume) 133 mmol/L 135-145 Serum or plasma potassium measurement (moles/volume) 3.9 mmol/L 3.6-5.0 Serum or plasma chloride measurement (moles/volume) 106 mmol/L 98-107 Carbon dioxide 18 mmol/L 21-32 Serum or plasma anion gap determination (moles/volume) 9 mmol/L 5-14 Serum or plasma urea nitrogen measurement (mass/volume ) 15 mg/dL 7-18 Serum or plasma creatinine measurement (mass/volume) 2.60 mg/dL 0.60-1.30 Serum or plasma urea nitrogen/creatinine mass ratio 6 NRG Serum or plasma creatinine measurement w ith calculation of estimated glomerular filtration rate 17 NRG Serum or plasma glucose measurement (mass/volume) 89 mg/dL 70-105 Serum or plasma calcium measurement (mass/volume) 8.8 mg/dL 8.5-10.1 Complete blood count (CBC) with automate d white blood cell (WBC) differential - 12/03/17 11:40 Blood leukocytes automated count (number/volume) 5.3 10*3/uL 4.3-11.0 Blood erythrocytes automated count (number/volume) 2.80 10*6/uL 4.35-5.85 Venous blood hemoglobin measurement (mass/volume) 9.3 g/dL 11.5-16.0 Blood hematocrit (volume fraction) 26 % 35-52 Automated erythrocyte mean corpuscular volume 92 [ foz_us] 80-99 Automated erythrocyte mean corpuscular h emoglobin (mass per erythrocyte) 33 pg 25-34 Automated erythrocyte mean corpuscular h emoglobin concentration measurement (mass/volume) 36 g/dL 32-36 Automated erythrocyte distribution width ratio 12. 9 % 10.0- 14.5 Automated blood platelet count (count/volume) 315 10*3/uL 130-400 Automated blood platelet mean volume measurement 9.8 [foz_us] 7.4-10.4 Automated blood neutrophils/100 leukocytes 63 % 42-75 Automated blood lymphocytes/100 leukocytes 24 % 12-44 Blood monocytes/100 leukocytes 10 % 0-12 Automated blood eosinophils/100 leukocytes 2 % 0-10 Automated blood basophils/100 leukocytes 0 % 0-10 Blood neutrophils automated count (number/volume) 3.3 10*3 1.8-7.8 Blood lymphocytes automated count (number/volume) 1.3 10*3 1.0-4.0 Blood monocytes automated count (number/volume) 0. 5 10*3 0.0-1.0 Automated eosinophil count 0.1 10*3/uL 0 .0-0.3 Automated blood basophil count (count/volume) 0.0 10*3/uL 0.0-0.1 Comprehensive metabolic panel - 12/03/17 11:40 Serum or plasma sodium measurement (moles/volume) 138 mmol/L 135-145 Serum or plasma potassium measurement (moles/volume) 4.0 mmol/L 3.6-5.0 Serum or plasma chloride measurement (moles/volume) 104 mmol/L 98-107 Carbon dioxide 19 mmol/L 21-32 Serum or plasma anion gap determination (moles/volume) 15 mmol/L 5-14 Serum or plasma urea nitrogen measurement (mass/volume ) 14 mg/dL 7-18 Serum or plasma creatinine measurement (mass/volume) 2.88 mg/dL 0.60-1.30 Serum or plasma urea nitrogen/creatinine mass ratio 5 NRG Serum or plasma creatinine measurement w ith calculation of estimated glomerular filtration rate 15 NRG Serum or plasma glucose measurement (mass/volume) 99 mg/dL 70-105 Serum or plasma calcium measurement (mass/volume) 9.4 mg/dL 8.5-10.1 Serum or plasma total bilirubin measurement (mass/volu me) 0.5 mg/dL 0.1-1.0 Serum or plasma alkaline phosphatase holly surement (enzymatic activity/volume) 73 U/L 40-136 Serum or plasma aspartate aminotransfera se measurement (enzymatic activity/volume) 18 U/L 5-34 Serum or plasma alanine aminotransferase measurement (enzymatic activity/volume) 11 U/L 0-55 Serum or plasma protein measurement (mass/volume) 7.3 g/dL 6.4-8.2 Serum or plasma albumin measurement (mass/volume) 3.8 g/dL 3.2-4.5 CALCIUM CORRECTED 9.6 mg/dL 8.5-10.1 Complete urinalysis with reflex to cultu re - 12/06/17 11:00 Urine color determination YELLOW NRG Urine clarity determination SLIGHTLY CLOUDY NRG Urine pH measurement by test strip 5 5-9 Specific gravity of urine by test strip 1.010 1.016-1.022 Urine protein assay by test strip, semi-quantitative 1+ NEGATIVE Urine glucose detection by automated test strip NE GATIVE NEGATIVE Erythrocytes detection in urine sediment by light micr oscopy NEGATIVE NEGATIVE Urine ketones detection by automated test strip 1+ NEGATIVE Urine nitrite detection by test strip NEGATIVE NEGATIVE Urine total bilirubin detection by test strip NEGA TIVE NEGATIVE Urine urobilinogen measurement by automated test strip (mass/volume) NORMAL NORMAL Urine leukocyte esterase detection by dipstick 2+ NEGATIVE Automated urine sediment erythrocyte cou nt by microscopy (number/high power field) [HPF] NRG Automated urine sediment leukocyte count by microscopy (number/high power field) [HPF] NRG Bacteria detection in urine sediment by light microsco py MODERATE NRG Squamous epithelial cells detection in u rine sediment by light microscopy 2-5 NRG Crystals detection in urine sediment by light microsco py NONE NRG Casts detection in urine sediment by light microscopy NONE NRG Mucus detection in urine sediment by light microscopy NEGATIVE NRG Complete urinalysis with reflex to culture YES NRG Bacterial urine culture - 12/06/17 11:00 Bacterial urine culture SEE COMMEN NRG COLONY COUNT . NRG FTX;REPORTABLE SENSITIVITY REPORTED 12/07/17 13:05 NRG RML Sensitivity Panel - 12/06/17 11:00 Gentamicin susceptibility test by minimum inhibitory c oncentration > NRG Trimethoprim/sulfamethoxazole susceptibi lity test by minimum inhibitoryconcentration > NRG Levofloxacin susceptibility test by minimum inhibitory concentration <= NRG Ampicillin susceptibility test by minimum inhibitory c oncentration > NRG Cefazolin susceptibility test by minimum inhibitory co ncentration 8 NRG Ceftriaxone susceptibility test by minimum inhibitory concentration <= NRG Ciprofloxacin susceptibility test by minimum inhibitor y concentration <= NRG Meropenem susceptibility test by minimum inhibitory co ncentration <= NRG Nitrofurantoin susceptibility test by mi nimum inhibitory concentration <= NRG Amoxicillin and clavulanate potassium susc JAZLYN > NRG Complete blood count (CBC) with automate d white blood cell (WBC) differential - 12/06/17 11:15 Blood leukocytes automated count (number/volume) 4.5 10*3/uL 4.3-11.0 Blood erythrocytes automated count (number/volume) 2.93 10*6/uL 4.35-5.85 Venous blood hemoglobin measurement (mass/volume) 9.4 g/dL 11.5-16.0 Blood hematocrit (volume fraction) 27 % 35-52 Automated erythrocyte mean corpuscular volume 94 [ foz_us] 80-99 Automated erythrocyte mean corpuscular h emoglobin (mass per erythrocyte) 32 pg 25-34 Automated erythrocyte mean corpuscular h emoglobin concentration measurement (mass/volume) 34 g/dL 32-36 Automated erythrocyte distribution width ratio 13. 0 % 10.0- 14.5 Automated blood platelet count (count/volume) 386 10*3/uL 130-400 Automated blood platelet mean volume measurement 10.1 [foz_us] 7.4-10.4 Automated blood neutrophils/100 leukocytes 61 % 42-75 Automated blood lymphocytes/100 leukocytes 28 % 12-44 Blood monocytes/100 leukocytes 8 % 0-12 Automated blood eosinophils/100 leukocytes 3 % 0-10 Automated blood basophils/100 leukocytes 0 % 0-10 Blood neutrophils automated count (number/volume) 2.7 10*3 1.8-7.8 Blood lymphocytes automated count (number/volume) 1.2 10*3 1.0-4.0 Blood monocytes automated count (number/volume) 0. 3 10*3 0.0-1.0 Automated eosinophil count 0.2 10*3/uL 0 .0-0.3 Automated blood basophil count (count/volume) 0.0 10*3/uL 0.0-0.1 Comprehensive metabolic panel - 12/06/17 11:15 Serum or plasma sodium measurement (moles/volume) 140 mmol/L 135-145 Serum or plasma potassium measurement (moles/volume) 3.7 mmol/L 3.6-5.0 Serum or plasma chloride measurement (moles/volume) 107 mmol/L 98-107 Carbon dioxide 20 mmol/L 21-32 Serum or plasma anion gap determination (moles/volume) 13 mmol/L 5-14 Serum or plasma urea nitrogen measurement (mass/volume ) 16 mg/dL 7-18 Serum or plasma creatinine measurement (mass/volume) 2.62 mg/dL 0.60-1.30 Serum or plasma urea nitrogen/creatinine mass ratio 6 NRG Serum or plasma creatinine measurement w ith calculation of estimated glomerular filtration rate 17 NRG Serum or plasma glucose measurement (mass/volume) 90 mg/dL 70-105 Serum or plasma calcium measurement (mass/volume) 9.3 mg/dL 8.5-10.1 Serum or plasma total bilirubin measurement (mass/volu me) 0.4 mg/dL 0.1-1.0 Serum or plasma alkaline phosphatase holly surement (enzymatic activity/volume) 74 U/L 40-136 Serum or plasma aspartate aminotransfera se measurement (enzymatic activity/volume) 19 U/L 5-34 Serum or plasma alanine aminotransferase measurement (enzymatic activity/volume) 8 U/L 0-55 Serum or plasma protein measurement (mass/volume) 7.7 g/dL 6.4-8.2 Serum or plasma albumin measurement (mass/volume) 3.9 g/dL 3.2-4.5 CALCIUM CORRECTED 9.4 mg/dL 8.5-10.1 Magnesium - 12/06/17 11:15 Magnesium 1.8 mg/dL 1.8-2.4 Serum or plasma creatine kinase measurem ent (enzymatic activity/volume) - 12/06/17 11:15 Serum or plasma creatine kinase measurem ent (enzymatic activity/volume) 109 U/L 29-168 Serum or plasma creatine kinase MB measu rement (enzymatic activity/volume) - 12/06/17 11:15 Serum or plasma creatine kinase MB measu rement (enzymatic activity/volume) 2.0 ng/mL <6.6 Serum or plasma thyrotropin measurement by detection limit <=0.05 miu/l (units/volume) - 12/06/17 11:15 Serum or plasma thyrotropin measurement by detection limit <=0.05 miu/l (units/volume) 2.70 u[iU]/mL 0.35-4.94 Serum or plasma troponin i.cardiac measu rement (mass/volume) - 12/06/17 11:15 Serum or plasma troponin i.cardiac measurement (mass/v olume) < ng/mL <0.30 Serum or plasma thyrotropin measurement by detection limit <=0.05 miu/l (units/volume) - 12/06/17 11:15 Serum or plasma thyrotropin measurement by detection limit <=0.05 miu/l (units/volume) 2.70 u[iU]/mL 0.35-4.94 Complete blood count (CBC) with automate d white blood cell (WBC) differential - 02/01/18 14:49 Blood leukocytes automated count (number/volume) 4.9 10*3/uL 4.3-11.0 Blood erythrocytes automated count (number/volume) 2.73 10*6/uL 4.35-5.85 Venous blood hemoglobin measurement (mass/volume) 8.7 g/dL 11.5-16.0 Blood hematocrit (volume fraction) 26 % 35-52 Automated erythrocyte mean corpuscular volume 96 [ foz_us] 80-99 Automated erythrocyte mean corpuscular h emoglobin (mass per erythrocyte) 32 pg 25-34 Automated erythrocyte mean corpuscular h emoglobin concentration measurement (mass/volume) 33 g/dL 32-36 Automated erythrocyte distribution width ratio 13. 5 % 10.0- 14.5 Automated blood platelet count (count/volume) 236 10*3/uL 130-400 Automated blood platelet mean volume measurement 10.5 [foz_us] 7.4-10.4 Automated blood neutrophils/100 leukocytes 57 % 42-75 Automated blood lymphocytes/100 leukocytes 29 % 12-44 Blood monocytes/100 leukocytes 10 % 0-12 Automated blood eosinophils/100 leukocytes 3 % 0-10 Automated blood basophils/100 leukocytes 0 % 0-10 Blood neutrophils automated count (number/volume) 2.8 10*3 1.8-7.8 Blood lymphocytes automated count (number/volume) 1.4 10*3 1.0-4.0 Blood monocytes automated count (number/volume) 0. 5 10*3 0.0-1.0 Automated eosinophil count 0.2 10*3/uL 0 .0-0.3 Automated blood basophil count (count/volume) 0.0 10*3/uL 0.0-0.1 Complete urinalysis with reflex to cultu re - 02/01/18 14:49 Urine color determination YELLOW NRG Urine clarity determination SLIGHTLY CLOUDY NRG Urine pH measurement by test strip 5 5-9 Specific gravity of urine by test strip 1.015 1.016-1.022 Urine protein assay by test strip, semi-quantitative 1+ NEGATIVE Urine glucose detection by automated test strip NE GATIVE NEGATIVE Erythrocytes detection in urine sediment by light micr oscopy NEGATIVE NEGATIVE Urine ketones detection by automated test strip NE GATIVE NEGATIVE Urine nitrite detection by test strip NEGATIVE NEGATIVE Urine total bilirubin detection by test strip NEGA TIVE NEGATIVE Urine urobilinogen measurement by automated test strip (mass/volume) NORMAL NORMAL Urine leukocyte esterase detection by dipstick 1+ NEGATIVE Automated urine sediment erythrocyte cou nt by microscopy (number/high power field) NONE NRG Automated urine sediment leukocyte count by microscopy (number/high power field) RARE NRG Bacteria detection in urine sediment by light microsco py NEGATIVE NRG Squamous epithelial cells detection in u rine sediment by light microscopy NONE NRG Crystals detection in urine sediment by light microsco py NONE NRG Casts detection in urine sediment by light microscopy NONE NRG Mucus detection in urine sediment by light microscopy NEGATIVE NRG Complete urinalysis with reflex to culture NO NRG Urine protein/creatinine mass ratio - 14:49 Urine protein measurement (mass/volume) 16 mg/dL 6-12 Urine creatinine measurement (mass/volume) 78 mg/d L 30-125 Urine protein/creatinine mass ratio 0.21 NRG Serum or plasma renal function panel (Na , K, Cl, CO2, BUN, Cr, glucose,Ca, phos, alb) - 02/01/18 14:49 Serum or plasma sodium measurement (moles/volume) 136 mmol/L 135-145 Serum or plasma potassium measurement (moles/volume) 4.1 mmol/L 3.6-5.0 Serum or plasma chloride measurement (moles/volume) 102 mmol/L 98-107 Carbon dioxide 25 mmol/L 21-32 Serum or plasma anion gap determination (moles/volume) 9 mmol/L 5-14 Serum or plasma urea nitrogen measurement (mass/volume ) 22 mg/dL 7-18 Serum or plasma creatinine measurement (mass/volume) 1.64 mg/dL 0.60-1.30 Serum or plasma urea nitrogen/creatinine mass ratio 13 NRG Serum or plasma creatinine measurement w ith calculation of estimated glomerular filtration rate 30 NRG Serum or plasma glucose measurement (mass/volume) 97 mg/dL 70-105 Serum or plasma calcium measurement (mass/volume) 9.0 mg/dL 8.5-10.1 Serum or plasma albumin measurement (mass/volume) 3.7 g/dL 3.2-4.5 Serum or plasma phosphate measurement (mass/volume) 3.9 mg/dL 2.3-4.7 Serum or plasma uric acid measurement (m ass/volume) - 02/01/18 14:49 Serum or plasma uric acid measurement (mass/volume) 5.8 mg/dL 2.6-7.2 Magnesium - 02/01/18 14:49 Magnesium 1.9 mg/dL 1.8-2.4 Lipid 1996 panel - 02/01/18 14:49 Serum or plasma triglyceride measurement (mass/volume) 153 mg/dL <150 Serum or plasma cholesterol measurement (mass/volume) 164 mg/dL < 200 Serum or plasma cholesterol in HDL measurement (mass/v olume) 52 mg/dL 40-60 Cholesterol in LDL [mass/volume] in serum or plasma by direct assay 90 mg/dL 1-129 Serum or plasma cholesterol in VLDL measurement (mass/ volume) 31 mg/dL 5-40 Serum iron and total iron binding capaci ty panel - 02/01/18 14:49 Serum or plasma iron measurement (mass/volume) 33 % 35-180 Total iron binding capacity and transferrin saturation measurement 13 % 15-50 Iron binding capacity [mass/volume] in serum or plasma 261 % 280-380 UIBC (unsaturated iron binding capacity) 228 % 55-450 Serum or plasma ferritin measurement (mass/volume) 50.2 % 20.0-177.0 Serum or plasma intact pararthyroid horm one measurement (mass/volume) - 02/01/18 14:49 Serum or plasma intact parathyroid hormone measurement (mass/volume) 149.8 pg/mL 9.0-77.0 Bio-intact parathyroid hormone (PTH) measurement with calcium 9.2 % 8.5-10.5 VITAMIN D 25-HYDROXY - 02/01/18 14:49 VITAMIN D 25-HYDROXY (TOTAL) 41.5 % 3 0.0-100.0 Complete blood count (CBC) with automate d white blood cell (WBC) differential - 07/04/18 16:28 Blood leukocytes automated count (number/volume) 4.5 10*3/uL 4.3-11.0 Blood erythrocytes automated count (number/volume) 2.53 10*6/uL 4.35-5.85 Venous blood hemoglobin measurement (mass/volume) 8.6 g/dL 11.5-16.0 Blood hematocrit (volume fraction) 26 % 35-52 Automated erythrocyte mean corpuscular volume 101 [foz_us] 80-99 Automated erythrocyte mean corpuscular h emoglobin (mass per erythrocyte) 34 pg 25-34 Automated erythrocyte mean corpuscular h emoglobin concentration measurement (mass/volume) 34 g/dL 32-36 Automated erythrocyte distribution width ratio 12. 9 % 10.0- 14.5 Automated blood platelet count (count/volume) 152 10*3/uL 130-400 Automated blood platelet mean volume measurement 10.3 [foz_us] 7.4-10.4 Automated blood neutrophils/100 leukocytes 58 % 42-75 Automated blood lymphocytes/100 leukocytes 28 % 12-44 Blood monocytes/100 leukocytes 10 % 0-12 Automated blood eosinophils/100 leukocytes 4 % 0-10 Automated blood basophils/100 leukocytes 0 % 0-10 Blood neutrophils automated count (number/volume) 2.6 10*3 1.8-7.8 Blood lymphocytes automated count (number/volume) 1.3 10*3 1.0-4.0 Blood monocytes automated count (number/volume) 0. 5 10*3 0.0-1.0 Automated eosinophil count 0.2 10*3/uL 0 .0-0.3 Automated blood basophil count (count/volume) 0.0 10*3/uL 0.0-0.1 Comprehensive metabolic panel - 07/04/18 16:28 Serum or plasma sodium measurement (moles/volume) 137 mmol/L 135-145 Serum or plasma potassium measurement (moles/volume) 4.7 mmol/L 3.6-5.0 Serum or plasma chloride measurement (moles/volume) 107 mmol/L 98-107 Carbon dioxide 22 mmol/L 21-32 Serum or plasma anion gap determination (moles/volume) 8 mmol/L 5-14 Serum or plasma urea nitrogen measurement (mass/volume ) 16 mg/dL 7-18 Serum or plasma creatinine measurement (mass/volume) 1.52 mg/dL 0.60-1.30 Serum or plasma urea nitrogen/creatinine mass ratio 11 NRG Serum or plasma creatinine measurement w ith calculation of estimated glomerular filtration rate 32 NRG Serum or plasma glucose measurement (mass/volume) 84 mg/dL 70-105 Serum or plasma calcium measurement (mass/volume) 8.2 mg/dL 8.5-10.1 Serum or plasma total bilirubin measurement (mass/volu me) 0.3 mg/dL 0.1-1.0 Serum or plasma alkaline phosphatase holly surement (enzymatic activity/volume) 64 U/L 40-136 Serum or plasma aspartate aminotransfera se measurement (enzymatic activity/volume) 31 U/L 5-34 Serum or plasma alanine aminotransferase measurement (enzymatic activity/volume) 15 U/L 0-55 Serum or plasma protein measurement (mass/volume) 6.1 g/dL 6.4-8.2 Serum or plasma albumin measurement (mass/volume) 3.4 g/dL 3.2-4.5 CALCIUM CORRECTED 8.7 mg/dL 8.5-10.1 Serum or plasma lithium measurement (mol es/volume) - 07/04/18 16:28 BNP level 356.8 pg/mL <100.0 THYROID STIMULATING HORMONE - 07/04/18 1 6:28 THYROID STIMULATING HORMONE 2.55 u[iU]/mL 0.35-4.94 Complete blood count (CBC) with automate d white blood cell (WBC) differential - 08/29/18 13:37 Blood leukocytes automated count (number/volume) 7.2 10*3/uL 4.3-11.0 Blood erythrocytes automated count (number/volume) 3.26 10*6/uL 4.35-5.85 Venous blood hemoglobin measurement (mass/volume) 10.2 g/dL 11.5-16.0 Blood hematocrit (volume fraction) 31 % 35-52 Automated erythrocyte mean corpuscular volume 95 [ foz_us] 80-99 Automated erythrocyte mean corpuscular h emoglobin (mass per erythrocyte) 31 pg 25-34 Automated erythrocyte mean corpuscular h emoglobin concentration measurement (mass/volume) 33 g/dL 32-36 Automated erythrocyte distribution width ratio 14. 2 % 10.0- 14.5 Automated blood platelet count (count/volume) 220 10*3/uL 130-400 Automated blood platelet mean volume measurement 10.4 [foz_us] 7.4-10.4 Automated blood neutrophils/100 leukocytes 55 % 42-75 Automated blood lymphocytes/100 leukocytes 31 % 12-44 Blood monocytes/100 leukocytes 9 % 0-12 Automated blood eosinophils/100 leukocytes 4 % 0-10 Automated blood basophils/100 leukocytes 0 % 0-10 Blood neutrophils automated count (number/volume) 4.0 10*3 1.8-7.8 Blood lymphocytes automated count (number/volume) 2.3 10*3 1.0-4.0 Blood monocytes automated count (number/volume) 0. 7 10*3 0.0-1.0 Automated eosinophil count 0.3 10*3/uL 0 .0-0.3 Automated blood basophil count (count/volume) 0.0 10*3/uL 0.0-0.1 Comprehensive metabolic panel - 08/29/18 13:37 Serum or plasma sodium measurement (moles/volume) 136 mmol/L 135-145 Serum or plasma potassium measurement (moles/volume) 4.2 mmol/L 3.6-5.0 Serum or plasma chloride measurement (moles/volume) 102 mmol/L 98-107 Carbon dioxide 26 mmol/L 21-32 Serum or plasma anion gap determination (moles/volume) 8 mmol/L 5-14 Serum or plasma urea nitrogen measurement (mass/volume ) 23 mg/dL 7-18 Serum or plasma creatinine measurement (mass/volume) 1.93 mg/dL 0.60-1.30 Serum or plasma urea nitrogen/creatinine mass ratio 12 NRG Serum or plasma creatinine measurement w ith calculation of estimated glomerular filtration rate 25 NRG Serum or plasma glucose measurement (mass/volume) 81 mg/dL 70-105 Serum or plasma calcium measurement (mass/volume) 8.6 mg/dL 8.5-10.1 Serum or plasma total bilirubin measurement (mass/volu me) 0.4 mg/dL 0.1-1.0 Serum or plasma alkaline phosphatase holly surement (enzymatic activity/volume) 87 U/L 40-136 Serum or plasma aspartate aminotransfera se measurement (enzymatic activity/volume) 27 U/L 5-34 Serum or plasma alanine aminotransferase measurement (enzymatic activity/volume) 12 U/L 0-55 Serum or plasma protein measurement (mass/volume) 7.0 g/dL 6.4-8.2 Serum or plasma albumin measurement (mass/volume) 3.6 g/dL 3.2-4.5 CALCIUM CORRECTED 8.9 mg/dL 8.5-10.1 Serum ragweed IgE antibody assay - 08/29 13:37 Serum ragweed IgE antibody assay 175 U/L 125-220 BCR-ABL gene translocation detection - 0 08/29/18 13:37 [id number] Blood [facility] Blood or tissue t(9;22)(q34.1;q11)(ABL1, BCR) b2a2+b3a2 fusion transcript count by molecular genetics method (number/volume) See Report [facility] Automated blood complete blood count (he mogram) panel - 04/02/19 11:55 Blood leukocytes automated count (number/volume) 4.3 10*3/uL 4.3-11.0 Blood erythrocytes automated count (number/volume) 3.04 10*6/uL 4.35-5.85 Venous blood hemoglobin measurement (mass/volume) 10.0 g/dL 11.5-16.0 Blood hematocrit (volume fraction) 30 % 35-52 Automated erythrocyte mean corpuscular volume 100 [foz_us] 80-99 Automated erythrocyte mean corpuscular h emoglobin (mass per erythrocyte) 33 pg 25-34 Automated erythrocyte mean corpuscular h emoglobin concentration measurement (mass/volume) 33 g/dL 32-36 Automated erythrocyte distribution width ratio 12. 8 % 10.0- 14.5 Automated blood platelet count (count/volume) 244 10*3/uL 130-400 Automated blood platelet mean volume measurement 9.3 [foz_us] 7.4-10.4 Serum or plasma renal function panel (Na , K, Cl, CO2, BUN, Cr, glucose,Ca, phos, alb) - 04/02/19 11:55 Serum or plasma sodium measurement (moles/volume) 134 mmol/L 135-145 Serum or plasma potassium measurement (moles/volume) 4.4 mmol/L 3.6-5.0 Serum or plasma chloride measurement (moles/volume) 101 mmol/L 98-107 Carbon dioxide 25 mmol/L 21-32 Serum or plasma anion gap determination (moles/volume) 8 mmol/L 5-14 Serum or plasma urea nitrogen measurement (mass/volume ) 13 mg/dL 7-18 Serum or plasma creatinine measurement (mass/volume) 1.54 mg/dL 0.60-1.30 Serum or plasma urea nitrogen/creatinine mass ratio 8 NRG Serum or plasma creatinine measurement w ith calculation of estimated glomerular filtration rate 32 NRG Serum or plasma glucose measurement (mass/volume) 84 mg/dL 70-105 Serum or plasma calcium measurement (mass/volume) 8.9 mg/dL 8.5-10.1 Serum or plasma albumin measurement (mass/volume) 3.7 g/dL 3.2-4.5 Serum or plasma phosphate measurement (mass/volume) 4.0 mg/dL 2.3-4.7 Serum or plasma uric acid measurement (m ass/volume) - 04/02/19 11:55 Serum or plasma uric acid measurement (mass/volume) 6.1 mg/dL 2.6-7.2 Serum or plasma intact pararthyroid horm one measurement (mass/volume) - 04/02/19 11:55 Serum or plasma intact parathyroid hormone measurement (mass/volume) 138.4 pg/mL 9.0-77.0 Bio-intact parathyroid hormone (PTH) measurement with calcium 9.0 % 8.5-10.5 VITAMIN D 25-HYDROXY - 04/02/19 11:55 VITAMIN D 25-HYDROXY (TOTAL) 48.7 % 3 0.0-100.0 Complete urinalysis with reflex to cultu re - 04/02/19 13:50 Urine color determination YELLOW NRG Urine clarity determination CLEAR NR G Urine pH measurement by test strip 6.0 5-9 Specific gravity of urine by test strip 1.020 1.016-1.022 Urine protein assay by test strip, semi-quantitative TRACE NEGATIVE Urine glucose detection by automated test strip NE GATIVE NEGATIVE Erythrocytes detection in urine sediment by light micr oscopy NEGATIVE NEGATIVE Urine ketones detection by automated test strip NE GATIVE NEGATIVE Urine nitrite detection by test strip POSITIVE NEGATIVE Urine total bilirubin detection by test strip NEGA TIVE NEGATIVE Urine urobilinogen measurement by automated test strip (mass/volume) 0.2 mg/dL < = 1.0 Urine leukocyte esterase detection by dipstick TRA CE NEGATIVE Automated urine sediment erythrocyte cou nt by microscopy (number/high power field) NONE NRG Automated urine sediment leukocyte count by microscopy (number/high power field) [HPF] NRG Bacteria detection in urine sediment by light microsco py LARGE NRG Squamous epithelial cells detection in u rine sediment by light microscopy 0-2 NRG Crystals detection in urine sediment by light microsco py NONE NRG Casts detection in urine sediment by light microscopy NONE NRG Mucus detection in urine sediment by light microscopy NEGATIVE NRG Complete urinalysis with reflex to culture YES NRG Urine protein/creatinine mass ratio - 13:50 Urine protein measurement (mass/volume) 20 mg/dL 6-12 Urine creatinine measurement (mass/volume) 116 mg/ dL 30-125 Urine protein/creatinine mass ratio 0.17 NRG Bacterial urine culture - 04/02/19 13:50 Bacterial urine culture [id number] NRG COLONY COUNT <10,000 NRG FTX;REPORTABLE SUSCEPTIBILITY REPORTED 04/04/19 9:3 5 NRG FREE TEXT ENTRY 2 PRELIM RAPID ID VCP 04/03/19 NRG Dirithromycin susceptibility test by dis k diffusion - 04/02/19 13:50 Gentamicin susceptibility test by minimum inhibitory c oncentration <= NRG Trimethoprim/sulfamethoxazole susceptibi lity test by minimum inhibitoryconcentration <= NRG Levofloxacin susceptibility test by minimum inhibitory concentration <= NRG Ampicillin susceptibility test by minimum inhibitory c oncentration R NRG Cefazolin susceptibility test by minimum inhibitory co ncentration <= NRG Ceftriaxone susceptibility test by minimum inhibitory concentration <= NRG Ciprofloxacin susceptibility test by minimum inhibitor y concentration <= NRG Meropenem susceptibility test by minimum inhibitory co ncentration <= NRG Nitrofurantoin susceptibility test by mi nimum inhibitory concentration <= NRG Amoxicillin and clavulanate potassium susc JAZLYN <= NRG Complete blood count (CBC) with automate d white blood cell (WBC) differential - 07/28/19 22:05 Blood leukocytes automated count (number/volume) 5.0 10*3/uL 4.3-11.0 Blood erythrocytes automated count (number/volume) 3.26 10*6/uL 4.35-5.85 Venous blood hemoglobin measurement (mass/volume) 10.8 g/dL 11.5-16.0 Blood hematocrit (volume fraction) 31 % 35-52 Automated erythrocyte mean corpuscular volume 95 [ foz_us] 80-99 Automated erythrocyte mean corpuscular h emoglobin (mass per erythrocyte) 33 pg 25-34 Automated erythrocyte mean corpuscular h emoglobin concentration measurement (mass/volume) 35 g/dL 32-36 Automated erythrocyte distribution width ratio 12. 5 % 10.0- 14.5 Automated blood platelet count (count/volume) 230 10*3/uL 130-400 Automated blood platelet mean volume measurement 9.9 [foz_us] 7.4-10.4 Automated blood neutrophils/100 leukocytes 46 % 42-75 Automated blood lymphocytes/100 leukocytes 43 % 12-44 Blood monocytes/100 leukocytes 9 % 0-12 Automated blood eosinophils/100 leukocytes 2 % 0-10 Automated blood basophils/100 leukocytes 0 % 0-10 Blood neutrophils automated count (number/volume) 2.3 10*3 1.8-7.8 Blood lymphocytes automated count (number/volume) 2.1 10*3 1.0-4.0 Blood monocytes automated count (number/volume) 0. 5 10*3 0.0-1.0 Automated eosinophil count 0.1 10*3/uL 0 .0-0.3 Automated blood basophil count (count/volume) 0.0 10*3/uL 0.0-0.1 PT panel in platelet poor plasma by coag ulation assay - 07/28/19 22:05 Prothrombin time (PT) in platelet poor plasma by coagu lation assay 12.0 s 12.2-14.7 INR in platelet poor plasma or blood by coagulation as say 0.9 0.8-1.4 Activated partial thromboplastin time (a PTT) in platelet poor plasma bycoagulation assay - 07/28/19 22:05 Activated partial thromboplastin time (a PTT) in platelet poor plasma bycoagulation assay 30 s 24-35 Comprehensive metabolic panel - 07/28/19 22:05 Serum or plasma sodium measurement (moles/volume) 132 mmol/L 135-145 Serum or plasma potassium measurement (moles/volume) 4.0 mmol/L 3.6-5.0 Serum or plasma chloride measurement (moles/volume) 99 mmol/L 98-107 Carbon dioxide 19 mmol/L 21-32 Serum or plasma anion gap determination (moles/volume) 14 mmol/L 5-14 Serum or plasma urea nitrogen measurement (mass/volume ) 15 mg/dL 7-18 Serum or plasma creatinine measurement (mass/volume) 1.40 mg/dL 0.60-1.30 Serum or plasma urea nitrogen/creatinine mass ratio 11 NRG Serum or plasma creatinine measurement w ith calculation of estimated glomerular filtration rate 35 NRG Serum or plasma glucose measurement (mass/volume) 103 mg/dL 70-105 Serum or plasma calcium measurement (mass/volume) 8.9 mg/dL 8.5-10.1 Serum or plasma total bilirubin measurement (mass/volu me) 0.3 mg/dL 0.1-1.0 Serum or plasma alkaline phosphatase holly surement (enzymatic activity/volume) 79 U/L 40-136 Serum or plasma aspartate aminotransfera se measurement (enzymatic activity/volume) 36 U/L 5-34 Serum or plasma alanine aminotransferase measurement (enzymatic activity/volume) 19 U/L 0-55 Serum or plasma protein measurement (mass/volume) 7.0 g/dL 6.4-8.2 Serum or plasma albumin measurement (mass/volume) 3.7 g/dL 3.2-4.5 CALCIUM CORRECTED 9.1 mg/dL 8.5-10.1 Magnesium - 07/28/19 22:05 Magnesium 1.7 mg/dL 1.6-2.4 Serum or plasma troponin i.cardiac measu rement (mass/volume) - 07/28/19 22:05 Serum or plasma troponin i.cardiac measurement (mass/v olume) < ng/mL <0.028 Serum or plasma lithium measurement (mol es/volume) - 07/28/19 22:05 BNP PT 166.9 pg/mL <100.0 Lipase - 07/28/19 22:05 Lipase 46 U/L 8-78 Myoglobin, serum - 07/28/19 22:05 Myoglobin, serum 66.1 ng/mL 10.0-92.0 Serum or plasma C reactive protein measu rement (mass/volume) - 07/28/19 22:05 Serum or plasma C reactive protein measurement (mass/v olume) 0.05 mg/dL 0.00-0.50 Complete urinalysis with reflex to cultu re - 07/28/19 23:10 Urine color determination YELLOW NRG Urine clarity determination CLEAR NR G Urine pH measurement by test strip 7.5 5-9 Specific gravity of urine by test strip 1.015 1.016-1.022 Urine protein assay by test strip, semi-quantitative NEGATIVE NEGATIVE Urine glucose detection by automated test strip NE GATIVE NEGATIVE Erythrocytes detection in urine sediment by light micr oscopy NEGATIVE NEGATIVE Urine ketones detection by automated test strip TR VAL NEGATIVE Urine nitrite detection by test strip NEGATIVE NEGATIVE Urine total bilirubin detection by test strip NEGA TIVE NEGATIVE Urine urobilinogen measurement by automated test strip (mass/volume) 0.2 mg/dL < = 1.0 Urine leukocyte esterase detection by dipstick NEG ATIVE NEGATIVE Automated urine sediment erythrocyte cou nt by microscopy (number/high power field) NONE NRG Automated urine sediment leukocyte count by microscopy (number/high power field) [HPF] NRG Bacteria detection in urine sediment by light microsco py MODERATE NRG Squamous epithelial cells detection in u rine sediment by light microscopy 0-2 NRG Crystals detection in urine sediment by light microsco py NONE NRG Casts detection in urine sediment by light microscopy NONE NRG Mucus detection in urine sediment by light microscopy NEGATIVE NRG Complete urinalysis with reflex to culture YES NRG Serum or plasma troponin i.cardiac measu rement (mass/volume) - 07/29/19 00:05 Serum or plasma troponin i.cardiac measurement (mass/v olume) < ng/mL <0.028 Encounters ACCT No. Visit Date/Time Discharge Status Pt. Type Provider Facility Loc./Unit Complaint [id number] 07/21/2019 14:11:00 23:59:59 CLS Outpatient CORRINE MCKENNA V [facility] ONC [id number] 07/21/2019 14:06:00 23:59:59 CLS Outpatient ROSA ROWLAND INDUSTRIAL DESIGN INTERN [facility] LAB [id number] 04/15/2019 10:54:00 00:01:00 DIS Outpatient CORRINE MCKENNA [facility] ONC [id number] 04/02/2019 11:14:00 23:59:59 CLS Outpatient ROSA ROWLAND [employer] DESIGN INTERN [facility] LAB [id number] 12/09/2018 12:37:00 00:01:00 DIS Outpatient CORRINE MCKENNA V [facility] ONC [id number] 10/03/2018 21:15:00 22:10:00 DIS Emergency KYE CHAMPAGNE INDUSTRIAL DESIGN INTERN Via [facility] ER LEFT LEG PAIN [id number] 08/29/2018 13:11:00 00:01:00 DIS Outpatient CORRINE MCKENNA V [facility] ONC [id number] 07/19/2018 10:02:00 23:59:59 CLS Outpatient RAMON DAMON GRIEF COUNSELOR [facility] CARD CAD [id number] 07/17/2018 16:17:00 23:59:59 CLS Preadmit RAMON DAMON GRIEF COUNSELOR [facility] CARD CAD [id number] 07/04/2018 15:56:00 23:59:59 CLS Outpatient WILIAM JOSHUA DO [facility] RAD SOB [id number] 04/04/2018 12:37:00 00:01:00 DIS Outpatient CORRINE MCKENNA [facility] ONC [id number] 02/01/2018 14:29:00 00:01:00 DIS Outpatient CORRINE MCKENNA V [facility] ONC [id number] 02/01/2018 14:34:00 23:59:59 CLS Outpatient ROSA ROWLAND APRN [facility] LAB [id number] 12/11/2017 08:26:00 23:59:59 CLS Outpatient WILIAM JOSHUA DO [facility] RAD RENAL INSUFFICI ENCY [id number] 12/06/2017 10:08:00 14:48:00 DIS Emergency ROD COVINGTON [facility] ER NAUSEA [id number] 12/04/2017 13:25:00 23:59:59 CLS Outpatient WILIAM JOSHUA DO Via [facility] RENAL FAILURE [id number] 12/03/2017 11:28:00 23:59:59 CLS Outpatient WILIAM JOSHUA DO [facility] LAB NOT EATING/DEHY DRATE [id number] 11/28/2017 10:24:00 23:59:59 CLS Outpatient WILIAM JOSHUA DO [facility] LAB RENAL FAILURE [id number] 11/27/2017 10:16:00 13:50:00 DIS Outpatient WILIAM JOSHUA DO Via [facility] RENAL FAILURE [id number] 11/26/2017 12:05:00 23:59:59 CLS Outpatient WILIAM JOSHUA DO [facility] LAB NOT EATING,UTI [id number] 11/14/2017 11:32:00 14:04:00 DIS Emergency MARK PEMBERTON MD [facility] ER HIP PAIN;UTI [id number] 07/18/2017 14:45:00 00:01:00 DIS Outpatient CORRINE MCKENNA [facility] ONC [id number] 04/09/2017 10:20:00 018 00:01:00 DIS Outpatient CORRINE MCKENNA V [facility] ONC [id number] 12/05/2016 13:26:00 018 00:01:00 DIS Outpatient CORRINE MCKENNA V [facility] ONC [id number] 11/19/2016 00:31:00 017 23:59:59 CLS Preadmit CORRINE MCKENNA Via [facility] ONC LABS/3 MONTH FU [id number] 09/13/2016 12:41:00 017 00:01:00 DIS Outpatient CORRINE MCKENNA V [facility] ONC LABS/3 MONTH FU [id number] 09/25/2016 11:30:00 017 23:59:59 CLS Preadmit VELVET FAUST, JULISSA Correia [facility] ENDO HISTORY OF GASTRIC CANC ER [id number] 09/21/2016 05:48:00 017 11:12:00 DIS Outpatient JULISSA VERDIN MD [facility] PREOP EGD [id number] 09/19/2016 13:26:00 017 23:59:59 CLS Outpatient DIXON BEGUM [facility] RAD CHRONIC MYELOID LEUKEMIA [id number] 08/08/2016 11:23:00 017 00:01:00 DIS Outpatient CORRINE MCKENNA V [facility] ONC LABS/3 MONTH FU [id number] 02/23/2016 12:44:00 017 00:01:00 DIS Outpatient CORRINE MCKENNA V [facility] ONC LABS/3 MONTH FU [id number] 11/16/2015 12:57:00 016 10:42:00 DIS Outpatient CORRINE MCKENNA V [facility] ONC LABS/3 MONTH FU [id number] 01/20/2016 11:26:00 016 23:59:59 CLS Outpatient WILIAM JOSHUA DO [facility] RAD COUGH [id number] 11/02/2015 13:12:00 016 00:01:00 DIS Outpatient CORRINE MCKENNA V [facility] ONC LABS/3 MONTH FU [id number] 09/13/2015 06:58:00 016 10:40:00 DIS Outpatient JULISSA VERDIN MD [facility] SDC FOLLOW UP GASTRIC CANC ER [id number] 09/10/2015 09:00:00 016 10:25:00 DIS Outpatient JULISSA VERDIN MD [facility] PREOP FOLLOW UP GASTRIC CANC ER [id number] 08/25/2015 10:42:00 016 23:59:59 CLS Outpatient DIXON BEGUMP [facility] RAD GASTRIC A,ERIBERTO T RING CELL CARCINOMA [id number] 08/17/2015 13:57:00 016 23:59:59 CLS Outpatient DIXON BEGUM GRIEF COUNSELOR [facility] ONC [id number] 08/02/2015 09:45:00 016 00:01:00 DIS Outpatient CORRINE MCKENNA V [facility] ONC LABS/3 MONTH FU [id number] 06/07/2015 14:45:00 016 23:59:59 CLS Outpatient MARTINNYWILIAM BANRHART DO A [facility] RAD COUGH [id number] 05/03/2015 13:55:00 016 00:01:00 DIS Outpatient CORRINE MCKENNA V [facility] ONC LABS/3 MONTH FU [id number] 02/17/2015 12:52:00 23:59:59 CLS Outpatient DIXON BEGUM GRIEF COUNSELOR [facility] ONC [id number] 11/17/2014 12:33:00 00:01:00 DIS Outpatient CORRINE MCKENNA [facility] ONC LABS/3 MONTH FU [id number] 11/11/2014 12:34:00 23:59:59 CLS Outpatient DIXON BEGUM [facility] ONC [id number] 08/12/2014 10:47:00 015 00:01:00 DIS Outpatient CORRINE MCKENNA V [facility] ONC LABS/3 MONTH FU [id number] 08/24/2014 14:06:00 23:59:59 CLS Outpatient DAMIR RUDOLPH [facility] QUICK [id number] 08/04/2014 13:15:00 23:59:59 CLS Outpatient CORRINE MCKENNA V [facility] RAD GASTRIC CANCER [id number] 06/11/2014 12:46:00 16:23:00 DIS Emergency ROD COVINGTON [facility] ER LEFT LEG/KNEE INJURY [id number] 05/18/2014 10:15:00 015 13:00:00 DIS Outpatient JULISSA VERDIN MD [facility] SDC GASTRIC CA [id number] 05/14/2014 05:47:00 23:59:59 CLS Outpatient JULISSA VERDIN MD [facility] PREOP GASTSRIC CA [id number] 04/13/2014 13:49:00 23:59:59 CLS Outpatient DIXON BEGUM [facility] ONC [id number] 03/05/2014 13:34:00 23:59:59 CLS Outpatient CORRINE MCKENNA [facility] ONC LABS/3 MONTH FU [id number] 02/23/2014 12:48:00 23:59:59 CLS Outpatient CORRINE MCKENNA [facility] RAD SIGNET RING CELL CA [id number] 10/24/2013 11:45:00 014 00:01:00 DIS Outpatient CORRINE MCKENNA [facility] ONC LABS/3 MONTH FU [id number] 11/03/2013 12:59:00 014 23:59:59 CLS Outpatient DIXON BEGUM GRIEF COUNSELOR [facility] ONC [id number] 10/08/2013 15:02:00 014 23:59:59 CLS Outpatient WILIAM JOSHUA DO [facility] RAD COUGH,WEAK,WEIG HT LOSS [id number] 07/28/2013 12:58:00 014 00:01:00 DIS Outpatient CORRINE MCKENNA V [facility] ONC LABS/3 MONTH FU [id number] 04/25/2013 11:53:00 014 00:01:00 DIS Outpatient CORRINE MCKENNA V [facility] ONC LABS/3 MONTH FU [id number] 05/23/2013 09:12:00 014 23:59:59 CLS Outpatient DIXON BEGUM [facility] RAD ABD PAIN,STATUS POST GASTRIC BYPASS [id number] 05/15/2013 14:24:00 014 23:59:59 CLS Outpatient DIXON BEGUM [facility] ONC [id number] 04/14/2013 13:55:00 014 23:59:59 CLS Outpatient DIXON BEGUM GRIEF COUNSELOR [facility] ONC [id number] 12/26/2012 10:24:00 014 00:01:00 DIS Outpatient CORRINE MCKENNA V [facility] ONC LABS/3 MONTH FU [id number] 02/17/2013 12:55:00 013 23:59:59 CLS Outpatient WILIAM JOSHUA DO [facility] HH CHRONIC MYELOCY TIC LEUKEMIA [id number] 01/15/2013 13:54:00 013 13:00:00 DIS Inpatient GIORGI HART MD [facility] IRF GASTRIC CANCER [id number] 12/25/2012 11:45:00 23:59:59 CLS Outpatient KELYMARIAARAMON GRIEF COUNSELOR [facility] RAD CAD,SOB,FATIGUE [id number] 11/26/2012 08:44:00 23:59:59 CLS Outpatient CORRINE MCKENNA V sr[facility] RAD STOMACH CA [id number] 11/11/2012 07:10:00 11:20:00 DIS Outpatient JULISSA VERDIN MD [facility] SDC GERD [id number] 11/06/2012 08:51:00 23:59:59 CLS Outpatient JULISSA VERDIN MD [facility] PREOP GERD [id number] 10/22/2012 11:13:00 23:59:59 CLS Outpatient WILIAM JOSHUA DO [facility] RAD ACID REFLUX OF DISTENDED ABD,TROUBLE EATING [id number] 09/19/2012 09:31:00 23:59:59 CLS Outpatient DIXON BEGUM GRIEF COUNSELOR [facility] ONC [id number] 09/05/2012 11:17:00 23:59:59 CLS Outpatient DIXON BEGUM GRIEF COUNSELOR [facility] ONC [id number] 06/24/2012 11:02:00 23:59:59 CLS Outpatient WILIAM JOSHUA DO [facility] RAD SCREENING [id number] 07/28/2019 21:44:[address] Emergency NILAY FAUST, MARK Albrecht [facility] RIB PAIN [id number] 06/07/2015 14:45:00 Document Registration [id number] 06/07/2015 14:45:00 Document Registration [id number] 05/29/2012 09:40:00 Document Registration [id number] 02/27/2012 10:27:00 Document Registration [id number] 11/20/2011 10:14:00 Document Registration [id number] 08/31/2011 11:52:00 Document Registration [id number] 08/02/2011 09:39:00 Document Registration [id number] 06/22/2011 10:30:00 Document Registration [id number] 06/15/2011 06:35:00 Document Registration [id number] 06/08/2011 09:59:00 Document Registration [id number] 04/24/2011 10:10:00 Document Registration [id number] 01/06/2011 09:35:00 Document Registration [id number] 01/05/2011 14:48:00 Document Registration [id number] 10/04/2010 10:01:00 Document Registration [id number] 06/22/2010 09:54:00 Document Registration [id number] 06/03/2010 12:32:00 Document Registration [id number] 03/02/2010 10:14:00 Document Registration
--- NOTE | 2019-07-29 01:27 | NUR ---
WITH PERMISSION FROM ANT THIS RN CONTACTED SON KHOI TO INFORM HIM HIS MOTHER WOULD BE STAYING WITH US SOTO IN ROOM 423. SHARED WITH KHOI THAT PATIENTS ARE ALLOWED ONE VISITOR PER DAY WHEN ADMITTED TO THE HOSPITAL AND VISITING HOURS BEGIN AT 0800. UNDERSTANDING VERBALIZED. KHOI CAN BE REACHED AT [phone] FOR ANY CONCERNS OR CHANGES.
[2019-07-29] MEDS ORDERED: traZODone 50 MG (DESYREL) TAB PO ONE (01:30)
--- NOTE | 2019-07-29 03:05 | NUR ---
ANT VIGIL admitted to room 423-1, with an admitting diagnosis of CHEST PAIN, RO ANGINA AND SUSPECT SHINGLES on 07/29/19 from ED AM via WC , accompanied by ED STAFF. ANT VIGIL introduced to surroundings, call light, bed controls, phone, TV, temperature control, lights, meal times, smoking policy, visitor policy, side rail policy, bathrooms and showers. Patient Rights given to patient in the handbook. ANT VIGIL verbalizes understanding that [facility] is not responsible for the loss or damage to any personal effects or valuables that are kept in the patients posession during their hospitalization. ANT VIGIL verbalizes understanding of Interdisciplinary Patient Education. Patient and/or family were informed about the Rapid Response Team and its purpose.
[2019-07-29 03:09] VITALS: BP 170/91
[2019-07-29 04:00] VITALS: BP 139/63
--- NOTE | 2019-07-29 05:29 | Diagnostic Imaging Report ---
INDICATION: Left rib cage pain. COMPARISON: 07/04/2018 FINDINGS: Single frontal view of the chest demonstrates normal heart size and pulmonary vascularity. The lungs show persistent asymmetric elevation of left hemidiaphragm with blunting of the left lateral costophrenic angle. Otherwise, lungs are clear. No large pleural effusion or pneumothorax is seen. The visualized osseous structures show no acute abnormalities. There is calcified aortic atherosclerosis. IMPRESSION: 1. No acute cardiopulmonary process. Dictated by: Dictated on workstation # [id number]
[2019-07-29] MEDS ORDERED: NITROGLYCERIN 0.4 MG SL TABS BTL 25'S SL PRN (05:45)
[2019-07-29] MEDS ORDERED: ANTACID SUSP 30 ML UDC (MYLANTA) PO PRN ×2 (05:45→16:15)
[2019-07-29] MEDS ORDERED: ACETAMINOPHEN 500 MG TAB (TYLENOL) PO PRN (05:45)
[2019-07-29] MEDS ORDERED: morphine INJ 4 MG/ML 1 ML (VIAL/SYRINGE) IV PRN ×2 (05:45)
[2019-07-29 05:56] LABS: BASOPHILS % (AUTO) 0 % (0-10); EOSINOPHILS # (AUTO) 0.1 10^3/uL (0.0-0.3); EOSINOPHILS % (AUTO) 1 % (0-10); HEMATOCRIT 29 % (35-52); LYMPHOCYTES # (AUTO) 1.7 X 10^3 (1.0-4.0); LYMPHOCYTES % (AUTO) 30 % (12-44); MEAN CORPUSCULAR HEMOGLOBIN 33 PG (25-34); MEAN CORPUSCULAR HGB CONC 35 G/DL (32-36); MEAN CORPUSCULAR VOLUME 95 FL (80-99); MEAN PLATELET VOLUME 10.1 FL (7.4-10.4); MONOCYTES # (AUTO) 0.6 X 10^3 (0.0-1.0); MONOCYTES % (AUTO) 11 % (0-12); NEUTROPHILS # (AUTO) 3.3 X 10^3 (1.8-7.8); NEUTROPHILS % (AUTO) 58 % (42-75); PLATELET COUNT 201 10^3/uL (130-400); RED CELL DISTRIBUTION WIDTH 12.4 % (10.0-14.5); WHITE BLOOD COUNT 5.7 10^3/uL (4.3-11.0)
[2019-07-29 06:13] LABS: ALBUMIN 3.4 GM/DL (3.2-4.5); CHLORIDE 100 MMOL/L (98-107); POTASSIUM 4.1 MMOL/L (3.6-5.0); SODIUM 131 MMOL/L (135-145)
[2019-07-29 06:14] LABS: CALCIUM 8.5 MG/DL (8.5-10.1)
[2019-07-29 06:15] LABS: GLUCOSE 93 MG/DL (70-105); TOTAL PROTEIN 6.3 GM/DL (6.4-8.2); TRIGLYCERIDES 101 MG/DL (<150); VLDL CHOLESTEROL 20 MG/DL (5-40)
[2019-07-29 06:16] LABS: CARBON DIOXIDE 22 MMOL/L (21-32)
[2019-07-29 06:17] LABS: BILIRUBIN,TOTAL 0.3 MG/DL (0.1-1.0)
[2019-07-29 06:19] LABS: ALKALINE PHOSPHATASE 70 U/L (40-136); CREATININE SERUM 1.32 MG/DL (0.60-1.30); GFR ESTIMATED 38
[2019-07-29 06:20] LABS: BUN/CREATININE RATIO 11; CHOLESTEROL 141 MG/DL (< 200)
[2019-07-29 06:21] LABS: HDL CHOLESTEROL 53 MG/DL (40-60)
[2019-07-29 06:22] LABS: ALANINE AMINOTRANSFERASE 17 U/L (0-55)
[2019-07-29] MEDS: ONDANSETRON 4 MG/2 ML (SDV) Z0FRAN IV PRN ×3 (06:40→18:51)
[2019-07-29 08:00] VITALS: BP 161/72
--- NOTE | 2019-07-29 08:25 | Diagnostic Imaging Report ---
INDICATION: Chest pain. COMPARISON: 07/28/2019 FINDINGS: Single frontal view of the chest demonstrates normal heart size and pulmonary vascularity. The lungs are well aerated and clear. No large pleural effusion or pneumothorax is seen. The visualized osseous structures show no acute abnormalities. IMPRESSION: 1. No acute cardiopulmonary process. Dictated by: Dictated on workstation # [id number]
--- NOTE | 2019-07-29 08:57 | Consultation-Cardiology ---
HPI-Cardiology Cardiology Consultation: Date of Consultation 07/29/19 Time Seen by a Provider: 08:35 Date of Admission 07-28-2019 Attending Physician Olive Briceño DO Admitting Physician Jean Paul Mckenzie DO Consulting Physician Rhoda Bello MD HPI: Chief Complaint: Chest pain Ms. Robbins is an 88 year old female who has been admitted to 423 from the ED with c/o lateral, lower left sided chest discomfort which she describes as an ache that radiates from her side, under her left breast and down to her abdomen and naval. She reports it started approx 5 days ago. The discomfort has been constant and was relieved with Tylenol. She was taking Tylenol every 6 hours, but yesterday the Tylenol was not helping the discomfort. So she called EMS. She reports the discomfort feels similar to when she had shingles. She denies any rash. She reports the discomfort can be worse with movement, but not always. She reports she has been receiving morphine, which has provided relief. She reports chronic SOB, but feels it has not been worse. She denies any palpitations. She reports chronic diarrhea, which is unchanged. She denies any syncope or near syncope. She reports this morning she got up to use the BR and on her way back to bed she did feel lightheaded, but it has improved. She has chronic bilat LE swelling which is least in the morning and worse at the end of the day. She denies any fever or chills. She reports chronic poor appetite, but feels it has been worse lately. She reports chronic weakness and fatigue, but feels it has been worse lately. No c/o fever or chills. Review of Systems-Cardiology Review of Systems Constitutional: No chills, No fever; malaise, tiredness Eyes: no symptoms reported Ears/Nose/Throat: No epistaxis, No nasal drainage, No recent hearing loss Respiratory: As described under HPI Cardiovascular: As described under HPI Gastrointestinal: No constipation; diarrhea, nausea; No vomiting Genitourinary: No dysuria, No hematuria Musculoskeletal: As describe under HPI Skin: No rash on exposed areas, No ulcerations on exposed areas Psychiatric/Neurological: No anxiety, No depression, No seizure, No focal weakness, No syncope Hematologic: No bleeding abnormalities All Other Systems Reviewed Negative Unless Noted: Yes HMY-Hwskiq-Jmygni Hx Patient Social History Alcohol Use: Occasionally Uses Recreational Drug Use: No Smoking Status: Never a Smoker 2nd Hand Smoke Exposure: No Recent Foreign Travel: No Recent Infectious Disease Expo: No Hospitalization with Isolation: Denies Immunizations Up To Date Date of Pneumonia Vaccine: Jan 10, 2013 Past Medical History PMH As described under Assessment. Family Medical History Family Medical History: She does not report any family h/o CAD. Family History: Cancer 03 FATHER (thyroid cancer) Family history: Arthritis 03 MOTHER 09 SISTER Family history: Thyroid disorder 03 FATHER Allergies and Home Medications Allergies Coded Allergies: propoxyphene (Verified Allergy, Mild, 09/21/16) codeine (Verified Allergy, Unknown, 09/21/16) meperidine (Verified Allergy, Unknown, 09/21/16) Home Medications Acetaminophen 325 Mg Tablet, 650 MG PO Q4H, (Reported) Alprazolam 0.25 Mg Tablet, 0.25 MG PO DAILY, (Reported) Aspirin 81 Mg Tablet.dr, 81 MG PO DAILY, (Reported) Cefdinir 300 Mg Capsule, 300 MG PO ONCE Prescribed by: ROD MARIN on 12/06/17 1350 Cranberry Conc/C/Bacill Coag 1 Each Tablet, 1 EACH PO DAILY, (Reported) Esomeprazole Magnesium 40 Mg Capsule.dr, 40 MG PO DAILY, (Reported) Fluoxetine HCl 20 Mg Tablet, 30 MG PO DAILY, (Reported) TAKES 30 MG PO DAILY Imatinib Mesylate 400 Mg Tablet, 400 MG PO DAILY, (Reported) Levothyroxine Sodium 50 Mcg Tablet, 50 MCG PO DAILY, (Reported) Loperamide HCl 2 Mg Capsule, 2 MG PO UD, (Reported) Meclizine HCl 25 Mg Tablet, 12.5-25 MG PO Q6H PRN for DIZZINESS Prescribed by: ROD MARIN on 12/06/17 1350 Nitroglycerin 0.4 Mg Tab.subl, 0.4 MG SL UD PRN for CHEST PAIN, (Reported) Ondansetron 4 Mg Tab.rapdis, 4 MG PO Q6H PRN for NAUSEA/VOMITING Prescribed by: MARK PEMBERTON on 11/14/17 1339 Ondansetron 4 Mg Tab.rapdis, 4 MG SL Q6H PRN for NAUSEA/VOMITING-1ST LINE Prescribed by: ROD MARIN on 12/06/17 1351 Simvastatin 10 Mg Tablet, 10 MG PO DAILY, (Reported) Sucralfate 1 Gm/10 Ml Oral.susp, 1 GM PO UD, (Reported) TAKES 2 TEASPOONFULS PO BEFORE MEALS AND AT BEDTIME Tramadol HCl 50 Mg Tablet, 50 MG PO BID, (Reported) Tramadol HCl 50 Mg Tablet, 50 MG PO Q6H PRN for PAIN-MODERATE (5-7) Prescribed by: LARRY CRAWFORD on 07/29/19 1339 [Iron] Unknown Strength , Unknown Dose PO DAILY, (Reported) [[id number]] , 1 EA PO DAILY@0700 Prescribed by: KATELYN PALACIOS on 02/10/13 1127 Physical Exam-Cardiology Physical Exam Vital Signs/I&O 07/29/19 07/29/19 07/29/19 07/29/19 03:09 03:15 03:45 04:00 Temp 36.6 36.3 Pulse 64 66 64 Resp 18 16 B/P (MAP) 170/91 139/63 (88) Pulse Ox 97 97 O2 Delivery Room Air Room Air Room Air 07/29/19 07/29/19 07/29/19 07/29/19 07:00 08:00 08:03 11:00 Temp 36.3 36.2 Pulse 65 67 64 Resp 20 20 B/P (MAP) 161/72 (101) 147/67 (93) Pulse Ox 99 99 97 O2 Delivery Room Air Room Air Room Air 07/29/19 07/29/19 12:34 14:17 Temp 36.2 Pulse 64 Capillary Refill : Less Than 3 Seconds Constitutional: AAO x 3, other (thin, frail) HEENT: PERRL, hearing is well preserved, oral hygience is good Neck: No carotid bruit; carotid pulses are 2 + bilaterally Respiratory: No accessory muscle use, No respiratory distress; chest expansion is symmetric, chest is bilaterally symmetric, lungs clear to auscultation Cardiovascular: regular rate-rhythm; No JVD; S1 and S2, systolic murmur Gastrointestinal: No tender; soft, audible bowel sounds Extremities: no lower extremity edema bilateral Neurologic/Psychiatric: grossly intact (moves all extremities) Skin: No rash on exposed areas, No ulcerations on exposed areas Data Review Labs Laboratory Tests 07/28/19 22:05: White Blood Count 5.0, Red Blood Count 3.26L, Hemoglobin 10.8L, Hematocrit 31L, Mean Corpuscular Volume 95, Mean Corpuscular Hemoglobin 33, Mean Corpuscular Hemoglobin Concent 35, Red Cell Distribution Width 12.5, Platelet Count 230, Mean Platelet Volume 9.9, Neutrophils (%) (Auto) 46, Lymphocytes (%) (Auto) 43, Monocytes (%) (Auto) 9, Eosinophils (%) (Auto) 2, Basophils (%) (Auto) 0, Neutrophils # (Auto) 2.3, Lymphocytes # (Auto) 2.1, Monocytes # (Auto) 0.5, Eosinophils # (Auto) 0.1, Basophils # (Auto) 0.0, Prothrombin Time 12.0L, INR Comment 0.9, Activated Partial Thromboplast Time 30, Sodium Level 132L, Potassium Level 4.0, Chloride Level 99, Carbon Dioxide Level 19L, Anion Gap 14, Blood Urea Nitrogen 15, Creatinine 1.40H, Estimat Glomerular Filtration Rate 35, BUN/Creatinine Ratio 11, Glucose Level 103, Calcium Level 8.9, Corrected Calcium 9.1, Magnesium Level 1.7, Total Bilirubin 0.3, Aspartate Amino Transf (AST/SGOT) 36H, Alanine Aminotransferase (ALT/SGPT) 19, Alkaline Phosphatase 79, Myoglobin 66.1, Troponin I < 0.028, C-Reactive Protein High Sensitivity 0.05, B-Type Natriuretic Peptide 166.9H, Total Protein 7.0, Albumin 3.7, Lipase 46 07/28/19 23:10: Urine Color YELLOW, Urine Clarity CLEAR, Urine pH 7.5, Urine Specific Flomot 1.015L, Urine Protein NEGATIVE, Urine Glucose (UA) NEGATIVE, Urine Ketones TRAC EH, Urine Nitrite NEGATIVE, Urine Bilirubin NEGATIVE, Urine Urobilinogen 0.2, Urine Leukocyte Esterase NEGATIVE, Urine RBC (Auto) NEGATIVE, Urine RBC NONE, Urine WBC 0-2, Urine Squamous Epithelial Cells 0-2, Urine Crystals NONE, Urine Bacteria MODERATEH, Urine Casts NONE, Urine Mucus NEGATIVE, Urine Culture Indicated YES 07/29/19 00:05: Troponin I < 0.028 07/29/19 05:35: White Blood Count 5.7, Red Blood Count 3.02L, Hemoglobin 10.0L, Hematocrit 29L, Mean Corpuscular Volume 95, Mean Corpuscular Hemoglobin 33, Mean Corpuscular Hemoglobin Concent 35, Red Cell Distribution Width 12.4, Platelet Count 201, Mean Platelet Volume 10.1, Neutrophils (%) (Auto) 58, Lymphocytes (%) (Auto) 30, Monocytes (%) (Auto) 11, Eosinophils (%) (Auto) 1, Basophils (%) (Auto) 0, Neutrophils # (Auto) 3.3, Lymphocytes # (Auto) 1.7, Monocytes # (Auto) 0.6, Eosinophils # (Auto) 0.1, Basophils # (Auto) 0.0, Sodium Level 131L, Potassium Level 4.1, Chloride Level 100, Carbon Dioxide Level 22, Anion Gap 9, Blood Urea Nitrogen 14, Creatinine 1.32H, Estimat Glomerular Filtration Rate 38, BUN/Creatinine Ratio 11, Glucose Level 93, Calcium Level 8.5, Corrected Calcium 9.0, Total Bilirubin 0.3, Aspartate Amino Transf (AST/SGOT) 34, Alanine Aminotransferase (ALT/SGPT) 17, Alkaline Phosphatase 70, Troponin I < 0.028, Total Protein 6.3L, Albumin 3.4, Triglycerides Level 101, Cholesterol Level 141, LDL Cholesterol Direct 78, VLDL Cholesterol 20, HDL Cholesterol 53 Radiology NAME: ANT ROBBINS [facility] REC#: [id number] PT STATUS: ADM Ame : 1930 PHYSICIAN: OLIVE BRICEÑO DO ADMIT DATE: 07/29/19 Draft Date of Exam:07/29/19 CHEST 1 VIEW, AP/PA ONLY INDICATION: Chest pain. COMPARISON: 07/28/2019 FINDINGS: Single frontal view of the chest demonstrates normal heart size and pulmonary vascularity. The lungs are well aerated and clear. No large pleural effusion or pneumothorax is seen. The visualized osseous structures show no acute abnormalities. IMPRESSION: 1. No acute cardiopulmonary process. Dictated on workstation # [id number] Dict: 07/29/19813 Trans: 07/29/19824 [id number] Interpreted by: BRYANNA IRVIN MD Electronically signed by: ECG Impression ECG Initial ECG Rhythm: Normal Sinus A/P-Cardiology Assessment/Admission Diagnosis Left lateral chest discomfort of undetermined etiology - no evidence of ACS Coronary artery disease with a history of drug-eluting stenting of the left circumflex in August 2007. MPI of May 2011 did not show evidence of ischemia or infarction. Her ejection fraction was calculated to be 85 percent Echo of 07/19/18: LVEF 60-65%, mild MAC, mild to mod MR and TR, AoV sclerosis w/o stenosis, RVSP 30 mmHg UTI - management per medical services CKD 4 Palpitations likely d/t episodes of PAF PAF with h/o CVA however, for reasons noted below she is considered intol to OAC Subdural hematoma in September 2009 while patient was on warfarin. 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 Corona H/o mucinous adeno CA of gastric antrum, s/p distal gastrectomy with Billroth II and repair of HH on 12/30/12 Chronic anemia being managed by Dr. Corona Hyperlipidemia being treated with statin therapy Hypothyroidism being treated with thyroid replacement therapy Carotid u/s of August 2018 showed less than 40% R ICA stenosis, approx 60% L ICA stenosis History of recurrent urinary tract infections Chronci mild hyponatremia Discussion and Recomendations Chest discomfort of undetermined etiology with no evidence of ACS Clinical Quality Measures AMI/AHF: ASA po Prior to arrival: No DVT/VTE Risk/Contraindication: Risk Factor Score Per Nursin RFS Level Per Nursing on Admit: 4+=Very High RAMON DAMON Jul 29, 2019 08:57
[2019-07-29] MEDS: ASPIRIN E.C. 81 MG (ECOTRIN) TAB PO SCH (09:14)
[2019-07-29 11:00] VITALS: BP 147/67
[2019-07-29] MEDS ORDERED: TRM50T PO (13:39)
--- NOTE | 2019-07-29 14:59 | Consultation-Cardiology ---
HPI-Cardiology Cardiology Consultation: Date of Consultation 07/29/19 Time Seen by a Provider: 14:00 Date of Admission Attending Physician Larry Crawford MD Admitting Physician Jean Paul Mckenzie DO Consulting Physician ROMEL PEREZ MD, MA, FACP, FACC, FSCAI, CCDS HPI: Chief Complaint: CC: Chest discomfort HPI Ms. Robbins is an 88 year old female who has been admitted to 423 from the ED with c/o lateral, lower left sided chest discomfort which she describes as an ache that radiates from her side, under her left breast and down to her abdomen and naval. She reports it started approx 5 days ago. The discomfort has been constant and was relieved with Tylenol. She was taking Tylenol every 6 hours, b ut yesterday the Tylenol was not helping the discomfort. So she called EMS. She reports the discomfort feels similar to when she had shingles. She denies any rash. She reports the discomfort can be worse with movement, but not always. She reports she has been receiving morphine, which has provided relief. She reports chronic SOB, but feels it has not been worse. She denies any palpitations. She reports chronic diarrhea, which is unchanged. She denies any syncope or near syncope. She reports this morning she got up to use the BR and on her way back to bed she did feel lightheaded, but it has improved. She has chronic bilat LE swelling which is least in the morning and worse at the end of the day. She denies any fever or chills. She reports chronic poor appetite, but feels it has been worse lately. She reports chronic weakness and fatigue, but feels it has been worse lately. No c/o fever or chills. Review of Systems-Cardiology Review of Systems Constitutional: No chills, No fever; malaise, tiredness Eyes: no symptoms reported Ears/Nose/Throat: No epistaxis, No nasal drainage, No recent hearing loss Respiratory: As described under HPI Cardiovascular: As described under HPI Gastrointestinal: No constipation; diarrhea, nausea; No vomiting Genitourinary: No dysuria, No hematuria Musculoskeletal: As describe under HPI Skin: No rash on exposed areas, No ulcerations on exposed areas Psychiatric/Neurological: No anxiety, No depression, No seizure, No focal weakness, No syncope Hematologic: No bleeding abnormalities All Other Systems Reviewed Negative Unless Noted: Yes TLQ-Yzkxub-Disyfi Hx Patient Social History Alcohol Use: Occasionally Uses Recreational Drug Use: No Smoking Status: Never a Smoker 2nd Hand Smoke Exposure: No Recent Foreign Travel: No Recent Infectious Disease Expo: No Hospitalization with Isolation: Denies Immunizations Up To Date Date of Pneumonia Vaccine: Jan 10, 2013 Past Medical History PMH As described under Assessment. Family Medical History Family Medical History: She does not report any family h/o CAD. Family History: Cancer 03 FATHER (thyroid cancer) Family history: Arthritis 03 MOTHER 09 SISTER Family history: Thyroid disorder 03 FATHER Allergies and Home Medications Allergies Coded Allergies: propoxyphene (Verified Allergy, Mild, 09/21/16) codeine (Verified Allergy, Unknown, 09/21/16) meperidine (Verified Allergy, Unknown, 09/21/16) Home Medications Acetaminophen 325 Mg Tablet, 650 MG PO Q4H, (Reported) Alprazolam 0.25 Mg Tablet, 0.25 MG PO DAILY, (Reported) Aspirin 81 Mg Tablet.dr, 81 MG PO DAILY, (Reported) Cefdinir 300 Mg Capsule, 300 MG PO ONCE Prescribed by: ROD MARIN on 12/06/17 1350 Cranberry Conc/C/Bacill Coag 1 Each Tablet, 1 EACH PO DAILY, (Reported) Esomeprazole Magnesium 40 Mg Capsule.dr, 40 MG PO DAILY, (Reported) Fluoxetine HCl 20 Mg Tablet, 30 MG PO DAILY, (Reported) TAKES 30 MG PO DAILY Imatinib Mesylate 400 Mg Tablet, 400 MG PO DAILY, (Reported) Levothyroxine Sodium 50 Mcg Tablet, 50 MCG PO DAILY, (Reported) Loperamide HCl 2 Mg Capsule, 2 MG PO UD, (Reported) Meclizine HCl 25 Mg Tablet, 12.5-25 MG PO Q6H PRN for DIZZINESS Prescribed by: ROD MARIN on 12/06/17 1350 Nitroglycerin 0.4 Mg Tab.subl, 0.4 MG SL UD PRN for CHEST PAIN, (Reported) Ondansetron 4 Mg Tab.rapdis, 4 MG PO Q6H PRN for NAUSEA/VOMITING Prescribed by: MARK PEMBERTON on 11/14/17 1339 Ondansetron 4 Mg Tab.rapdis, 4 MG SL Q6H PRN for NAUSEA/VOMITING-1ST LINE Prescribed by: ROD MARIN on 12/06/17 1351 Simvastatin 10 Mg Tablet, 10 MG PO DAILY, (Reported) Sucralfate 1 Gm/10 Ml Oral.susp, 1 GM PO UD, (Reported) TAKES 2 TEASPOONFULS PO BEFORE MEALS AND AT BEDTIME Tramadol HCl 50 Mg Tablet, 50 MG PO BID, (Reported) Tramadol HCl 50 Mg Tablet, 50 MG PO Q6H PRN for PAIN-MODERATE (5-7) Prescribed by: LARRY CRAWFORD on 07/29/19 1339 [Iron] Unknown Strength , Unknown Dose PO DAILY, (Reported) [[id number]] , 1 EA PO DAILY@0700 Prescribed by: KATELYN PALACIOS on 02/10/13 1127 Patient Home Medication List Home Medication List Reviewed: Yes Physical Exam-Cardiology Physical Exam Vital Signs/I&O 07/29/19 07/29/19 07/29/19 07/29/19 03:09 03:15 03:45 04:00 Temp 36.6 36.3 Pulse 64 66 64 Resp 18 16 B/P (MAP) 170/91 139/63 (88) Pulse Ox 97 97 O2 Delivery Room Air Room Air Room Air 07/29/19 07/29/19 07/29/19 07/29/19 07:00 08:00 08:03 11:00 Temp 36.3 36.2 Pulse 65 67 64 Resp 20 20 B/P (MAP) 161/72 (101) 147/67 (93) Pulse Ox 99 99 97 O2 Delivery Room Air Room Air Room Air 07/29/19 07/29/19 12:34 14:17 Temp 36.2 Pulse 64 Capillary Refill : Less Than 3 Seconds Constitutional: AAO x 3, other (thin, frail) HEENT: PERRL, hearing is well preserved, oral hygience is good Neck: No carotid bruit; carotid pulses are 2 + bilaterally Respiratory: No accessory muscle use, No respiratory distress; chest expansion is symmetric, chest is bilaterally symmetric, lungs clear to auscultation Cardiovascular: regular rate-rhythm; No JVD; S1 and S2, systolic murmur Gastrointestinal: No tender; soft, audible bowel sounds Extremities: no lower extremity edema bilateral Neurologic/Psychiatric: grossly intact (moves all extremities) Skin: No rash on exposed areas, No ulcerations on exposed areas Data Review Labs Laboratory Tests 07/28/19 22:05: White Blood Count 5.0, Red Blood Count 3.26L, Hemoglobin 10.8L, Hematocrit 31L, Mean Corpuscular Volume 95, Mean Corpuscular Hemoglobin 33, Mean Corpuscular Hemoglobin Concent 35, Red Cell Distribution Width 12.5, Platelet Count 230, Mean Platelet Volume 9.9, Neutrophils (%) (Auto) 46, Lymphocytes (%) (Auto) 43, Monocytes (%) (Auto) 9, Eosinophils (%) (Auto) 2, Basophils (%) (Auto) 0, Neutrophils # (Auto) 2.3, Lymphocytes # (Auto) 2.1, Monocytes # (Auto) 0.5, Eosinophils # (Auto) 0.1, Basophils # (Auto) 0.0, Prothrombin Time 12.0L, INR Comment 0.9, Activated Partial Thromboplast Time 30, Sodium Level 132L, Potassium Level 4.0, Chloride Level 99, Carbon Dioxide Level 19L, Anion Gap 14, Blood Urea Nitrogen 15, Creatinine 1.40H, Estimat Glomerular Filtration Rate 35, BUN/Creatinine Ratio 11, Glucose Level 103, Calcium Level 8.9, Corrected Calcium 9.1, Magnesium Level 1.7, Total Bilirubin 0.3, Aspartate Amino Transf (AST/SGOT) 36H, Alanine Aminotransferase (ALT/SGPT) 19, Alkaline Phosphatase 79, Myoglobin 66.1, Troponin I < 0.028, C-Reactive Protein High Sensitivity 0.05, B-Type Natriuretic Peptide 166.9H, Total Protein 7.0, Albumin 3.7, Lipase 46 07/28/19 23:10: Urine Color YELLOW, Urine Clarity CLEAR, Urine pH 7.5, Urine Specific [place] 1.015L, Urine Protein NEGATIVE, Urine Glucose (UA) NEGATIVE, Urine Ketones TRACEH, Urine Nitrite NEGATIVE, Urine Bilirubin NEGATIVE, Urine Urobilinogen 0.2, Urine Leukocyte Esterase NEGATIVE, Urine RBC (Auto) NEGATIVE, Urine RBC NONE, Urine WBC 0-2, Urine Squamous Epithelial Cells 0-2, Urine Crystals NONE, Urine Bacteria MODERATEH, Urine Casts NONE, Urine Mucus NEGATIVE, Urine Culture Indicated YES 07/29/19 00:05: Troponin I < 0.028 07/29/19 05:35: White Blood Count 5.7, Red Blood Count 3.02L, Hemoglobin 10.0L, Hematocrit 29L, Mean Corpuscular Volume 95, Mean Corpuscular Hemoglobin 33, Mean Corpuscular Hemoglobin Concent 35, Red Cell Distribution Width 12.4, Platelet Count 201, Mean Platelet Volume 10.1, Neutrophils (%) (Auto) 58, Lymphocytes (%) (Auto) 30, Monocytes (%) (Auto) 11, Eosinophils (%) (Auto) 1, Basophils (%) (Auto) 0, Neutrophils # (Auto) 3.3, Lymphocytes # (Auto) 1.7, Monocytes # (Auto) 0.6, Eosinophils # (Auto) 0.1, Basophils # (Auto) 0.0, Sodium Level 131L, Potassium Level 4.1, Chloride Level 100, Carbon Dioxide Level 22, Anion Gap 9, Blood Urea Nitrogen 14, Creatinine 1.32H, Estimat Glomerular Filtration Rate 38, BUN/Creatinine Ratio 11, Glucose Level 93, Calcium Level 8.5, Corrected Calcium 9.0, Total Bilirubin 0.3, Aspartate Amino Transf (AST/SGOT) 34, Alanine A minotransferase (ALT/SGPT) 17, Alkaline Phosphatase 70, Troponin I < 0.028, Total Protein 6.3L, Albumin 3.4, Triglycerides Level 101, Cholesterol Level 141, LDL Cholesterol Direct 78, VLDL Cholesterol 20, HDL Cholesterol 53 A/P-Cardiology Assessment/Admission Diagnosis Left lateral chest discomfort of undetermined etiology - no evidence of ACS Coronary artery disease with a history of drug-eluting stenting of the left circumflex in August 2007. MPI of May 2011 did not show evidence of ischemia or infarction. Her ejection fraction was calculated to be 85 percent Echo of 07/19/18: LVEF 60-65%, mild MAC, mild to mod MR and TR, AoV sclerosis w/o stenosis, RVSP 30 mmHg UTI - management per medical services CKD 4 Palpitations likely d/t episodes of PAF PAF with h/o CVA however, for reasons noted below she is considered intol to OAC Subdural hematoma in September 2009 while patient was on warfarin. 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 Corona H/o mucinous adeno CA of gastric antrum, s/p distal gastrectomy with Billroth II and repair of HH on 12/30/12 Chronic anemia being managed by Dr. Corona Hyperlipidemia being treated with statin therapy Hypothyroidism being treated with thyroid replacement therapy Carotid u/s of August 2018 showed less than 40% R ICA stenosis, approx 60% L ICA stenosis History of recurrent urinary tract infections Chronic mild hyponatremia Discussion and Recomendations * Echo to eval for structural heart disease * MPI to eval for CAD * I had a long and detailed discussion with her and discussed the differential diagnoses of chest discomfort and our w/u plan for any cardiac source Clinical Quality Measures AMI/AHF: ASA po Prior to arrival: No DVT/VTE Risk/Contraindication: Risk Factor Score Per Nursin RFS Level Per Nursing on Admit: 4+=Very High ROMEL PEREZ MD FACP [facility] Jul 29, 2019 14:59
[2019-07-29] MEDS ORDERED: REGADENOSON 0.4 MG/5 ML SYR (LEXISCAN) IV ONE (15:00)
--- NOTE | 2019-07-29 15:54 | History & Physical-Hospitalist ---
History of Present Illness HPI/Chief Complaint Shiela Robbins is an 88-year-old female with past medical history of hypertension, hyperlipidemia, paroxysmal atrial fibrillation, history of stroke, chronic kidney disease, coronary artery disease status post stenting, GERD, hypothyroidism, depression, stomach cancer status post surgical resection, CML currently on imatinib, who presented with chest pain. Reports that the pain is located below her left breast and radiates to her left back. She thinks it feels like a previous episode she had of shingles. She denies any rash. She denies any itching. She denies any shortness of breath. She denies any cough. She denies any abdominal pain. She had an episode of nausea this morning after eating. She denies any fevers or chills. She reports having acid reflux but does not think this pain is similar. Source: patient Exam Limitations: no limitations Date Seen 07/29/19 Time Seen by a Provider: 10:05 Attending Physician Larry Crawford MD PCP Jean Paul Mckenzie DO Referring Physician Date of Admission Jul 29, 2019 at 01:20 Home Medications & Allergies Home Medications Reviewed patient Home Medication Reconciliation performed by pharmacy medication reconciliations survey cad technician and/or nursing. Patients Allergies have been reviewed. Allergies Allergies Coded Allergies propoxyphene (Verified Allergy, Mild, 09/21/16) codeine (Verified Allergy, Unknown, 09/21/16) meperidine (Verified Allergy, Unknown, 09/21/16) Past Pxlrnlj-Fyvgkh-Uoymwg Hx Past Med/Social Hx: Reviewed Nursing Past Med/Soc Hx Patient Social History Alcohol Use: Occasionally Uses Number of Drinks Today: AA Alcohol Beverage of Choice: Beer Recreational Drug Use: No Smoking Status: Never a Smoker 2nd Hand Smoke Exposure: No Recent Foreign Travel: No Contact w/other who traveled: No Recent Hopitalizations: No Recent Infectious Disease Expo: No Immunizations Up To Date Date of Pneumonia Vaccine: Jan 10, 2013 Seasonal Allergies Seasonal Allergies: Yes Past Medical History Surgeries: Hysterectomy Cardiac: Coronary Artery Disease Neurological: Stroke Reproductive: No Sexually Transmitted Disease: No HIV/AIDS: No Female Reproductive Disorders: Denies Menopausal Genitourinary: UTI-Chronic Gastrointestinal: Gastroesophageal Reflux, Irritable Bowel Endocrine: Hypothyroidsim Cancer: Leukemia, Stomach Did You Recieve Any Treatments: Yes History of Blood Disorders: Yes (CHRONIC MYLOID LUEKEMIA, HX DVTS AFTER FALL) Family History Cancer 03 FATHER (thyroid cancer) Family history: Arthritis 03 MOTHER 09 SISTER Family history: Thyroid disorder 03 FATHER No Pertinent Family Hx Review of Systems Constitutional: malaise EENTM: no symptoms reported Respiratory: no symptoms reported Cardiovascular: chest pain Gastrointestinal: nausea Genitourinary: no symptoms reported Musculoskeletal: back pain Skin: no symptoms reported; No rash Psychiatric/Neurological: No Symptoms Reported Physical Exam Physical Exam Vital Signs Vital Signs - First Documented 07/28/19 21:57 Temp 36.9 Pulse 65 Resp 18 B/P (MAP) 181/75 (110) Pulse Ox 100 O2 Delivery Room Air Capillary Refill : Less Than 3 Seconds Height, Weight, BMI Height: 5'2.00" Weight: 98lbs. 0.0oz. [id number]; 17.81 BMI Method:Stated General Appearance: No Apparent Distress, Chronically ill, Thin HEENT: PERRL/EOMI, Pharynx Normal Neck: Normal Inspection, Supple Respiratory: Lungs Clear, Normal Breath Sounds, No Respiratory Distress Cardiovascular: Regular Rate, Rhythm, No Edema, No Murmur Gastrointestinal: Normal Bowel Sounds, Non Tender, Soft Extremity: Normal Inspection, Non Tender, No Pedal Edema Neurologic/Psychiatric: Alert, Oriented x3, No Motor/Sensory Deficits, Normal Mood/Affect Skin: Normal Color, Warm/Dry Results Results/Procedures Labs Laboratory Tests 07/28/19 22:05 07/29/19 05:35 Patient resulted labs reviewed. Imaging: Reviewed Imaging Report Assessment/Plan Admission Diagnosis Chest pain Admission Status: Observation Assessment and Plan Chest pain No rash to indicate shingles Troponin negative 3 Cardiology consulted, appreciate assistance Planning for MPI tomorrow Echocardiogram revealed normal ejection fraction, grade 1 diastolic dysfunction Continue pain regimen HTN CAD HLD Depression Hypothyroidism GERD CML CKD AFib Continue home meds DVT prophylaxis: Lovenox Diagnosis/Problems Diagnosis/Problems (1) Chest pain Status: Acute Qualifiers: Chest pain type: unspecified Qualified Codes: R07.9 - Chest pain, unspecified Clinical Quality Measures AMI/AHF: ASA po Prior to arrival: No DVT/VTE Risk/Contraindication: Risk Factor Score Per Nursin RFS Level Per Nursing on Admit: 4+=Very High LARRY CRAWFORD MD Jul 29, 2019 15:54
[2019-07-29 16:00] VITALS: BP 162/84
[2019-07-29] MEDS ORDERED: HYDROmorphone 2 MG/ML VIAL (DILAUDID) IV PRN (16:00)
[2019-07-29] MEDS ORDERED: PANTOPRAZOLE 40 MG (PROTONIX) TAB PO NR (16:00)
[2019-07-29] MEDS: SUCRALFATE 1 GM (CARAFATE) TAB PO SCH ×2 (16:00→21:00)
[2019-07-29] MEDS ORDERED: polyethylene glycoL POWDER 17 GM (MIRALAX) PACK PO PRN (16:15)
[2019-07-29] MEDS ORDERED: PATIENT MAY USE OWN MEDS, ALL PO SCH (16:15)
[2019-07-29] MEDS ORDERED: MELATONIN 3 MG TABLET PO PRN (16:15)
[2019-07-29] MEDS ORDERED: ACETAMINOPHEN 325 MG TABLET PO PRN (16:15)
[2019-07-29] MEDS ORDERED: ENOXAPARIN 30 MG/0.3 ML (LOVENOX) SYR SC SCH (16:30)
--- NOTE | 2019-07-29 20:20 | NUR ---
ROBERT GUZMAN OF PT CALLS THIS RN AND REQUESTING INFORMATION ON PT. PT DOESN'T HAVE PASSWORD. THIS RN ASKS PT ABOUT ROBERT AND INFORMATION BEING GIVEN TO HER. PT SET UP PASSWORD AND PASSWORD GIVEN TO NIECE AT THIS TIME. ROBERT IS CONCERNED ABOUT PT HAVING LEXISCAN TOMORROW. ROBERT STATES PT HAS ALWAYS REFUSED TO HAVE A STRESS TEST WHEN REQUESTED BEFORE THIS ADMISSION. THIS RN INFORMED FAMILY PT HAS CONSENTED TO TEST TOMORROW. FAMILY REQUESTED TO SPEAK WITH ANT ON THE PHONE. ANT REFUSED AT THIS TIME. ANT STATES SHE IS TO NAUSEOUS TO SPEAK RIGHT NOW. ROBERT STATES SHE WILL CALL BACK IN THE MORNING TO SPEAK WITH PT ABOUT TEST.
[2019-07-29 20:28] VITALS: BP 176/81
[2019-07-29] MEDS ORDERED: SIMvastatin 10 MG (ZOCOR) TAB PO SCH (21:00)
[2019-07-29] MEDS: DOCUSATE SODIUM 100 MG (COLACE) CAP PO SCH (21:01)
[2019-07-30] VITALS: BP 174/90
[2019-07-30 04:00] VITALS: BP 163/71
[2019-07-30] MEDS: SUCRALFATE 1 GM (CARAFATE) TAB PO SCH ×3 (05:38→17:45)
[2019-07-30] MEDS: ONDANSETRON 4 MG/2 ML (SDV) Z0FRAN IV PRN ×2 (06:13→13:50)
[2019-07-30] MEDS ORDERED: LEVOTHYROXINE 50 MCG (LEVOTHROID) TAB PO SCH (06:30)
--- NOTE | 2019-07-30 06:55 | NUR ---
PT REFUSING LEXISCAN THIS AM. DR. PEREZ PAGED AT THIS TIME. WAITING RETURN CALL.
--- NOTE | 2019-07-30 07:22 | NUR ---
DR PEREZ PAGED TO LET HIM KNOW PATIENT CONTINUES TO REFUSE MYRNA SCAN. COMPLAINTS OF NAUSEA, NO EMESIS
[2019-07-30 08:00] VITALS: BP 176/78
[2019-07-30] MEDS ORDERED: CEFDINIR 300 MG (OMNICEF) CAP PO SCH (09:00)
[2019-07-30] MEDS ORDERED: FLUoxetine HCL 10 MG (PROzac) CAPSULE/TABLET PO SCH (09:00)
[2019-07-30] MEDS ORDERED: PANTOPRAZOLE 40 MG (PROTONIX) TAB PO SCH (09:00)
[2019-07-30] MEDS ORDERED: FLUoxetine HCL 20 MG (PROzac) CAP PO SCH (09:00)
--- NOTE | 2019-07-30 09:23 | Physical Therapy Evaluation ---
PT Evaluation-General Medical Diagnosis Admission Date Jul 29, 2019 at 01:20 Medical Diagnosis: chest pain Onset Date: Jul 29, 2019 Therapy Diagnosis Therapy Diagnosis: impaired mobility, strength, endurance, balance Height/Weight Height (Feet): 5 Height (Inches): 2.00 Weight (Pounds): 98 Weight (Ounces): 0.0 Precautions Precautions/Isolations: Contact Isolation, Standard Precautions Weight Bear Status Right Lower Extremity: Right Weight Bearing/Tolerated Left Lower Extremity: Left Weight Bearing/Tolerated Referral Physician: Dash Reason for Referral: Evaluation/Treatment Medical History Additional Medical History Past Medical History Surgeries: Hysterectomy Cardiac: Coronary Artery Disease Neurological: Stroke Reproductive: No Sexually Transmitted Disease: No HIV/AIDS: No Female Reproductive Disorders: Denies Menopausal Genitourinary: UTI-Chronic Gastrointestinal: Gastroesophageal Reflux, Irritable Bowel Endocrine: Hypothyroidsim Cancer: Leukemia, Stomach Did You Recieve Any Treatments: Yes History of Blood Disorders: Yes (CHRONIC MYLOID LUEKEMIA, HX DVTS AFTER FALL) Reviewed History: Yes Social History Home: Single Level Current Living Status: Alone Entry Into Home: Stairs With Railing PT Steps Into Home: 2 Prior Prior Level of Function SCALE: Activities may be completed with or without assistive devices. 3-Xfueyxetok-hbxcgde completes the activity by him/herself with no assistance from a helper. 5-Set-up or Clean-up Assistance-helper sets up or cleans up; patient completes activity. [place] assists only prior to or following the activity. 4-Supervision or Touching Assistance-helper provides verbal cues and/or touching/steadying and/or contact guard assistance as patient completes activity. Assistance may be provided throughout the activity or intermittently. 3-Partial/Moderate Assistance-helper does LESS THAN HALF the effort. [place] lifts, holds or supports trunk or limbs, but provides less than half the effort. 2-Substantial/Maximal Assistance-helper does MORE THAN HALF the effort. [place] lifts or holds trunk or limbs and provides more than half the effort. 0-Bfqpbggwp-vzwufh does ALL the effort. Patient does none of the effort to complete the activity. Or, the assistance of 2 or more helpers is required for the patient to complete the activity. If activity was not attempted, code reason: 7-Patient Refused. 9-Not Applicable-not attempted and the patient did not perform the activity before the current illness, exacerbation or injury. 10-Not Attempted due to Environmental Limitations-(lack of equipment, weather restraints, etc.). 88-Not Attempted due to Medical Conditions or Safety Concerns. Bed Mobility: 6 Transfers (B,C,W/C): 6 Gait: 6 Stairs: 6 Indoor Mobility (Ambulation): Independent Stairs: Independent Prior Devices Use: Walker PT Evaluation-Current Subjective Patient in bed pre tx, agrees to PT, no complaints of pain but states she is very nauseated and dizzy. Pt/Family Goals "to feel better" Objective Patient Orientation: Person, Place, Situation ROM/Strength ROM Lower Extremities WNL Strength Lower Extremities 4-/5 gross BLE Sensory Vision: Wears Glasses Hearing: Functional Sensation Right Lower Extremit: Intact Sensation Left Lower Extremity: Intact Transfers Roll Left to Right (QC): 6 Sit to Lying (QC): 6 Lying to Sitting/Side of Bed(Q: 6 Sit to Stand (QC): 4 Chair/Eho-ej-Nkjzh Xfer(QC): 4 Patient sits on the side of the bed and nausea improves but dizziness increases slightly for a bit and gets better after a few moments. Gait Does the Patient Walk?: Yes Mode of Locomotion: Walk Anticipated Mode of Locomotion: Walk Walk 10 feet (QC): 4 Distance: 15' Gait Assistive Device: FWW Comments/Gait Description Patient ambulates with a rolling walker with CGA around the end of the bed to the other side, she is very nauseated after getting around the bed and has to sit and lay down. Assessment/Needs Patient has impaired mobility, strength, endurance, balance. Patient is dizzy and nauseated. Patient in bed post tx with nurse call, phone, lalit denise, all needs met. Rehab Potential: Fair PT Histology Specialist Goals Jail Goals PT Jail Goals Time Frame: Aug 06, 2019 Roll Left & Right (QC): 6 Sit to Lying (QC): 6 Lying-Sitting on Side/Bed(QC): 6 Sit to Stand (QC): 6 Chair/Ecb-az-Jcmqs Xfer(QC): 6 Walk 10 feet (QC): 6 Walk 50ft with 2 Turns (QC): 6 PT Plan Problem List Problem List: Activity Tolerance, Functional Strength, Safety, Balance, Gait, Transfer Treatment/Plan Treatment Plan: Continue Plan of Care Treatment Plan: Education, Functional Activity Sis, Functional Strength, Gait, Safety, Therapeutic Exercise, Transfers Treatment Duration: Aug 06, 2019 Frequency: 6 times per week Estimated Hrs Per Day: .25 hour per day Patient and/or Family Agrees t: Yes Safety Risks/Education Patient Education: Gait Training, Transfer Techniques, Correct Positioning, Safety Issues Teaching Recipient: Patient Teaching Methods: Demonstration, Discussion Response to Teaching: Reinforcement Needed Discharge Recommendations Plan Patient will perform bed mobility and transfer training, balance and endurance training, functional strengthening, stair training, gait training, and education, to improve functional mobility and independence at home. Therapy Discharge Recommendati: Home & Family Time/GCodes Time In: 0855 Time Out: 909 Total Billed Treatment Time: 15 Total Billed Treatment 1 visit TONYA Greenwood' JOSE ZAMUDIO PT Jul 30, 2019 09:22
[2019-07-30] MEDS: ASPIRIN E.C. 81 MG (ECOTRIN) TAB PO SCH (10:02)
[2019-07-30] MEDS: DOCUSATE SODIUM 100 MG (COLACE) CAP PO SCH (10:02)
--- NOTE | 2019-07-30 10:29 | Progress Note - Cardiology ---
Cardiology SOAP Progress Note Objective: I&O/Vital Signs 07/30/19 07/30/19 07/30/19 07/30/19 00:00 01:00 04:00 06:44 Temp 36.8 36.6 Pulse 73 74 79 73 Resp 19 20 B/P (MAP) 174/90 (118) 163/71 (101) Pulse Ox 96 95 O2 Delivery Room Air Room Air 07/30/19 07/30/19 08:00 08:00 Temp 36.0 Pulse 72 Resp 20 B/P (MAP) 176/78 (110) Pulse Ox 98 O2 Delivery Room Air Room Air 07/30/19 00:00 Intake Total 360 ml Output Total 100 ml Balance 260 ml Weight (Pounds): 98 Weight (Ounces): 0.0 Weight (Calculated Kilograms): 44.709271 Constitutional: AAO x 3, other (thin, frail) Respiratory: No accessory muscle use, No respiratory distress; chest expansion is symmetric, chest is bilaterally symmetric, lungs clear to auscultation Cardiovascular: regular rate-rhythm; No JVD; S1 and S2, systolic murmur Gastrointestional: No tender; soft, audible bowel sounds Extremities: no lower extremity edema bilateral Neurologic/Psychiatric: grossly intact (moves all extremities) Skin: No rash on exposed areas, No ulcerations on exposed areas Results/Procedures: Labs Microbiology 07/28/19 Urine Culture - Preliminary, Resulted Klebsiella pneumoniae Laboratory Tests 07/28/19 22:05 07/29/19 05:35 A/P: Assessment: Left lateral chest discomfort of undetermined etiology - no evidence of ACS - refuses MPI Coronary artery disease with a history of drug-eluting stenting of the left circumflex in August 2007. MPI of May 2011 did not show evidence of ischemia or infarction. Her ejection fraction was calculated to be 85 percent Echo of July 29, 2019: LVEF 55-60%, mild MAC, mild TR, AoV sclerosis w/o stenosis, PASP 25-30mmHg UTI - management per medical services CKD 4 Palpitations likely d/t episodes of PAF PAF with h/o CVA however, for reasons noted below she is considered intol to OAC Subdural hematoma in September 2009 while patient was on warfarin. 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 Corona H/o mucinous adeno CA of gastric antrum, s/p distal gastrectomy with Billroth II and repair of HH on 12/30/12 Chronic anemia being managed by Dr. Corona Hyperlipidemia being treated with statin therapy Hypothyroidism being treated with thyroid replacement therapy Carotid u/s of August 2018 showed less than 40% R ICA stenosis, approx 60% L ICA stenosis History of recurrent urinary tract infections Chronic mild hyponatremia Plan: * Refused MPI * Management of UTI per medical services * Continue current regimen Clinical Quality Measures AMI/AHF: ASA po Prior to arrival: RAMON Fowler Jul 30, 2019 10:29
--- NOTE | 2019-07-30 11:06 | Occupational Therapy Eval ---
OT Evaluation-General/PLF Medical Diagnosis Admission Date Jul 29, 2019 at 01:20 Medical Diagnosis: chest pain Onset Date: Jul 29, 2019 Therapy Diagnosis Therapy Diagnosis: Decreased ADL function Height/Weight Height (Feet): 5 Height (Inches): 2.00 Weight (Pounds): 98 Weight (Ounces): 0.0 Precautions Precautions/Isolations: Contact Isolation, Standard Precautions Referral Physician: Dash Referral Reason: Activity Tolerance, Self Care, Evaluation/Treatment, Strengthening/ROM Medical History Pertinent Medical History: Atrial Fib, CAD, CVA Additional Medical History HTN, a fib, CVA, kidney disease, CAD, GERD, depression, stomach Ca s/p resection. Current History Pt admits with chest pain 6/8 of L anterior ribs when moving, states throbbing pain. Reviewed History: Yes Social History Home: Single Level Current Living Status: Alone Entry Into Home: Stairs With Railing Steps Into Home: 2 ADL-Prior Level of Function SCALE: Activities may be completed with or without assistive devices. 1-Lazdsdljwk-upbyigh completes the activity by him/herself with no assistance from a helper. 5-Set-up or Clean-up Assistance-helper sets up or cleans up; patient completes activity. [place] assists only prior to or following the activity. 4-Supervision or Touching Assistance-helper provides verbal cues and/or touching/steadying and/or contact guard assistance as patient completes activity. Assistance may be provided throughout the activity or intermittently. 3-Partial/Moderate Assistance-helper does LESS THAN HALF the effort. [place] lifts, holds or supports trunk or limbs, but provides less than half the effort. 2-Substantial/Maximal Assistance-helper does MORE THAN HALF the effort. [place] lifts or holds trunk or limbs and provides more than half the effort. 6-Dqyvguhyr-puenad does ALL the effort. Patient does none of the effort to complete the activity. Or, the assistance of 2 or more helpers is required for the patient to complete the activity. If activity was not attempted, code reason: 7-Patient Refused. 9-Not Applicable-not attempted and the patient did not perform the activity before the current illness, exacerbation or injury. 10-Not Attempted due to Environmental Limitations-(lack of equipment, weather restraints, etc.). 88-Not Attempted due to Medical Conditions or Safety Concerns. ADL PLOF Comments Pt states IND within home for ADLs Pt drives ~1x per month, has assist for grocery shopping and cleaning within home Self Care: Independent Functional Cognition: Independent DME/Equipment Comments Sc, grab bars, 2WW, 4WW Occupation: retired. Drive Self: Yes OT Current Status Subjective Pt seen in bed, alert/ awake. Pt talkative. Pt denies pain, though when speaking of admission pt states a throbbing pain in ribs. Pt does not c/o pain throughout. Pt agrees to OT. Current Glasses/Contacts: Yes Hand Dominance: Right Upper Extremity ROM WFL BUE Upper Extremity Coordination WLF BUE Upper Extremity Sensation WFL per pt Upper Extremity Strength WFL (3+/5 bilateral shoulder flexion, 4/5 biceps, fair+loan documents closer strength) Edema: none noted. ADL-Treatment Eating (QC): 6 (Pt's board no longer NPO, pt states can eat apple sauce, able to bring to mouth) On/Off Footwear (QC): 4 (Completes with SBA EOB, good dynamic sitting balance.) Other Treatments Pt seen in bed, educated on OT role/ therapy role. Pt agrees to EOB activities/ sitting in recliner chair. Pt completes bed mob with SBA, dons/ doffs sock EOB, completes sit to stand with SBA and ambulates/ sits in recliner with SBA. Pt provides hx, requires min cueing for attention. Pt states min falls at home, has life alert. Pt completes microwave meals only at home. Pt acknowledges that she knows when she is unsafe to shower alone and decides to put it off when feeling so, as well as driving. Pt left in recliner with all needs met, call light in reach, family member present through session. Education OT Patient Education: Correct positioning, Purpose of tx/functional activities Teaching Recipient: Patient Teaching Methods: Demonstration, Discussion Response to Teaching: Verbalize Understanding, Return Demonstration OT [facility] Goals Branch Store Manager Goals Time Frame: Aug 06, 2019 Eating (QC): 6 Oral Hygiene (QC): 6 Toileting Hygiene (QC): 6 Shower/Bathe Self (QC): 6 Upper Body Dressing (QC): 6 Lower Body Dressing (QC): 6 On/Off Footwear (QC): 6 Additional Goals: 1-Demonstrate ADL Tasks, 2-Verbalize Understanding, 3- ImproveStrength/Sis 1=Demonstrate adherence to instructed precautions during ADL tasks. 2=Patient will verbalize/demonstrate understanding of assistive devices/modifications for ADL. 3=Patient will improve strength/tolerance for activity to enable patient to perform ADL's. OT Education/Plan Problem List/Assessment Assessment: Decreased Activ Tolerance, Decreased UE Strength, Impaired Funct Balance Discharge Recommendations Plan/Recommendations: Continue POC Therapy Discharge Recommendati: Intermittent Supervision Equpiment Recommendations-D/C: Rails on Tub/Shower (has one within shower, would benefit from additional gbs) Treatment Plan/Plan of Care Treatment,Training & Education: Yes Patient would benefit from OT for education, treatment and training to promote independence in ADL's, mobility, safety and/or upper extremity function for ADL's. Plan of Care: ADL Retraining, Functional Mobility, UE Funct Exercise/Act Treatment Duration: Aug 06, 2019 Frequency: 5 times per week Estimated Hrs Per Day: .25 hour per day Agreement: Yes Rehab Potential: Fair Time/GCodes Start Time: 10:46 Stop Time: 10:56 Total Time Billed (hr/min): 10 Billed Treatment Time 1, EVL (10) Pt would benefit from OT to address strength/ endurance/ functional balance during ADL tasks to ensure safe d/c home. ADELINE MACKEY OTR Jul 30, 2019 11:06
[2019-07-30] MEDS ORDERED: MTP25TSR PO (11:56)
[2019-07-30 12:00] VITALS: BP 154/70
--- NOTE | 2019-07-30 13:43 | Progress Note - Cardiology ---
Cardiology SOAP Progress Note Subjective: Continue to have mid-back and L lateral chest wall pain, currently mild. Wishes to go home No palp or syncope No shortness of breath at rest Intermittent nausea Chronic, generalized weakness and malaise Objective: I&O/Vital Signs 07/30/19 07/30/19 07/30/19 07/30/19 04:00 06:44 08:00 08:00 Temp 36.6 36.0 Pulse 79 73 72 Resp 20 20 B/P (MAP) 163/71 (101) 176/78 (110) Pulse Ox 95 98 O2 Delivery Room Air Room Air Room Air 07/30/19 12:00 Temp 36.8 Pulse 72 Resp 20 B/P (MAP) 154/70 (98) Pulse Ox 99 O2 Delivery Room Air 07/30/19 00:00 Intake Total 360 ml Output Total 100 ml Balance 260 ml Weight (Pounds): 98 Weight (Ounces): 0.0 Weight (Calculated Kilograms): 44.501321 Constitutional: AAO x 3, other (thin, frail) Respiratory: No accessory muscle use, No respiratory distress; chest expansion is symmetric, chest is bilaterally symmetric, lungs clear to auscultation Cardiovascular: regular rate-rhythm; No JVD; S1 and S2, systolic murmur Gastrointestional: No tender; soft, audible bowel sounds Extremities: no lower extremity edema bilateral Neurologic/Psychiatric: grossly intact (moves all extremities) Skin: No rash on exposed areas, No ulcerations on exposed areas Results/Procedures: Labs Microbiology 07/28/19 Urine Culture - Final, Complete Mixed Bacterial Carlyn Klebsiella pneumoniae Laboratory Tests 07/28/19 22:05 07/29/19 05:35 A/P: Assessment: Left lateral chest discomfort of undetermined etiology - no evidence of ACS - refuses MPI Coronary artery disease with a history of drug-eluting stenting of the left circumflex in August 2007. MPI of May 2011 did not show evidence of ischemia or infarction. Her ejection fraction was calculated to be 85 percent Echo of July 29, 2019: LVEF 55-60%, mild MAC, mild TR, AoV sclerosis w/o stenosis, PASP 25-30mmHg UTI - management per medical services CKD 4 Palpitations likely d/t episodes of PAF PAF with h/o CVA however, for reasons noted below she is considered intol to OAC Subdural hematoma in September 2009 while patient was on warfarin. 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 Corona H/o mucinous adeno CA of gastric antrum, s/p distal gastrectomy with Billroth II and repair of HH on 12/30/12 Chronic anemia being managed by Dr. Corona Hyperlipidemia being treated with statin therapy Hypothyroidism being treated with thyroid replacement therapy Carotid u/s of August 2018 showed less than 40% R ICA stenosis, approx 60% L ICA stenosis History of recurrent urinary tract infections Chronic mild hyponatremia Plan: * Refused MPI * Management of UTI and chest wall pain and back pain is with the Hospitalist / Med service * Continue current regimen Clinical Quality Measures AMI/AHF: ASA po Prior to arrival: ROMEL Hdz MD FACP FAC CCDS Jul 30, 2019 13:43
[2019-07-30] MEDS ORDERED: SUCR1ORA15 PO (14:53)
[2019-07-30] MEDS ORDERED: PANT40TA3 PO (14:53)
[2019-07-30] MEDS ORDERED: ONDN4T PO (14:55)
--- NOTE | 2019-07-30 15:13 | Discharge Summary ---
Discharge Summary Hospital Course Was the Problem List Reviewed?: Yes Problems/Dx: (1) Chest pain Status: Acute Qualifiers: Qualified Codes: R07.9 - Chest pain, unspecified (2) GERD (gastroesophageal reflux disease) Status: Acute Qualifiers: Qualified Codes: K21.0 - Gastro-esophageal reflux disease with esophagitis (3) History of stomach cancer Status: Chronic (4) CML (chronic myeloid leukemia) Status: Chronic Hospital Course Date of Admission: Jul 29, 2019 at 01:20 Admission Diagnosis : Chest pain Family Physician/Provider: Wiliam Joshua DO Date of Discharge: 07/30/19 Discharge Diagnosis: Noncardiac chest pain, likely GERD with esophagitis/gastritis Hospital Course: Shiela Robbins is an 88-year-old female with extensive past medical history including stomach cancer status post surgical resection, GERD, CAD, who presented with left-sided rib pain. She reported that the pain at been present for 5 days prior to her arrival. She was concerned that it felt similar to an episode of shingles she had had in the past. She had no skin lesions present throughout her hospital stay. Her pain was below her ribs on the left with radiation to the epigastric region. She was evaluated with EKG and serial troponins which were negative. Cardiology was consulted and recommended an MPI for further evaluation but she refused. Her history and current symptoms seem consistent with GERD with esophagitis and/or gastritis. It was recommended to consult general surgery and undergo endoscopic evaluation, but she refused this as well. I recommended changing her to a twice daily PPI with Carafate four times daily. If her symptoms are not resolved she should be encouraged to pursue an upper endoscopy. She will follow up with cardiology in about 3 weeks. She should follow-up with her primary care physician in about a week. Labs and Pending Lab Test: Microbiology 07/28/19 Urine Culture - Final, Complete Mixed Bacterial Carlyn Klebsiella pneumoniae Home Meds Active Zofran (Ondansetron HCl) 4 Mg Tab 4 Mg PO Q6H 7 Days Pantoprazole Sodium 40 Mg Tablet.dr 40 Mg PO DAILY 90 Days TAKE ONE TABLET TWICE DAILY FOR 8 WEEKS, THEN ONE TABLET DAILY. Sucralfate 1 Gm/10 Ml Oral.susp 1 Gm PO ACHS 90 Days TAKES 2 TEASPOONFULS PO BEFORE MEALS AND AT BEDTIME Tramadol HCl 50 Mg Tablet 50 Mg PO Q6H PRN 5 Days Meclizine HCl 25 Mg Tablet 12.5-25 Mg PO Q6H PRN [[id number]] 1 Ea PO DAILY@0700 Reported Metoprolol Succinate 25 Mg Tab.er.24h 25 Mg PO DAILY [Iron] Unknown Strength Unknown Dose PO DAILY Tramadol HCl 50 Mg Tablet 50 Mg PO BID Imodium A-D (Loperamide HCl) 2 Mg Capsule 2 Mg PO UD Alprazolam 0.25 Mg Tablet 0.25 Mg PO DAILY Acetaminophen 325 Mg Tablet 650 Mg PO Q4H Cranberry Tablet (Cranberry Conc/C/Bacill Coag) 1 Each Tablet 1 Each PO DAILY Nitroglycerin 0.4 Mg Tab.subl 0.4 Mg SL UD PRN Fluoxetine HCl 20 Mg Tablet 30 Mg PO DAILY TAKES 30 MG PO DAILY Aspirin EC (Aspirin) 81 Mg Tablet.dr 81 Mg PO DAILY Imatinib Mesylate 400 Mg Tablet 400 Mg PO DAILY Levothyroxine Sodium 50 Mcg Tablet 50 Mcg PO DAILY Simvastatin 10 Mg Tablet 10 Mg PO DAILY Assessment/Pt Instructions Take medications as prescribed. Follow-up with your primary care physician. Follow up with cardiology. Discharge Planning: <30 minutes discharge planning Discharge Instructions Discharge Diet: No Restrictions Activity as Tolerated: Yes Discharge Physical Examination Vital Signs Vital Signs Date Time Temp Pulse Resp B/P (MAP) Pulse Ox O2 Delivery O2 Flow Rate FiO2 07/30/19 12:31 70 07/30/19 12:00 36.8 20 154/70 (98) 99 Room Air General Appearance: No Apparent Distress, Chronically ill, Thin Respiratory: Chest Non Tender, Lungs Clear, Normal Breath Sounds, No Respiratory Distress Cardiovascular: Regular Rate, Rhythm, No Edema, No Murmur Gastrointestinal: Normal Bowel Sounds, Non Tender, Soft Extremity: Normal Inspection, Non Tender, No Pedal Edema Skin: Normal Color, Warm/Dry Neurologic/Psychiatric: Alert, Oriented x3, No Motor/Sensory Deficits, Normal Mood/Affect Allergies: Coded Allergies: propoxyphene (Verified Allergy, Mild, 09/21/16) codeine (Verified Allergy, Unknown, 09/21/16) meperidine (Verified Allergy, Unknown, 09/21/16) Copy Copies To 1: WILIAM JOSHUA DO Discharge Summary Date of Admission Jul 29, 2019 at 01:20 Date of Discharge Discharge Date: Jul 30, 2019 Discharge Time: 17:30 Admission Diagnosis Chest pain Consults/Procedures Consulations Cardiology Discharge Diagnosis Noncardiac chest pain, GERD with likely esophagitis/gastritis (1) Non-cardiac chest pain Status: Acute (2) GERD (gastroesophageal reflux disease) Status: Acute Qualifiers: Qualified Codes: K21.0 - Gastro-esophageal reflux disease with esophagitis (3) Esophagitis with gastritis Status: Acute Clinical Quality Measures AMI/AHF: ASA po Prior to arrival: No DVT/VTE Risk/Contraindication: Risk Factor Score Per Nursin RFS Level Per Nursing on Admit: 4+=Very High LARRY CRAWFORD MD Jul 30, 2019 15:11
[2019-07-30 16:02] VITALS: BP 187/87
--- NOTE | 2019-07-30 18:00 | NUR ---
ATE 25 PERCENT DINNER, TELEMETRY DC, IV DC, SITE WITHOUT REDNESS OR SWELLING, DAUGHTER IN LAW AT BEDSIDE, DISCHARGE INSTRUCTIONS GIVEN, VERBALIZED UNDERSTANDING OF NEW PRESCRIPTIONS AND FOLLOW UP APPOINTMENT, DISMISSED PER W/C, ACCOMPANIED BY FAMILY AND STAFF.
[2019-07-30 18:20] VITALS: BP 187/87
== END 2019-07-30 18:22 | disposition home or self-care (01) ==
LOC: EDUNIT# 21:43 → ER 21:44 → 4TH 07-29 01:20
PROVIDERS: ADMIT Internal Medicine; ATTEND Internal Medicine
DX: R07.89 Other chest pain (principal); C92.10 Chronic myeloid leukemia, BCR/ABL-positive, not having achieved remission; J30.9 Allergic rhinitis, unspecified; I25.10 Atherosclerotic heart disease of native coronary artery without angina pectoris; N39.0 Urinary tract infection, site not specified; E03.9 Hypothyroidism, unspecified; K21.9 Gastro-esophageal reflux disease without esophagitis; K58.9 Irritable bowel syndrome, unspecified; I12.9 Hypertensive chronic kidney disease with stage 1 through stage 4 chronic kidney disease, or unspecified chronic kidney disease; N18.4 Chronic kidney disease, stage 4 (severe); I48.0 Paroxysmal atrial fibrillation; D64.9 Anemia, unspecified; E78.5 Hyperlipidemia, unspecified; E87.1 Hypo-osmolality and hyponatremia; F32.9 Major depressive disorder, single episode, unspecified; Z20.828 Contact with and (suspected) exposure to other viral communicable diseases; Z88.8 Allergy status to other drugs, medicaments and biological substances; Z88.5 Allergy status to narcotic agent; Z79.82 Long term (current) use of aspirin; Z79.899 Other long term (current) drug therapy; Z90.710 Acquired absence of both cervix and uterus; Z86.73 Personal history of transient ischemic attack (TIA), and cerebral infarction without residual deficits; Z80.9 Family history of malignant neoplasm, unspecified; Z82.61 Family history of arthritis
CPT/HCPCS: 36415; 71045; 80053; 80061; 81000; 83690; 83735; 83874; 83880; 84484; 85025; 85610; 85730; 86141; 87088; 87186; 93005; 93306

== ENCOUNTER 2019-08-04 13:11 | Outpatient (RCR) | payer MEDICARE ==
[2019-07-21 13:41] LABS: BASOPHILS % (AUTO) 1 % (0-10); EOSINOPHILS # (AUTO) 0.1 10^3/uL (0.0-0.3); EOSINOPHILS % (AUTO) 2 % (0-10); HEMATOCRIT 30 % (35-52); HEMOGLOBIN 10.2 G/DL (11.5-16.0); LYMPHOCYTES % (AUTO) 34 % (12-44); MEAN CORPUSCULAR HEMOGLOBIN 33 PG (25-34); MEAN CORPUSCULAR HGB CONC 34 G/DL (32-36); MEAN CORPUSCULAR VOLUME 98 FL (80-99); MEAN PLATELET VOLUME 9.7 FL (7.4-10.4); MONOCYTES # (AUTO) 0.5 X 10^3 (0.0-1.0); MONOCYTES % (AUTO) 9 % (0-12); NEUTROPHILS # (AUTO) 3.4 X 10^3 (1.8-7.8); NEUTROPHILS % (AUTO) 56 % (42-75); PLATELET COUNT 298 10^3/uL (130-400); WHITE BLOOD COUNT 6.1 10^3/uL (4.3-11.0)
[2019-07-21 14:02] LABS: ALBUMIN 3.7 GM/DL (3.2-4.5); BILIRUBIN,TOTAL 0.2 MG/DL (0.1-1.0); CALCIUM 8.7 MG/DL (8.5-10.1); CREATININE SERUM 1.42 MG/DL (0.60-1.30); POTASSIUM 4.3 MMOL/L (3.6-5.0); TOTAL PROTEIN 7.2 GM/DL (6.4-8.2)
[~2019-08-04 13:11] MED LIST changes: +MTP25TSR PO; +ONDN4T PO; +PANT40TA3 PO
== END 2019-10-19 | disposition home or self-care (01) ==
LOC: ONC 13:11
PROVIDERS: ATTEND Internal Medicine Hematology & Oncology
DX: C92.10 Chronic myeloid leukemia, BCR/ABL-positive, not having achieved remission (principal); C16.3 Malignant neoplasm of pyloric antrum; D53.9 Nutritional anemia, unspecified; M81.0 Age-related osteoporosis without current pathological fracture; E03.9 Hypothyroidism, unspecified; N18.3 Chronic kidney disease, stage 3 (moderate); I08.3 Combined rheumatic disorders of mitral, aortic and tricuspid valves; I25.10 Atherosclerotic heart disease of native coronary artery without angina pectoris; Z79.899 Other long term (current) drug therapy
CPT/HCPCS: 80053; 81206; 83615; 85025; 99213

== ENCOUNTER 2019-12-03 13:55 | Outpatient (RCR) | payer MEDICARE ==
[2019-11-19 13:10] LABS: BASOPHILS % (AUTO) 1 % (0-10); EOSINOPHILS # (AUTO) 0.3 10^3/uL (0.0-0.3); EOSINOPHILS % (AUTO) 6 % (0-10); HEMATOCRIT 31 % (35-52); HEMOGLOBIN 10.1 g/dL (11.5-16.0); LYMPHOCYTES # (AUTO) 1.7 10^3/uL (1.0-4.0); LYMPHOCYTES % (AUTO) 36 % (12-44); MEAN CORPUSCULAR HEMOGLOBIN 33 pg (25-34); MEAN CORPUSCULAR HGB CONC 33 g/dL (32-36); MEAN CORPUSCULAR VOLUME 99 fL (80-99); MONOCYTES # (AUTO) 0.4 10^3/uL (0.0-1.0); MONOCYTES % (AUTO) 7 % (0-12); NEUTROPHILS # (AUTO) 2.3 10^3/uL (1.8-7.8); NEUTROPHILS % (AUTO) 49 % (42-75); PLATELET COUNT 248 10^3/uL (130-400); WHITE BLOOD COUNT 4.7 10^3/uL (4.3-11.0)
[2019-11-19 13:27] LABS: ALBUMIN 3.6 GM/DL (3.2-4.5); BILIRUBIN,TOTAL 0.4 MG/DL (0.1-1.0); CALCIUM 8.3 MG/DL (8.5-10.1); CREATININE SERUM 1.7 MG/DL (0.60-1.30); POTASSIUM 4.4 MMOL/L (3.6-5.0); TOTAL PROTEIN 6.6 GM/DL (6.4-8.2)
[~2019-12-03 13:55] MED LIST changes: -ALPR0.254 PO; +ASPI-1238 PO; -ASPI-983 PO; -PANT40TA3 PO; +PANT40TA52 PO
== END 2020-02-17 | disposition home or self-care (01) ==
LOC: ONC 13:55
PROVIDERS: ATTEND Internal Medicine Hematology & Oncology
DX: C92.10 Chronic myeloid leukemia, BCR/ABL-positive, not having achieved remission (principal); C16.3 Malignant neoplasm of pyloric antrum; D53.9 Nutritional anemia, unspecified; M81.0 Age-related osteoporosis without current pathological fracture; E03.9 Hypothyroidism, unspecified; N18.30 Chronic kidney disease, stage 3 unspecified; I08.3 Combined rheumatic disorders of mitral, aortic and tricuspid valves; I25.10 Atherosclerotic heart disease of native coronary artery without angina pectoris; Z79.899 Other long term (current) drug therapy
CPT/HCPCS: 80053; 81206; 83615; 85025; 99213

== ENCOUNTER 2020-05-20 13:01 | Outpatient (RCR) | payer MEDICARE ==
[2020-02-24 13:51] LABS: BASOPHILS % (AUTO) 1 % (0-10); EOSINOPHILS # (AUTO) 0.2 10^3/uL (0.0-0.3); EOSINOPHILS % (AUTO) 4 % (0-10); HEMATOCRIT 31 % (35-52); HEMOGLOBIN 10.2 g/dL (11.5-16.0); LYMPHOCYTES % (AUTO) 31 % (12-44); MEAN CORPUSCULAR HEMOGLOBIN 33 pg (25-34); MEAN CORPUSCULAR HGB CONC 33 g/dL (32-36); MEAN CORPUSCULAR VOLUME 98 fL (80-99); MEAN PLATELET VOLUME 9.9 fL (9.0-12.2); MONOCYTES # (AUTO) 0.6 10^3/uL (0.0-1.0); MONOCYTES % (AUTO) 9 % (0-12); NEUTROPHILS # (AUTO) 3.6 10^3/uL (1.8-7.8); NEUTROPHILS % (AUTO) 56 % (42-75); PLATELET COUNT 193 10^3/uL (130-400); WHITE BLOOD COUNT 6.4 10^3/uL (4.3-11.0)
[2020-02-24 14:14] LABS: ALBUMIN 3.7 GM/DL (3.2-4.5); BILIRUBIN,TOTAL 0.3 MG/DL (0.1-1.0); CALCIUM 8.5 MG/DL (8.5-10.1); CREATININE SERUM 1.41 MG/DL (0.60-1.30)
[2020-05-20 13:31] LABS: BASOPHILS % (AUTO) 1 % (0-10); EOSINOPHILS # (AUTO) 0.4 10^3/uL (0.0-0.3); EOSINOPHILS % (AUTO) 6 % (0-10); HEMATOCRIT 29 % (35-52); HEMOGLOBIN 9.7 g/dL (11.5-16.0); LYMPHOCYTES # (AUTO) 2.1 10^3/uL (1.0-4.0); LYMPHOCYTES % (AUTO) 33 % (12-44); MEAN CORPUSCULAR HEMOGLOBIN 33 pg (25-34); MEAN CORPUSCULAR HGB CONC 33 g/dL (32-36); MEAN CORPUSCULAR VOLUME 99 fL (80-99); MEAN PLATELET VOLUME 9.8 fL (9.0-12.2); MONOCYTES # (AUTO) 0.6 10^3/uL (0.0-1.0); MONOCYTES % (AUTO) 10 % (0-12); NEUTROPHILS # (AUTO) 3.2 10^3/uL (1.8-7.8); NEUTROPHILS % (AUTO) 51 % (42-75); PLATELET COUNT 223 10^3/uL (130-400); WHITE BLOOD COUNT 6.4 10^3/uL (4.3-11.0)
[2020-05-20 13:43] LABS: ALBUMIN 3.6 GM/DL (3.2-4.5); BILIRUBIN,TOTAL 0.4 MG/DL (0.1-1.0); CALCIUM 8.3 MG/DL (8.5-10.1); CREATININE SERUM 1.54 MG/DL (0.60-1.30); POTASSIUM 4.5 MMOL/L (3.6-5.0); TOTAL PROTEIN 6.9 GM/DL (6.4-8.2)
== END 2020-05-24 | disposition home or self-care (01) ==
LOC: ONC 13:01
PROVIDERS: ATTEND Internal Medicine Hematology & Oncology
DX: C92.10 Chronic myeloid leukemia, BCR/ABL-positive, not having achieved remission (principal); C16.3 Malignant neoplasm of pyloric antrum; D53.9 Nutritional anemia, unspecified; M81.0 Age-related osteoporosis without current pathological fracture; E03.9 Hypothyroidism, unspecified; N18.30 Chronic kidney disease, stage 3 unspecified; I08.3 Combined rheumatic disorders of mitral, aortic and tricuspid valves; I25.10 Atherosclerotic heart disease of native coronary artery without angina pectoris; Z79.899 Other long term (current) drug therapy
CPT/HCPCS: 80053; 81206; 83615; 84443; 85025; 99213

== ENCOUNTER 2020-07-02 08:58 | Emergency (ER) | payer MEDICARE ==
[~2020-07-02] VITALS: Ht 157.5 cm; Wt 46.7 kg
--- NOTE | 2020-07-02 09:28 | ED Chest Pain ---
General Chief Complaint: Chest Pain Stated Complaint: CP Nursing Triage Note: PT AMB TO [facility] 5 WITH COMPLAINT OF CP SINCE SUNDAY. WAS SENT HERE BY DR JOSHUA FOR FURTHER EVALUATION. STATES HAS BEEN TAKING EXTRA STRENGTH TYLENOL AND IMPROVES PAIN. Nursing Sepsis Screen: No Definite Risk Source: patient, other (Significant other) Exam Limitations: no limitations History of Present Illness Date Seen by Provider: July 02, 2020 Time Seen by Provider: 08:58 Initial Comments Patient and her significant other are present to the ER by private conveyance from Dr. Joshua's office where she was complaining of chest pain on the right side of her chest radiating through to her back since Sunday, 4 days ago. Pain is described as throbbing. She denies a history of AAA. She does have a history of stents many years ago and followed by Dr. Bello. 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 She also was treated for stomach cancer many years ago and had history of esophageal rupture. She says she is due to have another EGD anytime. She is had no cough fever or chills. She does not drink alcohol and denies a history of pancreatitis. She has not tried any antacids. She has been using Tylenol 650 mg every 6 hours which quelled the pain. She says she took her last dose at 730, approximately an hour and a half prior to arrival and rates her pain as about a 7 out of 10. No nausea dysuria diarrhea constipation. She has a history of cholecystectomy, appendectomy, surgery on her stomach. Echocardiogram 1 year ago shows EF of 55 to 60% and grade 1 diastolic dysfunction. Aortic root is not dilated. Last stent was placed in the left circumflex in 2007. History of CKD stage IV. History of paroxysmal atrial fibrillation with history of stroke as well as a subdural hematoma 2009 while on warfarin. Intolerant to warfarin and OAC's. 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 Chronic anemia. Hyperlipidemia, hypothyroidism, chronic mild hyponatremia. CT from 2012 demonstrates a normal caliber thoracic aorta with moderate atherosclerotic plaquing. Allergies and Home Medications Allergies Coded Allergies: propoxyphene (Verified Allergy, Mild, 09/21/16) codeine (Verified Allergy, Unknown, 09/21/16) meperidine (Verified Allergy, Unknown, 09/21/16) Home Medications ALPRAZolam 0.25 Mg Tablet, 0.25 MG PO DAILY, (Reported) Acetaminophen 325 Mg Tablet, 650 MG PO Q4H, (Reported) Aspirin 81 Mg Tablet.dr, 81 MG PO DAILY, (Reported) Cranberry Conc/C/Bacill Coag 1 Each Tablet, 1 EACH PO DAILY, (Reported) Fluoxetine HCl 20 Mg Tablet, 30 MG PO DAILY, (Reported) TAKES 30 MG PO DAILY Imatinib Mesylate 400 Mg Tablet, 400 MG PO DAILY, (Reported) Levothyroxine Sodium 50 Mcg Tablet, 50 MCG PO DAILY, (Reported) Loperamide HCl 2 Mg Capsule, 2 MG PO UD, (Reported) Meclizine HCl 25 Mg Tablet, 12.5-25 MG PO Q6H PRN for DIZZINESS Prescribed by: ROD MARIN on 12/06/17 1350 Metoprolol Succinate 25 Mg Tab.er.24h, 25 MG PO DAILY, (Reported) Nitroglycerin 0.4 Mg Tab.subl, 0.4 MG SL UD PRN for CHEST PAIN, (Reported) Ondansetron HCl 4 Mg Tab, 4 MG PO Q6H Prescribed by: LARRY CRAWFORD on 07/30/19 1455 Pantoprazole Sodium 40 Mg Tablet.dr, 40 MG PO DAILY TAKE ONE TABLET TWICE DAILY FOR 8 WEEKS, THEN ONE TABLET DAILY. Prescribed by: LARRY CRAWFORD on 07/30/19 1453 Simvastatin 10 Mg Tablet, 10 MG PO DAILY, (Reported) Sucralfate 1 Gm/10 Ml Oral.susp, 1 GM PO ACHS TAKES 2 TEASPOONFULS PO BEFORE MEALS AND AT BEDTIME Prescribed by: LARRY CRAWFORD on 07/30/19 1453 Tramadol HCl 50 Mg Tablet, 50 MG PO BID, (Reported) Tramadol HCl 50 Mg Tablet, 50 MG PO Q6H PRN for PAIN-MODERATE (5-7) Prescribed by: LARRY CRAWFORD on 07/29/19 1339 [Iron] Unknown Strength , Unknown Dose PO DAILY, (Reported) [[id number]] , 1 EA PO DAILY@0700 Prescribed by: KATELYN PALACIOS on 02/10/13 1127 Patient Home Medication List Home Medication List Reviewed: Yes Review of Systems Review of Systems Constitutional: No chills, No diaphoresis EENTM: No Blurred Vision, No Double Vision Respiratory: Denies Cough, Denies Shortness of Air Cardiovascular: See HPI, Chest Pain; Denies Edema, Denies Lightheadedness, Denies Palpitations, Denies Syncope Gastrointestinal: Denies Abdomen Distended, Denies Abdominal Pain, Denies Constipated, Denies Diarrhea, Denies Nausea Genitourinary: Denies Burning, Denies Discharge Musculoskeletal: No back pain, No joint pain All Other Systems Reviewed Negative Unless Noted: Yes Past Arzgufp-Jbsylp-Ogoitm Hx Patient Social History Alcohol Use: Denies Use Number of Drinks Today: AA Alcohol Beverage of Choice: Beer Smoking Status: Never a Smoker 2nd Hand Smoke Exposure: No Recent Infectious Disease Expo: No Recent Hopitalizations: No Immunizations Up To Date Tetanus Booster (TDap): Unknown Date of Pneumonia Vaccine: Jan 10, 2013 Seasonal Allergies Seasonal Allergies: Yes Past Medical History Surgeries: Yes (hiatal hernia, root canal; part of stomach removed; 1 ovary removed) Hysterectomy Respiratory: No Cardiac: Yes Coronary Artery Disease Neurological: Yes (STROKE IN 08/27) Stroke Reproductive Disorders: No Female Reproductive Disorders: Denies [employer] History: Menopausal Sexually Transmitted Disease: No HIV/AIDS: No Genitourinary: No UTI-Chronic Gastrointestinal: Yes Gastroesophageal Reflux, Irritable Bowel Musculoskeletal: No Endocrine: Yes Hypothyroidsim HEENT: No Cancer: Yes (CML) Leukemia, Stomach Did You Recieve Any Treatments: Yes Psychosocial: No Integumentary: No Blood Disorders: Yes (CHRONIC MYLOID LUEKEMIA, HX DVTS AFTER FALL) Family Medical History Cancer 03 FATHER (thyroid cancer) Family history: Arthritis 03 MOTHER 09 SISTER Family history: Thyroid disorder 03 FATHER No Pertinent Family Hx Physical Exam Vital Signs Vital Signs - First Documented 07/02/20 09:02 Pulse 74 Resp 16 B/P (MAP) 172/65 (100) Pulse Ox 96 O2 Delivery Room Air Capillary Refill : Less Than 3 Seconds Height, Weight, BMI Height: 5'2.00" Weight: 98lbs. 0.0oz. [id number]; 18.00 BMI Method:Stated General Appearance: WD/WN, Mild Distress HEENT: PERRL/EOMI, Pharynx Normal, Moist Mucous Membranes Neck: Full Range of Motion, Normal Inspection Respiratory: Chest Non Tender, Lungs Clear, Normal Breath Sounds, No Accessory Muscle Use, No Respiratory Distress Cardiovascular: Regular Rate, Rhythm (Irregular sinus rhythm), No Edema, Normal Peripheral Pulses Gastrointestinal: Normal Bowel Sounds, No Organomegaly, No Pulsatile Mass, Non Tender, Soft Extremity: Normal Capillary Refill, Normal Inspection, No Pedal Edema Neurologic/Psychiatric: Alert, Oriented x3, No Motor/Sensory Deficits, Normal Mood/Affect Skin: Normal Color, Warm/Dry Progress/Results/Core Measures Results/Orders Lab Results Laboratory Tests Test 07/02/20 09:15 07/02/20 11:40 Range/Units White Blood Count 4.5 4.3-11.0 10^3/uL Red Blood Count 3.35 L 3.80-5.11 10^6/uL Hemoglobin 11.2 L 11.5-16.0 g/dL Hematocrit 33 L 35-52 % Mean Corpuscular Volume 97 80-99 fL Mean Corpuscular Hemoglobin 33 25-34 pg Mean Corpuscular Hemoglobin Concent 35 32-36 g/dL Red Cell Distribution Width 13.2 10.0-14.5 % Platelet Count 289 130-400 10^3/uL Mean Platelet Volume 11.5 9.0-12.2 fL Immature Granulocyte % (Auto) 0 % Neutrophils (%) (Auto) 43 42-75 % Lymphocytes (%) (Auto) 42 12-44 % Monocytes (%) (Auto) 10 0-12 % Eosinophils (%) (Auto) 4 0-10 % Basophils (%) (Auto) 1 0-10 % Neutrophils # (Auto) 2.0 1.8-7.8 10^3/uL Lymphocytes # (Auto) 1.9 1.0-4.0 10^3/uL Monocytes # (Auto) 0.4 0.0-1.0 10^3/uL Eosinophils # (Auto) 0.2 0.0-0.3 10^3/uL Basophils # (Auto) 0.0 0.0-0.1 10^3/uL Immature Granulocyte # (Auto) 0.0 0.0-0.1 10^3/uL Prothrombin Time 13.3 12.2-14.7 SEC INR Comment 1.0 0.8-1.4 Activated Partial Thromboplast Time 20 L 24-35 SEC D-Dimer 2.86 H 0.00-0.49 UG/ML Sodium Level 133 L 135-145 MMOL/L Potassium Level 3.8 3.6-5.0 MMOL/L Chloride Level 103 98-107 MMOL/L Carbon Dioxide Level 18 L 21-32 MMOL/L Anion Gap 12 5-14 MMOL/L Blood Urea Nitrogen 14 7-18 MG/DL Creatinine 1.57 H 0.60-1.30 MG/DL Estimat Glomerular Filtration Rate 31 BUN/Creatinine Ratio 9 Glucose Level 91 70-105 MG/DL Calcium Level 9.1 8.5-10.1 MG/DL Corrected Calcium 9.1 8.5-10.1 MG/DL Magnesium Level 2.1 1.6-2.4 MG/DL Total Bilirubin 0.4 0.1-1.0 MG/DL Aspartate Amino Transf (AST/SGOT) 35 H 5-34 U/L Alanine Aminotransferase (ALT/SGPT) 18 0-55 U/L Alkaline Phosphatase 80 40-136 U/L Myoglobin 76.9 10.0-92.0 NG/ML Troponin I < 0.028 < 0.028 <0.028 NG/ML B-Type Natriuretic Peptide 102.8 H <100.0 PG/ML Total Protein 7.9 6.4-8.2 GM/DL Albumin 4.0 3.2-4.5 GM/DL Lipase 80 H 8-78 U/L My Orders Orders - MARK PEMBERTON Continuous Ekg Monitoring (07/02/20 09:01) Ekg Tracing (07/02/20 09:01) Cbc With Automated Diff (07/02/20:) Magnesium (07/02/20 09:) Chest 1 View, Ap/Pa Only (07/02/20:) Comprehensive Metabolic Panel (07/02/20:) Myoglobin Serum (07/02/20:) Protime With Inr (07/02/20:) Partial Thromboplastin Time (07/02/20:) O2 (07/02/20:) Lipid Panel (07/03/20 06:00) Ed Iv/Invasive Line Start (07/02/20:) Lipase (07/02/20:21) BNP (07/02/20:21) Fibrin Degradation Products (07/02/20:) Troponin I (07/02/20 09:21) Aspirin Chewable Tablet (Baby Aspirin Ch (07/02/20 09:30) Ed Iv/Invasive Line Start (07/02/20 09:21) Ns Iv 500 Ml (Sodium Chloride 0.9%) (07/02/20 09:30) Pantoprazole Injection (Protonix Injecti (07/02/20 09:30) Nitroglycerin 0.4 Mg Btl 25's (Nitrostat (07/02/20 10:30) Troponin I (07/02/20 11:26) Medications Given in ED Current Medications Medications Dose Ordered Sig/Lisa Route Start Time Stop Time Status Last Admin Dose Admin Aspirin 324 mg ONCE ONCE PO 07/02/20 09:30 07/02/20 09:31 DC 07/02/20 09:41 324 MG Nitroglycerin 0.4 mg NEEDED PRN SL 07/02/20 10:30 07/02/20 10:27 0.4 MG Pantoprazole 40 mg ONCE ONCE IV 07/02/20 09:30 07/02/20 09:31 DC 07/02/20 09:41 40 MG Sodium Chloride 500 ml @ 0 mls/hr Q0M ONCE IV 07/02/20 09:30 07/02/20 09:31 DC 07/02/20 09:41 0 MLS/HR Vital Signs/I&O 07/02/20 09:02 Pulse 74 Resp 16 B/P (MAP) 172/65 (100) Pulse Ox 96 O2 Delivery Room Air Blood Pressure Mean: 100 Progress Progress Note #1: Time: 09:34 Progress Note Chest pain with a history of coronary syndrome. We reviewed her prior history. She seems to have normal imaging of her aorta on previous imaging from 4 years ago as well as normal imaging of her aortic root on ultrasound from 1 year ago. Dissecting aorta is less likely therefore. We will give her some aspirin and then make her n.p.o. Within the last couple years she did have a unremarkable MPI. We will start with some nitroglycerin to see if that helps her pain. After her initial labs including troponin lipase then will discuss whether or not she would be interested in coronary angiogram if offered. Well score one-point which puts her at a 1.3% risk based on her history of CML. Is fairly low risk and a D-dimer is probably going to be low yield because of t he poor pretest probability and with her given history of CKD stage IV she is not better qualify for a CT angiogram. Previous imaging is helpful in ruling out aortic aneurysm. She has no history of pulmonary embolisms. She is not on blood thinners because of intolerance in the past including a subdural hematoma. GI is a very possible to be the source of her pain as well. If nitroglycerin is not helpful we have given her some pantoprazole and may consider a GI cocktail. Progress Note #2: Time: 10:43 Progress Note Patient states she did not get any relief from the nitroglycerin because she was not having any pain when she arrived. When we clarified she says the 7 out of 10 pain was prior to taking the Tylenol and went away with Tylenol prior to arrival here. She says she is still not having any pain. She declines to do an MPI and states that if offered she would not do a heart catheterization either. Her initial troponin is negative. We will discussed the case with cardiology and see if we can set something up outpatient. Likely she would derive benefit from an EGD and she says she is interested in doing that procedure. Initial ECG Impression Date: July 02, 2020 Initial ECG Impression Time: 09:01 Initial ECG Rate: 71 Initial ECG Rhythm: Normal Sinus Initial ECG Intervals: Normal Initial ECG Impression: Normal, Nonspecific Changes Initial ECG Comparisson: Unchanged Comment Sinus rhythm with regular rate. No clinically relevant ST changes in any leads. Diagnostic Imaging Diagonstic Imaging: Xray Plain Films/CT/US/NM/MRI: chest Comments [facility] [place], [place] NAME: ANT VIGIL [facility] REC#: [id number] PT STATUS: REG ER : 1930 PHYSICIAN: MARK PEMBERTON MD ADMIT DATE: 07/02/20/ER Draft Date of Exam:07/02/20 CHEST 1 VIEW, AP/PA ONLY INDICATION: Chest pain COMPARISON: 07/29/2019 TECHNIQUE: Single radiograph of the chest dated 07/02/2020. FINDINGS: The cardiac silhouette is within normal limits in size. No significant pulmonary vascular congestion. Slight blunting of the left costophrenic angle. The lungs are otherwise clear of focal pulmonary opacity. No right pleural effusion. No pneumothorax. [place] right curvature of the spine with scattered osseous degenerative changes. No acute osseous abnormality. IMPRESSION: No acute cardiopulmonary abnormality with stable mild left pleural thickening and scarring and curvature of the spine. Dictated on workstation # [id number] Dict: 07/02/20 0959 Trans: 07/02/20 1004 SOHAIL [id number] Interpreted by: MAYA DOUGHERTY MD Electronically signed by: Reviewed: Reviewed by Me Consults : Consulting Physician: ROMEL BELLO MD [facility] Consults Notes Discussed the case with her exterior work helper and he recommends that if a delta tro ponin is negative he would be okay with following her up in the clinic on Sunday. He says if it is positive he would want Dr. Tong to observe her overnight and work her up further. The patient is okay with this plan. Departure Impression Primary Impression: Chest pain Qualified Codes: R07.9 - Chest pain, unspecified Additional Impression: GERD (gastroesophageal reflux disease) Qualified Codes: K21.00 - Gastro-esophageal reflux disease with esophagitis, without bleeding Disposition: HOME, SELF-CARE Condition: Stable Departure-Patient Inst. Decision time for Depature: 12:00 Referrals: GIORGI VINES RICHARD A DO (PCP/Family) Primary Care Physician ROMEL BELLO MD [facility] Patient Instructions: Chest Pain (DC) Add. Discharge Instructions: Call Dr. Bello's office Sunday morning and request follow-up same day. Return to the ER for severe chest pain that is not relieved with Tylenol or antacids. You may follow-up with Dr. Vines to discuss EGD by calling his clinic for an appointment after you have been cleared by your exterior work helper. All discharge instructions reviewed with patient and/or family. Voiced understanding. Copy Copies To 1: GIORGI VINES DO; ROMEL BELLO MD [facility] MARK PEMBERTON July 02, 2020 09:28
[2020-07-02] MEDS ORDERED: PANTOPRAZOLE 40 MG (PROTONIX) VIAL IV ONE (09:30)
[2020-07-02] MEDS ORDERED: ASPIRIN 81 MG CHEW (CHILDREN'S ASA) PO ONE (09:30)
[2020-07-02] MEDS ORDERED: NS IV 500 ML 500 ML IV ONE (09:30)
[2020-07-02 09:38] LABS: POTASSIUM 3.8 MMOL/L (3.6-5.0)
[2020-07-02 09:39] LABS: BASOPHILS % (AUTO) 1 % (0-10); CALCIUM 9.1 MG/DL (8.5-10.1); EOSINOPHILS # (AUTO) 0.2 10^3/uL (0.0-0.3); EOSINOPHILS % (AUTO) 4 % (0-10); HEMATOCRIT 33 % (35-52); HEMOGLOBIN 11.2 g/dL (11.5-16.0); LYMPHOCYTES # (AUTO) 1.9 10^3/uL (1.0-4.0); LYMPHOCYTES % (AUTO) 42 % (12-44); MEAN CORPUSCULAR HEMOGLOBIN 33 pg (25-34); MEAN CORPUSCULAR HGB CONC 35 g/dL (32-36); MEAN CORPUSCULAR VOLUME 97 fL (80-99); MEAN PLATELET VOLUME 11.5 fL (9.0-12.2); MONOCYTES # (AUTO) 0.4 10^3/uL (0.0-1.0); MONOCYTES % (AUTO) 10 % (0-12); NEUTROPHILS % (AUTO) 43 % (42-75); PLATELET COUNT 289 10^3/uL (130-400); WHITE BLOOD COUNT 4.5 10^3/uL (4.3-11.0)
[2020-07-02 09:40] LABS: TOTAL PROTEIN 7.9 GM/DL (6.4-8.2)
[2020-07-02 09:42] LABS: BILIRUBIN,TOTAL 0.4 MG/DL (0.1-1.0)
[2020-07-02 09:43] LABS: CREATININE SERUM 1.57 MG/DL (0.60-1.30)
[2020-07-02 09:45] LABS: PROTHROMBIN TIME PATIENT 13.3 SEC (12.2-14.7)
[2020-07-02 09:46] LABS: MAGNESIUM 2.1 MG/DL (1.6-2.4)
--- NOTE | 2020-07-02 10:05 | Diagnostic Imaging Report ---
INDICATION: Chest pain COMPARISON: 07/29/2019 TECHNIQUE: Single radiograph of the chest dated 07/02/2020. FINDINGS: The cardiac silhouette is within normal limits in size. No significant pulmonary vascular congestion. Slight blunting of the left costophrenic angle. The lungs are otherwise clear of focal pulmonary opacity. No right pleural effusion. No pneumothorax. [place] right curvature of the spine with scattered osseous degenerative changes. No acute osseous abnormality. IMPRESSION: No acute cardiopulmonary abnormality with stable mild left pleural thickening and scarring and curvature of the spine. Dictated by: Dictated on workstation # [id number]
[2020-07-02] MEDS ORDERED: NITROGLYCERIN 0.4 MG SL TABS BTL 25'S SL PRN (10:30)
[2020-07-02 12:25] VITALS: BP 154/59
== END 2020-07-02 12:25 | disposition home or self-care (01) ==
LOC: EDUNIT# 08:58 → ER 09:00
DX: R07.9 Chest pain, unspecified (principal); K21.9 Gastro-esophageal reflux disease without esophagitis; E03.9 Hypothyroidism, unspecified; Z88.5 Allergy status to narcotic agent; Z88.8 Allergy status to other drugs, medicaments and biological substances; Z79.890 Hormone replacement therapy; Z86.73 Personal history of transient ischemic attack (TIA), and cerebral infarction without residual deficits; Z79.82 Long term (current) use of aspirin; Z79.899 Other long term (current) drug therapy
CPT/HCPCS: 36415; 71045; 80053; 83690; 83735; 83874; 83880; 84484; 85025; 85379; 85610; 85730; 93005

== ENCOUNTER → 2020-07-12 | Outpatient (CLI) | payer MEDICARE ==
[~2020-07-12] MED LIST changes: +CALC-250 PO; +ESOM20CA37 PO; +FLUO10CA31 PO; +MULT-1136 PO; +TRZ50T PO
== END ==
LOC: EDSTATUS 05-25 15:53 → ONC 10:17
PROVIDERS: ATTEND Internal Medicine Hematology & Oncology
DX: C92.10 Chronic myeloid leukemia, BCR/ABL-positive, not having achieved remission (principal); K21.9 Gastro-esophageal reflux disease without esophagitis; I25.10 Atherosclerotic heart disease of native coronary artery without angina pectoris; E03.9 Hypothyroidism, unspecified; I13.0 Hypertensive heart and chronic kidney disease with heart failure and stage 1 through stage 4 chronic kidney disease, or unspecified chronic kidney disease; N18.9 Chronic kidney disease, unspecified; D63.1 Anemia in chronic kidney disease; Z85.028 Personal history of other malignant neoplasm of stomach
CPT/HCPCS: 99213

== ENCOUNTER 2020-07-21 07:16 | Outpatient (RCR) | payer MEDICARE ==
[~2020-07-21] VITALS: Ht 157.5 cm; Wt 45.8 kg
== END 2020-10-13 ==
LOC: PREOP 07:16
PROVIDERS: ATTEND Surgery
DX: Z01.818 Encounter for other preprocedural examination (principal)

== ENCOUNTER 2020-10-11 13:10 | Outpatient (RCR) | payer MEDICARE ==
[2020-09-27 13:17] LABS: BASOPHILS % (AUTO) 0 % (0-10); EOSINOPHILS # (AUTO) 0.2 10^3/uL (0.0-0.3); EOSINOPHILS % (AUTO) 3 % (0-10); HEMATOCRIT 29 % (35-52); HEMOGLOBIN 9.6 g/dL (11.5-16.0); LYMPHOCYTES # (AUTO) 2.1 10^3/uL (1.0-4.0); LYMPHOCYTES % (AUTO) 29 % (12-44); MEAN CORPUSCULAR HEMOGLOBIN 33 pg (25-34); MEAN CORPUSCULAR HGB CONC 33 g/dL (32-36); MEAN CORPUSCULAR VOLUME 100 fL (80-99); MEAN PLATELET VOLUME 9.9 fL (9.0-12.2); MONOCYTES # (AUTO) 0.8 10^3/uL (0.0-1.0); MONOCYTES % (AUTO) 11 % (0-12); NEUTROPHILS % (AUTO) 56 % (42-75); PLATELET COUNT 204 10^3/uL (130-400); WHITE BLOOD COUNT 7.1 10^3/uL (4.3-11.0)
[2020-09-27 13:37] LABS: ALBUMIN 3.5 GM/DL (3.2-4.5); BILIRUBIN,TOTAL 0.4 MG/DL (0.1-1.0); CREATININE SERUM 1.56 MG/DL (0.60-1.30); POTASSIUM 4.1 MMOL/L (3.6-5.0); TOTAL PROTEIN 7.1 GM/DL (6.4-8.2)
== END 2020-12-26 | disposition home or self-care (01) ==
LOC: ONC 13:10
PROVIDERS: ATTEND Internal Medicine Hematology & Oncology
DX: C92.10 Chronic myeloid leukemia, BCR/ABL-positive, not having achieved remission (principal); C16.3 Malignant neoplasm of pyloric antrum; E03.9 Hypothyroidism, unspecified; I10 Essential (primary) hypertension
CPT/HCPCS: 80053; 81206; 83615; 85025; 99213